=== PATIENT | male | born 1965 | race Caucasian/White ===

== ENCOUNTER → 2017-06-12 08:03 | Outpatient (CLI) | payer OTHER, SELFPAY ==
[2017-06-12 10:40] LABS: Hemoglobin A1c 10.6 % (4.2-6.3)
[2017-06-12 10:43] LABS: Microalbumin,Random Urine 37.6 mg/L (NO RANGE EST.); Microalbumin:Creatinine Ratio 91.7 mg/g CRE (<30 mg/g CRE)
[2017-06-12 11:06] LABS: ALB/GLOB Ratio 1.2 RATIO (0.9-2.4); AST(SGOT) 16 U/L (15-37); Alanine Aminotransfer ALT/SGPT 28 U/L (16-61); Albumin, Serum 3.9 g/dL (3.2-5.0); Alkaline Phosphatase 95 U/L (45-117); Anion Gap 8 (5-15); BUN 14 mg/dL (7-18); BUN/Creat Ratio 17.9 RATIO (10-20); Calcium,Total 8.7 mg/dL (8.5-10.1); Chloride 102 mmol/L (98-107); Cholesterol 174 mg/dL (200); Creatinine, Serum 0.78 mg/dL (0.70-1.30); EST Glomerular Filtration Rate 111 mL/min (>60); Est Glom Filt Rate - Afr Amer 135 mL/min (>60); Globulin 3.2 g/dL (2.2-4.2); Glucose 196 mg/dL (74-106); High Density Lipoprotein 35 mg/dL; Potassium 4.3 mmol/L (3.5-5.1); Protein, Total 7.1 g/dL (6.4-8.2); Sodium Level 133 mmol/L (136-145); Triglycerides 184 mg/dL; Very Low Density Lipoprotein 37 mg/dL (5-40)
== END ==
PROVIDERS: Family Provider Family Medicine; PCP Family Medicine; Visit Provider Family Medicine
DX: I10 Essential (primary) hypertension (principal); E11.9 Type 2 diabetes mellitus without complications; E03.9 Hypothyroidism, unspecified; E78.5 Hyperlipidemia, unspecified
CPT/HCPCS: 36415; 80053; 80061; 82043; 82570; 83036; 84443

== ENCOUNTER 2017-08-04 09:31 | Inpatient (IN) | payer OTHER, SELFPAY ==
[2017-08-04] VITALS (22 sets, daily range): BP systolic 106–164; BP diastolic 60–98; PULSE 53–93; RESP 10–21; TEMP 36.2–36.7; O2SAT 94–100; BMI 30.9; BMI 31.0
--- NOTE | 2017-08-04 09:50 | EKG12_ITS ---
Test Reason : CP Blood Pressure : / mmHG Vent. Rate : 077 BPM Atrial Rate : 077 BPM P-R Int : 180 ms QRS Dur : 114 ms QT Int : 384 ms P-R-T Axes : 024 022 -26 degrees QTc Int : 434 ms Normal sinus rhythm Nonspecific T wave abnormality Abnormal ECG Confirmed by ORLANDO QUACH, LILLIAM ([id number]), editor newspaper LUISA GABRIEL ([id number]) on 08/07/2017 8:41:32 AM Referred By: JAYSHREE Confirmed By:LILLIAM PERRY MD
--- NOTE | 2017-08-04 09:52 | ED.VISSUMM ---
- ER Visit Summary Date of Service: 08/04/17 Chief Complaint: Chest pain History of Present Illness: The patient is a 52 M presenting with chest pain. Patient states this has been intermittent for the last 2 weeks. He states it is starting to worsen over last 2 days. He has pain in the mid chest that radiates to the left shoulder. This is worsened with exertion. He states he goes on daily walks when he goes uphill he has been having increasing pain over the past 2 days. He has diaphoresis and shortness of breath associated with this. Currently he is pain-free. He has history of hypertension, diabetes, hypercholesterolemia, previous smoking. No PE/DVT risk factors. Physical Examination: Vitals are stable. Patient is afebrile. Alert no acute distress. HEENT exam is unremarkable. Neck is supple. Lungs are clear and equal bilaterally. Mild chest wall tenderness, no crepitus. Heart is regular rate and rhythm. Abdomen is soft nontender nondistended. Extremities are unremarkable. Skin is warm and dry. No focal neurologic deficit. Remainder of exam is unremarkable. Emergency Department Course and Treatment: Patient was given aspirin on arrival. EKG is sinus rate of 77 with lateral t wave flattening. Chest x-ray shows no acute process. CBC, chemistries unremarkable other than BUN 22, glucose 195. Troponin is negative. Patient declined pain medication due to remote history of addiction. He is resting comfortably on reevaluation. Discussed with the hospitalist for observation. Disposition: Observation Impression: Chest pain This note was generated with [employer] dictation software. It may contain incorrect words, spelling, and punctuation that were not noted in review of the chart prior to signing ED Disposition - Plan for ED Patient: Chief Complaint: Chest Pain Referrals: Mikey Rogers MD [Primary Care Provider] -
[2017-08-04 10:00] LABS: Absolute Lymphocyte Count 2.29 X10^3/ul (0.83-4.51); Absolute Neutrophil Count 7.1 X10^3/uL (2.0-7.7); Basophil# 0.02 X10^3/uL; Basophil% 0.2 % (0-1); Eosinophil# 0.05 X10^3/uL; Eosinophils% 0.5 % (0-5); Hemoglobin 14.4 g/dl (13.0-16.5); Lymphocyte # 2.29 X10^3/ul (4.0); Lymphocyte % 22.5 % (19-41); Mean Corp Hgb Conc 33.5 g/gl (32-36); Mean Corpuscular Hgb 28.6 pg (27.0-32.0); Mean Corpuscular Volume 85.5 fL (80-94); Monocyte% 6.9 % (0-10); Neutrophil # 7.05 X10^3/uL (2.7-7.7); Neutrophil % 69.3 % (47-70); Platelet Count 366 K/mm3 (150-450); RBC Distribution Width CV 13.9 % (11.6-14.6); RBC Distribution Width SD 43.4 fl (35.1-43.9); Red Blood Count 5.03 M/mm3 (4.6-6.2); White Blood Count 10.2 K/mm3 (4.4-11.0)
--- NOTE | 2017-08-04 10:00 | RAD_ITS ---
STUDY: X-RAY CHEST REASON FOR EXAM: Male, 52 years old. Chest pain. TECHNIQUE: Single AP portable view of the chest. COMPARISON: Comparison is made with prior study dated June 15, 2013. FINDINGS: EKG electrodes are seen. The lungs are clear and expanded. There is no demonstrated pleural abnormality. Normal size heart. Normal mediastinum and alberto. Normal visualized pulmonary arteries. Normal visualized aortic arch and descending thoracic aorta. There are diffuse degenerative changes of the visualized thoracic spine. Normal visualized ribs, clavicles, and shoulders. There is no demonstrated abnormality of the visualized soft tissue structures of the upper abdomen. RAD/Chest 1 View (Portable) IMPRESSION: No acute abnormality is present. Electronically Signed: Pola Funes MD at 10:30 EDT Tel [phone], Service support ,
[2017-08-04 10:02] LABS: POSITIVE COUNT NO; POSITIVE DIFFERENTIAL NO; POSITIVE MORPHOLOGY NO
[2017-08-04] MEDS: Aspirin 81 MG TAB.CHEW 324 MG PO (10:07)
[2017-08-04 10:16] LABS: Anion Gap 9 (5-15); BUN 22 mg/dL (7-18); BUN/Creat Ratio 23.4 RATIO (10-20); Calcium,Total 9.2 mg/dL (8.5-10.1); Chloride 101 mmol/L (98-107); Creatinine, Serum 0.94 mg/dL (0.70-1.30); EST Glomerular Filtration Rate 90 mL/min (>60); Est Glom Filt Rate - Afr Amer 109 mL/min (>60); Estimated Creatinine Clearance 84.84 ml/min; Glucose 195 mg/dL (74-106); Potassium 4.2 mmol/L (3.5-5.1); Sodium Level 139 mmol/L (136-145)
--- NOTE | 2017-08-04 11:28 | PCM.HP.STD ---
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 insulin use: without [place] use Diabetes mellitus complication status: with unspecified complications Qualified Code(s): E11.8 - Type 2 diabetes mellitus with unspecified complications (3) HTN (hypertension) Status: Chronic Qualifiers: Hypertension type: essential hypertension Qualified Code(s): I10 - Essential (primary) hypertension (4) Mixed hyperlipidemia Status: Chronic (5) Obesity (BMI 30-39.9) Status: Chronic Qualifiers: Obesity type: unspecified obesity type Obesity classification: adult class 1 (BMI 30 - 34.9) Body mass index: BMI 31.0-31.9 (6) Barretts esophagus Status: Chronic Qualifiers: Beaulieu's esophagus type: without dysplasia Qualified Code(s): K22.70 - Beaulieu's esophagus without dysplasia History of Present Illness Date of Admission: 08/04/17 Chief Complaint: Chest pain - 1 day The patient is a 52 year old M with PMHx of Type 2 DM, hypertension, Beaulieu's esophagus, no hx of cardiac disease, who has been having episodes of chest pain ongoing for days. He had called his primary care doctor and was told to switch his day omeprazole to evening. This seemed to have helped a little bit. He gets severe chest discomfort when he walks and it is relieved with rest. Pain starts in the epigastric region and radiates up his sternum, into his throat and then into his left shoulder and arm with associated numbness. It is not associated with nausea or vomiting or diaphoresis. It has been associated with episodes of syncope that lasts every few seconds. He has had more than 4 episodes of such. Some of these episodes have been followed by incontinence of stool but no consisting of formula for the month. His describes them as lasting for a few seconds with complete unresponsiveness. He had a primary care doctor appointment on but with the pain getting more frequent, he decided to come to the ED. EKG shows flattening of the T waves in inferior leads compaired to previous EKG. He had pain in the ED that did not go away with morphine he was given in the ED on the way to the floor. His admitting blood work showed unremarkable CBCD, BMP showed Bun 22, Cr 0.94, glucose 185, troponins was 0.015. On the floor, his pain was 10/10, got a dose of sublingual nitro that took away his pain for a while. HIs vitals were unremarkable. He was subsequently put on a nitropaste which helped the pain a lot. He denied nausea or vomiting. 20 minutes later, patient started to be diaphoretic and bradycardic. His telemetry showed ST segment elevation in leads II, II, AVF. A STEMI alert was called and patient given loading dose of Brilinta 180mg po x1, sent to blood bank laboratory professional. Past Medical History Past Medical History (Chronic Problems): Chronic Problems Barretts esophagus (Chronic) Obesity (BMI 30-39.9) (Chronic) Diabetes mellitus, type II (Chronic) Mixed hyperlipidemia (Chronic) HTN (hypertension) (Chronic) Allergies niacin Allergy (Verified 08/04/17 09:36) Shortness of breath Home Medications: Ambulatory Orders Medication Instructions Recorded Atorvastatin Calcium 40 mg PO QHS 08/04/17 Fenofibrate [Tricor] 145 mg PO DAILY 08/04/17 Glimepiride [Amaryl] 1 mg PO DAILY 08/04/17 Insulin Glargine,Hum.rec.anlog 10 unit SQ QHS 08/04/17 [Basaglar Kwikpen U-100] Lisinopril [Zestril] 20 mg PO DAILY 08/04/17 Metformin HCl [Glucophage] 1,000 mg PO BIDCM 08/04/17 Omeprazole 40 mg PO DAILY 08/04/17 Verapamil HCl [Verelan Pm] 200 mg PO DAILY 08/04/17 Surgical History: no surgical history Psychiatric History: No pertinent psych hx Lives: Spouse/ Significant Other Smoking Status: Former smoker Tobacco Use: Non-smoker Alcohol: None Drugs: None - *Family History Paternal History Items: Cancer - esophageal Maternal History Items: Heart Disease Review of Systems Constitutional: Denies: Anorexia, Chills, Fever, Night Sweats, Malaise, Weakness, Weight Change Eyes: Denies: Blurred vision, Cataracts, Conjunctivae Inflammation, Drainage HEENT: Denies: Difficulty Hearing, Difficulty Swallowing, Head Aches, Hearing Changes, Nasal bleeding, Nasal Congestion, Sinus Congestion, Sinus Drainage Cardiovascular: Reports: Chest Pain, Chest Pressure, Chest Tightness, Light Headedness, Syncope. Denies: Claudication, Orthopnea, Palpitations, Paroxysmal Noc. Dyspnea Respiratory: Reports: Shortness of Breath, Shortness of breath upon exertion. Denies: Cough, Hemoptysis, Pleuritic Pain, Shortness of breath at rest, Sputum production Gastrointestinal: Denies: Abdominal Pain, Constipation, Hematemesis, Nausea, Vomiting Genitourinary: Denies: Dysuria, Frequency, Incontinence Musculoskeletal: Denies: Joint Pain, Joint stiffness, Joint swelling, Joint Tenderness Skin: Denies: Rash, Wounds Neurological: Denies: Numbness, Tingling, Focal weakness Psychiatric: Denies: Anxiety, Depression, Homicidal Ideations, Suicidal Ideations Hematologic/ Lymphatic: Denies: Easy Bruising, Easy Bleeding VTE Information - Inpt Only VTE Present on Admission: No VTE Pharm Prophylaxis ordered?: Yes - Physical Exam General: Alert, Oriented x3, Cooperative HEENT: Atraumatic, PERRLA, EOMI, Normocephalic Neck: Supple, No JVD, Negative Carotid Bruits Lungs: Clear to auscultation, Normal air movement Cardiovascular: Regular rate, No murmurs Abdomen: Bowel Sounds Present, Soft, Non Tender Extremities: No edema, Capillary Refill Less than 3 Seconds Skin: No rashes, No breakdown Musculoskeletal: No Tenderness to Palpation of Joints or Extremities Neurological: Cranial nerves II-XII grossly intact Psych/Mental Status: Normal Affect, Appropriate Vital Signs Temp Pulse Resp BP Pulse Ox 97.8 F 75 16 135/91 H 96 08/04/17 09:32 08/04/17 11:05 08/04/17 11:05 08/04/17 11:05 08/04/17 11:05 Oxygen Delivery Method Room Air Weight: 87.09 kg Body Mass Index (BMI) 30.9 Finger Stick Blood Glucose 79 Laboratory Tests Past 24 Hrs 08/04/17 08/04/17 09:40 09:40 WBC 10.2 RBC 5.03 Hgb 14.4 Hct 43.0 MCV 85.5 MCH 28.6 MCHC 33.5 RDW 13.9 RDW Differential 43.4 Plt Count 366 MPV 9.0 Immature Gran % (Auto) 0.600 Neut % (Auto) 69.3 Lymph % (Auto) 22.5 Crook % (Auto) 6.9 Eos % (Auto) 0.5 Baso % (Auto) 0.2 Absolute Neuts (auto) 7.1 Absolute Lymphs (auto) 2.29 Total Counted Not Reportable Sodium 139 Potassium 4.2 Chloride 101 Carbon Dioxide 29.0 Anion Gap 9 BUN 22 H Creatinine 0.94 Estim Creat Clear Calc 84.84 Est GFR (MDRD) Af Amer 109 Est GFR (MDRD) Non-Af 90 BUN/Creatinine Ratio 23.4 H Glucose 195 H Calcium 9.2 Troponin I < 0.015 Assessment/Plan All Active Problems STEMI (ST elevation myocardial infarction) (Acute) Diabetes mellitus, new onset (Acute) Chest pain (Acute) Accelerated hypertension (Acute) 52 year old M with PMHx of Type 2 DM, hypertension, Beaulieu's esophagus, no hx of cardiac disease, who has been having episodes of chest pain ongoing for days. Chest pain starts in the epigastric region and radiates up his sternum, into his throat and then into his left shoulder and arm with associated numbness. It is not associated with nausea or vomiting or diaphoresis. It has been associated with episodes of syncope that lasts every few seconds. He has had more than 4 episodes of such. 1. Acute STEMI (ASAEL score 2), s/p cardiac cath, findings show 99% distal RCA stenosis, 80% prox/mid Left circumflex stenosis, 90% ostial marginal stenosis, s/p RCA stent, received Brilinta 180mg po x 1, will follow with aspirin, brilinta, statin, 2d-echo, on lipid profile in am, post cath protocol. 2. 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 2. Type 2 DM, HbA1c 10.9, on insulin, metformin and glimepiride, will hold metformin, continue with accucheks, and ISS 3. Hypertension, controlled on Lisinopril, will continue to monitor vitals. 4. Hyperlipidemia, on statin, fenofibrate 5. Beaulieu's esophagus, will put on PPI BID 6. DVT PPx - Lovenox SC Code Visit Inpatient E&M: 20954 Init Hosp L3
[2017-08-04] MEDS: Morphine 4 MG/ML Syringe IV (11:45)
[2017-08-04] MEDS: Ondansetron 4 MG/2 ML Vial IV (11:45)
--- NOTE | 2017-08-04 12:11 | ECHOD_ITS ---
Reason For Study: CHEST PAIN Procedure This was a 2D Doppler, Color Flow transthoracic echocardiogram. Exam performed portable in ICU/CCU. Left Ventricle Normal size and thickness. The estimated ejection fraction is 65 %. Normal diastology for age. No regional wall motion abnormalities noted. Right Ventricle Normal size and thickness. Normal systolic function. Atria Normal left atrium. Normal right atrium. Normal atrial septum. Mitral Valve The mitral valve is structurally normal. No prolapse or stenosis seen. No mitral valve insufficiency. Tricuspid Valve Normal tricuspid valve. Trivial tricuspid valve insufficiency. Right ventricular systolic pressure estimated to be 23 mmHg. Aortic Valve Trisinus/trileaflet aortic valve. Pulmonic Valve Normal pulmonic valve. Great Vessels Normal aortic root. Normal arch. Normal inferior vena cava. Inferior vena cava collapse with sniff. Pericardium/Pleural No pericardial effusion. MMode/2D Measurements & Calculations LVIDd: 4.2 cm IVSd: 0.93 cm Ao root diam: 3.1 cm LVIDs: 3.1 cm LVPWd: 1.1 cm LA dimension: 3.6 cm RVDd: 2.9 cm FS: 27.0 % LAV(MOD-bp): 45.7 ml LA A4 area: 18.0 cm2 RA A4 area: 11.5 cm2 LAV(MOD-bp) Indexed: 23.3 ml/m2 LAV(MOD-sp2): 40.7 ml LAV(MOD-sp4): 50.0 ml Doppler Measurements & Calculations MV E max arnaldo: 76.7 cm/sec Lat Peak E' Arnaldo: 9.4 cm/sec Med Peak E' Arnaldo: 8.1 cm/sec MV A max arnaldo: 67.6 cm/sec E/E' lat: 8.2 E/E' med: 9.4 MV E/A: 1.1 Ao V2 max: 125.3 cm/sec LV V1 max: 120.9 cm/sec PA V2 max: 93.2 cm/sec Ao max P.3 mmHg LV V1 max P.8 mmHg TR max arnaldo: 213.6 cm/sec TR max P.3 mmHg Interpretation Summary The estimated ejection fraction is 65 %. Normal diastology for age. Trivial tricuspid valve insufficiency. Right ventricular systolic pressure estimated to be 23 mmHg. Compared to echo report dated 05/25/2013, no appreciable changes noted. Ordering Physician: ANJALI ANTHONY Referring Physician: LORE JORDAN Performed By: Sandra Latham, BASHIR, RVT
[2017-08-04] MEDS: Nitroglycerin Oint 1 INCH PACKET TRANSDERM. (12:25)
--- NOTE | 2017-08-04 13:30 | CASEMGMT ---
According to [facility] website, the following are in-network tertiary facilities: [facility], [place], [facility], [place], [facility], [facility], [facility], [place], and . Luc CABRAL CM
--- NOTE | 2017-08-04 13:46 | CASEMGMT ---
Social Work SW responded to STEMI Alert. Pt sitting outside pt room while staff was with pt. Support provided to pt . Offered to call someone for pt and she declined as she wanted to make phone calls herself. Pt scheduled for colonoscopy at [facility] tomorrow and she is requesting SW cancel this appointment for her. Chaplain Wilkes approached pt and offered to accompany her to [facility] waiting area. Phone call placed to Cari in [facility] and informed pt Pearl will not be at colonoscopy tomorrow. EULALIA Aguilar
--- NOTE | 2017-08-04 14:14 | CHAPLAIN ---
Type of Pastoral Visit ___ Initial Visit ___ Follow-up Visit ___ On-call Visit ___ General Patient Visit ___ Spiritual Assessment ___ Family Conference ___ Bereavement ___ Rapid Response ___ Code Blue _x - STEMI to [facility] - Other (describe below) Pastoral Care Referral From ___ Patient _x__ Family ___ Nurse ___ Physician ___ Corrections Counselor ___ Brick Setter Operator _x__ Other (describe below) Sacrament/Intervention _x__ Active listening ___ Anointing ___ Yazidi ___ Bereavement ___ Communion _x__ Chloé exploration ___ _x__ Life review _x__ Prayer ___ Reconciliation ___ Sacrament of Sick _x__ Supportive presence ___ Wedding _x__ Other (describe below) Pastoral Comments met with spouse during STEMI and escorted her to [facility]; gave presence, made phone call to zoroastrianism of pt; met other family members as they arrived; explained timing of interventions; talked about patient and life; offered prayer; as clergy members of pt arrived gave space for them to agricultural engineering technicians to family; heard good report during procedure and assumed situation was well
--- NOTE | 2017-08-04 14:45 | EKG12_ITS ---
Test Reason : CP Blood Pressure : / mmHG Vent. Rate : 055 BPM Atrial Rate : 055 BPM P-R Int : 170 ms QRS Dur : 116 ms QT Int : 444 ms P-R-T Axes : 028 028 067 degrees QTc Int : 424 ms Sinus bradycardia Suspect inferior infarct acute Reconfirmed by ORLANDO QUACH, LILLIAM ([id number]), electronic news gathering editor ABDI BANUELOS ([id number]) on 08/17/2017 8:19:08 AM Referred By: Confirmed By:LILLIAM PERRY MD
--- NOTE | 2017-08-04 14:46 | EKG12_ITS ---
Test Reason : CP Blood Pressure : / mmHG Vent. Rate : 066 BPM Atrial Rate : 066 BPM P-R Int : 168 ms QRS Dur : 110 ms QT Int : 428 ms P-R-T Axes : 005 020 -04 degrees QTc Int : 448 ms Normal sinus rhythm Nonspecific T wave abnormality Abnormal ECG When compared with ECG of 04-AUG-2017 12:59, MANUAL COMPARISON REQUIRED, DATA IS UNCONFIRMED Confirmed by ORLANDO QUACH, LILLIAM ([id number]), visual effects editor LUISA GABRIEL ([id number]) on 08/07/2017 9:46:54 AM Referred By: Confirmed By:LILLIAM PERRY MD
--- NOTE | 2017-08-04 14:53 | PCM.CONS.C ---
Problem List (1) STEMI (ST elevation myocardial infarction) Status: Acute Reason for Consult Date of Consultation: 08/04/17 History of Present Illness: The patient is a 52 year old M with past medical history significant for diabetes mellitus, dyslipidemia, hypertension and Beaulieu's esophagus. For the past few days, he has been having anterior chest discomfort off and on. This is particularly precipitated with activity. Relieved with rest. He also had resting episodes last night. Per patient, he thought it was his Beaulieu's esophagus. However this morning, he finally decided to come to the emergency room. Initial EKG was unremarkable. The patient was admitted to the floor. On the floor, the patient had more symptoms. Another EKG was done. It showed acute ST elevations in the inferior leads consistent with acute inferior ST elevation myocardial infarction. Subsequently a STEMI alert was called. Patient denies any previous history of coronary artery disease. No previous history of angina pectoris. [] Past Medical History Allergies/Adverse Reactions: Allergies bee venom protein (honey bee) Allergy (Severe, Verified 08/04/17 12:41) Angioedema niacin Allergy (Verified 08/04/17 09:36) Shortness of breath Home Medications: Ambulatory Orders Medication Instructions Recorded Atorvastatin Calcium 40 mg PO QHS 08/04/17 Fenofibrate [Tricor] 145 mg PO DAILY 08/04/17 Glimepiride [Amaryl] 1 mg PO DAILY 08/04/17 Insulin Glargine,Hum.rec.anlog 10 unit SQ QHS 08/04/17 [Basaglar Kwikpen U-100] Lisinopril [Zestril] 20 mg PO DAILY 08/04/17 Metformin HCl [Glucophage] 1,000 mg PO BIDCM 08/04/17 Omeprazole 40 mg PO DAILY 08/04/17 Verapamil HCl [Verelan Pm] 200 mg PO DAILY 08/04/17 Past Medical History (Chronic Problems): Chronic Problems Barretts esophagus (Chronic) Obesity (BMI 30-39.9) (Chronic) Diabetes mellitus, type II (Chronic) Mixed hyperlipidemia (Chronic) HTN (hypertension) (Chronic) Surgical History: no surgical history Psychiatric History: No pertinent psych hx - *Family History Paternal History Items: Cancer - esophageal Maternal History Items: Heart Disease Lives: Spouse/ Significant Other Smoking Status: Former smoker Tobacco Use: Non-smoker Alcohol: None Drugs: None Review of Systems - Review of Systems General: Denies: Fever, Malaise, Chills, Anorexia, Weight Loss HEENT: Denies: Head Aches, Sore Throat Cardiovascular: Reports: Chest Discomfort at Rest, Chest Discomfort with Exertion Respiratory: Denies: Cough, Hemoptysis Gastrointestinal: Reports: - - History of Beaulieu's esophagus, diagnosed a few years ago.. Denies: Epigastric Discomfort, Hematemesis, Hematochezia, Melena Muscoloskeletal: Denies: Myalgias Skin: Denies: Jaundice Neurological: Denies: History of TIA, History of CVA Endocrine: Denies: Heat Intolerance, Cold Intolerance Hematologic/ Lymphatic: Denies: Easy Brusing, Easy Bleeding Subjectve: Appeared anxious. Objective: Vital Signs Temp Pulse Resp BP Pulse Ox 98.0 F 68 18 140/98 H 98 08/04/17 12:05 08/04/17 12:05 08/04/17 12:05 08/04/17 12:05 08/04/17 12:05 Oxygen Delivery Method Room Air Weight: 87.09 kg Body Mass Index (BMI) 30.9 General: Awake, Alert, Oriented x 3, - HEENT: Atraumatic, Normocephalic Oral: Moist Mucosa Neck: No JVD Lungs: Clear to auscultation Cardiovascular: Regular Rhythm, Normal S1, Normal S2 Vascular: No Carotid Bruits Abdomen: Bowel Sounds Present, Soft Extremities: No edema Neurological: No Focal Motor or Sensory Deficit Psych/Mental Status: Appropriate Rhythm: Normal sinus rhythm EKG: First EKG showed normal sinus rhythm with no acute ST T-wave changes. Subsequent EKG on the floor showed acute ST elevation in the inferior leads consistent with acute myocardial infarction Assessment/Plan 1. Acute inferior myocardial infarction. Patient was recommended emergent coronary angiography and possible revascularization. After obtaining informed consent, the patient was brought to the cardiac catheterization lab. Coronary angiography revealed about 99% occlusion in the mid right coronary artery. There is also noted to be a calcified 80% lesion in the distal RCA. Successful percutaneous revascularization was performed with balloon angioplasty and a 3.0 x 38 mm Synergy and a 3.0 x 16 mm Synergy stent was successfully deployed. Postdilatation was performed using a 3.25 mm balloon at high pressures. Excellent results were noted next 2. Continue aspirin lifelong. Brilinta treatment for at least one year 3. Patient has residual lesion in the proximal left circumflex coronary artery as well as the ostial first obtuse marginal branch. Possible staged intervention to the proximal left circumflex as outpatient 4. Start on beta blockers. Discontinue verapamil. Start on amlodipine 5. Lipid management as per primary care physician. Recommend target LDL cholesterol less than 100 mg/dL 6. Hypertension. Continue ANISHA inhibition. Start on beta blockers. Discontinue verapamil. Start on amlodipine 7. Normal LV systolic function graft 8. History of Beaulieu's esophagus. Continue patient's proton pump inhibitor
[2017-08-04 15:01] LABS: ACT Activated Clotting Time 324 sec (74-137)
--- NOTE | 2017-08-04 15:23 | CL.I_ITS ---
Patient Name: ASIF CASE Study Date: 08/04/2017 Performing: Leoncio Mills MD Ht: 66 inches 168 cm : 1965 Wt: 192.1 lbs 87 kg Age: 52 Gender: male BSA: 1.97 PROCEDURE(S) PERFORMED [id number], JOSEPH AND/OR PTCA, ARTERY OR GRAFT, SINGLE VESSEL [id number] CLINICAL PROFILE AND CO-MORBIDITIES Heart Failure: None Angina Classification Anginal Classification w/in 2 Weeks: CCS IV CAD Presentations: STEMI. Symptom onset Date/Time: 08/04/2017 14:20:00 Time Estimated CONCLUSIONS 99% distal RCA 80% Prox/Mid LCX, 90% ostial OM2 LVEF 60% RECOMMENDATIONS ASA Indefinitley Brilinta for at least 12 months Staged PCI LCX as OP DESCRIPTION OF PROCEDURE The patient arrived to the procedure lab. The risks and benefits of the procedure as well as a full d escription of our services here and lack of surgical backup were fully explained to the patient and/o r their significant other prior to the catheterization. The Timeout was completed, verifying the rosalind ect patient and procedure. The patient's procedural site was prepped and draped in the usual fashion. Local anesthetic was given subcutaneously to right radial region with Lidocaine 2%. Using a modified Seldinger technique, arterial access was obtained via the right radial artery, a 6Fr sheath was inse rted.. Right Coronary Artery selective angiography was then performed in multiple views using a 5 Fr . 4.0 [place] catheter. Left Coronary Artery selective angiography was performed in multiple views usin g a 5 Fr. JL3.5 catheter. Left Ventriculography was performed in WELCH projection using a 5 Fr. Pigtail catheter. LV to AO pullback pressures were then recorded JR 4.0 guide Guide catheter was inserted and engaged into the RCA. runthrough wire Guide wire was adv anced to the RCA. Angiogram performed pre balloon dilatation. 3.0 x 20 nc emerge Balloon catheter wa s inserted. Balloon catheter was advanced across lesion in the right coronary, distal. PTCA balloon i nflated at 6 atms for 11 secs. PTCA balloon inflated at 6 atms for 10 secs. 3.0 x 38 resolute Drug El uting stent was inserted. Balloon catheter was reinserted. Balloon catheter was advanced across lesio n in the right coronary, distal. PTCA balloon inflated at 12 atms for 10 secs. PTCA balloon inflated at 12 atms for 12 secs. PTCA balloon inflated at 12 atms for 15 secs. PTCA balloon inflated at 12 richard s for 15 secs. 3.0 x 38 synergy Drug Eluting stent was inserted. Drug Eluting stent was advanced acro ss the lesion in the right coronary, distal. Angiogram performed pre stent deployment. Angiogram perf ormed post stent deployment. 3.0 x 16 synergy Drug Eluting stent was inserted. Angiogram performed pr e stent deployment. Drug Eluting stent was advanced across the lesion in the RCA. 3.0 x20 NC emerge B alloon catheter was inserted. Balloon catheter was advanced across lesion in the right coronary, dist al. Angiogram performed pre balloon dilatation. Angiogram performed post balloon dilatation. 3.25 x 2 0 nc emerge Balloon catheter was inserted and advance to distal rca. Angiogram performed post balloon dilatation. The arterial sheath was pulled and a TR Band was applied for hemostasis CORONARY ANGIOGRAPHY DOMINANCE: Right Dominant LEFT HEART ASSESSMENT Left Ventricular Ejection Fraction: by LV Gram 60 % LEFT MAIN: 20% Mid LEFT ANTERIOR DECENDING ARTERY: 30% proximal CIRCUMFLEX ARTERY: 80% Prox/Mid. 90% ostial OM2 RIGHT CORONARY ARTERY: 50% Prox, 60% Mid Prox. 99% distal INTERVENTION INFORMATION LESION SITE: RCA (Distal) Lesion Complexity: High/C Pre Stenosis: 99 % Pre intervention ASAEL flow: 3 PROCEDURE: Drug Eluting Stent with pre and post dilatation Post Stenosis: 0 % Post intervention ASAEL flow: 3 Lesion Devices: Terumo .014 Runthrough Extra Floppy 180cm straight Medtronic 6 Fr JR4.0 100cm Guide Catheter Medtronic Resolute RX JOSEPH 3.0x38 Marky Sci NC EMERGE MR 3.00x20 BALLOON Marky Sci Synergy MR JOSEPH 3.00x38 Marky Sci Synergy MR JOSEPH 3.00x16 Marky Sci NC EMERGE MR 3.25x20 BALLOON COMPLICATIONS No Complications PROCEDURE MEDICATIONS Fentanyl 25 mcg IV Versed 1 mg IV Fentanyl 25 mcg IV Oxygen: 2 L/min via nasal cannula Angiomax Bolus 13.5 ml's 08/04/2017 13:41:24 Angiomax 31.5 ml/hr @ 08/04/2017 13:42:00 Nitro Patch Left anterior chest on arrival 08/04/2017 13:16:24 Nitro 200 mcg IC 08/04/2017 14:00:45 Nitro Patch removed from left anterior chest 08/04/2017 14:02:00 Nitro 200 mcg IC 08/04/2017 14:19:18 Verapamil 2.5mg, Ntg 100mcgs, given IA 08/04/2017 13:28:21 IV Bolus: .9 NaCl 500 ml total 08/04/2017 13:48:37 IV Fluids: .9 NaCl decreased to 100 ml/hr 08/04/2017 13:48:51 SUMMARY OF HEMODYNAMIC DATA Time AIR REST ECG 13:18:20 AO 133/83 (108) SA 13:29:48 LV 138/2, 16 13:30:02 LV 135/2, 17 13:30:08 LV 117/5, 18 14:30:21 LV 116/5, 20 14:30:29 LVp 109/12, 25 14:31:32 AOp 0/0 (57) 14:31:37 Signed By Leoncio Mills MD On 08/05/2017 08:10:06 Signed By Leoncio Mills MD On 08/04/2017 15:23:03 Leoncio Mills MD
--- NOTE | 2017-08-04 16:55 | PCM.CONS.GEN ---
Reason for Consult Date of Consultation: 08/04/17 Reason for Consultation: seizure disorder History of Present Illness: The patient is a 52 year old male who is now s/p stemi, reports long history of spells since childhood described as blackout spells. at some point many years ago , rn noted spell associated with nausea, stiffness, and diaphoresis and occasional urinary incontinence, never any tongue biting. which was suspicious for sz, subsequently saw dr connor who diagnosed with seizure disorder and was treated with tegretol for 3 yrs then stopped. still has spells associate with pain. doesnt remember what tests were performed by dr connor. discussed with by phone who describes never any tongue biting or nocturnal spells. reports spells triggered by severe pain associated with stiffening, no shaking. The patient is a 52 year old M with PMHx of Type 2 DM, hypertension, Beaulieu's esophagus, no hx of cardiac disease, who has been having episodes of chest pain ongoing for days. He had called his primary care doctor and was told to switch his day omeprazole to evening. This seemed to have helped a little bit. He gets severe chest discomfort when he walks and it is relieved with rest. Pain starts in the epigastric region and radiates up his sternum, into his throat and then into his left shoulder and arm with associated numbness. It is not associated with nausea or vomiting or diaphoresis. It has been associated with episodes of syncope that lasts every few seconds. He has had more than 4 episodes of such. Some of these episodes have been followed by incontinence of stool but no consisting of formula for the month. His describes them as lasting for a few seconds with complete unresponsiveness. He had a primary care doctor appointment on but with the pain getting more frequent, he decided to come to the ED. EKG shows flattening of the T waves in inferior leads compaired to previous EKG. He had pain in the ED that did not go away with morphine he was given in the ED on the way to the floor. His admitting blood work showed unremarkable CBCD, BMP showed Bun 22, Cr 0.94, glucose 185, troponins was 0.015. On the floor, his pain was 10/10, got a dose of sublingual nitro that took away his pain for a while. HIs vitals were unremarkable. He was subsequently put on a nitropaste which helped the pain a lot. He denied nausea or vomiting. 20 minutes later, patient started to be diaphoretic and bradycardic. His telemetry showed ST segment elevation in leads II, II, AVF. A STEMI alert was called and patient given loading dose of Brilinta 180mg po x1, sent to laboratory aide. Past Medical History Past Medical History (Chronic Problems): Chronic Problems Barretts esophagus (Chronic) Obesity (BMI 30-39.9) (Chronic) Diabetes mellitus, type II (Chronic) Mixed hyperlipidemia (Chronic) HTN (hypertension) (Chronic) Allergies bee venom protein (honey bee) Allergy (Severe, Verified 08/04/17 12:41) Angioedema niacin Allergy (Verified 08/04/17 09:36) Shortness of breath Home Medications: Ambulatory Orders Medication Instructions Recorded Atorvastatin Calcium 40 mg PO QHS 08/04/17 Fenofibrate [Tricor] 145 mg PO DAILY 08/04/17 Glimepiride [Amaryl] 1 mg PO DAILY 08/04/17 Insulin Glargine,Hum.rec.anlog 10 unit SQ QHS 08/04/17 [Basaglar Kwikpen U-100] Lisinopril [Zestril] 20 mg PO DAILY 08/04/17 Metformin HCl [Glucophage] 1,000 mg PO BIDCM 08/04/17 Omeprazole 40 mg PO DAILY 08/04/17 Verapamil HCl [Verelan Pm] 200 mg PO DAILY 08/04/17 Surgical History: no surgical history Psychiatric History: No pertinent psych hx Lives: Spouse/ Significant Other Smoking Status: Former smoker Tobacco Use: Non-smoker Alcohol: None Drugs: None - *Family History Paternal History Items: Cancer - esophageal Maternal History Items: Heart Disease Review of Systems Constitutional: Denies: Chills, Fever, Weight Change HEENT: Denies: Head Aches, Sinus Congestion, Sinus Drainage Cardiovascular: Denies: Chest Pain, Palpitations Respiratory: Denies: Cough, Shortness of breath at rest, Sputum production Gastrointestinal: Denies: Abdominal Pain, Nausea, Vomiting Genitourinary: Denies: Dysuria Musculoskeletal: Denies: Joint Pain, Joint Tenderness Skin: Denies: Rash, Wounds Neurological: Denies: Numbness, Tingling, Focal weakness Psychiatric: Denies: Anxiety, Depression, Homicidal Ideations, Suicidal Ideations Hematologic/ Lymphatic: Denies: Easy Bruising, Easy Bleeding - Physical Exam General: Alert, Oriented x3, Cooperative HEENT: Atraumatic, PERRLA, EOMI, Normocephalic Neurological: Cranial nerves II-XII grossly intact, Deep Tendon Reflexes 2+/4 and Symmetrical, Neuro grossly intact, Motor Exam 5/5 strength throughout Psych/Mental Status: Normal Affect, Appropriate Vital Signs Temp Pulse Resp BP Pulse Ox 36.2 C L 83 10 L 164/97 H 99 08/04/17 15:16 08/04/17 16:30 08/04/17 16:30 08/04/17 16:30 08/04/17 16:30 Oxygen Flow Rate (L/min) 2 Oxygen Delivery Method Room Air Laboratory Tests Past 24 Hrs 08/04/17 14:31 Activated Clotting Time 324 H Laboratory Results - last 24 hr 08/04/17 08/04/17 08/04/17 09:40 09:40 14:31 WBC 10.2 RBC 5.03 Hgb 14.4 Hct 43.0 MCV 85.5 MCH 28.6 MCHC 33.5 RDW 13.9 RDW Differential 43.4 Plt Count 366 MPV 9.0 Immature Gran % (Auto) 0.600 Neut % (Auto) 69.3 Lymph % (Auto) 22.5 [place] % (Auto) 6.9 Eos % (Auto) 0.5 Baso % (Auto) 0.2 Absolute Neuts (auto) 7.1 Absolute Lymphs (auto) 2.29 Total Counted Not Reportable Activated Clotting Time 324 H Sodium 139 Potassium 4.2 Chloride 101 Carbon Dioxide 29.0 Anion Gap 9 BUN 22 H Creatinine 0.94 Estim Creat Clear Calc 84.84 Est GFR (MDRD) Af Amer 109 Est GFR (MDRD) Non-Af 90 BUN/Creatinine Ratio 23.4 H Glucose 195 H Calcium 9.2 Troponin I < 0.015 Current Home Med List Medication Instructions Recorded Confirmed Type Atorvastatin Calcium 40 mg PO QHS 08/04/17 08/04/17 History Fenofibrate [Tricor] 145 mg PO DAILY 08/04/17 08/04/17 History Glimepiride [Amaryl] 1 mg PO DAILY 08/04/17 08/04/17 History Insulin Glargine,Hum.rec.anlog 10 unit SQ QHS 08/04/17 08/04/17 History [Sophieagldayami Marvinpen U-100] Lisinopril [Zestril] 20 mg PO DAILY 08/04/17 08/04/17 History Metformin HCl [Glucophage] 1,000 mg PO BIDCM 08/04/17 08/04/17 History Omeprazole 40 mg PO DAILY 08/04/17 08/04/17 History Verapamil HCl [Verelan Pm] 200 mg PO DAILY 08/04/17 08/04/17 History Current Medications Generic Name Dose Route Start Last Admin Trade Name Freq PRN Reason Stop Dose Admin Acetaminophen 650 mg 08/04/17 12:11 Tylenol PO Q6H PRN PRN Mild Pain (1-3)/Temp > 100.7 F Amlodipine Besylate 5 mg 08/05/17 10:00 Norvasc PO DAILY [facility] Aspirin 81 mg 08/05/17 08:00 Aspirin, Baby PO DAILY@0800 [facility] Atorvastatin Calcium 80 mg 08/04/17 22:00 Lipitor PO QHS [facility] Atropine Sulfate 0.5 mg 08/04/17 14:44 IV UD PRN HR <50 bpm Bisacodyl 5 mg 08/04/17 12:11 Dulcolax PO DAILY PRN PRN Constipation Enoxaparin Sodium 40 mg 08/05/17 06:00 Lovenox SC DAILY@0600 [facility] Fenofibrate 145 mg 08/05/17 08:00 Tricor PO DAILY@0800 [facility] Glimepiride 1 mg 08/05/17 08:00 Amaryl PO DAILY@0800 [facility] Pantoprazole Sodium 40 mg/ 110 mls @ 330 mls/hr 08/04/17 13:00 Sodium Chloride IV Q12 [facility] Sodium Chloride 1,000 mls @ 150 mls/hr 08/04/17 14:45 IV 08/04/17 21:24 .Q6H40M [facility] Insulin Glargine 10 units 08/05/17 22:00 Lantus (Bkc) SC DAILY@2200 [facility] Lisinopril 20 mg 08/05/17 10:00 Zestril PO DAILY [facility] Magnesium Hydroxide 30 ml 08/04/17 12:11 Milk Of Magnesia PO DAILY PRN Constipation Metformin HCl 1,000 mg 08/04/17 17:00 08/04/17 15:37 Glucophage PO Not Given [facility] Metoprolol Tartrate 25 mg 08/04/17 22:00 Lopressor (Beta Courtney) PO BID [facility] Morphine Sulfate 1 mg 08/04/17 12:11 IV Q4H PRN PRN SEVERE PAIN (6-1010) Psyllium Hydrophilic Mucilloid 1 packet 08/04/17 12:11 Metamucil PO DAILY PRN PRN CONSTIPATION Sodium Chloride 500 ml 08/04/17 14:44 IV BOLUS PRN VASO-VAGAL PROTOCOL Sodium Chloride 5 - 30 ml 08/04/17 15:36 IV UD PRN SALINE FLUSH Ticagrelor 90 mg 08/04/17 22:00 Brilinta PO BID [facility] Assessment/Plan All Active Problems STEMI (ST elevation myocardial infarction) (Acute) Diabetes mellitus, new onset (Acute) Chest pain (Acute) Accelerated hypertension (Acute) seizures, previously diagnosed as reflex seizures due to pain suspect syncopal seizure no rx unless sz without painful stimulus
--- NOTE | 2017-08-04 17:01 | PCM.CON.CC ---
Reason for Consult Date of Consultation: 08/04/17 Reason for Consultation: ST elevation CT/bradycardia History of Present Illness: The patient is a 52 year old M, with a past medical history significant for type 2 diabetes mellitus, hypertension, Beaulieu's esophagus and questionable seizures who presented to [facility] on 626 secondary to 1 day history of chest pain. Patient reports on the night prior to presentation he developed significant chest pain in the center of his chest that radiated to his left shoulder and down the arm. Patient had attempted to take some omeprazole to see if this would help. Patient thought this was epigastric in nature and was associated with episodes of syncope and nausea. In the emergency room patient was triaged for chest pain and then admitted to the PCU for further monitoring. I was called emergently to the patient's room at approximately 1 PM secondary to acute onset of crushing chest pain, diaphoresis and appearing pale. Patient reportedly developed bradycardia just before the symptoms with a heart rate of approximately 32. Telemetry showed elevated ST elevations in the inferior leads. On my entering the room, Dr. Jacobs was at the base of the bed. Patient was noted to be diaphoretic and pale. No emesis was noted. EKG was just being completed showing an inferior ST elevation CT. This rapidly recovered over the course of 60 seconds and a repeat EKG was obtained showing normalization of inferior leads. Given patient's symptomatic nature, a ST elevation CT team was activated. Patient was personally escorted to the Process Control Specialist. Interventionalist was notified. Patient was given a loading dose of Brilinta and left to the care of the Process Control Specialist. Please see Process Control Specialist documentation for events in the Process Control Specialist. Following access, patient was found to have a significant stenosis of the right coronary artery. Patient did receive 2 drug-eluting stents in this area and then was transferred back to the intensive care unit. On repeat evaluation in the intensive care unit, patient was noted to be pain-free and denied any abdominal symptoms. Patient states his breathing was back to his baseline. No significant arrhythmias have been noted. Past Medical History Past Medical History (Chronic Problems): Chronic Problems Barretts esophagus (Chronic) Obesity (BMI 30-39.9) (Chronic) Diabetes mellitus, type II (Chronic) Mixed hyperlipidemia (Chronic) HTN (hypertension) (Chronic) Allergies bee venom protein (honey bee) Allergy (Severe, Verified 08/04/17 12:41) Angioedema niacin Allergy (Verified 08/04/17 09:36) Shortness of breath Home Medications: Ambulatory Orders Medication Instructions Recorded Atorvastatin Calcium 40 mg PO QHS 08/04/17 Fenofibrate [Tricor] 145 mg PO DAILY 08/04/17 Glimepiride [Amaryl] 1 mg PO DAILY 08/04/17 Insulin Glargine,Hum.rec.anlog 10 unit SQ QHS 08/04/17 [Basaglar Kwikpen U-100] Lisinopril [Zestril] 20 mg PO DAILY 08/04/17 Metformin HCl [Glucophage] 1,000 mg PO BIDCM 08/04/17 Omeprazole 40 mg PO DAILY 08/04/17 Verapamil HCl [Verelan Pm] 200 mg PO DAILY 08/04/17 Surgical History: no surgical history Psychiatric History: No pertinent psych hx Lives: Spouse/ Significant Other Smoking Status: Former smoker Tobacco Use: Non-smoker Alcohol: None Drugs: None - *Family History Paternal History Items: Cancer - esophageal Maternal History Items: Heart Disease Review of Systems Comment: See HPI, otherwise negative ?10 systems. Objective: Multiple EKGs were personally reviewed. Cardiac cath did show other potential lesions of the circumflex artery and ostial OM 2 in addition to the interventions were required of the right coronary artery. - Physical Exam General: Alert, Oriented x3, Cooperative, No apparent distress, Well developed, Well nourished, - - Speaking in full sentences. HEENT: Atraumatic, PERRLA, EOMI, Normocephalic, - - No scleral icterus or injection noted. Oral: Moist Mucosa, No Gingival or Mucosal Lesions/ Ulcerations, - - Good dentition Neck: Supple, No JVD, No Nodes, Trachea Midline Lungs: Clear to auscultation, Normal air movement, No rhonchi, No wheeze, No rales, - - Symmetric expansion. No dullness to percussion. Cardiovascular: Regular rate, Regular Rhythm, Normal S1, Normal S2, No murmurs, No rub noted, No Gallop Abdomen: Bowel Sounds Present, Soft, Non Tender, Non-Distended, Obese Extremities: No clubbing, No cyanosis, No edema, - - Right wrist with occlusion device is clean, dry and intact. Skin: No rashes, No breakdown Musculoskeletal: No Tenderness to Palpation of Joints or Extremities, No Muscle Wasting Lymphatic: No Cervical, Supraclavicular, or Inguinal Adenopathy Neurological: Cranial nerves II-XII grossly intact, Neuro grossly intact, Motor Exam 5/5 strength throughout Psych/Mental Status: Alert and oriented to time, place, person, mood and affect Vital Signs Temp Pulse Resp BP Pulse Ox 36.2 C L 83 10 L 164/97 H 99 08/04/17 15:16 08/04/17 16:30 08/04/17 16:30 08/04/17 16:30 08/04/17 16:30 Oxygen Flow Rate (L/min) 2 Oxygen Delivery Method Room Air Laboratory Tests 08/04/17 08/04/17 08/04/17 09:40 09:40 14:31 WBC 10.2 RBC 5.03 Hgb 14.4 Hct 43.0 MCV 85.5 MCH 28.6 MCHC 33.5 RDW 13.9 RDW Differential 43.4 Plt Count 366 MPV 9.0 Immature Gran % (Auto) 0.600 Neut % (Auto) 69.3 Lymph % (Auto) 22.5 [place] % (Auto) 6.9 Eos % (Auto) 0.5 Baso % (Auto) 0.2 Absolute Neuts (auto) 7.1 Absolute Lymphs (auto) 2.29 Total Counted Not Reportable Activated Clotting Time 324 H Sodium 139 Potassium 4.2 Chloride 101 Carbon Dioxide 29.0 Anion Gap 9 BUN 22 H Creatinine 0.94 Estim Creat Clear Calc 84.84 Est GFR (MDRD) Af Amer 109 Est GFR (MDRD) Non-Af 90 BUN/Creatinine Ratio 23.4 H Glucose 195 H Calcium 9.2 Troponin I < 0.015 Clinical Impression(s) from Imaging Studies Chest X-Ray 08/04/17 10:00 IMPRESSION: No acute abnormality is present. Electronically Signed: Pola Funes MD at 10:30 EDT Tel [phone], Service support , Assessment/Plan RECOMMENDATIONS: 1. Continue telemetry monitoring 2. Await echocardiogram, lipid profile in a.m. 3. Cardiac medications per cardiology 4. Await neurology evaluation 5. Continue PPI twice daily IMPRESSIONS: 1. Acute ST elevation CT status post emergent cardiac catheterization with drug-eluting stent to RCA Patient appears to be responding well to therapy. Patient reports complete resolution of abdominal symptoms. Patient does have significant other blockages in the left circumflex and OM 2. Patient is on appropriate antiplatelet therapy. Patient has been started on a statin and is being monitored in the intensive care unit with a post catheterization protocol. Continue with telemetry to monitor for any ectopy. Aggressive repletion of electrolytes are indicated. 2. Recurrent syncope Unclear if this is secondary to bradycardia from high stenosis of the RCA. Patient is being evaluated by neurology. Will await their plan moving forward. Ativan can be used if necessary for seizure activity. 3. Reported Beaulieu's esophagus Patient receiving significant anticoagulation secondary to acute ST elevation CT. Would recommend continuing PPI indefinitely while on aggressive antiplatelet medications. 4. Hyperlipidemia/hypertension/uncontrolled diabetes mellitus type 2 Complicates care, management, recovery and prognosis. Patient's metformin has been held secondary to contrast load. Patient should continue with Accu-Cheks and sliding scale insulin. Code Visit Inpatient E&M: 41548 Init Hosp L3
--- NOTE | 2017-08-04 17:06 | CON.PCM_ITS ---
Reason for Consult Date of Consultation: 08/04/17 Reason for Consultation: seizure disorder History of Present Illness: The patient is a 52 year old male who is now s/p stemi, reports long history of spells since childhood described as blackout spells. at some point many years ago , rn noted spell associated with nausea, stiffness, and diaphoresis and occasional urinary incontinence, never any tongue biting. which was suspicious for sz, subsequently saw dr connor who diagnosed with seizure disorder and was treated with tegretol for 3 yrs then stopped. still has spells associate with pain. doesnt remember what tests were performed by dr connor. discussed with by phone who describes never any tongue biting or nocturnal spells. reports spells triggered by severe pain associated with stiffening, no shaking. The patient is a 52 year old M with PMHx of Type 2 DM, hypertension, Beaulieu's esophagus, no hx of cardiac disease, who has been having episodes of chest pain ongoing for days. He had called his primary care doctor and was told to switch his day omeprazole to evening. This seemed to have helped a little bit. He gets severe chest discomfort when he walks and it is relieved with rest. Pain starts in the epigastric region and radiates up his sternum, into his throat and then into his left shoulder and arm with associated numbness. It is not associated with nausea or vomiting or diaphoresis. It has been associated with episodes of syncope that lasts every few seconds. He has had more than 4 episodes of such. Some of these episodes have been followed by incontinence of stool but no consisting of formula for the month. His describes them as lasting for a few seconds with complete unresponsiveness. He had a primary care doctor appointment on but with the pain getting more frequent, he decided to come to the ED. EKG shows flattening of the T waves in inferior leads compaired to previous EKG. He had pain in the ED that did not go away with morphine he was given in the ED on the way to the floor. His admitting blood work showed unremarkable CBCD, BMP showed Bun 22, Cr 0.94, glucose 185, troponins was 0.015. On the floor, his pain was 10/10, got a dose of sublingual nitro that took away his pain for a while. HIs vitals were unremarkable. He was subsequently put on a nitropaste which helped the pain a lot. He denied nausea or vomiting. 20 minutes later, patient started to be diaphoretic and bradycardic. His telemetry showed ST segment elevation in leads II, II, AVF. A STEMI alert was called and patient given loading dose of Brilinta 180mg po x1, [facility]. Past Medical History Past Medical History (Chronic Problems): Chronic Problems Barretts esophagus (Chronic) Obesity (BMI 30-39.9) (Chronic) Diabetes mellitus, type II (Chronic) Mixed hyperlipidemia (Chronic) HTN (hypertension) (Chronic) Allergies bee venom protein (honey bee) Allergy (Severe, Verified 08/04/17 12:41) Angioedema niacin Allergy (Verified 08/04/17 09:36) Shortness of breath Home Medications: Ambulatory Orders Medication Instructions Recorded Atorvastatin Calcium 40 mg PO QHS 08/04/17 Fenofibrate [Tricor] 145 mg PO DAILY 08/04/17 Glimepiride [Amaryl] 1 mg PO DAILY 08/04/17 Insulin Glargine,Hum.rec.anlog 10 unit SQ QHS 08/04/17 [Basaglar Kwikpen U-100] Lisinopril [Zestril] 20 mg PO DAILY 08/04/17 Metformin HCl [Glucophage] 1,000 mg PO BIDCM 08/04/17 Omeprazole 40 mg PO DAILY 08/04/17 Verapamil HCl [Verelan Pm] 200 mg PO DAILY 08/04/17 Surgical History: no surgical history Psychiatric History: No pertinent psych hx Lives: Spouse/ Significant Other Smoking Status: Former smoker Tobacco Use: Non-smoker Alcohol: None Drugs: None - *Family History Paternal History Items: Cancer - esophageal Maternal History Items: Heart Disease Review of Systems Constitutional: Denies: Chills, Fever, Weight Change HEENT: Denies: Head Aches, Sinus Congestion, Sinus Drainage Cardiovascular: Denies: Chest Pain, Palpitations Respiratory: Denies: Cough, Shortness of breath at rest, Sputum production Gastrointestinal: Denies: Abdominal Pain, Nausea, Vomiting Genitourinary: Denies: Dysuria Musculoskeletal: Denies: Joint Pain, Joint Tenderness Skin: Denies: Rash, Wounds Neurological: Denies: Numbness, Tingling, Focal weakness Psychiatric: Denies: Anxiety, Depression, Homicidal Ideations, Suicidal Ideations Hematologic/ Lymphatic: Denies: Easy Bruising, Easy Bleeding - Physical Exam General: Alert, Oriented x3, Cooperative HEENT: Atraumatic, PERRLA, EOMI, Normocephalic Neurological: Cranial nerves II-XII grossly intact, Deep Tendon Reflexes 2+/4 and Symmetrical, Neuro grossly intact, Motor Exam 5/5 strength throughout Psych/Mental Status: Normal Affect, Appropriate Vital Signs Temp Pulse Resp BP Pulse Ox 36.2 C L 83 10 L 164/97 H 99 08/04/17 15:16 08/04/17 16:30 08/04/17 16:30 08/04/17 16:30 08/04/17 16:30 Oxygen Flow Rate (L/min) 2 Oxygen Delivery Method Room Air Laboratory Tests Past 24 Hrs 08/04/17 14:31 Activated Clotting Time 324 H Laboratory Results - last 24 hr 08/04/17 08/04/17 08/04/17 09:40 09:40 14:31 WBC 10.2 RBC 5.03 Hgb 14.4 Hct 43.0 MCV 85.5 MCH 28.6 MCHC 33.5 RDW 13.9 RDW Differential 43.4 Plt Count 366 MPV 9.0 Immature Gran % (Auto) 0.600 Neut % (Auto) 69.3 Lymph % (Auto) 22.5 [place] % (Auto) 6.9 Eos % (Auto) 0.5 Baso % (Auto) 0.2 Absolute Neuts (auto) 7.1 Absolute Lymphs (auto) 2.29 Total Counted Not Reportable Activated Clotting Time 324 H Sodium 139 Potassium 4.2 Chloride 101 Carbon Dioxide 29.0 Anion Gap 9 BUN 22 H Creatinine 0.94 Estim Creat Clear Calc 84.84 Est GFR (MDRD) Af Amer 109 Est GFR (MDRD) Non-Af 90 BUN/Creatinine Ratio 23.4 H Glucose 195 H Calcium 9.2 Troponin I < 0.015 Current Home Med List Medication Instructions Recorded Confirmed Type Atorvastatin Calcium 40 mg PO QHS 08/04/17 08/04/17 History Fenofibrate [Tricor] 145 mg PO DAILY 08/04/17 08/04/17 History Glimepiride [Amaryl] 1 mg PO DAILY 08/04/17 08/04/17 History Insulin Glargine,Hum.rec.anlog 10 unit SQ QHS 08/04/17 08/04/17 History [Sophieagldayami Marvinpen U-100] Lisinopril [Zestril] 20 mg PO DAILY 08/04/17 08/04/17 History Metformin HCl [Glucophage] 1,000 mg PO BIDCM 08/04/17 08/04/17 History Omeprazole 40 mg PO DAILY 08/04/17 08/04/17 History Verapamil HCl [Verelan Pm] 200 mg PO DAILY 08/04/17 08/04/17 History Current Medications Generic Name Dose Route Start Last Admin Trade Name Freq PRN Reason Stop Dose Admin Acetaminophen 650 mg 08/04/17 12:11 Tylenol PO Q6H PRN PRN Mild Pain (1-3)/Temp > 100.7 F Amlodipine Besylate 5 mg 08/05/17 10:00 Norvasc PO DAILY [facility] Aspirin 81 mg 08/05/17 08:00 Aspirin, Baby PO DAILY@0800 [facility] Atorvastatin Calcium 80 mg 08/04/17 22:00 Lipitor PO QHS [facility] Atropine Sulfate 0.5 mg 08/04/17 14:44 IV UD PRN HR <50 bpm Bisacodyl 5 mg 08/04/17 12:11 Dulcolax PO DAILY PRN PRN Constipation Enoxaparin Sodium 40 mg 08/05/17 06:00 Lovenox SC DAILY@0600 [facility] Fenofibrate 145 mg 08/05/17 08:00 Tricor PO DAILY@0800 [facility] Glimepiride 1 mg 08/05/17 08:00 Amaryl PO DAILY@0800 [facility] Pantoprazole Sodium 40 mg/ 110 mls @ 330 mls/hr 08/04/17 13:00 Sodium Chloride IV Q12 [facility] Sodium Chloride 1,000 mls @ 150 mls/hr 08/04/17 14:45 IV 08/04/17 21:24 .Q6H40M [facility] Insulin Glargine 10 units 08/05/17 22:00 Lantus (Bkc) SC DAILY@2200 [facility] Lisinopril 20 mg 08/05/17 10:00 Zestril PO DAILY [facility] Magnesium Hydroxide 30 ml 08/04/17 12:11 Milk Of Magnesia PO DAILY PRN Constipation Metformin HCl 1,000 mg 08/04/17 17:00 08/04/17 15:37 [facility] Metoprolol Tartrate 25 mg 08/04/17 22:00 Lopressor (Beta Courtney) PO BID [facility] Morphine Sulfate 1 mg 08/04/17 12:11 IV Q4H PRN PRN SEVERE PAIN (6-1010) Psyllium Hydrophilic Mucilloid 1 packet 08/04/17 12:11 Metamucil PO DAILY PRN PRN CONSTIPATION Sodium Chloride 500 ml 08/04/17 14:44 IV BOLUS PRN VASO-VAGAL PROTOCOL Sodium Chloride 5 - 30 ml 08/04/17 15:36 IV UD PRN SALINE FLUSH Ticagrelor 90 mg 08/04/17 22:00 Brilinta PO BID [facility] Assessment/Plan All Active Problems STEMI (ST elevation myocardial infarction) (Acute) Diabetes mellitus, new onset (Acute) Chest pain (Acute) Accelerated hypertension (Acute) seizures, previously diagnosed as reflex seizures due to pain suspect syncopal seizure no rx unless sz without painful stimulus
--- NOTE | 2017-08-04 17:13 | CON.PCM_ITS ---
Reason for Consult Date of Consultation: 08/04/17 Reason for Consultation: ST elevation [place]/bradycardia History of Present Illness: The patient is a 52 year old M, with a past medical history significant for type 2 diabetes mellitus, hypertension, Beaulieu's esophagus and questionable seizures who presented to [facility] on 626 secondary to 1 day history of chest pain. Patient reports on the night prior to presentation he developed significant chest pain in the center of his chest that radiated to his left shoulder and down the arm. Patient had attempted to take some omeprazole to see if this would help. Patient thought this was epigastric in nature and was associated with episodes of syncope and nausea. In the emergency room patient was triaged for chest pain and then admitted to the PCU for further monitoring. I was called emergently to the patient's room at approximately 1 PM secondary to acute onset of crushing chest pain, diaphoresis and appearing pale. Patient reportedly developed bradycardia just before the symptoms with a heart rate of approximately 32. Telemetry showed elevated ST elevations in the inferior leads. On my entering the room, Dr. Jacobs was at the base of the bed. Patient was noted to be diaphoretic and pale. No emesis was noted. EKG was just being completed showing an inferior ST elevation TN. This rapidly recovered over the course of 60 seconds and a repeat EKG was obtained showing normalization of inferior leads. Given patient's symptomatic nature, a ST elevation [place] team was activated. Patient was personally escorted to the [facility]. Interventionalist was notified. Patient was given a loading dose of Brilinta and left to the care of the [facility]. Please see [employer] [facility] [facility] documentation for events in the [employer] [facility]. Following access , patient was found to have a significant stenosis of the right coronary artery. Patient did receive 2 drug-eluting stents in this area and then was transferred back to the intensive care unit. On repeat evaluation in the intensive care unit, patient was noted to be pain-free and denied any abdominal symptoms. Patient states his breathing was back to his baseline. No significant arrhythmias have been noted. Past Medical History Past Medical History (Chronic Problems): Chronic Problems Barretts esophagus (Chronic) Obesity (BMI 30-39.9) (Chronic) Diabetes mellitus, type II (Chronic) Mixed hyperlipidemia (Chronic) HTN (hypertension) (Chronic) Allergies bee venom protein (honey bee) Allergy (Severe, Verified 08/04/17 12:41) Angioedema niacin Allergy (Verified 08/04/17 09:36) Shortness of breath Home Medications: Ambulatory Orders Medication Instructions Recorded Atorvastatin Calcium 40 mg PO QHS 08/04/17 Fenofibrate [Tricor] 145 mg PO DAILY 08/04/17 Glimepiride [Amaryl] 1 mg PO DAILY 08/04/17 Insulin Glargine,Hum.rec.anlog 10 unit SQ QHS 08/04/17 [Basaglar Kwikpen U-100] Lisinopril [Zestril] 20 mg PO DAILY 08/04/17 Metformin HCl [Glucophage] 1,000 mg PO BIDCM 08/04/17 Omeprazole 40 mg PO DAILY 08/04/17 Verapamil HCl [Verelan Pm] 200 mg PO DAILY 08/04/17 Surgical History: no surgical history Psychiatric History: No pertinent psych hx Lives: Spouse/ Significant Other Smoking Status: Former smoker Tobacco Use: Non-smoker Alcohol: None Drugs: None - *Family History Paternal History Items: Cancer - esophageal Maternal History Items: Heart Disease Review of Systems Comment: See HPI, otherwise negative ?10 systems. Objective: Multiple EKGs were personally reviewed. Cardiac cath did show other potential lesions of the circumflex artery and ostial OM 2 in addition to the interventions were required of the right coronary artery. - Physical Exam General: Alert, Oriented x3, Cooperative, No apparent distress, Well developed, Well nourished, - - Speaking in full sentences. HEENT: Atraumatic, PERRLA, EOMI, Normocephalic, - - No scleral icterus or injection noted. Oral: Moist Mucosa, No Gingival or Mucosal Lesions/ Ulcerations, - - Good dentition Neck: Supple, No JVD, No Nodes, Trachea Midline Lungs: Clear to auscultation, Normal air movement, No rhonchi, No wheeze, No rales, - - Symmetric expansion. No dullness to percussion. Cardiovascular: Regular rate, Regular Rhythm, Normal S1, Normal S2, No murmurs, No rub noted, No Gallop Abdomen: Bowel Sounds Present, Soft, Non Tender, Non-Distended, Obese Extremities: No clubbing, No cyanosis, No edema, - - Right wrist with occlusion device is clean, dry and intact. Skin: No rashes, No breakdown Musculoskeletal: No Tenderness to Palpation of Joints or Extremities, No Muscle Wasting Lymphatic: No Cervical, Supraclavicular, or Inguinal Adenopathy Neurological: Cranial nerves II-XII grossly intact, Neuro grossly intact, Motor Exam 5/5 strength throughout Psych/Mental Status: Alert and oriented to time, place, person, mood and affect Vital Signs Temp Pulse Resp BP Pulse Ox 36.2 C L 83 10 L 164/97 H 99 08/04/17 15:16 08/04/17 16:30 08/04/17 16:30 08/04/17 16:30 08/04/17 16:30 Oxygen Flow Rate (L/min) 2 Oxygen Delivery Method Room Air Laboratory Tests 08/04/17 08/04/17 08/04/17 09:40 09:40 14:31 WBC 10.2 RBC 5.03 Hgb 14.4 Hct 43.0 MCV 85.5 MCH 28.6 MCHC 33.5 RDW 13.9 RDW Differential 43.4 Plt Count 366 MPV 9.0 Immature Gran % (Auto) 0.600 Neut % (Auto) 69.3 Lymph % (Auto) 22.5 [place] % (Auto) 6.9 Eos % (Auto) 0.5 Baso % (Auto) 0.2 Absolute Neuts (auto) 7.1 Absolute Lymphs (auto) 2.29 Total Counted Not Reportable Activated Clotting Time 324 H Sodium 139 Potassium 4.2 Chloride 101 Carbon Dioxide 29.0 Anion Gap 9 BUN 22 H Creatinine 0.94 Estim Creat Clear Calc 84.84 Est GFR (MDRD) Af Amer 109 Est GFR (MDRD) Non-Af 90 BUN/Creatinine Ratio 23.4 H Glucose 195 H Calcium 9.2 Troponin I < 0.015 Clinical Impression(s) from Imaging Studies Chest X-Ray 08/04/17 10:00 IMPRESSION: No acute abnormality is present. Electronically Signed: Pola Funes MD at 10:30 EDT Tel [phone], Service support , Assessment/Plan RECOMMENDATIONS: 1. Continue telemetry monitoring 2. Await echocardiogram, lipid profile in a.m. 3. Cardiac medications per cardiology 4. Await neurology evaluation 5. Continue PPI twice daily IMPRESSIONS: 1. Acute ST elevation [place] status post emergent cardiac catheterization with drug-eluting stent to RCA Patient appears to be responding well to therapy. Patient reports complete resolution of abdominal symptoms. Patient does have significant other blockages in the left circumflex and OM 2. Patient is on appropriate antiplatelet therapy. Patient has been started on a statin and is being monitored in the intensive care unit with a post catheterization protocol. Continue with telemetry to monitor for any ectopy. Aggressive repletion of electrolytes are indicated. 2. Recurrent syncope Unclear if this is secondary to bradycardia from high stenosis of the RCA. Patient is being evaluated by neurology. Will await their plan moving forward. Ativan can be used if necessary for seizure activity. 3. Reported Beaulieu's esophagus Patient receiving significant anticoagulation secondary to acute ST elevation TN. Would recommend continuing PPI indefinitely while on aggressive antiplatelet medications. 4. Hyperlipidemia/hypertension/uncontrolled diabetes mellitus type 2 Complicates care, management, recovery and prognosis. Patient's metformin has been held secondary to contrast load. Patient should continue with Accu-Cheks and sliding scale insulin. Code Visit Inpatient E&M: 56370 Init Hosp L3
[2017-08-04] MEDS: 0.9% Normal Saline 1,000 ML 150 ML IV (18:07)
[2017-08-04] MEDS: Atorvastatin Calcium 80 MG Tablet PO (21:51)
[2017-08-04] MEDS: TICAGRELOR 90 MG TABLET PO (21:51)
[2017-08-04] MEDS: Metoprolol Tartrate 25 MG Tablet PO (21:51)
[2017-08-04 22:25] LABS: Bedside Glucose 161 mg/dL (70-110)
[2017-08-05] VITALS (21 sets, daily range): BP systolic 99–142; BP diastolic 62–98; PULSE 63–79; RESP 11–19; TEMP 36.2–37.1; O2SAT 96–99
[2017-08-05] MEDS: Enoxaparin 40 MG/0.4 ML Syringe SC (05:22)
[2017-08-05 05:45] LABS: Hematocrit 39.3 % (40-54); Hemoglobin 13.5 g/dl (13.0-16.5); Mean Corp Hgb Conc 34.4 g/gl (32-36); Mean Corpuscular Hgb 29.3 pg (27.0-32.0); Mean Corpuscular Volume 85.4 fL (80-94); Mean Platelet Vol. 8.8 fl (6.2-12.0); Platelet Count 351 K/mm3 (150-450); RBC Distribution Width SD 43.1 fl (35.1-43.9); White Blood Count 10.4 K/mm3 (4.4-11.0)
[2017-08-05 05:50] LABS: Scan Indicated on CBC? Y/N NO
[2017-08-05 06:34] LABS: Anion Gap 9 (5-15); BUN 16 mg/dL (7-18); BUN/Creat Ratio 19.1 RATIO (10-20); Calcium,Total 8.7 mg/dL (8.5-10.1); Chloride 106 mmol/L (98-107); Creatinine, Serum 0.84 mg/dL (0.70-1.30); EST Glomerular Filtration Rate 103 mL/min (>60); Est Glom Filt Rate - Afr Amer 125 mL/min (>60); Estimated Creatinine Clearance 94.94 ml/min; Glucose 155 mg/dL (74-106); Potassium 4.4 mmol/L (3.5-5.1); Sodium Level 140 mmol/L (136-145)
--- NOTE | 2017-08-05 06:50 | PCM.PN.INT ---
Subjective: Patient did well overnight. No acute issues were reported. Patient reports complete resolution of abdominal symptoms. No nausea or vomiting has been reported. Patient denies any chest pain or diaphoresis at this time. 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 General: Alert, Oriented x3, Cooperative, No apparent distress, Well developed, Well nourished, - - Speaking in full sentences. HEENT: Atraumatic, PERRLA, EOMI, Normocephalic, - - No scleral icterus or injection noted. Oral: Moist Mucosa, No Gingival or Mucosal Lesions/ Ulcerations Neck: Supple, No JVD, No Nodes, Trachea Midline Lungs: Clear to auscultation, Normal air movement, No rhonchi, No wheeze, No rales, - - Symmetric expansion. No dullness to percussion. Cardiovascular: Regular rate, Regular Rhythm, Normal S1, Normal S2, No murmurs, No rub noted, No Gallop Abdomen: Bowel Sounds Present, Soft, Non Tender, Non-Distended Extremities: No clubbing, No cyanosis, No edema Skin: No rashes, No breakdown Musculoskeletal: No Tenderness to Palpation of Joints or Extremities, No Muscle Wasting Lymphatic: No Cervical, Supraclavicular, or Inguinal Adenopathy Neurological: Cranial nerves II-XII grossly intact, Neuro grossly intact, Motor Exam 5/5 strength throughout Psych/Mental Status: Alert and oriented to time, place, person, mood and affect Vital Signs Temp Pulse Resp BP Pulse Ox 36.2 C L 68 16 112/91 H 97 08/05/17 05:00 08/05/17 06:00 08/05/17 06:00 08/05/17 05:00 08/05/17 06:00 Oxygen Flow Rate (L/min) 2 Oxygen Delivery Method Room Air Weight: 88.5 kg Intake and Output for Last 24 Hours 08/03/17 08/04/17 08/05/17 23:59 23:59 23:59 Intake Total 480 / 480 980 / 980 Output Total 1200 / 1200 Balance -720 / -720 980 / 980 Labs (Last 48 Hours) 08/04/17 08/04/17 08/05/17 14:31 21:14 05:35 WBC RBC Hgb Hct MCV MCH MCHC RDW RDW Differential Plt Count MPV Activated Clotting Time 324 H Sodium 140 Potassium 4.4 Chloride 106 Carbon Dioxide 25.0 Anion Gap 9 BUN 16 Creatinine 0.84 Estim Creat Clear Calc 94.94 Est GFR (MDRD) Af Amer 125 Est GFR (MDRD) Non-Af 103 BUN/Creatinine Ratio 19.1 Glucose 155 H Calcium 8.7 Troponin I 0.203 H POC Glucose 161 H 08/05/17 05:35 WBC 10.4 RBC 4.60 Hgb 13.5 Hct 39.3 L MCV 85.4 MCH 29.3 MCHC 34.4 RDW 14.0 RDW Differential 43.1 Plt Count 351 MPV 8.8 Activated Clotting Time Sodium Potassium Chloride Carbon Dioxide Anion Gap BUN Creatinine Estim Creat Clear Calc Est GFR (MDRD) Af Amer Est GFR (MDRD) Non-Af BUN/Creatinine Ratio Glucose Calcium Troponin I POC Glucose Clinical Impression(s) from Imaging Studies Chest X-Ray 08/04/17 10:00 IMPRESSION: No acute abnormality is present. Electronically Signed: Pola Funes MD at 10:30 EDT Tel [phone], Service support , Medical Necessity - Tobacco Use Smoking Status: Former smoker Tobacco Use: Non-smoker Assessment/Plan All Active Problems STEMI (ST elevation myocardial infarction) (Acute) Diabetes mellitus, new onset (Acute) Chest pain (Acute) Accelerated hypertension (Acute) RECOMMENDATIONS: 1. Continue telemetry monitoring 2. Await echocardiogram, lipid profile in a.m. 3. Cardiac medications per cardiology 4. Await neurology evaluation 5. Continue PPI twice daily 6. Hemodynamically stable on room air. Will sign off from a critical care perspective IMPRESSIONS: 1. Acute ST elevation [place] status post emergent cardiac catheterization with drug-eluting stent to RCA Patient appears to be responding well to therapy. Patient reports complete resolution of abdominal symptoms. Patient does have significant other blockages in the left circumflex and OM 2. Patient is on appropriate antiplatelet therapy. Patient currently asymptomatic on room air. Will sign off from a critical care perspective. Peak troponin of 0.2 indicates a relatively small insult. Continue with telemetry to monitor for any ectopy. 2. Recurrent syncope Unclear if this is secondary to bradycardia from high stenosis of the RCA. Patient is being evaluated by neurology. Will await their plan moving forward. Ativan can be used if necessary for seizure activity. 3. Reported Beaulieu's esophagus Patient receiving significant anticoagulation secondary to acute ST elevation [place]. Would recommend continuing PPI indefinitely while on aggressive antiplatelet medications. 4. Hyperlipidemia/hypertension/uncontrolled diabetes mellitus type 2 Complicates care, management, recovery and prognosis. Patient's metformin has been held secondary to contrast load. Patient should continue with Accu-Cheks and sliding scale insulin. Code Visit Inpatient E&M: 80328 Subs Hosp L2
--- NOTE | 2017-08-05 06:53 | PN_ITS ---
Subjective: Patient did well overnight. No acute issues were reported. Patient reports complete resolution of abdominal symptoms. No nausea or vomiting has been reported. Patient denies any chest pain or diaphoresis at this time. 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 General: Alert, Oriented x3, Cooperative, No apparent distress, Well developed, Well nourished, - - Speaking in full sentences. HEENT: Atraumatic, PERRLA, EOMI, Normocephalic, - - No scleral icterus or injection noted. Oral: Moist Mucosa, No Gingival or Mucosal Lesions/ Ulcerations Neck: Supple, No JVD, No Nodes, Trachea Midline Lungs: Clear to auscultation, Normal air movement, No rhonchi, No wheeze, No rales, - - Symmetric expansion. No dullness to percussion. Cardiovascular: Regular rate, Regular Rhythm, Normal S1, Normal S2, No murmurs, No rub noted, No Gallop Abdomen: Bowel Sounds Present, Soft, Non Tender, Non-Distended Extremities: No clubbing, No cyanosis, No edema Skin: No rashes, No breakdown Musculoskeletal: No Tenderness to Palpation of Joints or Extremities, No Muscle Wasting Lymphatic: No Cervical, Supraclavicular, or Inguinal Adenopathy Neurological: Cranial nerves II-XII grossly intact, Neuro grossly intact, Motor Exam 5/5 strength throughout Psych/Mental Status: Alert and oriented to time, place, person, mood and affect Vital Signs Temp Pulse Resp BP Pulse Ox 36.2 C L 68 16 112/91 H 97 08/05/17 05:00 08/05/17 06:00 08/05/17 06:00 08/05/17 05:00 08/05/17 06:00 Oxygen Flow Rate (L/min) 2 Oxygen Delivery Method Room Air Weight: 88.5 kg Intake and Output for Last 24 Hours 08/03/17 08/04/17 08/05/17 23:59 23:59 23:59 Intake Total 480 / 480 980 / 980 Output Total 1200 / 1200 Balance -720 / -720 980 / 980 Labs (Last 48 Hours) 08/04/17 08/04/17 08/05/17 14:31 21:14 05:35 WBC RBC Hgb Hct MCV MCH MCHC RDW RDW Differential Plt Count MPV Activated Clotting Time 324 H Sodium 140 Potassium 4.4 Chloride 106 Carbon Dioxide 25.0 Anion Gap 9 BUN 16 Creatinine 0.84 Estim Creat Clear Calc 94.94 Est GFR (MDRD) Af Amer 125 Est GFR (MDRD) Non-Af 103 BUN/Creatinine Ratio 19.1 Glucose 155 H Calcium 8.7 Troponin I 0.203 H POC Glucose 161 H 08/05/17 05:35 WBC 10.4 RBC 4.60 Hgb 13.5 Hct 39.3 L MCV 85.4 MCH 29.3 MCHC 34.4 RDW 14.0 RDW Differential 43.1 Plt Count 351 MPV 8.8 Activated Clotting Time Sodium Potassium Chloride Carbon Dioxide Anion Gap BUN Creatinine Estim Creat Clear Calc Est GFR (MDRD) Af Amer Est GFR (MDRD) Non-Af BUN/Creatinine Ratio Glucose Calcium Troponin I POC Glucose Clinical Impression(s) from Imaging Studies Chest X-Ray 08/04/17 10:00 IMPRESSION: No acute abnormality is present. Electronically Signed: Pola Funes MD at 10:30 EDT Tel [phone], Service support , Medical Necessity - Tobacco Use Smoking Status: Former smoker Tobacco Use: Non-smoker Assessment/Plan All Active Problems STEMI (ST elevation myocardial infarction) (Acute) Diabetes mellitus, new onset (Acute) Chest pain (Acute) Accelerated hypertension (Acute) RECOMMENDATIONS: 1. Continue telemetry monitoring 2. Await echocardiogram, lipid profile in a.m. 3. Cardiac medications per cardiology 4. Await neurology evaluation 5. Continue PPI twice daily 6. Hemodynamically stable on room air. Will sign off from a critical care perspective IMPRESSIONS: 1. Acute ST elevation NC status post emergent cardiac catheterization with drug-eluting stent to RCA Patient appears to be responding well to therapy. Patient reports complete resolution of abdominal symptoms. Patient does have significant other blockages in the left circumflex and OM 2. Patient is on appropriate antiplatelet therapy. Patient currently asymptomatic on room air. Will sign off from a critical care perspective. Peak troponin of 0.2 indicates a relatively small insult. Continue with telemetry to monitor for any ectopy. 2. Recurrent syncope Unclear if this is secondary to bradycardia from high stenosis of the RCA. Patient is being evaluated by neurology. Will await their plan moving forward. Ativan can be used if necessary for seizure activity. 3. 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 Would recommend continuing PPI indefinitely while on aggressive antiplatelet medications. 4. Hyperlipidemia/hypertension/uncontrolled diabetes mellitus type 2 Complicates care, management, recovery and prognosis. Patient's metformin has been held secondary to contrast load. Patient should continue with Accu-Cheks and sliding scale insulin. Code Visit Inpatient E&M: 35196 Subs Hosp L2
--- NOTE | 2017-08-05 07:47 | NURSING ---
EEG in progress
--- NOTE | 2017-08-05 08:15 | NURSING ---
echo in progress
--- NOTE | 2017-08-05 08:36 | PCM.PN.HOSP ---
Subjective: Patient was seen and examined. No acute events in ICU. No events on telemetry. He complains of periodically feeling to taking deep breath. Chest discomfort is all gone. Denies any dizziness or palpitation. Had an EEG done this morning Vitals/I&O's: Vital Signs Temp Pulse Resp BP Pulse Ox 97.1 F L 71 16 128/94 H 98 08/05/17 05:00 08/05/17 07:00 08/05/17 07:00 08/05/17 07:00 08/05/17 07:00 Oxygen Flow Rate (L/min) 2 Oxygen Delivery Method Room Air Weight: 88.5 kg Intake and Output for Last 24 Hours 08/03/17 08/04/17 08/05/17 23:59 23:59 23:59 Intake Total 480 / 480 980 / 980 Output Total 1200 / 1200 Balance -720 / -720 980 / 980 General: Alert, Oriented x3, Cooperative, No apparent distress HEENT: Atraumatic, PERRLA, EOMI, Normocephalic Oral: Moist Mucosa Neck: Supple Lungs: Clear to auscultation, Normal air movement Cardiovascular: Regular rate, Regular Rhythm, Normal S1, Normal S2, No murmurs Abdomen: Bowel Sounds Present, Soft, Non Tender, Non-Distended, No Hepato-splenomegaly Extremities: No edema Skin: No rashes, No breakdown Musculoskeletal: No Tenderness to Palpation of Joints or Extremities Lymphatic: No Cervical, Supraclavicular, or Inguinal Adenopathy Neurological: Cranial nerves II-XII grossly intact, Neuro grossly intact Psych/Mental Status: Normal Affect, Appropriate Laboratory Results 08/04/17 14:31: Activated Clotting Time 324 H 08/04/17 21:14: POC Glucose 161 H 08/05/17 05:35: Sodium 140, Potassium 4.4, Chloride 106, Carbon Dioxide 25.0, Anion Gap 9, BUN 16, Creatinine 0.84, Estim Creat Clear Calc 94.94, Est GFR (MDRD) Af Amer 125, Est GFR (MDRD) Non-Af 103, BUN/Creatinine Ratio 19.1, Glucose 155 H, Calcium 8.7, Troponin I 0.203 H 08/05/17 05:35: WBC 10.4, RBC 4.60, Hgb 13.5, Hct 39.3 L, MCV 85.4, MCH 29.3, MCHC 34.4, RDW 14.0, RDW Differential 43.1, Plt Count 351, MPV 8.8 Current Medications Acetaminophen (Tylenol) 650 mg PO Q6H PRN PRN PRN Reason: Mild Pain (1-3)/Temp > 100.7 F Amlodipine Besylate (Norvasc) 5 mg PO DAILY [facility] Aspirin (Aspirin, Baby) 81 mg PO DAILY@0800 [facility] Atorvastatin Calcium (Lipitor) 80 mg PO QHS [facility] Last Admin: 08/04/17 21:51 Dose: 80 mg Atropine Sulfate () 0.5 mg IV UD PRN PRN Reason: HR <50 bpm Bisacodyl (Dulcolax) 5 mg PO DAILY PRN PRN PRN Reason: Constipation Enoxaparin Sodium (Lovenox) 40 mg SC DAILY@0600 [facility] Last Admin: 08/05/17 05:22 Dose: 40 mg Fenofibrate (Tricor) 145 mg PO DAILY@0800 [facility] Glimepiride (Amaryl) 1 mg PO DAILY@0800 [facility] Pantoprazole Sodium 40 mg/ (Sodium Chloride) 110 mls @ 330 mls/hr IV Q12 [facility] Last Admin: 08/04/17 21:52 Dose: 330 mls/hr Insulin Glargine (Lantus (Bkc)) 10 units SC DAILY@2200 [facility] Lisinopril (Zestril) 20 mg PO DAILY [facility] Magnesium Hydroxide (Milk Of Magnesia) 30 ml PO DAILY PRN PRN Reason: Constipation Metoprolol Tartrate (Lopressor (Beta Courtney)) 25 mg PO BID [facility] Last Admin: 08/04/17 21:51 Dose: 25 mg Morphine Sulfate () 1 mg IV Q4H PRN PRN PRN Reason: SEVERE PAIN (6-10/10) Psyllium Hydrophilic Mucilloid (Metamucil) 1 packet PO DAILY PRN PRN PRN Reason: CONSTIPATION Sodium Chloride () 500 ml IV BOLUS PRN PRN Reason: VASO-VAGAL PROTOCOL Sodium Chloride () 5 - 30 ml IV UD PRN PRN Reason: SALINE FLUSH Ticagrelor (Brilinta) 90 mg PO BID [facility] Last Admin: 08/04/17 21:51 Dose: 90 mg Medical Necessity - Tobacco Use Smoking Status: Former smoker Tobacco Use: Non-smoker Assessment/Plan All Active Problems STEMI (ST elevation myocardial infarction) (Acute) Diabetes mellitus, new onset (Acute) Chest pain (Acute) Accelerated hypertension (Acute) 52 year old M with PMHx of Type 2 DM, Hypertension, Beaulieu's esophagus, no hx of cardiac disease, history of reflex seizures admitted with episodes of chest pain ongoing for ongoing for weeks but worse in the last few days. This was associated with recurrent syncopal episodes sometimes associated with incontinence of stool and urine. 1. Acute STEMI (ASAEL score 2), s/p cardiac cath, findings show 99% distal RCA stenosis, 80% prox/mid Left circumflex stenosis, 90% ostial marginal stenosis, s/p 2 RCA stents, on aspirin, Brilinta, statin, metoprolol, lisinopril, follow up on 2d-echo, lipid profile. 2. Recurrent syncopal, likely vasovagal related to pain vs syncopal seizures, hx of reflex seizures, was on meds for a short while and taking off, status post EGD this morning, neurology following, will follow up on recommendation. 3. Type 2 DM, HbA1c 10.6, on Lantus insulin 10 units SC, glimepiride, metformin on hold, will continue with accucheks, and ISS. Strict blood sugar control emphasized with patient to control his risk factors. 4. Hypertension, controlled on Lisinopril, started on amlodipine, home verapamil on hold. 5. Hyperlipidemia, on statin, fenofibrate 6. Beaulieu's esophagus, on PPI BID 7. GI prophylaxis - on PPI 8. DVT PPx - Lovenox SC 9. Disposition: Transfer out of ICU to PCU if ok with cardiology. Anticipate discharge in 24-48 hours. Code Visit Inpatient E&M: 12316 Subs Hosp L3
--- NOTE | 2017-08-05 08:47 | PN_ITS ---
Subjective: Patient was seen and examined. No acute events in ICU. No events on telemetry. He complains of periodically feeling to taking deep breath. Chest discomfort is all gone. Denies any dizziness or palpitation. Had an EEG done this morning Vitals/I&O's: Vital Signs Temp Pulse Resp BP Pulse Ox 97.1 F L 71 16 128/94 H 98 08/05/17 05:00 08/05/17 07:00 08/05/17 07:00 08/05/17 07:00 08/05/17 07:00 Oxygen Flow Rate (L/min) 2 Oxygen Delivery Method Room Air Weight: 88.5 kg Intake and Output for Last 24 Hours 08/03/17 08/04/17 08/05/17 23:59 23:59 23:59 Intake Total 480 / 480 980 / 980 Output Total 1200 / 1200 Balance -720 / -720 980 / 980 General: Alert, Oriented x3, Cooperative, No apparent distress HEENT: Atraumatic, PERRLA, EOMI, Normocephalic Oral: Moist Mucosa Neck: Supple Lungs: Clear to auscultation, Normal air movement Cardiovascular: Regular rate, Regular Rhythm, Normal S1, Normal S2, No murmurs Abdomen: Bowel Sounds Present, Soft, Non Tender, Non-Distended, No Hepato- splenomegaly Extremities: No edema Skin: No rashes, No breakdown Musculoskeletal: No Tenderness to Palpation of Joints or Extremities Lymphatic: No Cervical, Supraclavicular, or Inguinal Adenopathy Neurological: Cranial nerves II-XII grossly intact, Neuro grossly intact Psych/Mental Status: Normal Affect, Appropriate Laboratory Results 08/04/17 14:31: Activated Clotting Time 324 H 08/04/17 21:14: POC Glucose 161 H 08/05/17 05:35: Sodium 140, Potassium 4.4, Chloride 106, Carbon Dioxide 25.0, Anion Gap 9, BUN 16, Creatinine 0.84, Estim Creat Clear Calc 94.94, Est GFR ( MDRD) Af Amer 125, Est GFR (MDRD) Non-Af 103, BUN/Creatinine Ratio 19.1, Glucose 155 H, Calcium 8.7, Troponin I 0.203 H 08/05/17 05:35: WBC 10.4, RBC 4.60, Hgb 13.5, Hct 39.3 L, MCV 85.4, MCH 29.3, MCHC 34.4, RDW 14.0, RDW Differential 43.1, Plt Count 351, MPV 8.8 Current Medications Acetaminophen (Tylenol) 650 mg PO Q6H PRN PRN PRN Reason: Mild Pain (1-3)/Temp > 100.7 F Amlodipine Besylate (Norvasc) 5 mg PO DAILY [facility] Aspirin (Aspirin, Baby) 81 mg PO DAILY@0800 [facility] Atorvastatin Calcium (Lipitor) 80 mg PO QHS [facility] Last Admin: 08/04/17 21:51 Dose: 80 mg Atropine Sulfate () 0.5 mg IV UD PRN PRN Reason: HR <50 bpm Bisacodyl (Dulcolax) 5 mg PO DAILY PRN PRN PRN Reason: Constipation Enoxaparin Sodium (Lovenox) 40 mg SC DAILY@0600 [facility] Last Admin: 08/05/17 05:22 Dose: 40 mg Fenofibrate (Tricor) 145 mg PO DAILY@0800 [facility] Glimepiride (Amaryl) 1 mg PO DAILY@0800 [facility] Pantoprazole Sodium 40 mg/ (Sodium Chloride) 110 mls @ 330 mls/hr IV Q12 [facility] Last Admin: 08/04/17 21:52 Dose: 330 mls/hr Insulin Glargine (Lantus (Bkc)) 10 units SC DAILY@2200 [facility] Lisinopril (Zestril) 20 mg PO DAILY [facility] Magnesium Hydroxide (Milk Of Magnesia) 30 ml PO DAILY PRN PRN Reason: Constipation Metoprolol Tartrate (Lopressor (Beta Courtney)) 25 mg PO BID [facility] Last Admin: 08/04/17 21:51 Dose: 25 mg Morphine Sulfate () 1 mg IV Q4H PRN PRN PRN Reason: SEVERE PAIN (6-10/10) Psyllium Hydrophilic Mucilloid (Metamucil) 1 packet PO DAILY PRN PRN PRN Reason: CONSTIPATION Sodium Chloride () 500 ml IV BOLUS PRN PRN Reason: VASO-VAGAL PROTOCOL Sodium Chloride () 5 - 30 ml IV UD PRN PRN Reason: SALINE FLUSH Ticagrelor (Brilinta) 90 mg PO BID [facility] Last Admin: 08/04/17 21:51 Dose: 90 mg Medical Necessity - Tobacco Use Smoking Status: Former smoker Tobacco Use: Non-smoker Assessment/Plan All Active Problems STEMI (ST elevation myocardial infarction) (Acute) Diabetes mellitus, new onset (Acute) Chest pain (Acute) Accelerated hypertension (Acute) 52 year old M with PMHx of Type 2 DM, Hypertension, Beaulieu's esophagus, no hx of cardiac disease, history of reflex seizures admitted with episodes of chest pain ongoing for ongoing for weeks but worse in the last few days. This was associated with recurrent syncopal episodes sometimes associated with incontinence of stool and urine. 1. Acute STEMI (ASAEL score 2), s/p cardiac cath, findings show 99% distal RCA stenosis, 80% prox/mid Left circumflex stenosis, 90% ostial marginal stenosis, s /p 2 RCA stents, on aspirin, Brilinta, statin, metoprolol, lisinopril, follow up on 2d-echo, lipid profile. 2. Recurrent syncopal, likely vasovagal related to pain vs syncopal seizures, hx of reflex seizures, was on meds for a short while and taking off, status post EGD this morning, neurology following, will follow up on recommendation. 3. Type 2 DM, HbA1c 10.6, on Lantus insulin 10 units SC, glimepiride, metformin on hold, will continue with accucheks, and ISS. Strict blood sugar control emphasized with patient to control his risk factors. 4. Hypertension, controlled on Lisinopril, started on amlodipine, home verapamil on hold. 5. Hyperlipidemia, on statin, fenofibrate 6. Beaulieu's esophagus, on PPI BID 7. GI prophylaxis - on PPI 8. DVT PPx - Lovenox SC 9. Disposition: Transfer out of ICU to PCU if ok with cardiology. Anticipate discharge in 24-48 hours. Code Visit Inpatient E&M: 94892 Subs Hosp L3
[2017-08-05] MEDS: Glimepiride 1 MG Tablet PO (09:05)
[2017-08-05] MEDS: Aspirin 81 MG TAB.CHEW PO (09:07)
[2017-08-05] MEDS: Fenofibrate 145 MG Tablet PO (09:07)
[2017-08-05] MEDS: TICAGRELOR 90 MG TABLET PO ×2 (09:08→21:52)
[2017-08-05 09:09] LABS: Cholesterol 180 mg/dL (200); High Density Lipoprotein 33 mg/dL; Triglycerides 271 mg/dL; Very Low Density Lipoprotein 54 mg/dL (5-40)
[2017-08-05] MEDS: Metoprolol Tartrate 25 MG Tablet PO (09:09)
[2017-08-05] MEDS: Lisinopril 20 MG Tablet PO (09:11)
--- NOTE | 2017-08-05 10:40 | CRPHASE1 ---
Patient Data/Charges Phase II Referral:: [facility] Start Phase II:: FOLLOWING OFFICE VISIT WITH ACCOUNTS RECEIVABLE ACCOUNTANT Risk Factors/Lifestyle Smoking Status: Former smoker Hx Hypertension: Yes Hx Diabetes Mellitus Type 1: Yes Hx Metabolic Disorders: Yes Hx Dyslipidemia: Yes Hx Obesity: Yes Height: 5 ft 6 in - BMI 31.5 Stress: Home/Family Substance Abuse: No Risk Factor for Sedentary Lifestyle: Moderate Risk Past Cardiac Illness: Other - BATTETTS ESOPHAGUS Laboratory Values: Cardiac Rehab Phase I Labs Triglycerides 271 mg/dL (-199) H 08/05/17 05:35 Cholesterol 180 mg/dL (200) 08/05/17 05:35 LDL Cholesterol 93 mg/dL (0-130) 08/05/17 05:35 HDL Cholesterol 33 mg/dL (40-) L 08/05/17 05:35 Phase I Education Given On:: [place], Nutrition, Antiplatelet medication, Diabetes - Type II Issues Affecting Care:: None Knowledge of Condition:: Yes Learning Preferences: Verbal, Written - AT BEDSIDE Hospital Course Presenting Symptoms:: STEMI Pain Description: Burning Medical/Surgical History IN:: Yes - STEMI Angina:: Yes - FOR PAST FEW WEEKS CAD:: No COPD:: No Diabetes Type II:: Yes Hypertension:: Yes Dyslipidemia:: Yes GERD:: Yes - BARRETTS ESOPHAGUS Discharge/Home/Social Eval Discharge Disposition: Home Marital Status:
--- NOTE | 2017-08-05 10:44 | CRPHASE1_ITS ---
Patient Data/Charges Phase II Referral:: [facility] Start Phase II:: FOLLOWING OFFICE VISIT WITH RESERVATIONS MANAGER Risk Factors/Lifestyle Smoking Status: Former smoker Hx Hypertension: Yes Hx Diabetes Mellitus Type 1: Yes Hx Metabolic Disorders: Yes Hx Dyslipidemia: Yes Hx Obesity: Yes Height: 5 ft 6 in - BMI 31.5 Stress: Home/Family Substance Abuse: No Risk Factor for Sedentary Lifestyle: Moderate Risk Past Cardiac Illness: Other - BATTETTS ESOPHAGUS Laboratory Values: Cardiac Rehab Phase I Labs Triglycerides 271 mg/dL (-199) H 08/05/17 05:35 Cholesterol 180 mg/dL (200) 08/05/17 05:35 LDL Cholesterol 93 mg/dL (0-130) 08/05/17 05:35 HDL Cholesterol 33 mg/dL (40-) L 08/05/17 05:35 Phase I Education Given On:: [place], Nutrition, Antiplatelet medication, Diabetes - Type II Issues Affecting Care:: None Knowledge of Condition:: Yes Learning Preferences: Verbal, Written - AT BEDSIDE Hospital Course Presenting Symptoms:: STEMI Pain Description: Burning Medical/Surgical History SC:: Yes - STEMI Angina:: Yes - FOR PAST FEW WEEKS CAD:: No COPD:: No Diabetes Type II:: Yes Hypertension:: Yes Dyslipidemia:: Yes GERD:: Yes - BARRETTS ESOPHAGUS Discharge/Home/Social Eval Discharge Disposition: Home Marital Status:
--- NOTE | 2017-08-05 10:44 | CRPH1.INSTRU ---
General Education CAD and cardiac anatomy and function:: Patient communicates acknowledgment - AT BEDSIDE, Family communicates acknowledgment Explanation of diagnoses and procedures:: Patient communicates acknowledgment, Family communicates acknowledgment Sign/Symptoms of [place]:: Patient communicates acknowledgment, Family communicates acknowledgment Antiplatelet therapy: Patient communicates acknowledgment, Family communicates acknowledgment Proper use of NTG-SL: Patient communicates acknowledgment, Family communicates acknowledgment Emergency procedures and activation of EMS: Patient communicates acknowledgment, Family communicates acknowledgment Compliance of all prescribed medications: Patient communicates acknowledgment, Family communicates acknowledgment Smoking Recommendations Include:: Previous smoker; encourage continued cessation Nicotine/Smoking Response Code:: Patient communicates acknowledgment Dyslipidemia Patient Dyslipidemia Risk Factors Are:: Total Cholesterol, Triglycerides, HDL, LDL Recommendations Include:: Lipid profile provided, Reviewed NCEP/ATP guidelines, Therapeutic Lifestyle Change dietary guidelines Dyslipidemia Response Code:: Patient communicates acknowledgment, Family communicates acknowledgment Overweight/Obesity Patient Overweight/Obesity Risk Factors Are:: Obesity - > or = 30 Recommendations Include:: Weight loss of 5-10%, Reduced calorie diet, Exercise 5-7 times/week Overweight/Obesity:: Patient communicates acknowledgment, Family communicates acknowledgment Hypertension Recommendations Include:: BP <130/80 if diabetic, DASH dietary guidelines, Decrease/maintain normal body weight, Moderation of ETOH Hypertension:: Patient communicates acknowledgment, Family communicates acknowledgment Heart Disease Recommendations Include:: Educated family members of their risk, Educated family members of importance of prevention of heart disease Heart Disease Response Code:: Patient communicates acknowledgment, Family communicates acknowledgment Diabetes Patient Diabetes Risk Factors Are:: Elevated blood sugars Recommendations Include:: Maintain fasting blood sugars 70-110 md/dL, Maintain HgbA1c of 6% or less, Monitor blood sugar as prescribed, Diabetic dietary guidelines, Decrease/maintain body weight Diabetes:: Patient communicates acknowledgment, Family communicates acknowledgment Metabolic Syndrome Patient Metabolic Syndrome Risk Factors Are [3 of 5]:: Fasting blood sugar > 100 mg/dL, Waist circumference > 35 [female] or 40 [male], High triglyceride >150, Hypertension, Low HDL <40 [male] or < 50 [female] Recommendations Include:: Reinforce compliance to risk factor modifications, Patient is diabetic, Encouraged follow-up with Primary Care Physician Metabolic Syndrome Response Code:: Patient communicates acknowledgment, Family communicates acknowledgment Sedentary Patient Sedentary Risk Factors Are:: Lack of regular exercise Recommendations Include:: Aerobic exercise 5-7 times/week for 20-30 minutes continuously, Benefits of regular exercise, Discussed home walking program, Monitored Outpatient Cardiac Rehab Sedentary Response Code:: Patient communicates acknowledgment, Family communicates acknowledgment Stress Recommendations Include:: Identification of stressors, and assessment of coping skills, Stress management techniques Stress Response Code:: Patient communicates acknowledgment, Family communicates acknowledgment
[2017-08-05 10:46] LABS: Bedside Glucose 242 mg/dL (70-110)
--- NOTE | 2017-08-05 10:47 | CRPH1.INST_ITS ---
General Education CAD and cardiac anatomy and function:: Patient communicates acknowledgment - AT BEDSIDE, Family communicates acknowledgment Explanation of diagnoses and procedures:: Patient communicates acknowledgment, Family communicates acknowledgment Sign/Symptoms of SC:: Patient communicates acknowledgment, Family communicates acknowledgment Antiplatelet therapy: Patient communicates acknowledgment, Family communicates acknowledgment Proper use of NTG-SL: Patient communicates acknowledgment, Family communicates acknowledgment Emergency procedures and activation of EMS: Patient communicates acknowledgment , Family communicates acknowledgment Compliance of all prescribed medications: Patient communicates acknowledgment, Family communicates acknowledgment Smoking Recommendations Include:: Previous smoker; encourage continued cessation Nicotine/Smoking Response Code:: Patient communicates acknowledgment Dyslipidemia Patient Dyslipidemia Risk Factors Are:: Total Cholesterol, Triglycerides, HDL, LDL Recommendations Include:: Lipid profile provided, Reviewed NCEP/ATP guidelines, Therapeutic Lifestyle Change dietary guidelines Dyslipidemia Response Code:: Patient communicates acknowledgment, Family communicates acknowledgment Overweight/Obesity Patient Overweight/Obesity Risk Factors Are:: Obesity - > or = 30 Recommendations Include:: Weight loss of 5-10%, Reduced calorie diet, Exercise 5 -7 times/week Overweight/Obesity:: Patient communicates acknowledgment, Family communicates acknowledgment Hypertension Recommendations Include:: BP <130/80 if diabetic, DASH dietary guidelines, Decrease/maintain normal body weight, Moderation of ETOH Hypertension:: Patient communicates acknowledgment, Family communicates acknowledgment Heart Disease Recommendations Include:: Educated family members of their risk, Educated family members of importance of prevention of heart disease Heart Disease Response Code:: Patient communicates acknowledgment, Family communicates acknowledgment Diabetes Patient Diabetes Risk Factors Are:: Elevated blood sugars Recommendations Include:: Maintain fasting blood sugars 70-110 md/dL, Maintain HgbA1c of 6% or less, Monitor blood sugar as prescribed, Diabetic dietary guidelines, Decrease/maintain body weight Diabetes:: Patient communicates acknowledgment, Family communicates acknowledgment Metabolic Syndrome Patient Metabolic Syndrome Risk Factors Are [3 of 5]:: Fasting blood sugar > 100 mg/dL, Waist circumference > 35 [female] or 40 [male], High triglyceride > 150, Hypertension, Low HDL <40 [male] or < 50 [female] Recommendations Include:: Reinforce compliance to risk factor modifications, Patient is diabetic, Encouraged follow-up with Primary Care Physician Metabolic Syndrome Response Code:: Patient communicates acknowledgment, Family communicates acknowledgment Sedentary Patient Sedentary Risk Factors Are:: Lack of regular exercise Recommendations Include:: Aerobic exercise 5-7 times/week for 20-30 minutes continuously, Benefits of regular exercise, Discussed home walking program, Monitored Outpatient Cardiac Rehab Sedentary Response Code:: Patient communicates acknowledgment, Family communicates acknowledgment Stress Recommendations Include:: Identification of stressors, and assessment of coping skills, Stress management techniques Stress Response Code:: Patient communicates acknowledgment, Family communicates acknowledgment
--- NOTE | 2017-08-05 11:48 | PN.CARD_ITS ---
Subjectve: No complaints. No chest pain. Occasionally feels as if unable to catch a deep breath. No orthopnea. No PND. Objective: Vital Signs Temp Pulse Resp BP Pulse Ox 98.8 F 77 18 136/88 H 97 08/05/17 10:00 08/05/17 10:00 08/05/17 10:00 08/05/17 10:00 08/05/17 10:00 Oxygen Flow Rate (L/min) 2 Oxygen Delivery Method Room Air Weight: 88.5 kg Intake and Output for Last 24 Hours 08/03/17 08/04/17 08/05/17 23:59 23:59 23:59 Intake Total 480 / 480 980 / 980 Output Total 1200 / 1200 Balance -720 / -720 980 / 980 General: Healthy Appearing, Awake, Alert, Oriented x 3, No Acute Distress HEENT: Atraumatic, Normocephalic Oral: Moist Mucosa Neck: No JVD Lungs: Clear to auscultation Cardiovascular: Regular Rhythm, Normal S1, Normal S2, No Murmurs, No Rubs Abdomen: Bowel Sounds Present, Soft Neurological: No Focal Motor or Sensory Deficit Psych/Mental Status: Appropriate 08/05/17 05:35: Sodium 140, Potassium 4.4, Chloride 106, Carbon Dioxide 25.0, Anion Gap 9, BUN 16, Creatinine 0.84, Est GFR (MDRD) Af Amer 125, Est GFR (MDRD ) Non-Af 103, BUN/Creatinine Ratio 19.1, Glucose 155 H, Calcium 8.7, Troponin I 0.203 H 08/05/17 05:35: WBC 10.4, RBC 4.60, Hgb 13.5, Hct 39.3 L, MCV 85.4, MCH 29.3, MCHC 34.4, RDW 14.0, RDW Differential 43.1, Plt Count 351, MPV 8.8 08/05/17 05:35: Triglycerides 271 H, Cholesterol 180, LDL Cholesterol 93, VLDL Cholesterol 54 H, HDL Cholesterol 33 L Rhythm: Normal sinus rhythm. EKG: Normal sinus rhythm. ECHO: Pending Medical Necessity - Tobacco Use Smoking Status: Former smoker Tobacco Use: Non-smoker Assessment/Plan 1. Acute inferior myocardial infarction. Status post percutaneous revascularization with drug-eluting stent placement to the distal right coronary artery. Stable. Asymptomatic 2. Continue aspirin lifelong. Brilinta treatment for at least one year. Occasional feeling of being unable to catch a deep breath could be because of Brilinta. Discussed with patient. Advised that with continuing the Brilinta, this feeling may disappear. However if it persists, he is to contact us and then we will change him to another antiplatelet medication. Understands and agrees 3. Patient has residual lesion in the proximal left circumflex coronary artery as well as the ostial first obtuse marginal branch. Possible staged intervention to the proximal left circumflex as outpatient 4. Start on beta blockers. Change to carvedilol. Verapamil discontinued. Started on amlodipine 5. Lipid management as per primary care physician. Recommend target LDL cholesterol less than 100 mg/dL 6. Hypertension. Continue ANISHA inhibition. Started on beta blockers. Discontinue verapamil. Start on amlodipine 7. Normal LV systolic function 8. History of Beaulieu's esophagus. Continue patient's proton pump inhibitor May discharge home tomorrow morning if continues to be stable.
[2017-08-05] MEDS: Pantoprazole Sodium 40 MG Tablet PO ×2 (12:04→21:50)
[2017-08-05] MEDS: Insulin Lispro 100 UNIT/ML INSULN.PEN SQ ×2 (12:04→21:59)
--- NOTE | 2017-08-05 12:33 | CASEMGMT ---
SEE [facility] LINK. D/C PLAN: HOME Octavio PEREZ RN CM
[2017-08-05] MEDS: amLODIPine 5 MG Tablet PO (14:08)
--- NOTE | 2017-08-05 14:45 | EKG12_ITS ---
Test Reason : CP Blood Pressure : / mmHG Vent. Rate : 070 BPM Atrial Rate : 070 BPM P-R Int : 170 ms QRS Dur : 100 ms QT Int : 364 ms P-R-T Axes : 014 016 -15 degrees QTc Int : 393 ms Normal sinus rhythm Normal ECG When compared with ECG of 06-AUG-2017 06:02, MANUAL COMPARISON REQUIRED, DATA IS UNCONFIRMED Confirmed by [place] QUACH, LILLIAM ([id number]), proposal editor ABDI BANUELOS ([id number] on 08/10/2017 3:19:35 PM Referred By: RAJ Confirmed By:LILLIAM PERRY MD
[2017-08-05 16:26] LABS: Bedside Glucose 138 mg/dL (70-110)
--- NOTE | 2017-08-05 16:36 | NURSING ---
report called to PCU, Navjot CABRAL. to PCU 125, amb on monitor
--- NOTE | 2017-08-05 17:46 | CHAPLAIN ---
Type of Pastoral Visit ___ Initial Visit _x__ Follow-up Visit ___ On-call Visit ___ General Patient Visit ___ Spiritual Assessment ___ Family Conference ___ Bereavement ___ Rapid Response ___ Code Blue ___ Other (describe below) Pastoral Care Referral From _x__ Patient ___ Family ___ Nurse ___ Physician ___ Mold Sheet Cleaner ___ Investigative Assistant ___ Other (describe below) Sacrament/Intervention _x__ Active listening ___ Anointing ___ Caodaism ___ Bereavement ___ Communion _x__ Chloé exploration ___ _x__ Life review _x__ Prayer ___ Reconciliation ___ Sacrament of Sick _x__ Supportive presence ___ Wedding ___ Other (describe below) Pastoral Comments
[2017-08-05] MEDS: Carvedilol 6.25 MG Tablet PO (21:52)
[2017-08-05] MEDS: Atorvastatin Calcium 80 MG Tablet PO (21:53)
[2017-08-05 23:36] LABS: Bedside Glucose 219 mg/dL (70-110)
[2017-08-06] VITALS (13 sets, daily range): BP systolic 104–121; BP diastolic 58–82; PULSE 53–82; RESP 16–18; TEMP 36.6–36.8; O2SAT 95–98
[2017-08-06] MEDS: Enoxaparin 40 MG/0.4 ML Syringe SC (06:57)
[2017-08-06 06:58] LABS: Anion Gap 9 (5-15); BUN 20 mg/dL (7-18); BUN/Creat Ratio 21.2 RATIO (10-20); Chloride 103 mmol/L (98-107); Creatinine, Serum 0.94 mg/dL (0.70-1.30); EST Glomerular Filtration Rate 90 mL/min (>60); Est Glom Filt Rate - Afr Amer 109 mL/min (>60); Estimated Creatinine Clearance 84.84 ml/min; Glucose 175 mg/dL (74-106); Potassium 4.1 mmol/L (3.5-5.1); Sodium Level 141 mmol/L (136-145)
[2017-08-06 07:11] LABS: Bedside Glucose 192 mg/dL (70-110)
[2017-08-06 07:19] LABS: Absolute Lymphocyte Count 1.98 X10^3/ul (0.83-4.51); Absolute Neutrophil Count 7.4 X10^3/uL (2.0-7.7); Basophil# 0.01 X10^3/uL; Basophil% 0.1 % (0-1); Eosinophil# 0.14 X10^3/uL; Eosinophils% 1.4 % (0-5); Hemoglobin 14.2 g/dl (13.0-16.5); Lymphocyte # 1.98 X10^3/ul (4.0); Lymphocyte % 19.3 % (19-41); Mean Corpuscular Hgb 28.4 pg (27.0-32.0); Mean Platelet Vol. 8.8 fl (6.2-12.0); Monocyte% 6.8 % (0-10); Neutrophil # 7.35 X10^3/uL (2.7-7.7); Neutrophil % 71.8 % (47-70); Platelet Count 351 K/mm3 (150-450); RBC Distribution Width SD 43.7 fl (35.1-43.9); White Blood Count 10.2 K/mm3 (4.4-11.0)
[2017-08-06 07:20] LABS: POSITIVE COUNT NO; POSITIVE DIFFERENTIAL NO; POSITIVE MORPHOLOGY NO
[2017-08-06] MEDS: Fenofibrate 145 MG Tablet PO (08:47)
[2017-08-06] MEDS: Aspirin 81 MG TAB.CHEW PO (08:47)
[2017-08-06] MEDS: Glimepiride 1 MG Tablet PO (08:47)
[2017-08-06] MEDS: Carvedilol 6.25 MG Tablet PO ×2 (08:47→21:26)
[2017-08-06] MEDS: TICAGRELOR 90 MG TABLET PO (08:47)
[2017-08-06] MEDS: Pantoprazole Sodium 40 MG Tablet PO ×2 (08:48→21:26)
[2017-08-06] MEDS: Lisinopril 20 MG Tablet PO (08:48)
[2017-08-06] MEDS: amLODIPine 5 MG Tablet PO (08:48)
--- NOTE | 2017-08-06 10:00 | EKG12_ITS ---
Test Reason : AM EKG Blood Pressure : / mmHG Vent. Rate : 076 BPM Atrial Rate : 076 BPM P-R Int : 162 ms QRS Dur : 096 ms QT Int : 366 ms P-R-T Axes : 020 016 -11 degrees QTc Int : 411 ms Normal sinus rhythm Normal ECG When compared with ECG of 05-AUG-2017 05:39, MANUAL COMPARISON REQUIRED, DATA IS UNCONFIRMED Confirmed by [place]O QUACH, LILLIAM ([id number]), material expeditor LUISA GABRIEL ([id number] on 08/07/2017 10:05:42 AM Referred By: RAJ Confirmed By:LILLIAM PERRY MD
--- NOTE | 2017-08-06 11:00 | EKG12_ITS ---
Test Reason : MORNING EKG Blood Pressure : / mmHG Vent. Rate : 070 BPM Atrial Rate : 070 BPM P-R Int : 186 ms QRS Dur : 098 ms QT Int : 378 ms P-R-T Axes : 026 021 014 degrees QTc Int : 408 ms Normal sinus rhythm Normal ECG When compared with ECG of 04-AUG-2017 13:00, MANUAL COMPARISON REQUIRED, DATA IS UNCONFIRMED Confirmed by [place]O QUACH, LILLIAM ([id number]), features editor LUISA GABRIEL ([id number]) on 08/07/2017 9:41:11 AM Referred By: BIANCA Confirmed By:LILLIAM PERRY MD
--- NOTE | 2017-08-06 11:25 | NURSING ---
Dr. Mills at bedside. Feels intermittent chest pain is most likely not heart related but still wants pt NPO after midnight because if pain continues he will possibly catheterize him in AM. also changed brilinta to plavix
[2017-08-06] MEDS: Insulin Lispro 100 UNIT/ML INSULN.PEN SQ ×5 (11:30→21:29)
--- NOTE | 2017-08-06 11:39 | PN.CARD_ITS ---
Subjectve: Patient ambulated this morning. According to him, he had some vague left-sided chest discomfort. Lasted about 10-15 seconds only. Couple of these episodes. He has also been complaining of occasionally feeling to catch a deep breath. No orthopnea. No PND. Objective: Vital Signs Temp Pulse Resp BP Pulse Ox 98.3 F 70 16 107/69 97 08/06/17 10:00 08/06/17 11:20 08/06/17 10:00 08/06/17 11:20 08/06/17 10:00 Oxygen Flow Rate (L/min) 2 Oxygen Delivery Method Room Air Weight: 88.4 kg Body Mass Index (BMI) 30.9 Intake and Output for Last 24 Hours 08/04/17 08/05/17 08/06/17 23:59 23:59 23:59 Intake Total 480 / 480 2450 / 2450 120 / 120 Output Total 1200 / 1200 700 / 700 Balance -720 / -720 1750 / 1750 120 / 120 General: - - Appears mildly anxious. HEENT: Atraumatic, Normocephalic Oral: Moist Mucosa Neck: No JVD Lungs: Clear to auscultation Cardiovascular: Regular Rhythm, Normal S1, Normal S2, No Murmurs, No Rubs Abdomen: Bowel Sounds Present, Soft Neurological: No Focal Motor or Sensory Deficit Psych/Mental Status: - - Mildly anxious 08/06/17 06:20: WBC 10.2, RBC 5.00, Hgb 14.2, Hct 43.0, MCV 86.0, MCH 28.4, MCHC 33.0, RDW 14.0, RDW Differential 43.7, Plt Count 351, MPV 8.8, Immature Gran % (Auto) 0.600, Neut % (Auto) 71.8 H, Lymph % (Auto) 19.3, [place] % (Auto) 6.8, Eos % (Auto) 1.4, Baso % (Auto) 0.1, Absolute Neuts (auto) 7.4, Total Counted Not Reportable 08/06/17 06:20: Sodium 141, Potassium 4.1, Chloride 103, Carbon Dioxide 29.0, Anion Gap 9, BUN 20 H, Creatinine 0.94, Est GFR (MDRD) Af Amer 109, Est GFR ( MDRD) Non-Af 90, BUN/Creatinine Ratio 21.2 H, Glucose 175 H, Calcium 9.0 Rhythm: Normal sinus rhythm EKG: Normal sinus rhythm. No ischemic changes ECHO: Normal LV systolic function Medical Necessity - Tobacco Use Smoking Status: Former smoker Tobacco Use: Non-smoker Assessment/Plan 1. Acute inferior myocardial infarction. Status post percutaneous revascularization with drug-eluting stent placement to the distal right coronary artery. Stable. Patient complaining of vague chest discomfort with exertion. Lasting 10-15 seconds only. Doubt this is from his residual lesion in the left circumflex coronary artery. Patient appears mildly anxious. Per his , he has issues with anxiety. Reassured. 2. Continue aspirin lifelong. He has been having some vague dyspnea. May be because of Brilinta. Stop Brilinta. Load with Plavix and start on regular dose. 3. Patient has residual lesion in the proximal left circumflex coronary artery as well as the ostial first obtuse marginal branch. Possible staged intervention to the proximal left circumflex as outpatient. See #1 above. If continues to be symptomatic with exertion despite stopping Brilinta, then will consider PCI to left circumflex during this admission 4. Started on beta blockers 5. Lipid management as per primary care physician. Recommend target LDL cholesterol less than 100 mg/dL 6. Hypertension. Continue ANISHA inhibition. Started on beta blockers. Discontinue verapamil. Started on amlodipine 7. Normal LV systolic function 8. History of Beaulieu's esophagus. Continue patient's proton pump inhibitor 9. Diabetes mellitus 10. Possible anxiety. Consider trial of low-dose anxiolytic
[2017-08-06 11:41] LABS: Bedside Glucose 199 mg/dL (70-110)
--- NOTE | 2017-08-06 13:04 | PCM.PN.BLA ---
Progress Note Patient is scheduled for a post hospital follow-up with Dr. Mendoza on August 20 at 11:30 AM. He will follow-up with Dr. Mendoza business law instructor.
[2017-08-06] MEDS: Clopidogrel Bisulfate 300 MG Tablet PO (14:08)
[2017-08-06 16:45] LABS: Bedside Glucose 168 mg/dL (70-110)
--- NOTE | 2017-08-06 19:33 | PCM.PN.HOSP ---
Subjective: Patient was seen and examined. Complains of intermittent chest pain that is worse with exertion and associated with shortness of breath the last for about 10-15 secs. Chest pain feels like what he had before. No acute events on telemetry Objective: General: Alert, Oriented x3, Cooperative, No apparent distress HEENT: Atraumatic, PERRLA, EOMI, Normocephalic Oral: Moist Mucosa Neck: Supple Lungs: Clear to auscultation, Normal air movement Cardiovascular: Regular rate, Regular Rhythm, Normal S1, Normal S2, No murmurs Abdomen: Bowel Sounds Present, Soft, Non Tender, Non-Distended, No Hepato-splenomegaly Extremities: No edema Skin: No rashes, No breakdown Musculoskeletal: No Tenderness to Palpation of Joints or Extremities Lymphatic: No Cervical, Supraclavicular, or Inguinal Adenopathy Neurological: Cranial nerves II-XII grossly intact, Neuro grossly intact Psych/Mental Status: Normal Affect, Appropriate Vitals/I&O's: Vital Signs Temp Pulse Resp BP Pulse Ox 97.8 F 53 L 18 121/82 H 98 08/06/17 16:00 08/06/17 16:00 08/06/17 16:00 08/06/17 16:00 08/06/17 16:00 Oxygen Flow Rate (L/min) 2 Oxygen Delivery Method Room Air Weight: 88.4 kg Body Mass Index (BMI) 30.9 Intake and Output for Last 24 Hours 08/04/17 08/05/17 08/06/17 23:59 23:59 23:59 Intake Total 480 / 480 2450 / 2450 720 / 720 Output Total 1200 / 1200 700 / 700 400 / 400 Balance -720 / -720 1750 / 1750 320 / 320 Laboratory Results 08/05/17 21:48: POC Glucose 219 H 08/06/17 06:20: WBC 10.2, RBC 5.00, Hgb 14.2, Hct 43.0, MCV 86.0, MCH 28.4, MCHC 33.0, RDW 14.0, RDW Differential 43.7, Plt Count 351, MPV 8.8, Immature Gran % (Auto) 0.600, Neut % (Auto) 71.8 H, Lymph % (Auto) 19.3, [place] % (Auto) 6.8, Eos % (Auto) 1.4, Baso % (Auto) 0.1, Absolute Neuts (auto) 7.4, Absolute Lymphs (auto) 1.98, Total Counted Not Reportable 08/06/17 06:20: Sodium 141, Potassium 4.1, Chloride 103, Carbon Dioxide 29.0, Anion Gap 9, BUN 20 H, Creatinine 0.94, Estim Creat Clear Calc 84.84, Est GFR (MDRD) Af Amer 109, Est GFR (MDRD) Non-Af 90, BUN/Creatinine Ratio 21.2 H, Glucose 175 H, Calcium 9.0 08/06/17 07:01: POC Glucose 192 H 08/06/17 11:22: Troponin I 0.041 08/06/17 11:29: POC Glucose 199 H 08/06/17 16:31: POC Glucose 168 H Current Medications Acetaminophen (Tylenol) 650 mg PO Q6H PRN PRN PRN Reason: Mild Pain (1-3)/Temp > 100.7 F Amlodipine Besylate (Norvasc) 5 mg PO DAILY [facility] Last Admin: 08/06/17 08:48 Dose: 5 mg Aspirin (Aspirin, Baby) 81 mg PO DAILY@0800 [facility] Last Admin: 08/06/17 08:47 Dose: 81 mg Atorvastatin Calcium (Lipitor) 80 mg PO QHS [facility] Last Admin: 08/05/17 21:53 Dose: 80 mg Atropine Sulfate () 0.5 mg IV UD PRN PRN Reason: HR <50 bpm Bisacodyl (Dulcolax) 5 mg PO DAILY PRN PRN PRN Reason: Constipation Carvedilol (Coreg) 6.25 mg PO BID [facility] Last Admin: 08/06/17 08:47 Dose: 6.25 mg Clopidogrel Bisulfate (Plavix) 75 mg PO DAILY [facility] Dextrose (D50w Syringe) 0 gm IV X1 PRN; Protocol PRN Reason: Hypoglycemia Enoxaparin Sodium (Lovenox) 40 mg SC DAILY@0600 [facility] Last Admin: 08/06/17 06:57 Dose: 40 mg Fenofibrate (Tricor) 145 mg PO DAILY@0800 [facility] Last Admin: 08/06/17 08:47 Dose: 145 mg Glimepiride (Amaryl) 1 mg PO DAILY@0800 [facility] Last Admin: 08/06/17 08:47 Dose: 1 mg Glucagon () 1 mg IM .X1 PRN PRN Reason: Hypoglycemia Insulin Glargine (Lantus (Bkc)) 14 units SC QHS [facility] Insulin Human Lispro (Humalog Kwikpen (Bkc)) 0 unit SQ ACHS TRAE PRN Reason: Protocol Last Admin: 08/06/17 16:34 Dose: 1 units Insulin Human Lispro (Humalog Kwikpen (Bkc)) 2 unit SQ BREAKFAST [facility] Insulin Human Lispro (Humalog Kwikpen (Bkc)) 2 unit SQ DINNER [facility] Last Admin: 08/06/17 16:34 Dose: 2 u Insulin Human Lispro (Humalog Kwikpen (Bkc)) 2 unit SQ LUNCH [facility] Last Admin: 08/06/17 11:31 Dose: 2 u Lisinopril (Zestril) 20 mg PO DAILY [facility] Last Admin: 08/06/17 08:48 Dose: 20 mg Lorazepam (Ativan) 0.5 mg PO Q12H PRN PRN PRN Reason: ANXIETY Magnesium Hydroxide (Milk Of Magnesia) 30 ml PO DAILY PRN PRN Reason: Constipation Morphine Sulfate () 1 mg IV Q4H PRN PRN PRN Reason: SEVERE PAIN (6-10/10) Nitroglycerin (Nitrostat) 0.4 mg SUBLINGUAL Q5M PRN PRN Reason: CARDIAC/CHEST PAIN Last Admin: 08/06/17 11:20 Dose: 0.4 mg Pantoprazole Sodium (Protonix) 40 mg PO BID [facility] Last Admin: 08/06/17 08:48 Dose: 40 mg Psyllium Hydrophilic Mucilloid (Metamucil) 1 packet PO DAILY PRN PRN PRN Reason: CONSTIPATION Sodium Chloride () 500 ml IV BOLUS PRN PRN Reason: VASO-VAGAL PROTOCOL Sodium Chloride () 5 - 30 ml IV UD PRN PRN Reason: SALINE FLUSH Medical Necessity - Tobacco Use Smoking Status: Former smoker Tobacco Use: Non-smoker Assessment/Plan All Active Problems STEMI (ST elevation myocardial infarction) (Acute) Diabetes mellitus, new onset (Acute) Chest pain (Acute) Accelerated hypertension (Acute) 52 year old M with PMHx of Type 2 DM, Hypertension, Beaulieu's esophagus, no hx of cardiac disease, history of reflex seizures admitted with episodes of chest pain ongoing for ongoing for weeks but worse in the last few days. This was associated with recurrent syncopal episodes sometimes associated with incontinence of stool and urine. 1. Acute STEMI (ASAEL score 2), s/p cardiac cath, findings show 99% distal RCA stenosis, 80% prox/mid Left circumflex stenosis, 90% ostial marginal stenosis, s/p 2 RCA stents, on aspirin, Brilinta, statin, metoprolol, lisinopril, 2D echo is normal, lipid profile is slightly abnormal. Having intermittent chest pain, EKG is negative, troponin is improved from previous, changes made to medications by cardiology, patient on Plavix, or Brilinta, will continue to monitor 2. Recurrent syncopal, likely vasovagal related to pain vs syncopal seizures, hx of reflex seizures, was on meds for a short while and taking off, status post EGD this morning, neurology following, will follow up on recommendation. 3. Type 2 DM, HbA1c 10.6, on Lantus insulin 10 units SC, glimepiride, metformin on hold, sugars are uncontrolled, will make changes to Lantus and add pre-meal insulin. 4. Hypertension, controlled on Lisinopril, started on amlodipine 5. Hyperlipidemia, on statin, fenofibrate 6. Beaulieu's esophagus, on PPI BID 7. GI prophylaxis - on PPI 8. DVT PPx - Lovenox SC 9. Disposition: We will discharge home in 24-48 hours Code Visit Inpatient E&M: 93417 Subs Hosp L3
--- NOTE | 2017-08-06 19:36 | PN_ITS ---
Subjective: Patient was seen and examined. Complains of intermittent chest pain that is worse with exertion and associated with shortness of breath the last for about 10-15 secs. Chest pain feels like what he had before. No acute events on telemetry Objective: General: Alert, Oriented x3, Cooperative, No apparent distress HEENT: Atraumatic, PERRLA, EOMI, Normocephalic Oral: Moist Mucosa Neck: Supple Lungs: Clear to auscultation, Normal air movement Cardiovascular: Regular rate, Regular Rhythm, Normal S1, Normal S2, No murmurs Abdomen: Bowel Sounds Present, Soft, Non Tender, Non-Distended, No Hepato- splenomegaly Extremities: No edema Skin: No rashes, No breakdown Musculoskeletal: No Tenderness to Palpation of Joints or Extremities Lymphatic: No Cervical, Supraclavicular, or Inguinal Adenopathy Neurological: Cranial nerves II-XII grossly intact, Neuro grossly intact Psych/Mental Status: Normal Affect, Appropriate Vitals/I&O's: Vital Signs Temp Pulse Resp BP Pulse Ox 97.8 F 53 L 18 121/82 H 98 08/06/17 16:00 08/06/17 16:00 08/06/17 16:00 08/06/17 16:00 08/06/17 16:00 Oxygen Flow Rate (L/min) 2 Oxygen Delivery Method Room Air Weight: 88.4 kg Body Mass Index (BMI) 30.9 Intake and Output for Last 24 Hours 08/04/17 08/05/17 08/06/17 23:59 23:59 23:59 Intake Total 480 / 480 2450 / 2450 720 / 720 Output Total 1200 / 1200 700 / 700 400 / 400 Balance -720 / -720 1750 / 1750 320 / 320 Laboratory Results 08/05/17 21:48: POC Glucose 219 H 08/06/17 06:20: WBC 10.2, RBC 5.00, Hgb 14.2, Hct 43.0, MCV 86.0, MCH 28.4, MCHC 33.0, RDW 14.0, RDW Differential 43.7, Plt Count 351, MPV 8.8, Immature Gran % (Auto) 0.600, Neut % (Auto) 71.8 H, Lymph % (Auto) 19.3, [place] % (Auto) 6.8, Eos % (Auto) 1.4, Baso % (Auto) 0.1, Absolute Neuts (auto) 7.4, Absolute Lymphs (auto) 1.98, Total Counted Not Reportable 08/06/17 06:20: Sodium 141, Potassium 4.1, Chloride 103, Carbon Dioxide 29.0, Anion Gap 9, BUN 20 H, Creatinine 0.94, Estim Creat Clear Calc 84.84, Est GFR ( MDRD) Af Amer 109, Est GFR (MDRD) Non-Af 90, BUN/Creatinine Ratio 21.2 H, Glucose 175 H, Calcium 9.0 08/06/17 07:01: POC Glucose 192 H 08/06/17 11:22: Troponin I 0.041 08/06/17 11:29: POC Glucose 199 H 08/06/17 16:31: POC Glucose 168 H Current Medications Acetaminophen (Tylenol) 650 mg PO Q6H PRN PRN PRN Reason: Mild Pain (1-3)/Temp > 100.7 F Amlodipine Besylate (Norvasc) 5 mg PO DAILY [facility] Last Admin: 08/06/17 08:48 Dose: 5 mg Aspirin (Aspirin, Baby) 81 mg PO DAILY@0800 [facility] Last Admin: 08/06/17 08:47 Dose: 81 mg Atorvastatin Calcium (Lipitor) 80 mg PO QHS [facility] Last Admin: 08/05/17 21:53 Dose: 80 mg Atropine Sulfate () 0.5 mg IV UD PRN PRN Reason: HR <50 bpm Bisacodyl (Dulcolax) 5 mg PO DAILY PRN PRN PRN Reason: Constipation Carvedilol (Coreg) 6.25 mg PO BID [facility] Last Admin: 08/06/17 08:47 Dose: 6.25 mg Clopidogrel Bisulfate (Plavix) 75 mg PO DAILY [facility] Dextrose (D50w Syringe) 0 gm IV X1 PRN; Protocol PRN Reason: Hypoglycemia Enoxaparin Sodium (Lovenox) 40 mg SC DAILY@0600 [facility] Last Admin: 08/06/17 06:57 Dose: 40 mg Fenofibrate (Tricor) 145 mg PO DAILY@0800 [facility] Last Admin: 08/06/17 08:47 Dose: 145 mg Glimepiride (Amaryl) 1 mg PO DAILY@0800 [facility] Last Admin: 08/06/17 08:47 Dose: 1 mg Glucagon () 1 mg IM .X1 PRN PRN Reason: Hypoglycemia Insulin Glargine (Lantus (Bkc)) 14 units SC QHS [facility] Insulin Human Lispro (Humalog Kwikpen (Bkc)) 0 unit SQ ACHS [facility] PRN Reason: Protocol Last Admin: 08/06/17 16:34 Dose: 1 units Insulin Human Lispro (Humalog Kwikpen (Bkc)) 2 unit SQ BREAKFAST [facility] Insulin Human Lispro (Humalog Kwikpen (Bkc)) 2 unit SQ DINNER [facility] Last Admin: 08/06/17 16:34 Dose: 2 u Insulin Human Lispro (Humalog Kwikpen (Bkc)) 2 unit SQ LUNCH [facility] Last Admin: 08/06/17 11:31 Dose: 2 u Lisinopril (Zestril) 20 mg PO DAILY [facility] Last Admin: 08/06/17 08:48 Dose: 20 mg Lorazepam (Ativan) 0.5 mg PO Q12H PRN PRN PRN Reason: ANXIETY Magnesium Hydroxide (Milk Of Magnesia) 30 ml PO DAILY PRN PRN Reason: Constipation Morphine Sulfate () 1 mg IV Q4H PRN PRN PRN Reason: SEVERE PAIN (6-10/10) Nitroglycerin (Nitrostat) 0.4 mg SUBLINGUAL Q5M PRN PRN Reason: CARDIAC/CHEST PAIN Last Admin: 08/06/17 11:20 Dose: 0.4 mg Pantoprazole Sodium (Protonix) 40 mg PO BID [facility] Last Admin: 08/06/17 08:48 Dose: 40 mg Psyllium Hydrophilic Mucilloid (Metamucil) 1 packet PO DAILY PRN PRN PRN Reason: CONSTIPATION Sodium Chloride () 500 ml IV BOLUS PRN PRN Reason: VASO-VAGAL PROTOCOL Sodium Chloride () 5 - 30 ml IV UD PRN PRN Reason: SALINE FLUSH Medical Necessity - Tobacco Use Smoking Status: Former smoker Tobacco Use: Non-smoker Assessment/Plan All Active Problems STEMI (ST elevation myocardial infarction) (Acute) Diabetes mellitus, new onset (Acute) Chest pain (Acute) Accelerated hypertension (Acute) 52 year old M with PMHx of Type 2 DM, Hypertension, Beaulieu's esophagus, no hx of cardiac disease, history of reflex seizures admitted with episodes of chest pain ongoing for ongoing for weeks but worse in the last few days. This was associated with recurrent syncopal episodes sometimes associated with incontinence of stool and urine. 1. Acute STEMI (ASAEL score 2), s/p cardiac cath, findings show 99% distal RCA stenosis, 80% prox/mid Left circumflex stenosis, 90% ostial marginal stenosis, s /p 2 RCA stents, on aspirin, Brilinta, statin, metoprolol, lisinopril, 2D echo is normal, lipid profile is slightly abnormal. Having intermittent chest pain, EKG is negative, troponin is improved from previous, changes made to medications by cardiology, patient on Plavix, or Brilinta, will continue to monitor 2. Recurrent syncopal, likely vasovagal related to pain vs syncopal seizures, hx of reflex seizures, was on meds for a short while and taking off, status post EGD this morning, neurology following, will follow up on recommendation. 3. Type 2 DM, HbA1c 10.6, on Lantus insulin 10 units SC, glimepiride, metformin on hold, sugars are uncontrolled, will make changes to Lantus and add pre-meal insulin. 4. Hypertension, controlled on Lisinopril, started on amlodipine 5. Hyperlipidemia, on statin, fenofibrate 6. Beaulieu's esophagus, on PPI BID 7. GI prophylaxis - on PPI 8. DVT PPx - Lovenox SC 9. Disposition: We will discharge home in 24-48 hours Code Visit Inpatient E&M: 58582 Subs Hosp L3
[2017-08-06 20:51] LABS: Bedside Glucose 229 mg/dL (70-110)
[2017-08-06] MEDS: Atorvastatin Calcium 80 MG Tablet PO (21:26)
[2017-08-07 03:43] VITALS: PULSE 62
[2017-08-07 04:32] VITALS: BP 93/50; PULSE 59; RESP 17; TEMP 36.8; O2SAT 96
[2017-08-07 06:17] LABS: Absolute Lymphocyte Count 1.89 X10^3/ul (0.83-4.51); Basophil# 0.02 X10^3/uL; Basophil% 0.2 % (0-1); Eosinophil# 0.15 X10^3/uL; Eosinophils% 1.7 % (0-5); Hematocrit 41.7 % (40-54); Hemoglobin 13.9 g/dl (13.0-16.5); Lymphocyte # 1.89 X10^3/ul (4.0); Lymphocyte % 21.4 % (19-41); Mean Corp Hgb Conc 33.3 g/gl (32-36); Mean Corpuscular Hgb 28.2 pg (27.0-32.0); Mean Corpuscular Volume 84.6 fL (80-94); Mean Platelet Vol. 8.9 fl (6.2-12.0); Monocyte# 0.71 X10^3/uL; Neutrophil # 6.03 X10^3/uL (2.7-7.7); Neutrophil % 68.2 % (47-70); Platelet Count 334 K/mm3 (150-450); RBC Distribution Width CV 13.9 % (11.6-14.6); RBC Distribution Width SD 43.1 fl (35.1-43.9); Red Blood Count 4.93 M/mm3 (4.6-6.2); White Blood Count 8.8 K/mm3 (4.4-11.0)
[2017-08-07 06:18] LABS: POSITIVE COUNT NO; POSITIVE DIFFERENTIAL NO; POSITIVE MORPHOLOGY NO
[2017-08-07 06:21] LABS: Prothrombin Time (Protime)PT. 12.9 SECONDS (11.7-14.9)
[2017-08-07 06:22] LABS: Partial Thromboplast Time 25.8 Seconds (24.1-36.2)
[2017-08-07 06:34] LABS: Anion Gap 9 (5-15); BUN 21 mg/dL (7-18); Chloride 105 mmol/L (98-107); Creatinine, Serum 0.87 mg/dL (0.70-1.30); EST Glomerular Filtration Rate 98 mL/min (>60); Est Glom Filt Rate - Afr Amer 119 mL/min (>60); Estimated Creatinine Clearance 91.67 ml/min; Glucose 182 mg/dL (74-106); Potassium 4.4 mmol/L (3.5-5.1); Sodium Level 139 mmol/L (136-145)
[2017-08-07 06:50] LABS: Bedside Glucose 190 mg/dL (70-110)
[2017-08-07 07:14] VITALS: PULSE 65
[2017-08-07 09:04] VITALS: O2SAT 95
[2017-08-07 09:41] VITALS: BP 114/76; PULSE 71; RESP 16; TEMP 36.6; O2SAT 100
--- NOTE | 2017-08-07 10:00 | EKG12_ITS ---
Test Reason : AM EKG Blood Pressure : / mmHG Vent. Rate : 072 BPM Atrial Rate : 072 BPM P-R Int : 170 ms QRS Dur : 094 ms QT Int : 374 ms P-R-T Axes : 032 032 -10 degrees QTc Int : 409 ms Normal sinus rhythm Normal ECG When compared with ECG of 06-AUG-2017 11:11, MANUAL COMPARISON REQUIRED, DATA IS UNCONFIRMED Confirmed by ORLANDO QUACH, LILLIAM ([id number]), editor index ABDI BANUELOS ([id number]) on 08/10/2017 3:16:15 PM Referred By: RAJ Confirmed By:LILLIAM PERRY MD
[2017-08-07] MEDS: amLODIPine 5 MG Tablet PO (10:06)
[2017-08-07] MEDS: Aspirin 81 MG TAB.CHEW PO (10:06)
[2017-08-07] MEDS: Glimepiride 1 MG Tablet PO (10:06)
[2017-08-07] MEDS: Carvedilol 6.25 MG Tablet PO (10:06)
[2017-08-07] MEDS: Lisinopril 20 MG Tablet PO (10:06)
[2017-08-07] MEDS: Clopidogrel Bisulfate 75 MG Tablet PO (10:06)
[2017-08-07] MEDS: Fenofibrate 145 MG Tablet PO (10:06)
[2017-08-07] MEDS: Pantoprazole Sodium 40 MG Tablet PO (10:06)
[2017-08-07] MEDS: Insulin Lispro 100 UNIT/ML INSULN.PEN SQ (10:07)
--- NOTE | 2017-08-07 10:12 | PCM.PN.HOSP ---
Subjective: Seen and examined. Has some mild chest pain that feels like his dysphagia pain. Does not radiate to the neck or arm. Does not feel like what he had prior. He has been walking around but no much. He denies dizziness and palpitations no orthopnea or PND Objective: Physical exam: General: Alert, Oriented x3, Cooperative, No apparent distress HEENT: Atraumatic, PERRLA, EOMI, Normocephalic Oral: Moist Mucosa Neck: Supple Lungs: Clear to auscultation, Normal air movement Cardiovascular: Regular rate, Regular Rhythm, Normal S1, Normal S2, No murmurs Abdomen: Bowel Sounds Present, Soft, Non Tender, Non-Distended, No Hepato-splenomegaly Extremities: No edema Skin: No rashes, No breakdown Musculoskeletal: No Tenderness to Palpation of Joints or Extremities Lymphatic: No Cervical, Supraclavicular, or Inguinal Adenopathy Neurological: Cranial nerves II-XII grossly intact, Neuro grossly intact Psych/Mental Status: Normal Affect, Appropriate Vitals/I&O's: Vital Signs Temp Pulse Resp BP Pulse Ox 97.8 F 71 16 114/76 100 08/07/17 09:41 08/07/17 09:41 08/07/17 09:41 08/07/17 09:41 08/07/17 09:41 Oxygen Flow Rate (L/min) 2 Oxygen Delivery Method Room Air Weight: 87.3 kg Body Mass Index (BMI) 30.9 Intake and Output for Last 24 Hours 08/05/17 08/06/17 08/07/17 23:59 23:59 23:59 Intake Total 2450 / 2450 1060 / 1060 0 / 0 Output Total 700 / 700 400 / 400 Balance 1750 / 1750 660 / 660 0 / 0 Laboratory Results 08/06/17 11:22: Troponin I 0.041 08/06/17 11:29: POC Glucose 199 H 08/06/17 16:31: POC Glucose 168 H 08/06/17 20:43: POC Glucose 229 H 08/07/17 05:40: WBC 8.8, RBC 4.93, Hgb 13.9, Hct 41.7, MCV 84.6, MCH 28.2, MCHC 33.3, RDW 13.9, RDW Differential 43.1, Plt Count 334, MPV 8.9, Immature Gran % (Auto) 0.500, Neut % (Auto) 68.2, Lymph % (Auto) 21.4, [place] % (Auto) 8.0, Eos % (Auto) 1.7, Baso % (Auto) 0.2, Absolute Neuts (auto) 6.0, Absolute Lymphs (auto) 1.89, Total Counted Not Reportable 08/07/17 05:40: PT 12.9, INR 1.0, APTT 25.8 08/07/17 05:40: Sodium 139, Potassium 4.4, Chloride 105, Carbon Dioxide 25.0, Anion Gap 9, BUN 21 H, Creatinine 0.87, Estim Creat Clear Calc 91.67, Est GFR (MDRD) Af Amer 119, Est GFR (MDRD) Non-Af 98, BUN/Creatinine Ratio 24.0 H, Glucose 182 H, Calcium 9.0 08/07/17 06:41: POC Glucose 190 H Current Medications Acetaminophen (Tylenol) 650 mg PO Q6H PRN PRN PRN Reason: Mild Pain (1-3)/Temp > 100.7 F Al Hydroxide/Mg Hydroxide (Mylanta Ii) 15 ml PO Q4H PRN PRN PRN Reason: INDIGESTION Amlodipine Besylate (Norvasc) 5 mg PO DAILY [facility] Last Admin: 08/07/17 10:06 Dose: 5 mg Aspirin (Aspirin, Baby) 81 mg PO DAILY@0800 [facility] Last Admin: 08/07/17 10:06 Dose: 81 mg Atorvastatin Calcium (Lipitor) 80 mg PO QHS [facility] Last Admin: 08/06/17 21:26 Dose: 80 mg Atropine Sulfate () 0.5 mg IV UD PRN PRN Reason: HR <50 bpm Bisacodyl (Dulcolax) 5 mg PO DAILY PRN PRN PRN Reason: Constipation Carvedilol (Coreg) 6.25 mg PO BID [facility] Last Admin: 08/07/17 10:06 Dose: 6.25 mg Clopidogrel Bisulfate (Plavix) 75 mg PO DAILY [facility] Last Admin: 08/07/17 10:06 Dose: 75 mg Dextrose (D50w Syringe) 0 gm IV X1 PRN; Protocol PRN Reason: Hypoglycemia Enoxaparin Sodium (Lovenox) 40 mg SC DAILY@0600 [facility] Last Admin: 08/07/17 10:07 Dose: Not Given Fenofibrate (Tricor) 145 mg PO DAILY@0800 [facility] Last Admin: 08/07/17 10:06 Dose: 145 mg Glimepiride (Amaryl) 1 mg PO DAILY@0800 [facility] Last Admin: 08/07/17 10:06 Dose: 1 mg Glucagon () 1 mg IM .X1 PRN PRN Reason: Hypoglycemia Insulin Glargine (Lantus (Bkc)) 14 units SC QHS [facility] Last Admin: 08/06/17 21:28 Dose: 14 u Insulin Human Lispro (Humalog Kwikpen (Bkc)) 0 unit SQ ACHS [facility] PRN Reason: Protocol Last Admin: 08/07/17 09:56 Dose: Not Given Insulin Human Lispro (Humalog Kwikpen (Bkc)) 2 unit SQ BREAKFAST [facility] Last Admin: 08/07/17 10:07 Dose: 2 units Insulin Human Lispro (Humalog Kwikpen (Bkc)) 2 unit SQ DINNER [facility] Last Admin: 08/06/17 16:34 Dose: 2 u Insulin Human Lispro (Humalog Kwikpen (Bkc)) 2 unit SQ LUNCH [facility] Last Admin: 08/06/17 11:31 Dose: 2 u Lisinopril (Zestril) 20 mg PO DAILY [facility] Last Admin: 08/07/17 10:06 Dose: 20 mg Lorazepam (Ativan) 0.5 mg PO Q12H PRN PRN PRN Reason: ANXIETY Magnesium Hydroxide (Milk Of Magnesia) 30 ml PO DAILY PRN PRN Reason: Constipation Morphine Sulfate () 1 mg IV Q4H PRN PRN PRN Reason: SEVERE PAIN (6-10/10) Nitroglycerin (Nitrostat) 0.4 mg SUBLINGUAL Q5M PRN PRN Reason: CARDIAC/CHEST PAIN Last Admin: 08/06/17 11:20 Dose: 0.4 mg Pantoprazole Sodium (Protonix) 40 mg PO BID [facility] Last Admin: 08/07/17 10:06 Dose: 40 mg Psyllium Hydrophilic Mucilloid (Metamucil) 1 packet PO DAILY PRN PRN PRN Reason: CONSTIPATION Sodium Chloride () 500 ml IV BOLUS PRN PRN Reason: VASO-VAGAL PROTOCOL Sodium Chloride () 5 - 30 ml IV UD PRN PRN Reason: SALINE FLUSH Medical Necessity - Tobacco Use Smoking Status: Former smoker Tobacco Use: Non-smoker Assessment/Plan All Active Problems STEMI (ST elevation myocardial infarction) (Acute) Diabetes mellitus, new onset (Acute) Chest pain (Acute) Accelerated hypertension (Acute) 52 year old M with PMHx of Type 2 DM, Hypertension, Beaulieu's esophagus, no hx of cardiac disease, history of reflex seizures admitted with episodes of chest pain ongoing for ongoing for weeks but worse in the last few days. This was associated with recurrent syncopal episodes sometimes associated with incontinence of stool and urine. 1. Acute STEMI (ASAEL score 2), s/p cardiac cath, findings show 99% distal RCA stenosis, 80% prox/mid Left circumflex stenosis, 90% ostial marginal stenosis, s/p 2 RCA stents, on aspirin, Brilinta, statin, metoprolol, lisinopril, 2D echo is normal, lipid profile is slightly abnormal. Having intermittent chest pain, EKG is negative, troponin is improved from previous, changes made to medications by cardiology, patient on Plavix, or Brilinta, will continue to monitor. This is likely related to esophageal pain. 2. Recurrent syncopal, likely vasovagal related to pain vs syncopal seizures, hx of reflex seizures, was on meds for a short while and taking off, status post EGD this morning, no treatment pe neurology. 3. Type 2 DM, HbA1c 10.6, on Lantus insulin 10 units SC, glimepiride, metformin on hold, sugars are uncontrolled, will DC metformin, resume metformin a little later, increase Amaryl to 2 mg daily, continue with insulin 14 units subcu 4. Hypertension, controlled on Lisinopril, started on amlodipine 5. Hyperlipidemia, on statin, fenofibrate 6. Beaulieu's esophagus, on PPI BID 7. GI prophylaxis - on PPI 8. DVT PPx - Lovenox SC 9. Disposition: Possible discharge today Code Visit Inpatient E&M: 18143 Subs Hosp L2
--- NOTE | 2017-08-07 10:19 | PN_ITS ---
Subjective: Seen and examined. Has some mild chest pain that feels like his dysphagia pain. Does not radiate to the neck or arm. Does not feel like what he had prior. He has been walking around but no much. He denies dizziness and palpitations no orthopnea or PND Objective: Physical exam: General: Alert, Oriented x3, Cooperative, No apparent distress HEENT: Atraumatic, PERRLA, EOMI, Normocephalic Oral: Moist Mucosa Neck: Supple Lungs: Clear to auscultation, Normal air movement Cardiovascular: Regular rate, Regular Rhythm, Normal S1, Normal S2, No murmurs Abdomen: Bowel Sounds Present, Soft, Non Tender, Non-Distended, No Hepato- splenomegaly Extremities: No edema Skin: No rashes, No breakdown Musculoskeletal: No Tenderness to Palpation of Joints or Extremities Lymphatic: No Cervical, Supraclavicular, or Inguinal Adenopathy Neurological: Cranial nerves II-XII grossly intact, Neuro grossly intact Psych/Mental Status: Normal Affect, Appropriate Vitals/I&O's: Vital Signs Temp Pulse Resp BP Pulse Ox 97.8 F 71 16 114/76 100 08/07/17 09:41 08/07/17 09:41 08/07/17 09:41 08/07/17 09:41 08/07/17 09:41 Oxygen Flow Rate (L/min) 2 Oxygen Delivery Method Room Air Weight: 87.3 kg Body Mass Index (BMI) 30.9 Intake and Output for Last 24 Hours 08/05/17 08/06/17 08/07/17 23:59 23:59 23:59 Intake Total 2450 / 2450 1060 / 1060 0 / 0 Output Total 700 / 700 400 / 400 Balance 1750 / 1750 660 / 660 0 / 0 Laboratory Results 08/06/17 11:22: Troponin I 0.041 08/06/17 11:29: POC Glucose 199 H 08/06/17 16:31: POC Glucose 168 H 08/06/17 20:43: POC Glucose 229 H 08/07/17 05:40: WBC 8.8, RBC 4.93, Hgb 13.9, Hct 41.7, MCV 84.6, MCH 28.2, MCHC 33.3, RDW 13.9, RDW Differential 43.1, Plt Count 334, MPV 8.9, Immature Gran % ( Auto) 0.500, Neut % (Auto) 68.2, Lymph % (Auto) 21.4, [place] % (Auto) 8.0, Eos % ( Auto) 1.7, Baso % (Auto) 0.2, Absolute Neuts (auto) 6.0, Absolute Lymphs (auto) 1.89, Total Counted Not Reportable 08/07/17 05:40: PT 12.9, INR 1.0, APTT 25.8 08/07/17 05:40: Sodium 139, Potassium 4.4, Chloride 105, Carbon Dioxide 25.0, Anion Gap 9, BUN 21 H, Creatinine 0.87, Estim Creat Clear Calc 91.67, Est GFR ( MDRD) Af Amer 119, Est GFR (MDRD) Non-Af 98, BUN/Creatinine Ratio 24.0 H, Glucose 182 H, Calcium 9.0 08/07/17 06:41: POC Glucose 190 H Current Medications Acetaminophen (Tylenol) 650 mg PO Q6H PRN PRN PRN Reason: Mild Pain (1-3)/Temp > 100.7 F Al Hydroxide/Mg Hydroxide (Mylanta Ii) 15 ml PO Q4H PRN PRN PRN Reason: INDIGESTION Amlodipine Besylate (Norvasc) 5 mg PO DAILY [facility] Last Admin: 08/07/17 10:06 Dose: 5 mg Aspirin (Aspirin, Baby) 81 mg PO DAILY@0800 [facility] Last Admin: 08/07/17 10:06 Dose: 81 mg Atorvastatin Calcium (Lipitor) 80 mg PO QHS [facility] Last Admin: 08/06/17 21:26 Dose: 80 mg Atropine Sulfate () 0.5 mg IV UD PRN PRN Reason: HR <50 bpm Bisacodyl (Dulcolax) 5 mg PO DAILY PRN PRN PRN Reason: Constipation Carvedilol (Coreg) 6.25 mg PO BID [facility] Last Admin: 08/07/17 10:06 Dose: 6.25 mg Clopidogrel Bisulfate (Plavix) 75 mg PO DAILY [facility] Last Admin: 08/07/17 10:06 Dose: 75 mg Dextrose (D50w Syringe) 0 gm IV X1 PRN; Protocol PRN Reason: Hypoglycemia Enoxaparin Sodium (Lovenox) 40 mg SC DAILY@0600 [facility] Last Admin: 08/07/17 10:07 Dose: Not Given Fenofibrate (Tricor) 145 mg PO DAILY@0800 [facility] Last Admin: 08/07/17 10:06 Dose: 145 mg Glimepiride (Amaryl) 1 mg PO DAILY@0800 [facility] Last Admin: 08/07/17 10:06 Dose: 1 mg Glucagon () 1 mg IM .X1 PRN PRN Reason: Hypoglycemia Insulin Glargine (Lantus (Bkc)) 14 units SC QHS [facility] Last Admin: 08/06/17 21:28 Dose: 14 u Insulin Human Lispro (Humalog Kwikpen (Bkc)) 0 unit SQ ACHS [facility] PRN Reason: Protocol Last Admin: 08/07/17 09:56 Dose: Not Given Insulin Human Lispro (Humalog Kwikpen (Bkc)) 2 unit SQ BREAKFAST [facility] Last Admin: 08/07/17 10:07 Dose: 2 units Insulin Human Lispro (Humalog Kwikpen (Bkc)) 2 unit SQ DINNER [facility] Last Admin: 08/06/17 16:34 Dose: 2 u Insulin Human Lispro (Humalog Kwikpen (Bkc)) 2 unit SQ LUNCH [facility] Last Admin: 08/06/17 11:31 Dose: 2 u Lisinopril (Zestril) 20 mg PO DAILY [facility] Last Admin: 08/07/17 10:06 Dose: 20 mg Lorazepam (Ativan) 0.5 mg PO Q12H PRN PRN PRN Reason: ANXIETY Magnesium Hydroxide (Milk Of Magnesia) 30 ml PO DAILY PRN PRN Reason: Constipation Morphine Sulfate () 1 mg IV Q4H PRN PRN PRN Reason: SEVERE PAIN (6-10/10) Nitroglycerin (Nitrostat) 0.4 mg SUBLINGUAL Q5M PRN PRN Reason: CARDIAC/CHEST PAIN Last Admin: 08/06/17 11:20 Dose: 0.4 mg Pantoprazole Sodium (Protonix) 40 mg PO BID [facility] Last Admin: 08/07/17 10:06 Dose: 40 mg Psyllium Hydrophilic Mucilloid (Metamucil) 1 packet PO DAILY PRN PRN PRN Reason: CONSTIPATION Sodium Chloride () 500 ml IV BOLUS PRN PRN Reason: VASO-VAGAL PROTOCOL Sodium Chloride () 5 - 30 ml IV UD PRN PRN Reason: SALINE FLUSH Medical Necessity - Tobacco Use Smoking Status: Former smoker Tobacco Use: Non-smoker Assessment/Plan All Active Problems STEMI (ST elevation myocardial infarction) (Acute) Diabetes mellitus, new onset (Acute) Chest pain (Acute) Accelerated hypertension (Acute) 52 year old M with PMHx of Type 2 DM, Hypertension, Beaulieu's esophagus, no hx of cardiac disease, history of reflex seizures admitted with episodes of chest pain ongoing for ongoing for weeks but worse in the last few days. This was associated with recurrent syncopal episodes sometimes associated with incontinence of stool and urine. 1. Acute STEMI (ASAEL score 2), s/p cardiac cath, findings show 99% distal RCA stenosis, 80% prox/mid Left circumflex stenosis, 90% ostial marginal stenosis, s /p 2 RCA stents, on aspirin, Brilinta, statin, metoprolol, lisinopril, 2D echo is normal, lipid profile is slightly abnormal. Having intermittent chest pain, EKG is negative, troponin is improved from previous, changes made to medications by cardiology, patient on Plavix, or Brilinta, will continue to monitor. This is likely related to esophageal pain. 2. Recurrent syncopal, likely vasovagal related to pain vs syncopal seizures, hx of reflex seizures, was on meds for a short while and taking off, status post EGD this morning, no treatment pe neurology. 3. Type 2 DM, HbA1c 10.6, on Lantus insulin 10 units SC, glimepiride, metformin on hold, sugars are uncontrolled, will DC metformin, resume metformin a little later, increase Amaryl to 2 mg daily, continue with insulin 14 units subcu 4. Hypertension, controlled on Lisinopril, started on amlodipine 5. Hyperlipidemia, on statin, fenofibrate 6. Beaulieu's esophagus, on PPI BID 7. GI prophylaxis - on PPI 8. DVT PPx - Lovenox SC 9. Disposition: Possible discharge today Code Visit Inpatient E&M: 36979 Subs Hosp L2
--- NOTE | 2017-08-07 10:39 | PCM.DC ---
- Discharge Diagnoses Reason(s) for Visit for Discharge Instructions: Chest pain You will use the following diet at home:: Calorie/Carbohydrate Controlled (specify 1200, 1400, etc), Cardiac Your food should be the consistency of: Regular Your liquids should be the consistency of: Regular/Thin Discharge Activity: Return to Normal Activity Additional Instructions: Please take note of all your medications. You should follow-up on the post heart stents recommendations. Take all your medications as prescribed. Follow a heart healthy diet. Continue with cardiac rehab. Follow-up with Dr. Mendoza as scheduled. Your primary doctor may resume metformin a little later. Keep a log of your blood sugars and show it to your primary care doctor or corn cutter operator. Allergies/Adverse Reactions: Allergies bee venom protein (honey bee) Allergy (Severe, Verified 08/04/17 12:41) Angioedema niacin Allergy (Verified 08/04/17 09:36) Shortness of breath Medications to take at Discharge Atorvastatin Calcium 40 mg PO QHS 08/04/17 Fenofibrate [Tricor] 145 mg PO DAILY 08/04/17 Lisinopril [Zestril] 20 mg PO DAILY 08/04/17 Amlodipine [Norvasc] 2.5 mg PO DAILY #30 tab 08/07/17 Aspirin 81 mg PO DAILY #30 tab.chew 08/07/17 Carvedilol 6.25 mg PO BID #60 tab 08/07/17 Glimepiride [Amaryl] 2 mg PO DAILY #30 tab 08/07/17 Insulin Glargine,Hum.rec.anlog [Basaglar Kwikpen U-100] 14 unit SQ QHS #0 08/07/17 Mag Hydrox/Al Hydrox/Simeth [Mylanta II] 15 ml PO Q4H PRN PRN #1 bottle 08/07/17 Nitroglycerin [Nitrostat] 0.4 mg SUBLINGUAL Q5M PRN #10 tab 08/07/17 Omeprazole 40 mg PO BID #0 08/07/17 The following prescriptions were given: Mag Hydrox/Al Hydrox/Simeth [Mylanta II] 15 ml PO Q4H PRN PRN #1 bottle PRN Reason: Indigestion Amlodipine [Norvasc] 2.5 mg PO DAILY #30 tab Aspirin 81 mg PO DAILY #30 tab.chew Glimepiride [Amaryl] 2 mg PO DAILY #30 tab Nitroglycerin [Nitrostat] 0.4 mg SUBLINGUAL Q5M PRN #10 tab PRN Reason: Cardiac/Chest Pain Carvedilol 6.25 mg PO BID #60 tab Primary Care Physician: Mikey Rogers MD [Primary Care Provider] - Please follow up with your Primary Care Physician in: within 2 weeks Please Follow Up With: Mikey Mendoza MD When: as scheduled on 08/20/17 Please Follow Up With: Cornelia Martinez TRACK HELPER-C When: within 2 weeks with a log of your blood sugar Proposed Discharge Date: 08/07/17
--- NOTE | 2017-08-07 10:46 | DCINST_ITS ---
- Discharge Diagnoses Reason(s) for Visit for Discharge Instructions: Chest pain You will use the following diet at home:: Calorie/Carbohydrate Controlled ( specify 1200, 1400, etc), Cardiac Your food should be the consistency of: Regular Your liquids should be the consistency of: Regular/Thin Discharge Activity: Return to Normal Activity Additional Instructions: Please take note of all your medications. You should follow-up on the post heart stents recommendations. Take all your medications as prescribed. Follow a heart healthy diet. Continue with cardiac rehab. Follow-up with Dr. Mendoza as scheduled. Your primary doctor may resume metformin a little later. Keep a log of your blood sugars and show it to your primary care doctor or audit clerks supervisor. Allergies/Adverse Reactions: Allergies bee venom protein (honey bee) Allergy (Severe, Verified 08/04/17 12:41) Angioedema niacin Allergy (Verified 08/04/17 09:36) Shortness of breath Medications to take at Discharge Atorvastatin Calcium 40 mg PO QHS 08/04/17 Fenofibrate [Tricor] 145 mg PO DAILY 08/04/17 Lisinopril [Zestril] 20 mg PO DAILY 08/04/17 Amlodipine [Norvasc] 2.5 mg PO DAILY #30 tab 08/07/17 Aspirin 81 mg PO DAILY #30 tab.chew 08/07/17 Carvedilol 6.25 mg PO BID #60 tab 08/07/17 Glimepiride [Amaryl] 2 mg PO DAILY #30 tab 08/07/17 Insulin Glargine,Hum.rec.anlog [Basaglar Kwikpen U-100] 14 unit SQ QHS #0 Mag Hydrox/Al Hydrox/Simeth [Mylanta II] 15 ml PO Q4H PRN PRN #1 bottle Nitroglycerin [Nitrostat] 0.4 mg SUBLINGUAL Q5M PRN #10 tab 08/07/17 Omeprazole 40 mg PO BID #0 08/07/17 The following prescriptions were given: Mag Hydrox/Al Hydrox/Simeth [Mylanta II] 15 ml PO Q4H PRN PRN #1 bottle PRN Reason: Indigestion Amlodipine [Norvasc] 2.5 mg PO DAILY #30 tab Aspirin 81 mg PO DAILY #30 tab.chew Glimepiride [Amaryl] 2 mg PO DAILY #30 tab Nitroglycerin [Nitrostat] 0.4 mg SUBLINGUAL Q5M PRN #10 tab PRN Reason: Cardiac/Chest Pain Carvedilol 6.25 mg PO BID #60 tab Primary Care Physician: Mikey Rogers MD [Primary Care Provider] - Please follow up with your Primary Care Physician in: within 2 weeks Please Follow Up With: Mikey Mendoza MD When: as scheduled on 08/20/17 Please Follow Up With: Cornelia Martinez MANAGER [employer]-C When: within 2 weeks with a log of your blood sugar Proposed Discharge Date: 08/07/17
--- NOTE | 2017-08-07 10:46 | PCM.DC.SUM ---
Discharge Date and Diagnosis Date of Admission: 08/04/17 Date of Discharge: 08/07/17 - Primary Discharge Diagnosis Acute STEMI Uncontrolled hypertension Uncontrolled type 2 diabetes - Secondary Discharge Diagnosis Chronic Problems Atherosclerotic heart disease of [place] coronary artery without angina pectoris (Chronic) S/P coronary artery stent placement (Chronic) Barretts esophagus (Chronic) Obesity (BMI 30-39.9) (Chronic) Diabetes mellitus, type II (Chronic) Mixed hyperlipidemia (Chronic) HTN (hypertension) (Chronic) Hospital Course and Treatment Imaging Results: Clinical Impression(s) from Imaging Studies Chest X-Ray 08/04/17 10:00 IMPRESSION: No acute abnormality is present. Electronically Signed: Pola Funes MD at 10:30 EDT Tel [phone], Service support , Cardiology Critical care Procedures: 2-D Echocardiogram, Cardiac catheterization Summary of Care Provided: 52 year old M with PMHx of Type 2 DM, Hypertension, Beaulieu's esophagus, no hx of cardiac disease, history of reflex seizures admitted with episodes of chest pain ongoing for weeks but worse in the last few days prior to admission. This was associated with recurrent syncopal episodes sometimes associated with incontinence of stool and urine. 1. Acute STEMI (ASAEL score 2), s/p cardiac cath, findings show 99% distal RCA stenosis, 80% prox/mid Left circumflex stenosis, 90% ostial marginal stenosis, s/p 2 RCA stents, on aspirin, Brilinta, statin, metoprolol, lisinopril, 2D echo is normal, lipid profile is slightly abnormal. Patient did well in the immediate post cath. Was managed in ICU, improved with no complaints, transferred to the PCU. He started having intermittent chest pain, repeat EKG is negative, repeat troponin was improved from previous, cardiology switch patient from Brilinta to Plavix. Pain was felt to be due to esophageal pain. Will be followed up with cardiology in the outpatient and also with cardiac rehab. 2. Recurrent syncopal, likely vasovagal related to pain vs syncopal seizures, hx of reflex seizures, was on meds for a short while and taking off, status post EEG no treatment per neurology. 3. Type 2 DM, HbA1c 10.6, on Lantus insulin glimepiride, metformin on hold, sugars are uncontrolled, will DC metformin, resume metformin a little later in the outpatient, Amaryl increased to 2 mg daily, changes made to his home going insulin. 4. Hypertension, controlled on Lisinopril, started on amlodipine 5. Hyperlipidemia, on statin, fenofibrate 6. Beaulieu's esophagus, on PPI BID Discharge Diet: Low fat/ Low Cholesterol, 1800 Calorie Control Diet, 2000 mg Sodium Diet, Carb Control Diet Discharge Activity: Return to Normal Activity Home Medications: Medications to take at Discharge Atorvastatin Calcium 40 mg PO QHS 08/04/17 Fenofibrate [Tricor] 145 mg PO DAILY 08/04/17 Amlodipine [Norvasc] 2.5 mg PO DAILY #30 tab 08/07/17 Aspirin 81 mg PO DAILY #30 tab.chew 08/07/17 Carvedilol 6.25 mg PO BID #60 tab 08/07/17 Clopidogrel Bisulfate [Plavix] 75 mg PO DAILY #30 tab 08/07/17 Glimepiride [Amaryl] 2 mg PO DAILY #30 tab 08/07/17 Insulin Glargine,Hum.rec.anlog [Basaglar Kwikpen U-100] 14 unit SQ QHS #0 08/07/17 Lisinopril [Zestril] 10 mg PO DAILY #30 tab 08/07/17 Mag Hydrox/Al Hydrox/Simeth [Mylanta II] 15 ml PO Q4H PRN PRN #1 bottle 08/07/17 Nitroglycerin [Nitrostat] 0.4 mg SUBLINGUAL Q5M PRN #10 tab 08/07/17 Omeprazole 40 mg PO BID #0 08/07/17 Following Prescrptions Were Given to Patient: Mag Hydrox/Al Hydrox/Simeth [Mylanta II] 15 ml PO Q4H PRN PRN #1 bottle PRN Reason: Indigestion Amlodipine [Norvasc] 2.5 mg PO DAILY #30 tab Aspirin 81 mg PO DAILY #30 tab.chew Clopidogrel Bisulfate [Plavix] 75 mg PO DAILY #30 tab Glimepiride [Amaryl] 2 mg PO DAILY #30 tab Lisinopril [Zestril] 10 mg PO DAILY #30 tab Nitroglycerin [Nitrostat] 0.4 mg SUBLINGUAL Q5M PRN #10 tab PRN Reason: Cardiac/Chest Pain Carvedilol 6.25 mg PO BID #60 tab Primary Care Physician: Mikey Rogers MD [Primary Care Provider] - Please follow up with your Primary Care Physician in: within 2 weeks Please Follow Up With: Mikey Mendoza MD When: as scheduled on 08/20/17 Please Follow Up With: Cornelia Martinez NP-C When: within 2 weeks with a log of your blood sugar Disposition: Home Minutes spent on discharge:: 55 Patient Condition:: Stable Medical Necessity - Tobacco Use Smoking Status: Former smoker Tobacco Use: Non-smoker Meaningful Use Info Meaningful Use Diagnoses (Choose all that apply): AMI - AMI Aspirin given w/in 24hrs of arrival?: Yes ASA at discharge?: Yes Statins at discharge?: Yes Ifeanyi/ARB at discharge?: Yes Beta Courtney at discharge?: Yes Done w/ Acute VA measure.: Yes
--- NOTE | 2017-08-07 11:24 | PCM.PN.CARD ---
Subjectve: No complaints. Ambulating this morning. Denies any chest pains. No shortness of breath. We stopped his Brilinta yesterday and since then, he has not had his feeling of failure to catch a deep breath. Objective: Vital Signs Temp Pulse Resp BP Pulse Ox 97.8 F 71 16 114/76 100 08/07/17 09:41 08/07/17 09:41 08/07/17 09:41 08/07/17 09:41 08/07/17 09:41 Oxygen Flow Rate (L/min) 2 Oxygen Delivery Method Room Air Weight: 87.3 kg Body Mass Index (BMI) 30.9 Intake and Output for Last 24 Hours 08/05/17 08/06/17 08/07/17 23:59 23:59 23:59 Intake Total 2450 / 2450 1060 / 1060 0 / 0 Output Total 700 / 700 400 / 400 Balance 1750 / 1750 660 / 660 0 / 0 General: Awake, Alert, Oriented x 3 HEENT: Atraumatic Oral: Moist Mucosa Neck: No JVD Lungs: Clear to auscultation Cardiovascular: Regular Rhythm, Normal S1, Normal S2 Vascular: No Carotid Bruits Abdomen: Soft, Non Tender Extremities: No edema Neurological: No Focal Motor or Sensory Deficit Psych/Mental Status: Appropriate 08/06/17 11:22: Troponin I 0.041 08/07/17 05:40: WBC 8.8, RBC 4.93, Hgb 13.9, Hct 41.7, MCV 84.6, MCH 28.2, MCHC 33.3, RDW 13.9, RDW Differential 43.1, Plt Count 334, MPV 8.9, Immature Gran % (Auto) 0.500, Neut % (Auto) 68.2, Lymph % (Auto) 21.4, [place] % (Auto) 8.0, Eos % (Auto) 1.7, Baso % (Auto) 0.2, Absolute Neuts (auto) 6.0, Total Counted Not Reportable 08/07/17 05:40: PT 12.9, INR 1.0, APTT 25.8 08/07/17 05:40: Sodium 139, Potassium 4.4, Chloride 105, Carbon Dioxide 25.0, Anion Gap 9, BUN 21 H, Creatinine 0.87, Est GFR (MDRD) Af Amer 119, Est GFR (MDRD) Non-Af 98, BUN/Creatinine Ratio 24.0 H, Glucose 182 H, Calcium 9.0 Rhythm: Normal sinus rhythm Medical Necessity - Tobacco Use Smoking Status: Former smoker Tobacco Use: Non-smoker Assessment/Plan 1. Acute inferior myocardial infarction. Status post percutaneous revascularization with drug-eluting stent placement to the distal right coronary artery. Stable. No further chest pain. No shortness of breath. Residual lesion in the left circumflex. For further evaluation and management strategy as outpatient 2. Continue aspirin lifelong. Continue Plavix for at least one year 3. Patient has residual lesion in the proximal left circumflex coronary artery as well as the ostial first obtuse marginal branch. Asymptomatic. See #1 above 4. Started on beta blockers 5. Lipid management as per primary care physician. Recommend target LDL cholesterol less than 100 mg/dL 6. Hypertension. Continue ANISHA inhibition. Started on beta blockers. Blood pressure borderline low. Asymptomatic. Decrease amlodipine to 2.5 mg once daily. Decrease lisinopril to 10 mg once daily. 7. Normal LV systolic function 8. History of Beaulieu's esophagus. Continue patient's proton pump inhibitor 9. Diabetes mellitus Agree with discharge home today
--- NOTE | 2017-08-07 11:27 | PN.CARD_ITS ---
Subjectve: No complaints. Ambulating this morning. Denies any chest pains. No shortness of breath. We stopped his Brilinta yesterday and since then, he has not had his feeling of failure to catch a deep breath. Objective: Vital Signs Temp Pulse Resp BP Pulse Ox 97.8 F 71 16 114/76 100 08/07/17 09:41 08/07/17 09:41 08/07/17 09:41 08/07/17 09:41 08/07/17 09:41 Oxygen Flow Rate (L/min) 2 Oxygen Delivery Method Room Air Weight: 87.3 kg Body Mass Index (BMI) 30.9 Intake and Output for Last 24 Hours 08/05/17 08/06/17 08/07/17 23:59 23:59 23:59 Intake Total 2450 / 2450 1060 / 1060 0 / 0 Output Total 700 / 700 400 / 400 Balance 1750 / 1750 660 / 660 0 / 0 General: Awake, Alert, Oriented x 3 HEENT: Atraumatic Oral: Moist Mucosa Neck: No JVD Lungs: Clear to auscultation Cardiovascular: Regular Rhythm, Normal S1, Normal S2 Vascular: No Carotid Bruits Abdomen: Soft, Non Tender Extremities: No edema Neurological: No Focal Motor or Sensory Deficit Psych/Mental Status: Appropriate 08/06/17 11:22: Troponin I 0.041 08/07/17 05:40: WBC 8.8, RBC 4.93, Hgb 13.9, Hct 41.7, MCV 84.6, MCH 28.2, MCHC 33.3, RDW 13.9, RDW Differential 43.1, Plt Count 334, MPV 8.9, Immature Gran % ( Auto) 0.500, Neut % (Auto) 68.2, Lymph % (Auto) 21.4, [place] % (Auto) 8.0, Eos % ( Auto) 1.7, Baso % (Auto) 0.2, Absolute Neuts (auto) 6.0, Total Counted Not Reportable 08/07/17 05:40: PT 12.9, INR 1.0, APTT 25.8 08/07/17 05:40: Sodium 139, Potassium 4.4, Chloride 105, Carbon Dioxide 25.0, Anion Gap 9, BUN 21 H, Creatinine 0.87, Est GFR (MDRD) Af Amer 119, Est GFR ( MDRD) Non-Af 98, BUN/Creatinine Ratio 24.0 H, Glucose 182 H, Calcium 9.0 Rhythm: Normal sinus rhythm Medical Necessity - Tobacco Use Smoking Status: Former smoker Tobacco Use: Non-smoker Assessment/Plan 1. Acute inferior myocardial infarction. Status post percutaneous revascularization with drug-eluting stent placement to the distal right coronary artery. Stable. No further chest pain. No shortness of breath. Residual lesion in the left circumflex. For further evaluation and management strategy as outpatient 2. Continue aspirin lifelong. Continue Plavix for at least one year 3. Patient has residual lesion in the proximal left circumflex coronary artery as well as the ostial first obtuse marginal branch. Asymptomatic. See #1 above 4. Started on beta blockers 5. Lipid management as per primary care physician. Recommend target LDL cholesterol less than 100 mg/dL 6. Hypertension. Continue ANISHA inhibition. Started on beta blockers. Blood pressure borderline low. Asymptomatic. Decrease amlodipine to 2.5 mg once daily. Decrease lisinopril to 10 mg once daily. 7. Normal LV systolic function 8. History of Beaulieu's esophagus. Continue patient's proton pump inhibitor 9. Diabetes mellitus Agree with discharge home today
--- NOTE | 2017-08-08 10:44 | EEG ---
- Electroencephalogram Date of Service: 08/05/17 History EEG is being done in this 52 yr M to rule out seizures EEG Description: This is an 18 channel EEG with 10-20 lead placement system. Bipolar montages, Referential and Circumferential montages were reviewed. Photic stimulation and Hyperventilation were performed. The posterior dominant background rhythm is 10 HZ synchronous, symmetric, reacting to eye opening and closing. Photo stimulation elicited normal driving response but no abnormal photoparoxysmal response, Hyperventilation did not elicit any abnormal photoparoxysmal response. Sleep was identified. EKG artefact identified in referential montages. There was no epileptiform discharges or electrographic seizures noted during this recording. EEG Interpretation This is a normal awake and asleep EEG. There is no epileptiform discharges or electrographic seizures noted during the record.
--- NOTE | 2017-08-10 16:21 | CASEMGMT ---
RN CM Discharge F/U phone call CHAYA: 9 Strata: 3 Discharge date: 08/07/17 Call date: 08/10/17 Call time: [id number] Duration: minutes Admission dx: Chest pain Pt states has been doing 'OK' since discharge. Pt states had some chest pain this morning when working out by walking up a hill and states took some nitro which helped relieve it. Pt states his attempted to get ahold of cardiac rehab today regarding getting in [place] and had not heard anything back. Pt asked if this RN CM could attempt to help him as he would like to get in. This RN CM left a message with cardiac rehab and will f/u in the am. Pt aware and voices understanding. Pt states that everyone at [facility] was 'Excellent' and he couldn't have received 'better care.' Pt voices no further concerns/needs at this time. SStaten RN ARMAND
== END 2017-08-07 12:43 | disposition home or self-care (01) | DRG 247 ==
LOC: ED 10:14 → PCU 11:39 → ICU 15:00 → PCU 08-05 13:49 → ICU 08-07 07:05 → PCU 08-07 07:06
PROVIDERS: Internal Medicine Cardiovascular Disease; Admitting Provider Internal Medicine; Emergency Provider Emergency Medicine; Family Provider Family Medicine; PCP Family Medicine; Visit Provider Internal Medicine
DX: I21.3 ST elevation (STEMI) myocardial infarction of unspecified site (principal); I10 Essential (primary) hypertension; K22.70 Barrett's esophagus without dysplasia; E11.65 Type 2 diabetes mellitus with hyperglycemia; E66.9 Obesity, unspecified; I25.10 Atherosclerotic heart disease of native coronary artery without angina pectoris; Z68.30 Body mass index [BMI] 30.0-30.9, adult; Z79.4 Long term (current) use of insulin; E78.2 Mixed hyperlipidemia; Z87.891 Personal history of nicotine dependence
CPT/HCPCS: 36415; 71045; 80048; 80061; 82962; 84484; 85025; 85027; 85347; 85610; 85730; 92941; 93005; 93306; 93458; 99152; 99153; 99282; J7030; J7040; Q9967; A4216; C1725; C1769; C1874; C1887; C1894; C9606; J0583; J2405

== ENCOUNTER → 2017-08-18 09:27 | Outpatient (CLI) | payer OTHER, SELFPAY ==
--- NOTE | 2017-08-18 09:58 | EKG12_ITS ---
Test Reason : CP Blood Pressure : / mmHG Vent. Rate : 072 BPM Atrial Rate : 072 BPM P-R Int : 174 ms QRS Dur : 096 ms QT Int : 358 ms P-R-T Axes : 011 007 -06 degrees QTc Int : 392 ms Normal sinus rhythm Normal ECG Confirmed by LILLIAM PERRY MD ([id number]), assignment desk editor ABDI BANUELOS ([id number]) on 08/20/2017 1:34:10 PM Referred By: Mikey Mendoza Confirmed By:LILLIAM PERRY MD
--- NOTE | 2017-09-02 13:08 | PCM.CR.HP2 ---
CR - History & Physical - General Arrival date:: 09/02/17 Arrival time:: 13:08 Date of Referral:: 08/18/17 Date of CR Evaluation:: 08/04/17 Referring Physician: Dr. Mikey Mendoza Primary Diagnosis: Z95.5 PCI with coronary artery stenting - History of Present Cardiac Event Onset Date: Enter Onset Date of cardiac illnesses in Comment field below Acute Myocardial Infarction within 12 months:: Yes PTCA or coronary stenting:: Yes - Medications Home Medications: Ambulatory Orders Medication Instructions Recorded Atorvastatin Calcium 40 mg PO QHS 08/04/17 Fenofibrate [Tricor] 145 mg PO DAILY 08/04/17 Aspirin 81 mg PO DAILY #30 tab.chew 08/07/17 Clopidogrel Bisulfate [Plavix] 75 mg PO DAILY #30 tab 08/07/17 Glimepiride [Amaryl] 2 mg PO DAILY #30 tab 08/07/17 Insulin Glargine,Hum.rec.anlog 14 unit SQ QHS #0 08/07/17 [Basaglar Kwikpen U-100] Nitroglycerin [Nitrostat] 0.4 mg SUBLINGUAL Q5M PRN #10 tab 08/07/17 Omeprazole 40 mg PO BID #0 08/07/17 Isosorbide Mononitrate [Imdur] 30 mg PO DAILY #30 tab 08/19/17 Metformin HCl [Glucophage] 1,000 mg PO BIDCM #0 08/19/17 carvedilol 12.5 mg tablet 12.5 mg PO BID #180 tab 09/02/17 lisinopril 10 mg tablet 10 mg PO BID #60 tab 09/02/17 - Allergies Allergies/Adverse Reactions: Allergies bee venom protein (honey bee) Allergy (Severe, Verified 09/02/17 10:42) Angioedema niacin Allergy (Verified 09/02/17 10:42) Shortness of breath - Sleep Disorder Evaluation Hx of Sleep Apnea: No Do you snore loudly (louder than talking or can be heard through closed doors)?: No Do you often feel tired/ fatigued/ sleepy during daytime?: No Has anyone observed you stop breathing during sleep?: No History of Hypertension (for STOP score): Yes STOP Results: Negative Advanced Directives - Advanced Directives Power of Business Support Administrator: No Living Will: No Advance Directives Information Provided: No Advance Directives on File: No DNR Order?:: No Past Medical History - Past Medical Illness Medical History: Past Medical History (Last Reviewed 09/02/17 @ 10:42 by Landy Iqbal) Inferior myocardial infarction (Acute) I21.19 HTN (hypertension) (Chronic) I10 Mixed hyperlipidemia (Chronic) E78.2 Diabetes mellitus, type II (Chronic) E11.9 Obesity (BMI 30-39.9) (Chronic) E66.9 Barretts esophagus (Chronic) K22.70 STEMI (ST elevation myocardial infarction) (Chronic) Onset Date: 08/04/17 I21.3 Atherosclerotic heart disease of [place] coronary artery without angina pectoris (Chronic) I25.10 JOSEPH Prox LCX using Resolute Integrity 3.0 x18 mm iFR ostial OM1 non-significant at 0.97 08/18/17 PCI-JOSEPH-Mid RCA w/ 3.0 x 38 mm Synergy and 3.0 x 16 mm Synergy 08/04/17 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 CAD (coronary artery disease) I25.10 DM2 (diabetes mellitus, type 2) E11.9 Hiatal hernia K44.9 HTN (hypertension) I10 - Past Surgical History Surgical History: Past Surgical History (Last Reviewed 09/02/17 @ 10:42 by Landy Iqbal) History of coronary artery stent placement (Acute) Onset Date: 08/18/17 Z95.5 JOSEPH Prox LCX using Resolute Integrity 3.0 x18 mm iFR ostial OM1 non-significant at 0.97 08/18/17 PCI-JOSEPH-Mid RCA w/ 3.0 x 38 mm Synergy and 3.0 x 16 mm Synergy 08/04/17 Surgical History: no surgical history - Family History Summary Family History: Family History (Last Updated 09/02/17 @ 10:43 by Landy Iqbal) Mother Heart disease Brother Hypertension Social History - Smoking History Smoking Status: Former smoker Years Smokin Packs Smoked per Day: 1 Hx Smoking Cessation Date: 2010 Hx Tobacco Use: Yes Hx Smoking Exposure: Yes - Alcohol Use Alcohol Usage: No - Substance Abuse Hx Substance Use: No - Occupation Occupation (List type of work in comments):: Employed Hours worked per day:: 10 - Hobbies, Recreation, Social Activities Hobbies: Other - working on cars, [employer] Recreational Activities: I am able to engage in all my recreational activities Social Environment - Status Marital Status: - Current Living Arrangements Living Environment:: Family - Children How many children do you have?: 4 Do any of your children live nearby?: Yes - Safety Do you feel safe in your surroundings?: Yes - Assistance Do you need any assistance at home?: none Review of Systems - Review of Systems Hints: Right click = Denies (Slash). Left click = Reports (Altair) Review of Present Symptoms: Reports: Shortness of Breath with Exertion, Dizziness/Lightheadedness - while working in heat, Appetite - Normal, Appetite - Special Diet, Sleep - Normal. Denies: Shortness of Breath at Rest, PVD, Operative Discomfort, Angina, Wound Healing, Fatigue, Heart Arrhythmia/Irregularities, Sexual Changes - Pain Is Patient Pain Free?: No Risk Factor Assessment - Vital Signs Pulse Ox: 96 - Pulse Pulse Rate: 80 Pulse Rhythm: Regular - Hypertension Blood Pressure Sitting - Left Arm: 100/62 - Stress Stress: Work-related - Diabetes Diabetic History: Type I, Insulin Dependent Nutrition Referral for Diabetes: No - Obesity Height: 1.68 m Weight:: 87.362 kg Weight in Pounds: 192.6 lbs Weight Source: Standing Scale Body Mass Index (BMI): 31.1 Nutritional Referral for Obesity: No - Physical Inactivity Physical Inactivity: Reg Exercise 30 min/day - Risk Stratification Risk Guidelines: Moderate Risk: Risk Factor for Smoking, Risk Factor for Dyslipidemia, Risk Factor for Obesity, Risk Factor for Hypertension, Risk Factor for Sedentary Lifestyle, Risk Factor for Depression, Highest Risk: Risk Factor for Diabetes - For Smoking Smoking Risk Guidelines: Smoking Low Risk: None or quit greater than 6 months ago. Smoking Moderate Risk: Smoker or quit 6 months or less ago. Smoking High Risk: Smoker - For Dyslipidemia Dyslipidemia Risk Guidelines: Low Risk: Moderate Risk: High Risk: 15-25% fat 25.1-29% fat >/= 30% fat. <7% sat fat 7-9% sat fat >9% sat fat. <150 mg chol 150-299 mg chol >/= 300 mg chol. LDL <100 LDL 100-129 LDL >/= 130. Chol/HDL ratio <5.0 Chol/HDL ratio 5.0-6.0 Chol/HDL ratio >6.0. Triglycerides <100 Triglycerides 100-149 Triglycerides >/= 150 - For Diabetes Mellitus Diabetes Risk Guidelines: Diabetes Low Risk: HgA1c <6.5% and/or FBG <120. Diabetes Moderate Risk: HgA1c 6.6-7.9% and/or FBG 120-180. Diabetes High Risk: HgA1c >/= 8% and/or FBG >180 - For Obesity/Overweight Obesity/Overweight Risk Guidelines: Obesity Low Risk: BMI <25.0. Obesity Moderate Risk: BMI 25-29.9. Obesity High Risk: BMI >/= 30.0 - For Hypertension Hypertension Risk Guidelines: Hypertension Low Risk: Systolic <120 and Diastolic <80. Hypertension Moderate Risk: Systolic 120-139 and Diastolic 80-89. Hypertension High Risk: Systolic >/= 140 and Diastolic >/= 90 - For Sedentary Lifestyle Sedentary Lifestyle Risk Guidelines: Sedentary Lifestyle Low Risk: >/= 1,500 kcal/week. Sedentary Lifestyle Moderate Risk: 700-1,499 kcal/week. Sedentary Lifestyle High Risk: < 700 kcal/week - For Depression Depression Risk Guidelines: Depression Low Risk: Not clinically depressed. Depression Moderate Risk: Mildly depressed. Depression High Risk: Clinically depressed - Family History Family History: Family History (Last Updated 09/02/17 @ 10:43 by Landy Iqbal) Mother Heart disease Brother Hypertension Motivation - Motivation to Participate On a scale of 1 to 10, how prepared are you to commit to attending program?: 10 What do you see as barriers to successfully being able to complete the program?: none What do you see as the benefits of succesfully completing the program? In other words, what do you hope to get out of participating in the program?: better health Are there issues you are dealing with that will interfere with completing the program?: none Do you have a spouse or signficant other, family or friends who will help support you to complete the program?: yes
--- NOTE | 2017-09-02 13:19 | CR.HP_ITS ---
CR - History & Physical - General Arrival date:: 09/02/17 Arrival time:: 13:08 Date of Referral:: 08/18/17 Date of CR Evaluation:: 08/04/17 Referring Physician: Dr. Mikey Mendoza Primary Diagnosis: Z95.5 PCI with coronary artery stenting - History of Present Cardiac Event Onset Date: Enter Onset Date of cardiac illnesses in Comment field below Acute Myocardial Infarction within 12 months:: Yes PTCA or coronary stenting:: Yes - Medications Home Medications: Ambulatory Orders Medication Instructions Recorded Atorvastatin Calcium 40 mg PO QHS 08/04/17 Fenofibrate [Tricor] 145 mg PO DAILY 08/04/17 Aspirin 81 mg PO DAILY #30 tab.chew 08/07/17 Clopidogrel Bisulfate [Plavix] 75 mg PO DAILY #30 tab 08/07/17 Glimepiride [Amaryl] 2 mg PO DAILY #30 tab 08/07/17 Insulin Glargine,Hum.rec.anlog 14 unit SQ QHS #0 08/07/17 [Basaglar Kwikpen U-100] Nitroglycerin [Nitrostat] 0.4 mg SUBLINGUAL Q5M PRN #10 tab 08/07/17 Omeprazole 40 mg PO BID #0 08/07/17 Isosorbide Mononitrate [Imdur] 30 mg PO DAILY #30 tab 08/19/17 Metformin HCl [Glucophage] 1,000 mg PO BIDCM #0 08/19/17 carvedilol 12.5 mg tablet 12.5 mg PO BID #180 tab 09/02/17 lisinopril 10 mg tablet 10 mg PO BID #60 tab 09/02/17 - Allergies Allergies/Adverse Reactions: Allergies bee venom protein (honey bee) Allergy (Severe, Verified 09/02/17 10:42) Angioedema niacin Allergy (Verified 09/02/17 10:42) Shortness of breath - Sleep Disorder Evaluation Hx of Sleep Apnea: No Do you snore loudly (louder than talking or can be heard through closed doors)? : No Do you often feel tired/ fatigued/ sleepy during daytime?: No Has anyone observed you stop breathing during sleep?: No History of Hypertension (for STOP score): Yes STOP Results: Negative Advanced Directives - Advanced Directives Power of Valve Fitter: No Living Will: No Advance Directives Information Provided: No Advance Directives on File: No DNR Order?:: No Past Medical History - Past Medical Illness Medical History: Past Medical History (Last Reviewed 09/02/17 @ 10:42 by Landy Iqbal) Inferior myocardial infarction (Acute) I21.19 HTN (hypertension) (Chronic) I10 Mixed hyperlipidemia (Chronic) E78.2 Diabetes mellitus, type II (Chronic) E11.9 Obesity (BMI 30-39.9) (Chronic) E66.9 Barretts esophagus (Chronic) K22.70 STEMI (ST elevation myocardial infarction) (Chronic) Onset Date: 08/04/17 I21.3 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) I25.10 JOSEPH Prox LCX using Resolute Integrity 3.0 x18 mm iFR ostial OM1 non- significant at 0.97 08/18/17 PCI-JOSEPH-Mid RCA w/ 3.0 x 38 mm Synergy and 3.0 x 16 mm Synergy 08/04/17 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 CAD (coronary artery disease) I25.10 DM2 (diabetes mellitus, type 2) E11.9 Hiatal hernia K44.9 HTN (hypertension) I10 - Past Surgical History Surgical History: Past Surgical History (Last Reviewed 09/02/17 @ 10:42 by Landy Iqbal) History of coronary artery stent placement (Acute) Onset Date: 08/18/17 Z95.5 JOSEPH Prox LCX using Resolute Integrity 3.0 x18 mm iFR ostial OM1 non- significant at 0.97 08/18/17 PCI-JOSEPH-Mid RCA w/ 3.0 x 38 mm Synergy and 3.0 x 16 mm Synergy 08/04/17 Surgical History: no surgical history - Family History Summary Family History: Family History (Last Updated 09/02/17 @ 10:43 by Landy Iqbal) Mother Heart disease Brother Hypertension Social History - Smoking History Smoking Status: Former smoker Years Smokin Packs Smoked per Day: 1 Hx Smoking Cessation Date: 2010 Hx Tobacco Use: Yes Hx Smoking Exposure: Yes - Alcohol Use Alcohol Usage: No - Substance Abuse Hx Substance Use: No - Occupation Occupation (List type of work in comments):: Employed Hours worked per day:: 10 - Hobbies, Recreation, Social Activities Hobbies: Other - working on cars, [employer] Recreational Activities: I am able to engage in all my recreational activities Social Environment - Status Marital Status: - Current Living Arrangements Living Environment:: Family - Children How many children do you have?: 4 Do any of your children live nearby?: Yes - Safety Do you feel safe in your surroundings?: Yes - Assistance Do you need any assistance at home?: none Review of Systems - Review of Systems Hints: Right click = Denies ([place]). Left click = Reports ([place]) Review of Present Symptoms: Reports: Shortness of Breath with Exertion, Dizziness/Lightheadedness - while working in heat, Appetite - Normal, Appetite - Special Diet, Sleep - Normal. Denies: Shortness of Breath at Rest, PVD, Operative Discomfort, Angina, Wound Healing, Fatigue, Heart Arrhythmia/ Irregularities, Sexual Changes - Pain Is Patient Pain Free?: No Risk Factor Assessment - Vital Signs Pulse Ox: 96 - Pulse Pulse Rate: 80 Pulse Rhythm: Regular - Hypertension Blood Pressure Sitting - Left Arm: 100/62 - Stress Stress: Work-related - Diabetes Diabetic History: Type I, Insulin Dependent Nutrition Referral for Diabetes: No - Obesity Height: 1.68 m Weight:: 87.362 kg Weight in Pounds: 192.6 lbs Weight Source: Standing Scale Body Mass Index (BMI): 31.1 Nutritional Referral for Obesity: No - Physical Inactivity Physical Inactivity: Reg Exercise 30 min/day - Risk Stratification Risk Guidelines: Moderate Risk: Risk Factor for Smoking, Risk Factor for Dyslipidemia, Risk Factor for Obesity, Risk Factor for Hypertension, Risk Factor for Sedentary Lifestyle, Risk Factor for Depression, Highest Risk: Risk Factor for Diabetes - For Smoking Smoking Risk Guidelines: Smoking Low Risk: None or quit greater than 6 months ago. Smoking Moderate Risk: Smoker or quit 6 months or less ago. Smoking High Risk: Smoker - For Dyslipidemia Dyslipidemia Risk Guidelines: Low Risk: Moderate Risk: High Risk: 15-25% fat 25.1-29% fat >/= 30% fat. <7% sat fat 7-9% sat fat >9% sat fat. <150 mg chol 150-299 mg chol >/= 300 mg chol. LDL <100 LDL 100-129 LDL >/= 130. Chol/HDL ratio <5.0 Chol/HDL ratio 5.0-6.0 Chol/HDL ratio >6.0. Triglycerides <100 Triglycerides 100-149 Triglycerides >/= 150 - For Diabetes Mellitus Diabetes Risk Guidelines: Diabetes Low Risk: HgA1c <6.5% and/or FBG <120. Diabetes Moderate Risk: HgA1c 6.6-7.9% and/or FBG 120-180. Diabetes High Risk: HgA1c >/= 8% and/or FBG >180 - For Obesity/Overweight Obesity/Overweight Risk Guidelines: Obesity Low Risk: BMI <25.0. Obesity Moderate Risk: BMI 25-29.9. Obesity High Risk: BMI >/= 30.0 - For Hypertension Hypertension Risk Guidelines: Hypertension Low Risk: Systolic <120 and Diastolic <80. Hypertension Moderate Risk: Systolic 120-139 and Diastolic 80-89. Hypertension High Risk: Systolic >/= 140 and Diastolic >/= 90 - For Sedentary Lifestyle Sedentary Lifestyle Risk Guidelines: Sedentary Lifestyle Low Risk: >/= 1 ,500 kcal/week. Sedentary Lifestyle Moderate Risk: 700-1,499 kcal/week. Sedentary Lifestyle High Risk: < 700 kcal/week - For Depression Depression Risk Guidelines: Depression Low Risk: Not clinically depressed. Depression Moderate Risk: Mildly depressed. Depression High Risk: Clinically depressed - Family History Family History: Family History (Last Updated 09/02/17 @ 10:43 by Landy Iqbal) Mother Heart disease Brother Hypertension Motivation - Motivation to Participate On a scale of 1 to 10, how prepared are you to commit to attending program?: 10 What do you see as barriers to successfully being able to complete the program? : none What do you see as the benefits of succesfully completing the program? In other words, what do you hope to get out of participating in the program?: better health Are there issues you are dealing with that will interfere with completing the program?: none Do you have a spouse or signficant other, family or friends who will help support you to complete the program?: yes
--- NOTE | 2017-09-02 13:28 | CR.ITP_ITS ---
General Information - General Information Admitting Diagnosis: Z95.5 PCI coronary artery stenting - Education/Goals Barriers to Learning: None Cardiac Rehabilitation Goals: 1. Maintain the individual as the primary focus of care. 2. To improve the patient's quality of life. 3. Identification of cardiac risk factors and provide cardiac risk factor management. 4. Enhance the psychosocial status of the patient. 5. Reconditioning enough to allow the patient to resume customary activities. 6. Control symptoms of cardiac disease Scale for measuring improvement of personal goals: Enter appropriate number in Comments. 2 = Unchanged. 3 = Slightly Better. 4 = Moderate Improvement. 5 = Met my Goal Personal Goals: Initial Assessment: Improve management of stress and emotions, Improve knowledge of cardiac disease, Improve muscle strength and endurance Exercise - Initial Assessment - Visit Date of Eval: 09/02/17 - Initial Eval - Stages of Change Stages of Change:: Contemplate - Exercise Prescription Mode:: Treadmill, Biodyne, Rower, Airdyne, NuStep, Arm Ergometer Angina with exercise?: No Target Heart Rate:: 127-136 - Hypertension Do any of the following apply?: Yes Resting Blood Pressure:: 100/62 - Education Goals:: Warm-up, RPE LISA Scale, S/S, Safe Exercise, Self-Monitoring - Exercise Program Goals Exercise Program Goals: Aerobic Activity >30 min, B/P <130/80 Nutrition - Initial Assessment - Program Goals Nutrition Program Goals: LDL <70. Total Cholesterol <200. HDL >45. Triglycerides <150. HgbA1C <7%. BMI <25 - Visit Date of Assessment:: 09/02/17 - Stages of Change Stages of Change:: Contemplate - Diabetes Diabetes:: Yes Insulin: Yes Do you monitor your blood sugar at home?: Yes - Weight Management Height: 1.68 m Weight:: 87.362 kg Total Score:: 1 - Intervention Referral to dietitian:: No Referral to Diabetic Clinic:: No Will attend diet classes:: Yes - Education Gave educational materials for:: Signs & symptoms of hypoglycemia, Signs & symptoms of hyperglycemia, Relate diabetes to coronary artery disease, Healthy eating Tobacco - Initial Assessment - Program Goals Tobacco Program Goals: Complete smoking cessation. Attend education classes. Improve Knowledge Test score - Stage of Change Stages of Change:: Contemplate - Learning Barriers Total Score:: 19 - Family Support Do you have family support?: Yes - Tobacco Use Tobacco Use: Non-smoker How long ago did you quit using tobacco products?: Greater than or equal to 6 months ago Do you use smokeless tobacco?: No - Intervention Smoking Cessation Referral:: No Individual Education/Counseling:: No Education Schedule Given:: Yes - Education Gave educational material for:: Tobacco triggers, Coronary artery disease, Risk factors, Sexuality, Medical compliance, Cardiac A&P, Angina signs & symptoms Psychosocial - Initial Assess - Target Goals Target Goals: Assess presence or absence of depression. Using a valid screening tool, maximizes coping skills. Positive support system - Stages of Change Stages of Change:: Contemplate - Psychosocial Test Tool Used:: HANDS Depression Questionnaire Total Mood Screening Score:: 3 Self-Efficacy Score:: 8 - Intervention PS - Interventions: Yes Attend Stress Management Classes, Yes Uses Stress Management Skills, No Referral to Mental Health, No Referral to [facility] Case Management, No Referral to Physician - Education Gave educational materials for:: Coping techniques, Signs & symptoms of depression, Stress management, Relaxation techniques - Assistive Devices Assistive Devices:: None Fall Risk Assessed:: Yes Patient Health Questionnaire Initial Assessment 1. Little interest or pleasure in doing things: Not at all 2. Feeling down, depressed, or hopeless: Not at all 3. Trouble falling or staying asleep, or sleeping too much: Not at all 4. Feeling tired or having little energy: Several days 5. Poor appetite or overeating: Not at all 6. Feeling bad about yourself -- or that you are a failure or have let yourself or your family down: Not at all 7. Trouble concentrating on things, such as reading the newspaper or watching television: Several days 8. Moving or speaking so slowly that other people could have noticed. Or the opposite - being so fidgety or restless that you have been moving around a lot more than usual: Several days 9. Thoughts that you would be better off , or of hurting yourself in some way: Not at all How difficult have these problems made it for you to do your work, take care of things at home, or get along with other people?: Not difficult at all Total Score: 3 SOCRATES-Q SV Test - Statements CAD is a disease of the arteries in the heart: False Examples of risk factors for heart disease: True Angina is chest pain or discomfort: True The benefits of resistance training include: True Eating more meat and dairy products: False Anti-platelet medications such as aspirin are important: True The only effective way to manage stress: False An exercise warm-up slowly increases heart rate: True Prepared, processed foods usually have high sodium: True Depression is common after a heart attack: True The statin medications lower cholesterol: True To control blood pressure, lower the amount of sodium: True If someone gets chest discomfort during walking: False Transfats are partially hydrogenated vegetable oils: True Sleep apnea that is not treated increases the risk: False To control cholesterol, one should become a vegetarian: False Someone knows if he/she is exercising at the right level: True Diabetes cannot be prevented with exercise & health eating: True Stress is a large risk for heart attack: True A diet that can help lower blood pressure is rich in: True - Total Score Total Correct Responses: 19 Self-Efficacy Initial Assessment We would like to know how confident you are in doing certain activities. Please select your confidence level for:: Select your confidence level for the following using the scale 1-10 where 1 is not at all confident and 10 is totally confident. Your score is the average of all 6 responses. Fatigue: How confident are you that you can keep the fatigue caused by your disease from interfering with the things you want to do? Select Number: 10 Physical Discomfort or Pain: How confident are you that you can keep the physical discomfort or pain of your disease from interfering with the things you want to do? Select Number: 8 Emotional Distress: How confident are you that you can keep the emotional distress caused by your disease from interfering with the things you want to do? Select Number: 5 Other Symptoms or Health Problems: How confident are you that you can keep other symptoms or health problems from interfering with the things you want to do? Select Number: 10 Different Tasks and Activities: How confident are you that you can do the different tasks and activities needed to manage your health condition so as to reduce your need to see a doctor? Select Number: 10 Medication: How confident are you that you can do things other than just taking medication to reduce how much your illness affects your everyday life? Select Number: 10 Total Score:: 8 Nutrition Survey - Nutrition Survey Instructions Scoring Instructions: Scoring is as follows: Yes = 1 points. No = 0 point. Patient score that is >/=12 is considered to be at potential nutritional risk and could benefit from a referral to a registered dietitian. - Nutrition Survey Initial Have you lost >10 lbs over the past 2 months without trying?: No Are you following a special diet at home for diabetes, low fat, or low salt?: Yes Are you interested in meeting with a dietitian for help understanding your diet? : No Do you eat less than 3 meals a day?: No Do you eat fatty meats (alex, sausage, ribs, etc), fried foods, desserts, large amounts of salad dressings, margarine, butter, or cheese most days?: No Do you have food allergies? [Enter types in comment field]: No Do you eat in restaurants more than 3 times a week?: No Do you season food with salt, seasoning salt, or garlic salt?: No Do you used canned, boxed, frozen meals, or soups, seasoning packets?: No Total Score:: 1
[2017-09-02 14:31] VITALS: BP 100/62; PULSE 80; O2SAT 96; BMI 31.1
[2017-09-02 14:32] VITALS: BP 100/62
== END ==
PROVIDERS: Family Provider Family Medicine; PCP Family Medicine; Visit Provider Internal Medicine Cardiovascular Disease
DX: Z95.5 Presence of coronary angioplasty implant and graft (principal)
CPT/HCPCS: 93005

== ENCOUNTER 2017-08-18 09:57 | Observation (INO) | payer OTHER, SELFPAY ==
[2017-08-18] VITALS (24 sets, daily range): BP systolic 88–138; BP diastolic 53–88; PULSE 58–87; RESP 10–20; TEMP 36.3–36.7; O2SAT 95–100; BMI 30.7; BMI 30.8
--- NOTE | 2017-08-18 10:11 | EKG12_ITS ---
Test Reason : CP Blood Pressure : / mmHG Vent. Rate : 070 BPM Atrial Rate : 070 BPM P-R Int : 176 ms QRS Dur : 098 ms QT Int : 356 ms P-R-T Axes : 022 012 -08 degrees QTc Int : 384 ms Normal sinus rhythm Normal ECG Confirmed by LILLIAM PERRY MD ([id number]), advertising editor ABDI BANUELOS ([id number]) on 08/24/2017 1:10:05 PM Referred By: Mikey Mendoza Confirmed By:LILLIAM PERRY MD
--- NOTE | 2017-08-18 10:14 | ED.DCSUM_ITS ---
- ER Visit Summary Date of Service: 08/18/17 Chief Complaint: Chest pain History of Present Illness: The patient is a 52 M with history of STEMI 2 weeks ago who presents with intermittent left-sided chest pain. Patient was being evaluated for eligibility for cardiac rehab this morning, and was sent to the emergency department for further workup after complaining of intermittent left- sided chest pain radiating to the lower neck. These are similar symptoms to his chest pain that preceded his heart attack. He is currently having mild pain. The recurrent chest pain started 1 week ago when the patient was beginning his daily walks. It resolved with nitro. Since then he has not used any nitro for chest pain episodes. History includes diabetes and Beaulieu's esophagus. Patient denies any fever, abdominal pain, nausea or vomiting but does have some associated dyspnea since the chest pain started again. Physical Examination: Vital signs: afebrile, hemodynamically stable, no hypoxia on room air General: well nourished, well developed, in no distress Skin: warm, moist, no rash, no pallor HEENT: normocephalic and atraumatic; PERRL, EOMI, moist mucous membranes Cardiovascular: regular rate and rhythm without murmurs, no peripheral edema, 2 + pulses all distal extremities Respiratory: No increased work of breathing, lungs are clear to auscultation bilaterally, no rales, rhonchi or wheezing Abdominal: Abdomen is soft, nontender with normoactive bowel sounds, no guarding or rebound, no masses MSK: Moves all extremities, no deformities, normal strength Neuro: Awake and alert, oriented ?4. No facial droop, sensation and motor function intact and symmetric Test Results: Abnormal Lab Results 08/18/17 08/18/17 08/18/17 10:05 10:05 10:05 WBC 7.5 RBC 4.92 Hgb 14.2 Hct 42.2 MCV 85.8 MCH 28.9 MCHC 33.6 RDW 13.8 RDW Differential 43.4 Plt Count 330 MPV 8.8 Immature Gran % (Auto) 0.100 Neut % (Auto) 64.9 Lymph % (Auto) 25.2 [place] % (Auto) 8.4 Eos % (Auto) 1.3 Baso % (Auto) 0.1 Absolute Neuts (auto) 4.8 Absolute Lymphs (auto) 1.88 Total Counted Not Reportable PT 12.3 INR 0.9 APTT 27.1 Sodium 138 Potassium 4.4 Chloride 103 Carbon Dioxide 28.0 Anion Gap 7 BUN 20 H Creatinine 0.94 Estim Creat Clear Calc 84.84 Est GFR (MDRD) Af Amer 109 Est GFR (MDRD) Non-Af 90 BUN/Creatinine Ratio 21.3 H Glucose 191 H Calcium 9.4 Troponin I < 0.015 Clinical Impression(s) from Imaging Studies Chest X-Ray 08/18/17 10:22 IMPRESSION: Normal x-ray examination of the chest. Electronically Signed: Pola Funes MD at 10:58 EDT Tel [phone], Service support , Emergency Department Course and Treatment: Patient was given aspirin and nitro for his chest pain. Patient had complete resolution of his symptoms after the nitro. EKG showed no ischemic changes. Initial troponin negative. Remainder of the labs unremarkable. Patient's presentation with intermittent chest pain at rest that is similar to his chest pain leading up to his STEMI is concerning for acute coronary syndrome. Patient's HEART score places him at moderate risk for 30 day MACE, ASAEL score 4/7. Patient was discussed with Dr. Mendoza. Patient admitted by Dr. Lane for further chest pain workup. Treatment Plan: [] Disposition: [] Impression: unstable angina, history of recent STEMI This note was generated with [employer] dictation software. It may contain incorrect words, spelling, and punctuation that were not noted in review of the chart prior to signing ED Disposition - Plan for ED Patient: Chief Complaint: Chest Pain Referrals: Mikey Rogers MD [Primary Care Provider] -
[2017-08-18] MEDS: Aspirin 81 MG TAB.CHEW 324 MG PO (10:18)
[2017-08-18 10:22] LABS: Absolute Lymphocyte Count 1.88 X10^3/ul (0.83-4.51); Absolute Neutrophil Count 4.8 X10^3/uL (2.0-7.7); Basophil# 0.01 X10^3/uL; Basophil% 0.1 % (0-1); Eosinophils% 1.3 % (0-5); Hematocrit 42.2 % (40-54); Hemoglobin 14.2 g/dl (13.0-16.5); Lymphocyte # 1.88 X10^3/ul (4.0); Lymphocyte % 25.2 % (19-41); Mean Corp Hgb Conc 33.6 g/gl (32-36); Mean Corpuscular Hgb 28.9 pg (27.0-32.0); Mean Corpuscular Volume 85.8 fL (80-94); Mean Platelet Vol. 8.8 fl (6.2-12.0); Monocyte# 0.63 X10^3/uL; Monocyte% 8.4 % (0-10); Neutrophil # 4.84 X10^3/uL (2.7-7.7); Neutrophil % 64.9 % (47-70); Platelet Count 330 K/mm3 (150-450); RBC Distribution Width CV 13.8 % (11.6-14.6); RBC Distribution Width SD 43.4 fl (35.1-43.9); Red Blood Count 4.92 M/mm3 (4.6-6.2); White Blood Count 7.5 K/mm3 (4.4-11.0)
--- NOTE | 2017-08-18 10:22 | RAD_ITS ---
STUDY: X-RAY CHEST REASON FOR EXAM: Male, 52 years old. Chest pain. TECHNIQUE: Single AP portable view of the chest. COMPARISON: Comparison is made with prior study dated August 04, 2017. FINDINGS: EKG electrodes are seen. The lungs are clear and expanded. There is no demonstrated pleural abnormality. Normal size heart. Normal mediastinum and alberto. Normal visualized pulmonary arteries. Normal visualized aortic arch and descending thoracic aorta. There are diffuse degenerative changes of the visualized thoracic spine. Normal visualized ribs, clavicles, and shoulders. There is no demonstrated abnormality of the visualized soft tissue structures of the upper abdomen. RAD/Chest 1 View (Portable) IMPRESSION: Normal x-ray examination of the chest. Electronically Signed: Pola Funes MD at 10:58 EDT Tel [phone], Service support ,
[2017-08-18 10:23] LABS: POSITIVE COUNT NO; POSITIVE DIFFERENTIAL NO; POSITIVE MORPHOLOGY NO
[2017-08-18 10:31] LABS: International Normalized Ratio 0.9; Partial Thromboplast Time 27.1 Seconds (24.1-36.2); Prothrombin Time (Protime)PT. 12.3 SECONDS (11.7-14.9)
[2017-08-18 10:36] LABS: Anion Gap 7 (5-15); BUN 20 mg/dL (7-18); BUN/Creat Ratio 21.3 RATIO (10-20); Calcium,Total 9.4 mg/dL (8.5-10.1); Chloride 103 mmol/L (98-107); Creatinine, Serum 0.94 mg/dL (0.70-1.30); EST Glomerular Filtration Rate 90 mL/min (>60); Est Glom Filt Rate - Afr Amer 109 mL/min (>60); Estimated Creatinine Clearance 84.84 ml/min; Glucose 191 mg/dL (74-106); Potassium 4.4 mmol/L (3.5-5.1); Sodium Level 138 mmol/L (136-145)
--- NOTE | 2017-08-18 10:50 | ED.RN ---
pt had slight pain. rated at 1. nitro sublingual given. pt states pain gone at present time
--- NOTE | 2017-08-18 11:13 | NURSING ---
DR JIMENEZ PAGED
--- NOTE | 2017-08-18 11:23 | NURSING ---
DR ELLIOT TOVAR
--- NOTE | 2017-08-18 11:46 | NURSING ---
116 ELLIOT UNSTABLE ANGINA, HX OF ACS
--- NOTE | 2017-08-18 11:54 | NURSING ---
DR ZARATE IN ER
--- NOTE | 2017-08-18 12:20 | PCM.HP.STD ---
Problem List (1) Chest pain Status: Acute History of Present Illness Date of Admission: 08/18/17 Chief Complaint: chest pain. The patient is a 52 year old M who had ST elevation myocardial infarction on 04 August. Patient had drug-eluting stent to the right coronary artery. Patient was also noted to have 80% stenosis of the mid proximal circumflex and 90% stenosis of the ostial. Patient was sent home and follow-up with cardiology and cardiac rehab. Patient has a history of a hiatal hernia and Beaulieu's esophagus and I would get occasional chest pain with that. Patient was not doing much in way of exertion but did have intermittent chest pain summa which was exertional. Patient was taken nitroglycerin which would seem to help. Today, the patient went to cardiac rehab and told him that he was having intermittent chest pain and they directed him to the emergency room. In the emergency room, patient's a cardiac workup was unremarkable. Dr. Mendoza, cardiology, was contacted by the emergency room. Patient is being admitted for further chest pain rule out. [] Past Medical History Past Medical History (Chronic Problems): Chronic Problems Atherosclerotic heart disease of [place] coronary artery without angina pectoris (Chronic) S/P coronary artery stent placement (Chronic) Barretts esophagus (Chronic) Obesity (BMI 30-39.9) (Chronic) Diabetes mellitus, type II (Chronic) Mixed hyperlipidemia (Chronic) HTN (hypertension) (Chronic) Medical History: Medical History (Last Updated 08/18/17 @ 12:[address] DO) 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 CAD (coronary artery disease) I25.10 DM2 (diabetes mellitus, type 2) E11.9 Hiatal hernia K44.9 HTN (hypertension) I10 Allergies bee venom protein (honey bee) Allergy (Severe, Verified 08/18/17 09:58) Angioedema niacin Allergy (Verified 08/18/17 09:58) Shortness of breath Home Medications: Ambulatory Orders Medication Instructions Recorded Atorvastatin Calcium 40 mg PO QHS 08/04/17 Fenofibrate [Tricor] 145 mg PO DAILY 08/04/17 Amlodipine [Norvasc] 2.5 mg PO DAILY #30 tab 08/07/17 Aspirin 81 mg PO DAILY #30 tab.chew 08/07/17 Carvedilol 6.25 mg PO BID #60 tab 06/29/18 Clopidogrel Bisulfate [Plavix] 75 mg PO DAILY #30 tab 08/07/17 Glimepiride [Amaryl] 2 mg PO DAILY #30 tab 08/07/17 Insulin Glargine,Hum.rec.anlog 14 unit SQ QHS #0 08/07/17 [Basaglar Kwikpen U-100] Lisinopril [Zestril] 10 mg PO DAILY #30 tab 08/07/17 Mag Hydrox/Al Hydrox/Simeth 15 ml PO Q4H PRN PRN #1 bottle 08/07/17 [Mylanta II] Nitroglycerin [Nitrostat] 0.4 mg SUBLINGUAL Q5M PRN #10 tab 08/07/17 Omeprazole 40 mg PO BID #0 08/07/17 Surgical History: no surgical history Psychiatric History: No pertinent psych hx Smoking Status: Never smoker - *Family History Paternal History Items: Cancer - esophageal Maternal History Items: Heart Disease Review of Systems Constitutional: Reports: - - clamminess.. Denies: Anorexia, Chills, Fever Eyes: Denies: Blurred vision, Double vision HEENT: Denies: Head Aches, Sinus Congestion, Sinus Drainage Cardiovascular: Reports: Chest Pain. Denies: Edema Respiratory: Reports: Shortness of Breath. Denies: Cough, Hemoptysis Gastrointestinal: Denies: Abdominal Pain, Nausea, Vomiting Genitourinary: Denies: Dysuria Musculoskeletal: Denies: Joint Pain, Joint Tenderness Skin: Denies: Rash, Wounds Neurological: Denies: Numbness, Tingling, Focal weakness Psychiatric: Denies: Anxiety, Depression Hematologic/ Lymphatic: Denies: Easy Bruising, Easy Bleeding, Hx of blood clot VTE Information - Inpt Only VTE Present on Admission: No VTE Pharm Prophylaxis ordered?: Yes Patient Problems: Active and Suspected Problems Chest pain (Acute) - Physical Exam General: Alert, Cooperative, No apparent distress HEENT: Atraumatic, Normocephalic Neck: No Nodes, Thyroid Normal Size and Texture Lungs: Clear to auscultation, Normal air movement, No rhonchi, No wheeze Cardiovascular: Regular rate, Regular Rhythm, Normal S1, Normal S2, No murmurs Abdomen: Bowel Sounds Present, Soft, Non Tender, Non-Distended, No Hepato-splenomegaly Extremities: No clubbing, No cyanosis, No edema, Capillary Refill Less than 3 Seconds Skin: No rashes, No breakdown, - - Whitish plaque over the left anterior torres Musculoskeletal: No Tenderness to Palpation of Joints or Extremities, No Muscle Wasting Psych/Mental Status: Normal Affect, Appropriate Vital Signs Temp Pulse Resp BP Pulse Ox 36.7 C 70 14 117/84 H 98 08/18/17 09:58 08/18/17 12:00 08/18/17 12:00 08/18/17 12:00 08/18/17 12:00 Oxygen Flow Rate (L/min) 2 Oxygen Delivery Method Nasal Cannula Weight: 86.183 kg Body Mass Index (BMI) 30.7 Finger Stick Blood Glucose 79 Laboratory Tests Past 24 Hrs 08/18/17 08/18/17 08/18/17 10:05 10:05 10:05 WBC 7.5 RBC 4.92 Hgb 14.2 Hct 42.2 MCV 85.8 MCH 28.9 MCHC 33.6 RDW 13.8 RDW Differential 43.4 Plt Count 330 MPV 8.8 Immature Gran % (Auto) 0.100 Neut % (Auto) 64.9 Lymph % (Auto) 25.2 [place] % (Auto) 8.4 Eos % (Auto) 1.3 Baso % (Auto) 0.1 Absolute Neuts (auto) 4.8 Absolute Lymphs (auto) 1.88 Total Counted Not Reportable PT 12.3 INR 0.9 APTT 27.1 Sodium 138 Potassium 4.4 Chloride 103 Carbon Dioxide 28.0 Anion Gap 7 BUN 20 H Creatinine 0.94 Estim Creat Clear Calc 84.84 Est GFR (MDRD) Af Amer 109 Est GFR (MDRD) Non-Af 90 BUN/Creatinine Ratio 21.3 H Glucose 191 H Calcium 9.4 Troponin I < 0.015 Assessment/Plan All Active Problems Chest pain (Acute) STEMI (ST elevation myocardial infarction) (Acute) Diabetes mellitus, new onset (Acute) Chest pain (Acute) Accelerated hypertension (Acute) 1. Chest pain Atypical. Occurs with slight exertion and not. Patient has not not been overly exerting himself given his recent myocardial infarction. Cardiology has been contacted by the emergency room patient by them in the hospital. We will cycle the patient's troponins Continue with aspirin, Plavix, high intensity statin and lisinopril Given the patient's heart catheterization and other coronary artery disease will not proceed with any stress test and will await further cardiology recommendations 2. Diabetes mellitus type 2 Continue with Levemir and that for now 3. DVT prophylaxis with DVT prophylaxis dosing of Lovenox. The patient is a put on weight-based Lovenox or heparin then that will need to be discontinued Code Visit OBSV E&M: 55014 Initial observation care L3
--- NOTE | 2017-08-18 12:29 | HP.PCM_ITS ---
Problem List (1) Chest pain Status: Acute History of Present Illness Date of Admission: 08/18/17 Chief Complaint: chest pain. The patient is a 52 year old M who had ST elevation myocardial infarction on 04 August. Patient had drug-eluting stent to the right coronary artery. Patient was also noted to have 80% stenosis of the mid proximal circumflex and 90% stenosis of the ostial. Patient was sent home and follow-up with cardiology and cardiac rehab. Patient has a history of a hiatal hernia and Beaulieu's esophagus and I would get occasional chest pain with that. Patient was not doing much in way of exertion but did have intermittent chest pain summa which was exertional. Patient was taken nitroglycerin which would seem to help. Today, the patient went to cardiac rehab and told him that he was having intermittent chest pain and they directed him to the emergency room. In the emergency room, patient's a cardiac workup was unremarkable. Dr. Mendoza, cardiology, was contacted by the emergency room. Patient is being admitted for further chest pain rule out. [] Past Medical History Past Medical History (Chronic Problems): Chronic Problems Atherosclerotic heart disease of [place] coronary artery without angina pectoris (Chronic) S/P coronary artery stent placement (Chronic) Barretts esophagus (Chronic) Obesity (BMI 30-39.9) (Chronic) Diabetes mellitus, type II (Chronic) Mixed hyperlipidemia (Chronic) HTN (hypertension) (Chronic) Medical History: Medical History (Last Updated 08/18/17 @ 12:[address] DO) 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 CAD (coronary artery disease) I25.10 DM2 (diabetes mellitus, type 2) E11.9 Hiatal hernia K44.9 HTN (hypertension) I10 Allergies bee venom protein (honey bee) Allergy (Severe, Verified 08/18/17 09:58) Angioedema niacin Allergy (Verified 08/18/17 09:58) Shortness of breath Home Medications: Ambulatory Orders Medication Instructions Recorded Atorvastatin Calcium 40 mg PO QHS 08/04/17 Fenofibrate [Tricor] 145 mg PO DAILY 08/04/17 Amlodipine [Norvasc] 2.5 mg PO DAILY #30 tab 08/07/17 Aspirin 81 mg PO DAILY #30 tab.chew 08/07/17 Carvedilol 6.25 mg PO BID #60 tab 06/29/18 Clopidogrel Bisulfate [Plavix] 75 mg PO DAILY #30 tab 08/07/17 Glimepiride [Amaryl] 2 mg PO DAILY #30 tab 08/07/17 Insulin Glargine,Hum.rec.anlog 14 unit SQ QHS #0 08/07/17 [Basaglar Kwikpen U-100] Lisinopril [Zestril] 10 mg PO DAILY #30 tab 08/07/17 Mag Hydrox/Al Hydrox/Simeth 15 ml PO Q4H PRN PRN #1 bottle 08/07/17 [Mylanta II] Nitroglycerin [Nitrostat] 0.4 mg SUBLINGUAL Q5M PRN #10 tab 08/07/17 Omeprazole 40 mg PO BID #0 08/07/17 Surgical History: no surgical history Psychiatric History: No pertinent psych hx Smoking Status: Never smoker - *Family History Paternal History Items: Cancer - esophageal Maternal History Items: Heart Disease Review of Systems Constitutional: Reports: - - clamminess.. Denies: Anorexia, Chills, Fever Eyes: Denies: Blurred vision, Double vision HEENT: Denies: Head Aches, Sinus Congestion, Sinus Drainage Cardiovascular: Reports: Chest Pain. Denies: Edema Respiratory: Reports: Shortness of Breath. Denies: Cough, Hemoptysis Gastrointestinal: Denies: Abdominal Pain, Nausea, Vomiting Genitourinary: Denies: Dysuria Musculoskeletal: Denies: Joint Pain, Joint Tenderness Skin: Denies: Rash, Wounds Neurological: Denies: Numbness, Tingling, Focal weakness Psychiatric: Denies: Anxiety, Depression Hematologic/ Lymphatic: Denies: Easy Bruising, Easy Bleeding, Hx of blood clot VTE Information - Inpt Only VTE Present on Admission: No VTE Pharm Prophylaxis ordered?: Yes Patient Problems: Active and Suspected Problems Chest pain (Acute) - Physical Exam General: Alert, Cooperative, No apparent distress HEENT: Atraumatic, Normocephalic Neck: No Nodes, Thyroid Normal Size and Texture Lungs: Clear to auscultation, Normal air movement, No rhonchi, No wheeze Cardiovascular: Regular rate, Regular Rhythm, Normal S1, Normal S2, No murmurs Abdomen: Bowel Sounds Present, Soft, Non Tender, Non-Distended, No Hepato- splenomegaly Extremities: No clubbing, No cyanosis, No edema, Capillary Refill Less than 3 Seconds Skin: No rashes, No breakdown, - - Whitish plaque over the left anterior torres Musculoskeletal: No Tenderness to Palpation of Joints or Extremities, No Muscle Wasting Psych/Mental Status: Normal Affect, Appropriate Vital Signs Temp Pulse Resp BP Pulse Ox 36.7 C 70 14 117/84 H 98 08/18/17 09:58 08/18/17 12:00 08/18/17 12:00 08/18/17 12:00 08/18/17 12:00 Oxygen Flow Rate (L/min) 2 Oxygen Delivery Method Nasal Cannula Weight: 86.183 kg Body Mass Index (BMI) 30.7 Finger Stick Blood Glucose 79 Laboratory Tests Past 24 Hrs 08/18/17 08/18/17 08/18/17 10:05 10:05 10:05 WBC 7.5 RBC 4.92 Hgb 14.2 Hct 42.2 MCV 85.8 MCH 28.9 MCHC 33.6 RDW 13.8 RDW Differential 43.4 Plt Count 330 MPV 8.8 Immature Gran % (Auto) 0.100 Neut % (Auto) 64.9 Lymph % (Auto) 25.2 [place] % (Auto) 8.4 Eos % (Auto) 1.3 Baso % (Auto) 0.1 Absolute Neuts (auto) 4.8 Absolute Lymphs (auto) 1.88 Total Counted Not Reportable PT 12.3 INR 0.9 APTT 27.1 Sodium 138 Potassium 4.4 Chloride 103 Carbon Dioxide 28.0 Anion Gap 7 BUN 20 H Creatinine 0.94 Estim Creat Clear Calc 84.84 Est GFR (MDRD) Af Amer 109 Est GFR (MDRD) Non-Af 90 BUN/Creatinine Ratio 21.3 H Glucose 191 H Calcium 9.4 Troponin I < 0.015 Assessment/Plan All Active Problems Chest pain (Acute) STEMI (ST elevation myocardial infarction) (Acute) Diabetes mellitus, new onset (Acute) Chest pain (Acute) Accelerated hypertension (Acute) 1. Chest pain * Atypical. Occurs with slight exertion and not. Patient has not not been overly exerting himself given his recent myocardial infarction. * Cardiology has been contacted by the emergency room patient by them in the hospital. * We will cycle the patient's troponins * Continue with aspirin, Plavix, high intensity statin and lisinopril * Given the patient's heart catheterization and other coronary artery disease will not proceed with any stress test and will await further cardiology recommendations 2. Diabetes mellitus type 2 * Continue with Levemir and that for now 3. DVT prophylaxis with DVT prophylaxis dosing of Lovenox. The patient is a put on weight-based Lovenox or heparin then that will need to be discontinued Code Visit OBSV E&M: 56112 Initial observation care L3
--- NOTE | 2017-08-18 13:52 | NURSING ---
1227 notified [facility]ulcan[employer] charger to receive patient
--- NOTE | 2017-08-18 14:09 | PCM.CONS.C ---
Problem List (1) Unstable angina pectoris Status: Acute (2) CAD (coronary artery disease) Status: Chronic Qualifiers: Coronary Disease-Associated Artery/Lesion type: [place] artery [place] vs. transplanted heart: [place] heart Associated angina: with unstable angina Qualified Code(s): I25.110 - Atherosclerotic heart disease of [place] coronary artery with unstable angina pectoris (3) STEMI (ST elevation myocardial infarction) Status: Chronic Qualifiers: Involved coronary artery: right coronary artery Qualified Code(s): I21.11 - ST elevation (STEMI) myocardial infarction involving right coronary artery (4) S/P coronary artery stent placement Status: Chronic (5) Mixed hyperlipidemia Status: Chronic (6) HTN (hypertension) Status: Chronic Qualifiers: Hypertension type: essential hypertension Qualified Code(s): I10 - Essential (primary) hypertension (7) Diabetes mellitus, type II Status: Chronic Qualifiers: Diabetes mellitus custodial insulin use: without long term care pharmacist use Diabetes mellitus complication status: with unspecified complications Qualified Code(s): E11.8 - Type 2 diabetes mellitus with unspecified complications Reason for Consult Date of Consultation: 08/18/17 History of Present Illness: The patient is a 52 year old white male with a past medical history of hyperlipidemia, hypertension, diabetes mellitus, status post recent acute inferior ST segment elevation [place]-RCA related who returns to [facility] for concerns of unstable angina pectoris. Status post his IN and cardiovascular evaluation he was released home for future outpatient cardiovascular follow-up which is tentatively scheduled for his first outpatient cardiovascular visit on 08/20/2017. In the interim he has been undergoing precardiac rehabilitation evaluation by the [facility] cardiac rehabilitation team. He complained to them of ongoing chest discomfort. He also had discussed this with his primary care physician. He was subsequently referred back to the [facility] emergency department for further evaluation and care. He notes that he has been having chest discomfort with minimal activity such as walking. At other times he has had it at rest. He feels different discomforts including a heavy pressure sensation on his chest. He has had no obvious orthopnea or PND or peripheral pitting edema. There has been no syncope. He has felt both yesterday, and today in the hospital, near syncope which appeared to be documented both yesterday and today occurring with hypoglycemia with glucose levels between 50 and 60. His initial cardiac enzyme is negative. His initial ECGs have demonstrated sinus rhythm with no acute ECG changes. However he has continued to have chest discomfort even in the hospital. [] Past Medical History Allergies/Adverse Reactions: Allergies bee venom protein (honey bee) Allergy (Severe, Verified 08/18/17 09:58) Angioedema niacin Allergy (Verified 08/18/17 09:58) Shortness of breath Home Medications: Ambulatory Orders Medication Instructions Recorded Atorvastatin Calcium 40 mg PO QHS 08/04/17 Fenofibrate [Tricor] 145 mg PO DAILY 08/04/17 Amlodipine [Norvasc] 2.5 mg PO DAILY #30 tab 08/07/17 Aspirin 81 mg PO DAILY #30 tab.chew 08/07/17 Carvedilol 6.25 mg PO BID #60 tab 08/07/17 Clopidogrel Bisulfate [Plavix] 75 mg PO DAILY #30 tab 08/07/17 Glimepiride [Amaryl] 2 mg PO DAILY #30 tab 08/07/17 Insulin Glargine,Hum.rec.anlog 14 unit SQ QHS #0 08/07/17 [Basaglar Kwikpen U-100] Lisinopril [Zestril] 10 mg PO DAILY #30 tab 08/07/17 Mag Hydrox/Al Hydrox/Simeth 15 ml PO Q4H PRN PRN #1 bottle 08/07/17 [Mylanta II] Nitroglycerin [Nitrostat] 0.4 mg SUBLINGUAL Q5M PRN #10 tab 08/07/17 Omeprazole 40 mg PO BID #0 08/07/17 Past Medical History (Chronic Problems): Chronic Problems (Last Updated 08/18/17 @ 12:[address] DO) HTN (hypertension) (Chronic) Mixed hyperlipidemia (Chronic) Diabetes mellitus, type II (Chronic) Obesity (BMI 30-39.9) (Chronic) Barretts esophagus (Chronic) STEMI (ST elevation myocardial infarction) (Chronic) S/P coronary artery stent placement (Chronic) Atherosclerotic heart disease of [place] coronary artery without angina pectoris (Chronic) CAD (coronary artery disease) (Chronic) Surgical History: no surgical history, angioplasty Psychiatric History: No pertinent psych hx - *Family History Paternal History Items: Cancer - esophageal Maternal History Items: Heart Disease Lives: Spouse/ Significant Other Smoking Status: Never smoker Alcohol: None Drugs: None Review of Systems - Review of Systems General: Denies: Fever, Night Sweats, Fatigue Cardiovascular: Reports: Chest Discomfort, Chest Discomfort at Rest, Chest Discomfort with Exertion, Lightheadedness, Dizziness, Near Syncope. Denies: Shortness of Breath, Orthopnea, PND, Peripheral Edema, Palpitations, Syncope Respiratory: Denies: Cough, Sputum Production, Hemoptysis Gastrointestinal: Denies: Hematemesis, Hematochezia, Melena Genitourinary: Denies: Dysuria, Hematuria Skin: Denies: Rash Subjectve: Is a 52-year-old white male who appears to be resting comfortably at the moment status post treatment for his hypoglycemic episode and in no acute distress. Objective: Vital Signs Temp Pulse Resp BP Pulse Ox 97.8 F 65 18 124/87 H 100 08/18/17 13:10 08/18/17 13:10 08/18/17 13:10 08/18/17 13:10 08/18/17 13:10 Oxygen Flow Rate (L/min) 2 Oxygen Delivery Method Nasal Cannula Weight: 190 lb 14.725 oz Body Mass Index (BMI) 30.8 General: Awake, Alert, Oriented x 3, Cooperative, No Acute Distress HEENT: Atraumatic, Normocephalic, PERRL, EOMI, Sclera Non Icteric Oral: Moist Mucosa Neck: Supple, Good ROM, No JVD Lungs: Clear to auscultation Cardiovascular: Regular Rhythm, Normal S1, Normal S2, Positive S4 Vascular: No Carotid Bruits Abdomen: Bowel Sounds Present, Soft, Non Tender Extremities: No Cyanosis, No Clubbing, No edema Neurological: No Focal Motor or Sensory Deficit Psych/Mental Status: Appropriate, Normal Affect Rhythm: Sinus rhythm EKG: Sinus rhythm; no acute ECG changes ECHO: 08/05/2017: Left ventricle normal with an LVEF of 65%; trivial TR; estimated RV systolic pressure 23 mmHg Cardiac Cath: 08/04/2017: LV normal with an LVEF 60%; left main coronary artery with 20% mid stenosis; LAD with 30% proximal stenosis; LCx with 80% proximal to mid stenosis and 90% ostial stenosis of OM 2; RCA with 50% proximal stenosis, 60% mid stenosis, and 99% distal stenosis PCI: 07/29/2017: Successful PTCA/JOSEPH to the distal RCA using a Synergy 3.0 x 16 mm and 3.0 x 38 mm stent CXR: Preliminary evaluation: No acute cardiopulmonary disease process appreciated: Please see official report Assessment/Plan 1. Unstable angina pectoris The patient presents with symptoms concerning for unstable angina pectoris superimposed upon his recent acute inferior ST segment elevation [place]. He has been using nitroglycerin sublingual with relief. He has continued his other medications as previously prescribed. His initial cardiac enzymes are negative and initial ECG demonstrates no acute changes. His previous cardiac catheterization report and films were reviewed. He does have LCx disease. There were concerns that he may need a staged PCI to the LCx system. At the present time would be recommended the patient be reevaluated in the cardiac catheterization laboratory for any obvious evidence of in-stent restenosis as well as his LCx disease and proceed with revascularization therapy as deemed appropriate. The procedure and risks were discussed with the patient with his spouse present. He was agreeable to this approach. 2. CAD status post recent acute inferior ST segment elevation [place] status post recent RCA PTCA/JOSEPH At the present time the patient is undergoing evaluation care as noted above. He will continue medical management. He will have his coronary vasculature reevaluated in the cardiac catheterization laboratory for evidence of in-stent restenosis. He may need repeat PTCA/stent to the RCA system and/or proceed with his staged procedure to the LCx system. 3. Hyperlipidemia The patient will continue lipid-lowering therapy as deemed appropriate. 4. Hypertension The patient's home blood pressures were reviewed. He has had borderline to mild elevation of his systolic and diastolic pressures. He may need adjustment of his medications. 5. Diabetes mellitus The patient has had 2 episodes of hypoglycemia with associated symptoms. He may need his medications adjusted. Comment: The above was discussed and reviewed with the patient, his spouse, and the [facility] emergency department staff. This note was generated with [employer] software. It may contain incorrect words, spelling, and punctuation that were not noted in checking the note before signing.
[2017-08-18 14:15] LABS: Bedside Glucose 79 mg/dL (70-110)
[2017-08-18 14:15] LABS: Bedside Glucose 54 mg/dL (70-110)
--- NOTE | 2017-08-18 14:19 | CON.PCM_ITS ---
Problem List (1) Unstable angina pectoris Status: Acute (2) CAD (coronary artery disease) Status: Chronic Qualifiers: Coronary Disease-Associated Artery/Lesion type: [place] artery [place] vs. transplanted heart: [place] heart Associated angina: with unstable angina Qualified Code(s): I25.110 - Atherosclerotic heart disease of [place] coronary artery with unstable angina pectoris (3) STEMI (ST elevation myocardial infarction) Status: Chronic Qualifiers: Involved coronary artery: right coronary artery Qualified Code(s): I21.11 - ST elevation (STEMI) myocardial infarction involving right coronary artery (4) S/P coronary artery stent placement Status: Chronic (5) Mixed hyperlipidemia Status: Chronic (6) HTN (hypertension) Status: Chronic Qualifiers: Hypertension type: essential hypertension Qualified Code(s): I10 - Essential (primary) hypertension (7) Diabetes mellitus, type II Status: Chronic Qualifiers: Diabetes mellitus long-term insulin use: without intermediate card tender use Diabetes mellitus complication status: with unspecified complications Qualified Code(s) : E11.8 - Type 2 diabetes mellitus with unspecified complications Reason for Consult Date of Consultation: 08/18/17 History of Present Illness: The patient is a 52 year old white male with a past medical history of hyperlipidemia, hypertension, diabetes mellitus, status post recent acute inferior ST segment elevation [place]-RCA related who returns to [facility] for concerns of unstable angina pectoris. Status post his [place] and cardiovascular evaluation he was released home for future outpatient cardiovascular follow-up which is tentatively scheduled for his first outpatient cardiovascular visit on 08/20/2017. In the interim he has been undergoing precardiac rehabilitation evaluation by the [facility] cardiac rehabilitation team. He complained to them of ongoing chest discomfort. He also had discussed this with his primary care physician. He was subsequently referred back to the [facility] emergency department for further evaluation and care. He notes that he has been having chest discomfort with minimal activity such as walking. At other times he has had it at rest. He feels different discomforts including a heavy pressure sensation on his chest. He has had no obvious orthopnea or PND or peripheral pitting edema. There has been no syncope. He has felt both yesterday, and today in the hospital, near syncope which appeared to be documented both yesterday and today occurring with hypoglycemia with glucose levels between 50 and 60. His initial cardiac enzyme is negative. His initial ECGs have demonstrated sinus rhythm with no acute ECG changes. However he has continued to have chest discomfort even in the hospital. [] Past Medical History Allergies/Adverse Reactions: Allergies bee venom protein (honey bee) Allergy (Severe, Verified 08/18/17 09:58) Angioedema niacin Allergy (Verified 08/18/17 09:58) Shortness of breath Home Medications: Ambulatory Orders Medication Instructions Recorded Atorvastatin Calcium 40 mg PO QHS 08/04/17 Fenofibrate [Tricor] 145 mg PO DAILY 08/04/17 Amlodipine [Norvasc] 2.5 mg PO DAILY #30 tab 08/07/17 Aspirin 81 mg PO DAILY #30 tab.chew 08/07/17 Carvedilol 6.25 mg PO BID #60 tab 08/07/17 Clopidogrel Bisulfate [Plavix] 75 mg PO DAILY #30 tab 08/07/17 Glimepiride [Amaryl] 2 mg PO DAILY #30 tab 08/07/17 Insulin Glargine,Hum.rec.anlog 14 unit SQ QHS #0 08/07/17 [Basaglar Kwikpen U-100] Lisinopril [Zestril] 10 mg PO DAILY #30 tab 08/07/17 Mag Hydrox/Al Hydrox/Simeth 15 ml PO Q4H PRN PRN #1 bottle 08/07/17 [Mylanta II] Nitroglycerin [Nitrostat] 0.4 mg SUBLINGUAL Q5M PRN #10 tab 08/07/17 Omeprazole 40 mg PO BID #0 08/07/17 Past Medical History (Chronic Problems): Chronic Problems (Last Updated 08/18/17 @ 12:[address] DO) HTN (hypertension) (Chronic) Mixed hyperlipidemia (Chronic) Diabetes mellitus, type II (Chronic) Obesity (BMI 30-39.9) (Chronic) Barretts esophagus (Chronic) STEMI (ST elevation myocardial infarction) (Chronic) S/P coronary artery stent placement (Chronic) Atherosclerotic heart disease of [place] coronary artery without angina pectoris (Chronic) CAD (coronary artery disease) (Chronic) Surgical History: no surgical history, angioplasty Psychiatric History: No pertinent psych hx - *Family History Paternal History Items: Cancer - esophageal Maternal History Items: Heart Disease Lives: Spouse/ Significant Other Smoking Status: Never smoker Alcohol: None Drugs: None Review of Systems - Review of Systems General: Denies: Fever, Night Sweats, Fatigue Cardiovascular: Reports: Chest Discomfort, Chest Discomfort at Rest, Chest Discomfort with Exertion, Lightheadedness, Dizziness, Near Syncope. Denies: Shortness of Breath, Orthopnea, PND, Peripheral Edema, Palpitations, Syncope Respiratory: Denies: Cough, Sputum Production, Hemoptysis Gastrointestinal: Denies: Hematemesis, Hematochezia, Melena Genitourinary: Denies: Dysuria, Hematuria Skin: Denies: Rash Subjectve: Is a 52-year-old white male who appears to be resting comfortably at the moment status post treatment for his hypoglycemic episode and in no acute distress. Objective: Vital Signs Temp Pulse Resp BP Pulse Ox 97.8 F 65 18 124/87 H 100 08/18/17 13:10 08/18/17 13:10 08/18/17 13:10 08/18/17 13:10 08/18/17 13:10 Oxygen Flow Rate (L/min) 2 Oxygen Delivery Method Nasal Cannula Weight: 190 lb 14.725 oz Body Mass Index (BMI) 30.8 General: Awake, Alert, Oriented x 3, Cooperative, No Acute Distress HEENT: Atraumatic, Normocephalic, PERRL, EOMI, Sclera Non Icteric Oral: Moist Mucosa Neck: Supple, Good ROM, No JVD Lungs: Clear to auscultation Cardiovascular: Regular Rhythm, Normal S1, Normal S2, Positive S4 Vascular: No Carotid Bruits Abdomen: Bowel Sounds Present, Soft, Non Tender Extremities: No Cyanosis, No Clubbing, No edema Neurological: No Focal Motor or Sensory Deficit Psych/Mental Status: Appropriate, Normal Affect Rhythm: Sinus rhythm EKG: Sinus rhythm; no acute ECG changes ECHO: 08/05/2017: Left ventricle normal with an LVEF of 65%; trivial TR; estimated RV systolic pressure 23 mmHg Cardiac Cath: 08/04/2017: LV normal with an LVEF 60%; left main coronary artery with 20% mid stenosis; LAD with 30% proximal stenosis; LCx with 80% proximal to mid stenosis and 90% ostial stenosis of OM 2; RCA with 50% proximal stenosis, 60 % mid stenosis, and 99% distal stenosis PCI: 07/29/2017: Successful PTCA/JOSEPH to the distal RCA using a Synergy 3.0 x 16 mm and 3.0 x 38 mm stent CXR: Preliminary evaluation: No acute cardiopulmonary disease process appreciated: Please see official report Assessment/Plan 1. Unstable angina pectoris The patient presents with symptoms concerning for unstable angina pectoris superimposed upon his recent acute inferior ST segment elevation [place]. He has been using nitroglycerin sublingual with relief. He has continued his other medications as previously prescribed. His initial cardiac enzymes are negative and initial ECG demonstrates no acute changes. His previous cardiac catheterization report and films were reviewed. He does have LCx disease. There were concerns that he may need a staged PCI to the LCx system. At the present time would be recommended the patient be reevaluated in the cardiac catheterization laboratory for any obvious evidence of in-stent restenosis as well as his LCx disease and proceed with revascularization therapy as deemed appropriate. The procedure and risks were discussed with the patient with his spouse present. He was agreeable to this approach. 2. CAD status post recent acute inferior ST segment elevation [place] status post recent RCA PTCA/JOSEPH At the present time the patient is undergoing evaluation care as noted above. He will continue medical management. He will have his coronary vasculature reevaluated in the cardiac catheterization laboratory for evidence of in-stent restenosis. He may need repeat PTCA/stent to the RCA system and/or proceed with his staged procedure to the LCx system. 3. Hyperlipidemia The patient will continue lipid-lowering therapy as deemed appropriate. 4. Hypertension The patient's home blood pressures were reviewed. He has had borderline to mild elevation of his systolic and diastolic pressures. He may need adjustment of his medications. 5. Diabetes mellitus The patient has had 2 episodes of hypoglycemia with associated symptoms. He may need his medications adjusted. Comment: The above was discussed and reviewed with the patient, his spouse, and the [facility] emergency department staff. This note was generated with Wickration software. It may contain incorrect words, spelling, and punctuation that were not noted in checking the note before signing.
--- NOTE | 2017-08-18 14:41 | EKG12_ITS ---
Test Reason : POST PCI Blood Pressure : / mmHG Vent. Rate : 061 BPM Atrial Rate : 061 BPM P-R Int : 184 ms QRS Dur : 104 ms QT Int : 412 ms P-R-T Axes : 020 016 -19 degrees QTc Int : 414 ms Normal sinus rhythm Inferior infarct , age undetermined Abnormal ECG When compared with ECG of 18-AUG-2017 13:22, MANUAL COMPARISON REQUIRED, DATA IS UNCONFIRMED Confirmed by ORLANDO QUACH, LILLIAM ([id number]), supervising editor news reel ABDI BANUELOS ([id number]) on 08/24/2017 2:16:11 PM Referred By: Mikey Mendoza Confirmed By:LILLIAM PERRY MD
--- NOTE | 2017-08-18 16:07 | EKG12_ITS ---
Test Reason : POST STEMI Blood Pressure : / mmHG Vent. Rate : 073 BPM Atrial Rate : 073 BPM P-R Int : 180 ms QRS Dur : 100 ms QT Int : 390 ms P-R-T Axes : 030 014 008 degrees QTc Int : 429 ms Normal sinus rhythm Normal ECG Confirmed by TONY QUACH, LORE ([id number]), website/blog editor ABDI BANUELOS ([id number]) on 08/20/2017 2:20:41 PM Referred By: CLIVE Confirmed By:LORE JIMENEZ MD
--- NOTE | 2017-08-18 16:17 | CL.I_ITS ---
Patient Name: ASIF CASE Study Date: 08/18/2017 Performing: Leoncio Mills MD Ht: 66.14 inches 168 cm : 1965 Wt: 189.6 lbs 86 kg Age: 52 Gender: male BSA: 1.96 PROCEDURE(S) PERFORMED [id number] W OR WO PTCA, SINGLE CORONARY ARTERY [id number], CORONARY OR GRAFT, INITIAL VESSEL CLINICAL PROFILE AND CO-MORBIDITIES Indications: Worsening Angina Heart Failure: None Stress/Imaging Stress/Image Study Performed: No Angina Classification Anginal Classification w/in 2 Weeks: CCS III CAD Presentations: Unstable angina. CONCLUSIONS Successful JOSEPH Prox LCX using Resolute Integrity 3.0x18 mm iFR ostial OM1 non-significant at 0.97 RECOMMENDATIONS ASA Indefinitley Plavix for at least 12 months DESCRIPTION OF PROCEDURE XB 3 Guide catheter was inserted and engaged into the LCA. runthrough Guide wire was advanced to the Circumflex. emerge 3.0x12 Balloon catheter was inserted. PTCA balloon inflated at 6 atms for 10 secs. PTCA balloon inflated at 6 atms for 20 secs. resolute 3.0x18 Drug Eluting stent was inserted. PTCA b alloon inflated at 10 atms for 16 secs. nc emerge 3.0x15 Balloon catheter was inserted. PTCA balloon inflated at 14 atms for 11 secs. PTCA balloon inflated at 16 atms for 11 secs. The FFR/iFR wire was i nserted. Pressures and FFR/iFR were then recorded. iFR Ratio: 1.01 The FFR/iFR wire was inserted. Pre ssures and FFR/iFR were then recorded. iFR Ratio: 0.97 iFR Ratio: 0.98 The FFR/iFR wire was then latisha dale. The arterial sheath was pulled and a TR Band was applied for hemostasis w/ 13ml air INTERVENTION INFORMATION LESION SITE: Circumflex (Proximal) Lesion Complexity: Non-High/Non-C, culprit lesion: Yes Pre Stenosis: 80 % Pre intervention ASAEL flow: 3 PROCEDURE: Drug Eluting Stent with pre and post dilatation Post Stenosis: 0 % Post intervention ASAEL flow: 3 Lesion Devices: Cordis 6 Fr XB3.0 100cm Guide Catheter Marky Sci EMERGE MR 3.00x12 BALLOON Medtronic Resolute RX JOSEPH 3.0x18 Marky Sci NC EMERGE MR 3.00x15 BALLOON LESION SITE: 1st OM (Ostial) PROCEDURE: iFR Lesion Devices: [place] Coronary FFR Wire COMPLICATIONS No Complications PROCEDURE MEDICATIONS Versed 1 mg IV Fentanyl 50 mcg IV Fentanyl 50 mcg IV Versed 1 mg IV Fentanyl 25 mcg IV Fentanyl 25 mcg IV Fentanyl 25 mcg IV Oxygen: 2 L/min via nasal cannula Heparin diluted in 23cc Heparinized saline. Patient given 10cc IA of this solution. 08/18/2017 14:51: 46 Heparin 7000 unit(s) IV 08/18/2017 15:15:39 Heparin 3000 unit(s) IV 08/18/2017 15:58:43 Nitro 200 mcg IC 08/18/2017 15:34:01 Verapamil 2.5mg, Ntg 100mcgs, 2000 units of Heparin diluted in 23cc Heparinized saline. Patient give n 10cc IA of this solution. 08/18/2017 14:51:46 IV Bolus: .9 NaCl 500 ml total 08/18/2017 15:25:17 SUMMARY OF HEMODYNAMIC DATA Time AIR REST ECG 14:35:10 AO 104/63 (76) SA 14:52:49 Signed By Leoncio Mills MD On 08/18/2017 16:16:57 Leoncio Mills MD
[2017-08-18 16:30] LABS: Bedside Glucose 100 mg/dL (70-110)
[2017-08-18 16:30] LABS: ACT Activated Clotting Time 191 sec (74-137)
[2017-08-18 16:36] LABS: Bedside Glucose 87 mg/dL (70-110)
[2017-08-18] MEDS: 0.9% Normal Saline 1,000 ML 100 ML IV (16:38)
[2017-08-18] MEDS: Isosorbide Mononitrate 60 MG Tablet PO (17:36)
[2017-08-18 19:56] LABS: M R Staph aureus DNA By PCR Negative (Negative); Probe Check PASS; Specimen Processing Control PASS
[2017-08-18 21:05] LABS: Bedside Glucose 108 mg/dL (70-110)
[2017-08-18] MEDS: Ranolazine 500 MG Tablet PO (21:09)
[2017-08-18] MEDS: Pantoprazole Sodium 40 MG Tablet PO (21:09)
[2017-08-18] MEDS: Atorvastatin Calcium 40 MG Tablet PO (21:09)
[2017-08-18] MEDS: Carvedilol 6.25 MG Tablet PO (21:09)
[2017-08-19] VITALS (15 sets, daily range): BP systolic 82–127; BP diastolic 42–78; PULSE 61–79; RESP 10–18; TEMP 36.6–36.9; O2SAT 94–99
[2017-08-19 04:56] LABS: Hematocrit 34.6 % (40-54); Hemoglobin 11.8 g/dl (13.0-16.5); Mean Corp Hgb Conc 34.1 g/gl (32-36); Mean Corpuscular Hgb 29.4 pg (27.0-32.0); Mean Corpuscular Volume 86.1 fL (80-94); Mean Platelet Vol. 9.3 fl (6.2-12.0); Platelet Count 299 K/mm3 (150-450); RBC Distribution Width CV 13.9 % (11.6-14.6); RBC Distribution Width SD 42.6 fl (35.1-43.9); Red Blood Count 4.02 M/mm3 (4.6-6.2); White Blood Count 8.1 K/mm3 (4.4-11.0)
[2017-08-19 04:59] LABS: Scan Indicated on CBC? Y/N NO
[2017-08-19 05:11] LABS: Anion Gap 7 (5-15); BUN 16 mg/dL (7-18); Calcium,Total 8.4 mg/dL (8.5-10.1); Chloride 108 mmol/L (98-107); Creatinine, Serum 0.62 mg/dL (0.70-1.30); EST Glomerular Filtration Rate 147 mL/min (>60); Est Glom Filt Rate - Afr Amer 178 mL/min (>60); Estimated Creatinine Clearance 128.63 ml/min; Glucose 109 mg/dL (74-106); Potassium 3.9 mmol/L (3.5-5.1); Sodium Level 143 mmol/L (136-145)
[2017-08-19 07:00] LABS: Bedside Glucose 110 mg/dL (70-110)
[2017-08-19] MEDS: Glimepiride 2 MG Tablet PO (08:13)
[2017-08-19] MEDS: Aspirin 81 MG TAB.CHEW PO (08:13)
--- NOTE | 2017-08-19 08:42 | CRPHASE1 ---
Patient Data/Charges Former Patient:: Phase I Reason Not Completed:: Patient was previous STEMI case about 2 weeks ago and seen by CR staff for Phase I Education & Assessment. Patient was acutually in CR for his evaluation on 08/18/17 when he experienced chest pains and was taken to emergency room.
--- NOTE | 2017-08-19 08:44 | CRPH1.INSTRU ---
General Education CAD and cardiac anatomy and function:: Patient communicates acknowledgment Explanation of diagnoses and procedures:: Patient communicates acknowledgment Sign/Symptoms of TN:: Patient communicates acknowledgment Antiplatelet therapy: Patient communicates acknowledgment Proper use of NTG-SL: Patient communicates acknowledgment Emergency procedures and activation of EMS: Patient communicates acknowledgment Compliance of all prescribed medications: Patient communicates acknowledgment - Patient was previously seen following his STEMI and PCI intervention about 2 weeks ago.
--- NOTE | 2017-08-19 08:47 | CRPH1.INST_ITS ---
General Education CAD and cardiac anatomy and function:: Patient communicates acknowledgment Explanation of diagnoses and procedures:: Patient communicates acknowledgment Sign/Symptoms of DC:: Patient communicates acknowledgment Antiplatelet therapy: Patient communicates acknowledgment Proper use of NTG-SL: Patient communicates acknowledgment Emergency procedures and activation of EMS: Patient communicates acknowledgment Compliance of all prescribed medications: Patient communicates acknowledgment - Patient was previously seen following his STEMI and PCI intervention about 2 weeks ago.
--- NOTE | 2017-08-19 09:49 | CL.D_ITS ---
Patient Name: ASIF CASE Study Date: 08/18/2017 Performing: Mikey Mendoza MD Ht: 66.14 inches 168 cm : 1965 Wt: 189.6 lbs 86 kg Age: 52 Gender: male BSA: 1.96 PROCEDURE(S) PERFORMED [id number] W OR WO PTCA, SINGLE CORONARY ARTERY [id number], CORONARY OR GRAFT, INITIAL VESSEL CLINICAL PROFILE AND INDICATIONS Indications: Worsening Angina Heart Failure: None Stress/Imaging Stress/Image Study Performed: No Angina Classification Anginal Classification w/in 2 Weeks: CCS III CAD Presentations: Unstable angina. CONCLUSIONS [place] Multivessel CAD RECOMMENDATIONS Risk factor modification Medical therapy Referred for immediate PCI DESCRIPTION OF PROCEDURE The patient arrived to the procedure lab. The risks and benefits of the procedure as well as a full d escription of our services here and current unavailability of surgical backup were fully explained to the patient and/or their significant other prior to the catheterization. The Timeout was completed, verifying the correct patient and procedure. The patient's procedural site was prepped and draped in the usual fashion. Local anesthetic was given subcutaneously to right radial region with Lidocaine 2% . Using a modified Seldinger technique, arterial access was obtained via the right radial artery, a 6 Fr sheath was inserted. Right Coronary Artery selective angiography was then performed in multiple v iews using a 5 Fr. 4.0 [place] catheter. Left Coronary Artery selective angiography was performed in mu ltiple views using a 5 Fr. JL3.5 catheter.The arterial sheath was pulled and a TR Band was applied fo r hemostasis w/ 13ml air CORONARY ANGIOGRAPHY DOMINANCE: Right Dominant LEFT HEART ASSESSMENT Left Ventricular Ejection Fraction: Not assessed LEFT MAIN: Proximal [place] with no angiographically significant appearing stenosis LEFT ANTERIOR DECENDING ARTERY: PROX LAD: Eccentric: 25 % Stenosis CIRCUMFLEX ARTERY: PROX CIRC: Diffuse: Irregular: 85 % Stenosis OM 1: Ostial - 85 % Stenosis RIGHT CORONARY ARTERY: DISTAL RCA: Previously placed stent is patent COMPLICATIONS No Complications PROCEDURE MEDICATIONS Versed 1 mg IV Fentanyl 50 mcg IV Fentanyl 50 mcg IV Versed 1 mg IV Fentanyl 25 mcg IV Fentanyl 25 mcg IV Fentanyl 25 mcg IV Oxygen: 2 L/min via nasal cannula Heparin diluted in 23cc Heparinized saline. Patient given 10cc IA of this solution. 08/18/2017 14:51: 46 Heparin 7000 unit(s) IV 08/18/2017 15:15:39 Heparin 3000 unit(s) IV 08/18/2017 15:58:43 Nitro 200 mcg IC 08/18/2017 15:34:01 Verapamil 2.5mg, Ntg 100mcgs, 2000 units of Heparin diluted in 23cc Heparinized saline. Patient give n 10cc IA of this solution. 08/18/2017 14:51:46 IV Bolus: .9 NaCl 500 ml total 08/18/2017 15:25:17 SUMMARY OF HEMODYNAMIC DATA Time AIR REST ECG 14:35:10 AO 104/63 (76) SA 14:52:49 Signed By Mikey Mendoza MD On 08/19/2017 09:48:58 Mikey Mendoza MD
--- NOTE | 2017-08-19 10:00 | EKG12_ITS ---
Test Reason : CHEST PAIN Blood Pressure : / mmHG Vent. Rate : 065 BPM Atrial Rate : 065 BPM P-R Int : 176 ms QRS Dur : 098 ms QT Int : 370 ms P-R-T Axes : 010 013 -04 degrees QTc Int : 384 ms Normal sinus rhythm Normal ECG When compared with ECG of 18-AUG-2017 09:48, MANUAL COMPARISON REQUIRED, DATA IS UNCONFIRMED Confirmed by [place]O QUACH, LILLIAM ([id number]), assignment editor ABDI BANUELOS ([id number]) on 08/24/2017 2:20:16 PM Referred By: Mikey Mendoza Confirmed By:LILLIAM PERRY MD
[2017-08-19] MEDS: Clopidogrel Bisulfate 75 MG Tablet PO (10:02)
[2017-08-19] MEDS: Fenofibrate 145 MG Tablet PO (10:02)
[2017-08-19] MEDS: Pantoprazole Sodium 40 MG Tablet PO (10:02)
[2017-08-19] MEDS: Ranolazine 500 MG Tablet PO (10:03)
[2017-08-19] MEDS: Carvedilol 6.25 MG Tablet PO (10:03)
[2017-08-19] MEDS: Lisinopril 5 MG Tablet PO (10:04)
[2017-08-19] MEDS: Isosorbide Mononitrate 30 MG Tablet PO (10:04)
[2017-08-19] MEDS: Acetaminophen 325 MG Tablet 650 MG PO (10:09)
--- NOTE | 2017-08-19 10:35 | PCM.PN.CARD ---
Subjectve: The patient looks better today and states he is feeling better today. He no longer has any chest heaviness sitting on his chest. He has had no other acute concerns. Objective: Vital Signs Temp Pulse Resp BP Pulse Ox 98.4 F 79 12 127/70 H 98 08/19/17 10:00 08/19/17 10:00 08/19/17 10:00 08/19/17 10:00 08/19/17 10:00 Oxygen Flow Rate (L/min) 2 Oxygen Delivery Method Room Air Weight: 182 lb 8.684 oz Body Mass Index (BMI) 30.8 Intake and Output for Last 24 Hours 08/17/17 08/18/17 08/19/17 23:59 23:59 23:59 Intake Total 1305 / 1305 240 / 240 Balance 1305 / 1305 240 / 240 General: Awake, Alert, Oriented x 3, Cooperative, No Acute Distress HEENT: Atraumatic, Normocephalic, PERRL, EOMI, Sclera Non Icteric Oral: Moist Mucosa Neck: Supple, Good ROM, No JVD Lungs: Clear to auscultation Cardiovascular: Regular Rhythm, Normal S1, Normal S2 Vascular: No Carotid Bruits, Normal Radial Pulses Abdomen: Bowel Sounds Present, Soft, Non Tender Extremities: No Cyanosis, No Clubbing, No edema Neurological: No Focal Motor or Sensory Deficit Psych/Mental Status: Appropriate, Normal Affect 08/18/17 14:05: Troponin I < 0.015 08/18/17 16:45: Troponin I < 0.015 08/19/17 04:20: WBC 8.1, RBC 4.02 L, Hgb 11.8 L, Hct 34.6 L, MCV 86.1, MCH 29.4, MCHC 34.1, RDW 13.9, RDW Differential 42.6, Plt Count 299, MPV 9.3 08/19/17 04:20: Sodium 143, Potassium 3.9, Chloride 108 H, Carbon Dioxide 28.0, Anion Gap 7, BUN 16, Creatinine 0.62 L, Est GFR (MDRD) Af Amer 178, Est GFR (MDRD) Non-Af 147, BUN/Creatinine Ratio 26.0 H, Glucose 109 H, Calcium 8.4 L Rhythm: Sinus rhythm EKG: Sinus rhythm; nonspecific T-wave abnormality; no new acute ECG changes Medical Necessity - Tobacco Use Smoking Status: Never smoker Assessment/Plan 1. Unstable angina pectoris The patient presents with symptoms concerning for unstable angina pectoris superimposed upon his recent acute inferior ST segment elevation [place]. His cardiac enzymes have remained negative. His ECG has demonstrated no new acute changes. He has undergone evaluation with diagnostic cardiac catheterization which led to LCx PCI. He was noted to have an OM lesion which underwent FFR. This was considered negative and thus he did not require any type of PCI to the OM vessel. He will continue medical management. 2. CAD status post recent acute inferior ST segment elevation [place] status post recent RCA PTCA/JOSEPH At the present time the patient is undergoing evaluation care as noted above. He will continue medical management. He will continue with outpatient cardiac rehabilitation. 3. Hyperlipidemia The patient will continue lipid-lowering therapy as deemed appropriate. 4. Hypertension The patient's home blood pressures were reviewed. His blood pressures in the hospital have been normal to low. Thus his medications are being readjusted. If his blood pressure is elevated at home than he may need readjustment of his medications. 5. Diabetes mellitus The patient has had 2 episodes of hypoglycemia with associated symptoms. He may need his medications adjusted. 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 Comment: The above was discussed and reviewed with the patient. This note was generated with [employer] dictation software. It may contain incorrect words, spelling, and punctuation that were not noted in checking the note before signing.
--- NOTE | 2017-08-19 10:38 | PN.CARD_ITS ---
Subjectve: The patient looks better today and states he is feeling better today. He no longer has any chest heaviness sitting on his chest. He has had no other acute concerns. Objective: Vital Signs Temp Pulse Resp BP Pulse Ox 98.4 F 79 12 127/70 H 98 08/19/17 10:00 08/19/17 10:00 08/19/17 10:00 08/19/17 10:00 08/19/17 10:00 Oxygen Flow Rate (L/min) 2 Oxygen Delivery Method Room Air Weight: 182 lb 8.684 oz Body Mass Index (BMI) 30.8 Intake and Output for Last 24 Hours 08/17/17 08/18/17 08/19/17 23:59 23:59 23:59 Intake Total 1305 / 1305 240 / 240 Balance 1305 / 1305 240 / 240 General: Awake, Alert, Oriented x 3, Cooperative, No Acute Distress HEENT: Atraumatic, Normocephalic, PERRL, EOMI, Sclera Non Icteric Oral: Moist Mucosa Neck: Supple, Good ROM, No JVD Lungs: Clear to auscultation Cardiovascular: Regular Rhythm, Normal S1, Normal S2 Vascular: No Carotid Bruits, Normal Radial Pulses Abdomen: Bowel Sounds Present, Soft, Non Tender Extremities: No Cyanosis, No Clubbing, No edema Neurological: No Focal Motor or Sensory Deficit Psych/Mental Status: Appropriate, Normal Affect 08/18/17 14:05: Troponin I < 0.015 08/18/17 16:45: Troponin I < 0.015 08/19/17 04:20: WBC 8.1, RBC 4.02 L, Hgb 11.8 L, Hct 34.6 L, MCV 86.1, MCH 29.4 , MCHC 34.1, RDW 13.9, RDW Differential 42.6, Plt Count 299, MPV 9.3 08/19/17 04:20: Sodium 143, Potassium 3.9, Chloride 108 H, Carbon Dioxide 28.0, Anion Gap 7, BUN 16, Creatinine 0.62 L, Est GFR (MDRD) Af Amer 178, Est GFR ( MDRD) Non-Af 147, BUN/Creatinine Ratio 26.0 H, Glucose 109 H, Calcium 8.4 L Rhythm: Sinus rhythm EKG: Sinus rhythm; nonspecific T-wave abnormality; no new acute ECG changes Medical Necessity - Tobacco Use Smoking Status: Never smoker Assessment/Plan 1. Unstable angina pectoris The patient presents with symptoms concerning for unstable angina pectoris superimposed upon his recent acute inferior ST segment elevation [place]. His cardiac enzymes have remained negative. His ECG has demonstrated no new acute changes. He has undergone evaluation with diagnostic cardiac catheterization which led to LCx PCI. He was noted to have an OM lesion which underwent FFR. This was considered negative and thus he did not require any type of PCI to the OM vessel. He will continue medical management. 2. CAD status post recent acute inferior ST segment elevation [place] status post recent RCA PTCA/JOSEPH At the present time the patient is undergoing evaluation care as noted above. He will continue medical management. He will continue with outpatient cardiac rehabilitation. 3. Hyperlipidemia The patient will continue lipid-lowering therapy as deemed appropriate. 4. Hypertension The patient's home blood pressures were reviewed. His blood pressures in the hospital have been normal to low. Thus his medications are being readjusted. If his blood pressure is elevated at home than he may need readjustment of his medications. 5. Diabetes mellitus The patient has had 2 episodes of hypoglycemia with associated symptoms. He may need his medications adjusted. He was advised to follow with his PCP and his endoscopy rn for his diabetes mellitus management. Comment: The above was discussed and reviewed with the patient. This note was generated with [employer] dictation software. It may contain incorrect words, spelling, and punctuation that were not noted in checking the note before signing.
--- NOTE | 2017-08-19 11:26 | PCM.DC ---
- Discharge Diagnoses Current Active Problems: Current Active and Chronic Problems (Last Updated 08/18/17 @ 12:[address] DO) Chest pain (Acute) Unstable angina pectoris (Acute) CAD (coronary artery disease) (Chronic) You will use the following diet at home:: Calorie/Carbohydrate Controlled (specify 1200, 1400, etc) - 1800, Cardiac Your food should be the consistency of: Regular Discharge Activity: - - activity as tolerated Call your doctor if you observe: Fever of 101 or Higher, Shortness of breath, Chest pain Instructions: Discharge Instructions for Angina, Recognizing a Heart Attack or Angina Allergies/Adverse Reactions: Allergies bee venom protein (honey bee) Allergy (Severe, Verified 08/18/17 09:58) Angioedema niacin Allergy (Verified 08/18/17 09:58) Shortness of breath Medications to take at Discharge Atorvastatin Calcium 40 mg PO QHS 08/04/17 Fenofibrate [Tricor] 145 mg PO DAILY 08/04/17 Aspirin 81 mg PO DAILY #30 tab.chew 08/07/17 Carvedilol 6.25 mg PO BID #60 tab 08/07/17 Clopidogrel Bisulfate [Plavix] 75 mg PO DAILY #30 tab 08/07/17 Glimepiride [Amaryl] 2 mg PO DAILY #30 tab 08/07/17 Insulin Glargine,Hum.rec.anlog [Basaglar Kwikpen U-100] 14 unit SQ QHS #0 08/07/17 Mag Hydrox/Al Hydrox/Simeth [Mylanta II] 15 ml PO Q4H PRN PRN #1 bottle 08/07/17 Nitroglycerin [Nitrostat] 0.4 mg SUBLINGUAL Q5M PRN #10 tab 08/07/17 Omeprazole 40 mg PO BID #0 08/07/17 Isosorbide Mononitrate [Imdur] 30 mg PO DAILY #30 tab 08/19/17 Lisinopril [Zestril] 5 mg PO BID #60 tab 08/19/17 Metformin HCl [Glucophage] 1,000 mg PO BIDCM #0 08/19/17 Ranolazine [Ranexa] 500 mg PO BID #60 tab 08/19/17 The following prescriptions were given: Isosorbide Mononitrate [Imdur] 30 mg PO DAILY #30 tab Lisinopril [Zestril] 5 mg PO BID #60 tab Ranolazine [Ranexa] 500 mg PO BID #60 tab Primary Care Physician: Mikey Rogers MD [Primary Care Provider] - Within 2 Weeks Test Results: Test results from this visit will be discussed in further detail at your follow-up appointment, if applicable. Please Follow Up With: Mikey Mendoza MD When: 2-4 weeks Proposed Discharge Date: 08/19/17
--- NOTE | 2017-08-19 11:28 | PCM.DC.SUM ---
Discharge Date and Diagnosis - Problem List Patient Problems: Active and Suspected Problems (Last Updated 08/18/17 @ 12:[address] DO) Unstable angina (Acute) Date of Admission: 08/18/17 Date of Discharge: 08/19/17 - Primary Discharge Diagnosis Active and Suspected Problems (Last Updated 08/18/17 @ 12:[address] DO) Unstable angina (Acute) Chest pain (Acute) Unstable angina pectoris (Acute) - Secondary Discharge Diagnosis Chronic Problems (Last Updated 08/18/17 @ 12:[address] DO) HTN (hypertension) (Chronic) Mixed hyperlipidemia (Chronic) Diabetes mellitus, type II (Chronic) Obesity (BMI 30-39.9) (Chronic) Barretts esophagus (Chronic) STEMI (ST elevation myocardial infarction) (Chronic) S/P coronary artery stent placement (Chronic) Atherosclerotic heart disease of [place] coronary artery without angina pectoris (Chronic) CAD (coronary artery disease) (Chronic) Hospital Course and Treatment Imaging Results: Clinical Impression(s) from Imaging Studies Chest X-Ray 08/18/17 10:22 IMPRESSION: Normal x-ray examination of the chest. Electronically Signed: Pola Funes MD at 10:58 EDT Tel [phone], Service support , Operations: None Procedures: Cardiac catheterization Summary of Care Provided: The patient is a 52 year old M presents with intermittent chest pain. Patient had had a ST elevation myocardial infarction on August 04. Patient had a drug-eluting stent to his right coronary at that time. Patient just been having intermittent chest pain went to cardiac rehab where they sent him to the emergency room. Patient's cardiac workup was unremarkable the patient was seen in consultation by cardiology. Patient did have a known lesion of his left circumflexWhich is concerning to be the suspect lesion at this time. Patient underwent a cardiac catheterization on the and had a stent placed to that vessel. Patient said that after our this patient's chest pain had completed resolved. Patient has been asymptomatic here. Patient did have some modifications to his blood pressure medications but is otherwise feeling well and will be discharged to home. Physical exam: Patient is up in a chair no acute distress no respiratory distress. Heart is regular rate and rhythm plus S1-S2 without any murmurs gallops or rubs. Abdomen is soft nontender nondistended normal bowel sounds with no hepatosplenomegaly. [] Discharge Diet: Low fat/ Low Cholesterol, 1800 Calorie Control Diet Discharge Activity: - - activity as tolerated Call your doctor if you observe: Fever of 101 or Higher, Shortness of breath, Chest pain Home Medications: Medications to take at Discharge Atorvastatin Calcium 40 mg PO QHS 08/04/17 Fenofibrate [Tricor] 145 mg PO DAILY 08/04/17 Aspirin 81 mg PO DAILY #30 tab.chew 08/07/17 Carvedilol 6.25 mg PO BID #60 tab 08/07/17 Clopidogrel Bisulfate [Plavix] 75 mg PO DAILY #30 tab 08/07/17 Glimepiride [Amaryl] 2 mg PO DAILY #30 tab 08/07/17 Insulin Glargine,Hum.rec.anlog [Basaglar Kwikpen U-100] 14 unit SQ QHS #0 08/07/17 Mag Hydrox/Al Hydrox/Simeth [Mylanta II] 15 ml PO Q4H PRN PRN #1 bottle 08/07/17 Nitroglycerin [Nitrostat] 0.4 mg SUBLINGUAL Q5M PRN #10 tab 08/07/17 Omeprazole 40 mg PO BID #0 08/07/17 Isosorbide Mononitrate [Imdur] 30 mg PO DAILY #30 tab 08/19/17 Lisinopril [Zestril] 5 mg PO BID #60 tab 08/19/17 Metformin HCl [Glucophage] 1,000 mg PO BIDCM #0 08/19/17 Ranolazine [Ranexa] 500 mg PO BID #60 tab 08/19/17 Following Prescrptions Were Given to Patient: Isosorbide Mononitrate [Imdur] 30 mg PO DAILY #30 tab Lisinopril [Zestril] 5 mg PO BID #60 tab Ranolazine [Ranexa] 500 mg PO BID #60 tab Primary Care Physician: Mikey Rogers MD [Primary Care Provider] - Within 2 Weeks Please Follow Up With: Mikey Mendoza MD When: 2-4 weeks Patient Instructions: Recognizing a Heart Attack or Angina, Discharge Instructions for Angina Disposition: Home Minutes spent on discharge:: 28 Patient Condition:: Good Medical Necessity - Tobacco Use Smoking Status: Never smoker Meaningful Use Info Meaningful Use Diagnoses (Choose all that apply): None applicable Code Visit OBSV E&M: 58503 Observation care discharge
[2017-08-19 11:31] LABS: Bedside Glucose 238 mg/dL (70-110)
--- NOTE | 2017-08-19 11:34 | DS.PCM_ITS ---
Discharge Date and Diagnosis - Problem List Patient Problems: Active and Suspected Problems (Last Updated 08/18/17 @ 12:[address] DO ) Unstable angina (Acute) Date of Admission: 08/18/17 Date of Discharge: 08/19/17 - Primary Discharge Diagnosis Active and Suspected Problems (Last Updated 08/18/17 @ 12:[address] DO ) Unstable angina (Acute) Chest pain (Acute) Unstable angina pectoris (Acute) - Secondary Discharge Diagnosis Chronic Problems (Last Updated 08/18/17 @ 12:[address] DO) HTN (hypertension) (Chronic) Mixed hyperlipidemia (Chronic) Diabetes mellitus, type II (Chronic) Obesity (BMI 30-39.9) (Chronic) Barretts esophagus (Chronic) STEMI (ST elevation myocardial infarction) (Chronic) S/P coronary artery stent placement (Chronic) Atherosclerotic heart disease of [place] coronary artery without angina pectoris (Chronic) CAD (coronary artery disease) (Chronic) Hospital Course and Treatment Imaging Results: Clinical Impression(s) from Imaging Studies Chest X-Ray 08/18/17 10:22 IMPRESSION: Normal x-ray examination of the chest. Electronically Signed: Pola Funes MD at 10:58 EDT Tel [phone], Service support , Operations: None Procedures: Cardiac catheterization Summary of Care Provided: The patient is a 52 year old M presents with intermittent chest pain. Patient had had a ST elevation myocardial infarction on August 04. Patient had a drug- eluting stent to his right coronary at that time. Patient just been having intermittent chest pain went to cardiac rehab where they sent him to the emergency room. Patient's cardiac workup was unremarkable the patient was seen in consultation by cardiology. Patient did have a known lesion of his left circumflexWhich is concerning to be the suspect lesion at this time. Patient underwent a cardiac catheterization on the and had a stent placed to that vessel. Patient said that after our this patient's chest pain had completed resolved. Patient has been asymptomatic here. Patient did have some modifications to his blood pressure medications but is otherwise feeling well and will be discharged to home. Physical exam: Patient is up in a chair no acute distress no respiratory distress. Heart is regular rate and rhythm plus S1-S2 without any murmurs gallops or rubs. Abdomen is soft nontender nondistended normal bowel sounds with no hepatosplenomegaly. [] Discharge Diet: Low fat/ Low Cholesterol, 1800 Calorie Control Diet Discharge Activity: - - activity as tolerated Call your doctor if you observe: Fever of 101 or Higher, Shortness of breath, Chest pain Home Medications: Medications to take at Discharge Atorvastatin Calcium 40 mg PO QHS 08/04/17 Fenofibrate [Tricor] 145 mg PO DAILY 08/04/17 Aspirin 81 mg PO DAILY #30 tab.chew 08/07/17 Carvedilol 6.25 mg PO BID #60 tab 08/07/17 Clopidogrel Bisulfate [Plavix] 75 mg PO DAILY #30 tab 08/07/17 Glimepiride [Amaryl] 2 mg PO DAILY #30 tab 08/07/17 Insulin Glargine,Hum.rec.anlog [Basaglar Kwikpen U-100] 14 unit SQ QHS #0 Mag Hydrox/Al Hydrox/Simeth [Mylanta II] 15 ml PO Q4H PRN PRN #1 bottle Nitroglycerin [Nitrostat] 0.4 mg SUBLINGUAL Q5M PRN #10 tab 08/07/17 Omeprazole 40 mg PO BID #0 08/07/17 Isosorbide Mononitrate [Imdur] 30 mg PO DAILY #30 tab 08/19/17 Lisinopril [Zestril] 5 mg PO BID #60 tab 08/19/17 Metformin HCl [Glucophage] 1,000 mg PO BIDCM #0 08/19/17 Ranolazine [Ranexa] 500 mg PO BID #60 tab 08/19/17 Following Prescrptions Were Given to Patient: Isosorbide Mononitrate [Imdur] 30 mg PO DAILY #30 tab Lisinopril [Zestril] 5 mg PO BID #60 tab Ranolazine [Ranexa] 500 mg PO BID #60 tab Primary Care Physician: Mikey Rogers MD [Primary Care Provider] - Within 2 Weeks Please Follow Up With: Mikey Mendoza MD When: 2-4 weeks Patient Instructions: Recognizing a Heart Attack or Angina, Discharge Instructions for Angina Disposition: Home Minutes spent on discharge:: 28 Patient Condition:: Good Medical Necessity - Tobacco Use Smoking Status: Never smoker Meaningful Use Info Meaningful Use Diagnoses (Choose all that apply): None applicable Code Visit OBSV E&M: 40605 Observation care discharge
--- NOTE | 2017-08-19 11:59 | CASEMGMT ---
MISHA ACUNA assessment. DC Plan Home -Discussed pt's insurance- has [employer] coverage. Pt will be on Plavix for dc, states he is able to afford this medication. Pt states his monthly premium is $1800 and many medications are not covered. Will not require RN ARMAND intervention @ this time. Jerry PEREZ RN ACM
--- NOTE | 2017-08-19 16:15 | EKG12_ITS ---
Test Reason : AM Blood Pressure : / mmHG Vent. Rate : 068 BPM Atrial Rate : 068 BPM P-R Int : 184 ms QRS Dur : 098 ms QT Int : 394 ms P-R-T Axes : 032 027 -10 degrees QTc Int : 418 ms Normal sinus rhythm Normal ECG When compared with ECG of 18-AUG-2017 16:25, MANUAL COMPARISON REQUIRED, DATA IS UNCONFIRMED Confirmed by OR[place]O QUACH, LILLIAM ([id number]), newspaper editor managing ABDI BANUELOS ([id number]) on 08/24/2017 2:15:52 PM Referred By: ELLIOT Confirmed By:LILLIAM PERRY MD
== END 2017-08-19 12:20 | disposition home or self-care (01) ==
LOC: ED 11:04 → PCU 12:22 → ICU 18:26
PROVIDERS: Internal Medicine Cardiovascular Disease; Emergency Provider Emergency Medicine; Family Provider Family Medicine; PCP Family Medicine
DX: I25.110 Atherosclerotic heart disease of native coronary artery with unstable angina pectoris (principal); E78.2 Mixed hyperlipidemia; I10 Essential (primary) hypertension; I21.19 ST elevation (STEMI) myocardial infarction involving other coronary artery of inferior wall; E66.9 Obesity, unspecified; Z68.30 Body mass index [BMI] 30.0-30.9, adult; Z71.3 Dietary counseling and surveillance; Z95.5 Presence of coronary angioplasty implant and graft; K22.70 Barrett's esophagus without dysplasia; K44.9 Diaphragmatic hernia without obstruction or gangrene; Z79.02 Long term (current) use of antithrombotics/antiplatelets; Z79.4 Long term (current) use of insulin; Z79.899 Other long term (current) drug therapy; Z79.82 Long term (current) use of aspirin; E11.649 Type 2 diabetes mellitus with hypoglycemia without coma; I25.2 Old myocardial infarction
CPT/HCPCS: 71045; 80048; 82962; 84484; 85025; 85027; 85347; 85610; 85730; 87641; 92928; 93005; 93454; 93571; 96360; 96361; 99152; 99153; 99218; 99285; J7030; Q9967; A4216; C1725; C1769; C1874; C1887; C1894; C9600; G0378

== ENCOUNTER → 2017-09-04 11:20 | Outpatient (CLI) | payer OTHER, SELFPAY ==
--- NOTE | 2017-09-04 19:12 | STRESSREP ---
Stress Test Report Date: 09/04/2017 Procedure: Exercise tolerance test Indications: CAD; status post ST segment elevation MD; status post PCI; precardiac rehabilitation evaluation Consent: Per the patient Procedure: The patient exercised on a Jose C protocol for 8 minutes completing Stage II and 2 minutes of Stage III achieving a peak heart rate of 130 bpm (76 % predicted maximal heart rate) with a peak blood pressure 180/70 mmHg and a peak MET capacity of approximately 9 MET's. The baseline ECG demonstrated normal sinus rhythm. The peak exercise ECG demonstrated no obvious ECG changes. There were no cardiac dysrhythmias pretest, during exercise, or recovery. The functional capacity was considered good. The patient had vague chest discomfort during exercise or recovery spontaneous resolution in recovery The examination was discontinued secondary to concerns of chest discomfort. Impression: 1. Technically adequate (percent predicted maximal heart rate greater than 85%) exercise tolerance test 2. Peak exercise ECG with no obvious ECG changes at the heart rate achieved 3. No cardiac dysrhythmias during exercise or recovery This note was generated with [employer] software. It may contain incorrect words, spelling, and punctuation that were not noted in checking the note before signing.
--- NOTE | 2017-09-04 19:16 | STRESSREP_ITS ---
Stress Test Report Date: 09/04/2017 Procedure: Exercise tolerance test Indications: CAD; status post ST segment elevation MN; status post PCI; precardiac rehabilitation evaluation Consent: Per the patient Procedure: The patient exercised on a Jose C protocol for 8 minutes completing Stage II and 2 minutes of Stage III achieving a peak heart rate of 130 bpm (76 % predicted maximal heart rate) with a peak blood pressure 180/70 mmHg and a peak MET capacity of approximately 9 MET's. The baseline ECG demonstrated normal sinus rhythm. The peak exercise ECG demonstrated no obvious ECG changes. There were no cardiac dysrhythmias pretest, during exercise, or recovery. The functional capacity was considered good. The patient had vague chest discomfort during exercise or recovery spontaneous resolution in recovery The examination was discontinued secondary to concerns of chest discomfort. Impression: 1. Technically adequate (percent predicted maximal heart rate greater than 85% ) exercise tolerance test 2. Peak exercise ECG with no obvious ECG changes at the heart rate achieved 3. No cardiac dysrhythmias during exercise or recovery This note was generated with [employer] software. It may contain incorrect words, spelling, and punctuation that were not noted in checking the note before signing.
== END ==
PROVIDERS: Family Provider Family Medicine; PCP Family Medicine; Visit Provider Internal Medicine Cardiovascular Disease
DX: I25.10 Atherosclerotic heart disease of native coronary artery without angina pectoris (principal); Z95.5 Presence of coronary angioplasty implant and graft
CPT/HCPCS: 93017

== ENCOUNTER 2017-09-14 10:16 | Observation (INO) | payer OTHER, SELFPAY ==
[2017-09-14] VITALS (17 sets, daily range): BP systolic 117–143; BP diastolic 68–87; PULSE 56–75; RESP 14–18; TEMP 36.5–37.1; O2SAT 95–99; BMI 29.9
--- NOTE | 2017-09-14 10:21 | RAD_ITS ---
STUDY: X-RAY CHEST REASON FOR EXAM: Male, 52 years old. Chest pain, recent cardiac stent placement TECHNIQUE: Single AP portable view of the chest. COMPARISON: 08/18/2017 FINDINGS: Cardiac monitoring leads overlie the chest. The lungs are clear and expanded. There is no demonstrated pleural abnormality. Normal size heart. Normal mediastinum and alberto. Normal visualized pulmonary arteries. Normal visualized aortic arch and descending thoracic aorta. There are diffuse degenerative changes of the visualized thoracic spine. Normal visualized ribs, clavicles, and shoulders. There is no demonstrated abnormality of the visualized soft tissue structures of the upper abdomen. RAD/Chest 1 View (Portable) IMPRESSION: No acute process in the chest. Electronically Signed: Aidan Doran DO at 10:51 EDT Tel , Service support ,
--- NOTE | 2017-09-14 10:26 | ED.DCSUM_ITS ---
- ER Visit Summary Date of Service: 09/14/17 Chief Complaint: Chest pain, syncope History of Present Illness: The patient is a 52 M who is at cardiac rehab today. He states that he normally has a chest heaviness that surrounded 2 out of 10 when he wakes up in the morning. He had the same chest heaviness at rehab and they documented that. He states he was feeling short of breath when he switched exercise machines and after that he had a syncopal episode. He checked his blood sugar and it was 210. He did feel diaphoretic. The patient had a STEMI on August 03 and had 2 stents placed. He then had another stent placed 2 weeks after that because of continued pain. He sees Dr. Mendoza Physical Examination: Vital signs reviewed. HEENT exam unremarkable. Heart is regular rate and rhythm without murmurs. Lungs are clear to auscultation. Abdomen is soft and nontender. Extremities reveal no edema. Skin exam normal. Neurologic exam normal. Peripheral pulses are equal Test Results: EKG was normal sinus rhythm with nonspecific ST changes. Chest x- ray unremarkable. Laboratory studies reveal a normal troponin. 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 He will recommend the patient be admitted to the hospital to cycle his enzymes. And possibly do a nuclear stress test in the morning. Patient was discussed with the hospitalist for admission Treatment Plan: [] Disposition: Admit Impression: Chest pain, syncope This note was generated with Shibumi dictation software. It may contain incorrect words, spelling, and punctuation that were not noted in review of the chart prior to signing ED Disposition - Plan for ED Patient: Chief Complaint: Chest Pain Referrals: Mikey Rogers MD [Primary Care Provider] -
[2017-09-14 10:41] LABS: Absolute Lymphocyte Count 1.88 X10^3/ul (0.83-4.51); Basophil# 0.01 X10^3/uL; Basophil% 0.2 % (0-1); Eosinophil# 0.12 X10^3/uL; Eosinophils% 1.8 % (0-5); Hematocrit 38.3 % (40-54); Hemoglobin 12.5 g/dl (13.0-16.5); Lymphocyte # 1.88 X10^3/ul (4.0); Lymphocyte % 28.9 % (19-41); Mean Corp Hgb Conc 32.6 g/gl (32-36); Mean Corpuscular Hgb 28.5 pg (27.0-32.0); Mean Corpuscular Volume 87.4 fL (80-94); Monocyte# 0.47 X10^3/uL; Monocyte% 7.2 % (0-10); Neutrophil % 61.4 % (47-70); Platelet Count 303 K/mm3 (150-450); RBC Distribution Width SD 44.3 fl (35.1-43.9); Red Blood Count 4.38 M/mm3 (4.6-6.2); White Blood Count 6.5 K/mm3 (4.4-11.0)
[2017-09-14 10:42] LABS: POSITIVE COUNT NO; POSITIVE DIFFERENTIAL NO; POSITIVE MORPHOLOGY NO
[2017-09-14] MEDS: Aspirin 81 MG TAB.CHEW 324 MG PO (10:48)
[2017-09-14 11:00] LABS: Anion Gap 6 (5-15); BUN 16 mg/dL (7-18); Calcium,Total 8.8 mg/dL (8.5-10.1); Chloride 107 mmol/L (98-107); Creatinine, Serum 0.89 mg/dL (0.70-1.30); EST Glomerular Filtration Rate 96 mL/min (>60); Est Glom Filt Rate - Afr Amer 116 mL/min (>60); Estimated Creatinine Clearance 92.84 ml/min; Glucose 177 mg/dL (74-106); Potassium 4.3 mmol/L (3.5-5.1); Sodium Level 139 mmol/L (136-145)
--- NOTE | 2017-09-14 11:53 | NURSING ---
105 CP, SYNCOPE ASHELFAH
--- NOTE | 2017-09-14 12:01 | HP.PCM_ITS ---
Problem List (1) HTN (hypertension) Status: Chronic Qualifiers: (2) Mixed hyperlipidemia Status: Chronic (3) Diabetes mellitus, type II Status: Chronic Qualifiers: (4) Barretts esophagus Status: Chronic Qualifiers: (5) STEMI (ST elevation myocardial infarction) Status: Chronic Qualifiers: (6) Atherosclerotic heart disease of [place] coronary artery without angina pectoris Status: Chronic Qualifiers: Comment: JOSEPH Prox LCX using Resolute Integrity 3.0 x18 mm iFR ostial OM1 non- significant at 0.97 08/18/17 PCI-JOSEPH-Mid RCA w/ 3.0 x 38 mm Synergy and 3.0 x 16 mm Synergy 08/04/17 History of Present Illness Date of Admission: 09/14/17 Chief Complaint: chest pain, syncope. The patient is a 52 year old M with past medical history as mentioned above presented to the emergency room because of chest pain and syncope. Patient was at the cardiac rehab department doing exercises and he started having left- sided chest pain, sharp pain, initially was mild up to 3 out of 10 in severity, and later became up to 7 out of 10 in severity, radiates to his neck and left arm, associated with shortness of breath and dizziness and without relieving or aggravating factors. Shortly after, patient became dizzy and he passed out. On August 18, 2017, patient admitted for unstable angina, underwent for cardiac catheterization with successful drug eluting stent to proximal left circumflex. Exercise tolerance stress test technically adequate exercise stress test without EKG changes and there was no cardiac arrhythmias. No nuclear imaging was done with this test. In the emergency department, vital signs were stable. Routine blood work was unremarkable. EKG revealed normal sinus rhythm, normal OH interval, normal QRS, no acute ischemic changes. Troponin is negative. Chest x-ray showed no acute findings. He is being admitted for chest pain and syncope for evaluation. Past Medical History Past Medical History (Chronic Problems): Chronic Problems (Last Updated 09/14/17 @ 11:59 by Jaqui Robertson MD) HTN (hypertension) (Chronic) Mixed hyperlipidemia (Chronic) Diabetes mellitus, type II (Chronic) Obesity (BMI 30-39.9) (Chronic) Barretts esophagus (Chronic) STEMI (ST elevation myocardial infarction) (Chronic 08/04/17) Atherosclerotic heart disease of [place] coronary artery without angina pectoris (Chronic) JOSEPH Prox LCX using Resolute Integrity 3.0 x18 mm iFR ostial OM1 non- significant at 0.97 08/18/17 PCI-JOSEPH-Mid RCA w/ 3.0 x 38 mm Synergy and 3.0 x 16 mm Synergy 08/04/17 Medical History: Medical History (Last Updated 09/14/17 @ 11:59 by Jaqui Robertson MD) HTN (hypertension) (Chronic) I10 Mixed hyperlipidemia (Chronic) E78.2 Diabetes mellitus, type II (Chronic) E11.9 Obesity (BMI 30-39.9) (Chronic) E66.9 Barretts esophagus (Chronic) K22.70 STEMI (ST elevation myocardial infarction) (Chronic) Onset Date: 08/04/17 I21.3 Atherosclerotic heart disease of [place] coronary artery without angina pectoris (Chronic) I25.10 JOSEPH Prox LCX using Resolute Integrity 3.0 x18 mm iFR ostial OM1 non- significant at 0.97 08/18/17 PCI-JOSEPH-Mid RCA w/ 3.0 x 38 mm Synergy and 3.0 x 16 mm Synergy 08/04/17 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 CAD (coronary artery disease) I25.10 DM2 (diabetes mellitus, type 2) E11.9 Hiatal hernia K44.9 HTN (hypertension) I10 Allergies bee venom protein (honey bee) Allergy (Severe, Verified 09/02/17 10:42) Angioedema niacin Allergy (Verified 09/02/17 10:42) Shortness of breath Home Medications: Ambulatory Orders Medication Instructions Recorded Atorvastatin Calcium 40 mg PO QHS 08/04/17 Fenofibrate [Tricor] 145 mg PO DAILY 08/04/17 Aspirin 81 mg PO DAILY #30 tab.chew 08/07/17 Clopidogrel Bisulfate [Plavix] 75 mg PO DAILY #30 tab 08/07/17 Glimepiride [Amaryl] 2 mg PO DAILY #30 tab 08/07/17 Insulin Glargine,Hum.rec.anlog 14 unit SQ QHS #0 08/07/17 [Basaglar Kwikpen U-100] Nitroglycerin [Nitrostat] 0.4 mg SUBLINGUAL Q5M PRN #10 tab 08/07/17 Omeprazole 40 mg PO BID #0 08/07/17 Isosorbide Mononitrate [Imdur] 30 mg PO DAILY #30 tab 08/19/17 Metformin HCl [Glucophage] 1,000 mg PO BIDCM #0 08/19/17 carvedilol 12.5 mg tablet 12.5 mg PO BID #180 tab 09/02/17 lisinopril 10 mg tablet 10 mg PO BID #60 tab 09/02/17 Surgical History: angioplasty Psychiatric History: No pertinent psych hx Lives: Spouse/ Significant Other Smoking Status: Former smoker Alcohol: None Drugs: None - *Family History Paternal Family History: Family History (Last Updated 09/02/17 @ 10:43 by Landy Iqbal) Mother Heart disease Brother Hypertension History Items: Cancer - esophageal Maternal Family History: Family History (Last Updated 09/02/17 @ 10:43 by Landy Iqbal) Mother Heart disease Brother Hypertension History Items: Heart Disease Review of Systems Constitutional: Denies: Anorexia, Chills, Fever, Weakness Eyes: Denies: Blurred vision, Double vision, Drainage, Redness HEENT: Denies: Difficulty Hearing, Ear Pain, Eye Pain, Nasal Congestion, Sore Throat Cardiovascular: Reports: Chest Pain, Light Headedness, Syncope. Denies: Orthopnea, Palpitations, Paroxysmal Noc. Dyspnea Respiratory: Reports: Shortness of Breath. Denies: Cough, Pleuritic Pain, Sputum production, Wheezing Gastrointestinal: Denies: Abdominal Pain, Constipation, Diarrhea, Nausea, Vomiting Genitourinary: Denies: Dysuria, Frequency, Hematuria Musculoskeletal: Denies: Arm Pain, Back Pain, Foot Pain Skin: Denies: Dryness, Rash Neurological: Denies: Balance problems, Double vision, Headaches, Incoordination , Numbness Psychiatric: Denies: Anxiety, Depression Endocrine: Denies: Change in Body Habitus, Polydipsia VTE Information - Inpt Only VTE Present on Admission: No VTE Mechan Device Prophylaxis: None VTE Pharm Prophylaxis ordered?: Yes - Physical Exam General: Alert, Oriented x3, Cooperative, No apparent distress HEENT: Atraumatic, PERRLA, EOMI, Normocephalic Oral: Moist Mucosa, No Gingival or Mucosal Lesions/ Ulcerations Neck: Supple, No JVD, Negative Carotid Bruits, Trachea Midline, Thyroid Normal Size and Texture Lungs: Clear to auscultation, Normal air movement, No rhonchi, No wheeze, Diminished Cardiovascular: Regular rate, Regular Rhythm, Normal S1, Normal S2, PMI Normal Abdomen: Bowel Sounds Present, Soft, Non Tender, Non-Distended, No Hepato- splenomegaly Extremities: No clubbing, No cyanosis, No edema Skin: No rashes, No breakdown Lymphatic: No Cervical, Supraclavicular, or Inguinal Adenopathy Neurological: Cranial nerves II-XII grossly intact, Motor Exam 5/5 strength throughout Psych/Mental Status: Normal Affect, Appropriate, Alert and oriented to time, place, person, mood and affect Vital Signs Temp Pulse Resp BP Pulse Ox 98.2 F 59 L 15 118/77 96 09/14/17 10:18 09/14/17 11:17 09/14/17 11:17 09/14/17 11:17 09/14/17 11:17 Oxygen Delivery Method Room Air Weight: 191 lb Body Mass Index (BMI) 29.9 Finger Stick Blood Glucose 79 Laboratory Tests Past 24 Hrs 09/14/17 09/14/17 10:25 10:25 WBC 6.5 RBC 4.38 L Hgb 12.5 L Hct 38.3 L MCV 87.4 MCH 28.5 MCHC 32.6 RDW 14.0 RDW Differential 44.3 H Plt Count 303 MPV 9.0 Immature Gran % (Auto) 0.500 Neut % (Auto) 61.4 Lymph % (Auto) 28.9 [place] % (Auto) 7.2 Eos % (Auto) 1.8 Baso % (Auto) 0.2 Absolute Neuts (auto) 4.0 Absolute Lymphs (auto) 1.88 Total Counted Not Reportable Sodium 139 Potassium 4.3 Chloride 107 Carbon Dioxide 26.0 Anion Gap 6 BUN 16 Creatinine 0.89 Estim Creat Clear Calc 92.84 Est GFR (MDRD) Af Amer 116 Est GFR (MDRD) Non-Af 96 BUN/Creatinine Ratio 18.0 Glucose 177 H Calcium 8.8 Troponin I < 0.015 Clinical Impression(s) from Imaging Studies Chest X-Ray 09/14/17 10:21 IMPRESSION: No acute process in the chest. Electronically Signed: Aidan Doran DO at 10:51 EDT Tel , Service support , Assessment/Plan All Active Problems (Last Updated 09/14/17 @ 11:59 by Jaqui Robertson MD) Chest pain (Resolved) Chest pain (Resolved) Unstable angina (Resolved) Unstable angina pectoris (Resolved) This is a 52 years old male patient presented to the medicine because of chest pain and syncope while doing cardiac rehab as outpatient and he is being admitted for evaluation. #1 chest pain/angina pectoris: In context of recent history of unstable angina, status post stents to LAD. EKG revealed no acute ischemic changes. Troponin is negative. Chest x-ray showed no acute findings. Vital signs are stable. Plan: Admit to PCU for observation, cardiac monitoring, serial cardiac enzymes, repeat EKG tomorrow morning, IV fluids, IV morphine as needed for pain, nuclear stress test if cardiac enzymes are negative, cardiology consult. #2 syncope: Seems to be vasovagal, patient was sweaty, pain and clammy. At this time, he has normal symptoms. His vital signs are stable. Plan for IV fluids, cardiac monitoring, orthostatic vitals. #2 CAD/recent unstable angina: Status post JOSEPH to proximal left circumflex. Plan as above, continue aspirin, Plavix, Coreg, lisinopril and isosorbide mononitrate. #3 hypertension: Blood pressure stable, continue Coreg, lisinopril and isosorbide mononitrate. Will check orthostatic vitals. #4 type 2 diabetes mellitus: ADA diet, Accu-Cheks, insulin scale, continue glimepiride, hold metformin. #5 hyperlipidemia: Continue statins. #6 Beaulieu's esophagus: Continue PPI. #7 DVT prophylaxis: Subcu Lovenox. This note was generated with [employer] dictation software. It may contain incorrect words, spelling, and punctuation that were not noted in checking the note before signing. Code Visit OBSV E&M: [id number] Initial observation care L3
[2017-09-14 12:41] LABS: Bedside Glucose 79 mg/dL (70-110)
[2017-09-14] MEDS: 0.9% Normal Saline 1,000 ML 75 ML IV (13:39)
[2017-09-14] MEDS: Carvedilol 12.5 MG Tablet PO (16:43)
[2017-09-14 17:20] LABS: Bedside Glucose 126 mg/dL (70-110)
--- NOTE | 2017-09-14 17:58 | PCM.CONS.C ---
Problem List (1) Chest pain Status: Acute (2) Near syncope Status: Acute (3) CAD (coronary artery disease) Status: Chronic Qualifiers: Coronary Disease-Associated Artery/Lesion type: [place] artery (4) S/P PTCA (percutaneous transluminal coronary angioplasty) Status: Chronic (5) Mixed hyperlipidemia Status: Chronic (6) HTN (hypertension) Status: Chronic Qualifiers: (7) Diabetes mellitus, type II Status: Chronic Qualifiers: Reason for Consult Date of Consultation: 09/14/17 History of Present Illness: The patient is a 52 year old white male with a past medical history of underlying CAD, acute coronary syndrome, subsequent RCA PTCA/JOSEPH, subsequent LCx PTCA/JOSEPH, subsequent OM FFR reported as negative (0.97) who now presents for cardiac rehabilitation with concerns of continued chest discomfort and a near syncopal event. He states he has been having chest discomfort which is been mainly with exertional activity and/or exposure to the heat and humidity. He notes that he has been able to tolerate his discomfort. However today in cardiac rehab his discomfort was worse than usual with exercising. He was asked to discontinue his exercise. His discomfort improved. However then he became very diaphoretic and Clammy . He states he does not quite remember everything that happened after that. According to the cardiac rehabilitation crew he appeared to have near syncope but did not lose consciousness. According to their documentation he remained in sinus rhythm with no change in his underlying conduction system nor any development of any cardiac dysrhythmia. He was subsequently taken to the emergency department for further evaluation. Since his evaluation he has been placed in the PCU. He has had cardiac enzymes performed which have been negative. His ECG demonstrated sinus rhythm with no acute ECG changes. He notes that he has not used nitroglycerin sublingual at home. In the PCU he states he has been having waxing and waning chest discomfort which she has not reported to the staff. He was given a nitroglycerin sublingual. However he notes as soon as the discomfort arrived and also dissipated. It is unclear as to whether the nitroglycerin made any significant difference for him. He has denied any orthopnea or PND or peripheral pitting edema. He states that as he is adjusted his diet and has gone to a low carbohydrate diet he has had issues with his glucose levels being low as well. [] Past Medical History Allergies/Adverse Reactions: Allergies bee venom protein (honey bee) Allergy (Severe, Verified 09/02/17 10:42) Angioedema niacin Allergy (Verified 09/02/17 10:42) Shortness of breath Home Medications: Ambulatory Orders Medication Instructions Recorded RX: Atorvastatin Calcium 40 mg PO QHS 08/04/17 RX: Fenofibrate [Tricor] 145 mg PO DAILY 08/04/17 RX: Aspirin 81 mg PO DAILY #30 tab.chew 08/07/17 RX: Clopidogrel Bisulfate [Plavix] 75 mg PO DAILY #30 tab 08/07/17 RX: Glimepiride [Amaryl] 2 mg PO DAILY #30 tab 08/07/17 RX: Insulin Glargine,Hum.rec.anlog 14 unit SQ QHS #0 08/07/17 [Basaglar Kwikpen U-100] RX: Nitroglycerin [Nitrostat] 0.4 mg SUBLINGUAL Q5M PRN #10 tab 08/07/17 RX: Omeprazole 40 mg PO BID #0 08/07/17 RX: Isosorbide Mononitrate [Imdur] 30 mg PO DAILY #30 tab 08/19/17 RX: Metformin HCl [Glucophage] 1,000 mg PO BIDCM #0 08/19/17 carvedilol 12.5 mg tablet 12.5 mg PO BID #180 tab 09/02/17 lisinopril 10 mg tablet 10 mg PO BID #60 tab 09/02/17 Past Medical History (Chronic Problems): Chronic Problems (Last Updated 09/14/17 @ 11:59 by Jaqui Robertson MD) CAD (coronary artery disease) (Chronic) S/P PTCA (percutaneous transluminal coronary angioplasty) (Chronic) HTN (hypertension) (Chronic) Mixed hyperlipidemia (Chronic) Diabetes mellitus, type II (Chronic) Obesity (BMI 30-39.9) (Chronic) Barretts esophagus (Chronic) STEMI (ST elevation myocardial infarction) (Chronic 08/04/17) Surgical History: angioplasty Psychiatric History: No pertinent psych hx - *Family History Paternal Family History: Family History (Last Updated 09/02/17 @ 10:43 by Landy Iqbal) Mother Heart disease Brother Hypertension History Items: Cancer - esophageal Maternal Family History: Family History (Last Updated 09/02/17 @ 10:43 by Landy Iqbal) Mother Heart disease Brother Hypertension History Items: Heart Disease Lives: Spouse/ Significant Other Smoking Status: Former smoker Alcohol: None Drugs: None Review of Systems - Review of Systems General: Denies: Fever, Night Sweats, Fatigue Cardiovascular: Reports: Chest Discomfort, Chest Discomfort at Rest, Chest Discomfort with Exertion, Near Syncope. Denies: Shortness of Breath, Orthopnea, PND, Peripheral Edema, Palpitations, Lightheadedness, Dizziness, Syncope Respiratory: Denies: Cough, Sputum Production, Hemoptysis Gastrointestinal: Denies: Hematemesis, Hematochezia, Melena Genitourinary: Denies: Dysuria, Hematuria Subjectve: This is a 52-year-old white male who appears to be resting comfortably at the moment in no acute distress. Objective: Vital Signs Temp Pulse Resp BP Pulse Ox 98.7 F 75 18 134/70 H 96 09/14/17 16:39 09/14/17 17:45 09/14/17 17:45 09/14/17 17:45 09/14/17 17:45 Oxygen Delivery Method Room Air Weight: 191 lb 9.6 oz Body Mass Index (BMI) 29.9 Orthostatic Vital Signs Start: 09/14/17 13:06 Freq: q24h Status: Active Protocol: Activity Type Activity Date Activity User E-Sign Co-Sign Detail Recorded Client Recorded Date Recorded By Document 09/14/17 12:20 AG [id number] 09/14/17 13:35 AG 09/14/17 12:20 Orthostatic Vitals Standing -Blood Pressure (90/60-120/80 mm Hg) 131/87 H -Extremity Use Right Arm -Pulse Rate (60-100 beats/min) 62 Sitting -Blood Pressure (90/60-120/80 mm Hg) 123/79 H -Extremity Use Right Arm -Pulse Rate (60-100 beats/min) 61 Lying -Blood Pressure (90/60-120/80 mm Hg) 143/84 H -Extremity Use Right Arm -Pulse Rate (60-100 beats/min) 56 L Intake and Output for Last 24 Hours 09/12/17 09/13/17 09/14/17 23:59 23:59 23:59 Intake Total 827 / 827 Balance 827 / 827 General: Awake, Alert, Oriented x 3, Cooperative, No Acute Distress HEENT: Atraumatic, Normocephalic, PERRL, EOMI, Sclera Non Icteric Oral: Moist Mucosa Neck: Supple, Good ROM, No JVD Lungs: Clear to auscultation Cardiovascular: Regular Rhythm, Normal S1, Normal S2 Vascular: No Carotid Bruits Abdomen: Bowel Sounds Present, Soft, Non Tender Extremities: No Cyanosis, No Clubbing, No edema Neurological: No Focal Motor or Sensory Deficit Psych/Mental Status: Appropriate, Normal Affect 09/14/17 13:08: Troponin I < 0.015 09/14/17 16:11: Troponin I < 0.015 Rhythm: Sinus rhythm EKG: Sinus rhythm; no acute ECG changes ECHO: 08/04/2017: Reported as the LV was normal with an LVEF of 65%; trivial TR; estimated RV systolic pressure of 23 mmHg Stress Test: 09/04/2016: Procedure: Exercise tolerance test Indications: CAD; status post ST segment elevation AL; status post PCI; precardiac rehabilitation evaluation Consent: Per the patient Procedure: The patient exercised on a Jose C protocol for 8 minutes completing Stage II and 2 minutes of Stage III achieving a peak heart rate of 130 bpm (76 % predicted maximal heart rate) with a peak blood pressure 180/70 mmHg and a peak MET capacity of approximately 9 MET's. The baseline ECG demonstrated normal sinus rhythm. The peak exercise ECG demonstrated no obvious ECG changes. There were no cardiac dysrhythmias pretest, during exercise, or recovery. The functional capacity was considered good. The patient had vague chest discomfort during exercise or recovery spontaneous resolution in recovery The examination was discontinued secondary to concerns of chest discomfort. Impression: 1. Technically adequate (percent predicted maximal heart rate greater than 85%) exercise tolerance test 2. Peak exercise ECG with no obvious ECG changes at the heart rate achieved 3. No cardiac dysrhythmias during exercise or recovery Cardiac Cath: 08/04/2017: Per the report: LVEF 60%; proximal to mid LCx with 80% stenosis; OM 2 with ostial 90% stenosis; RCA with distal 99% stenosis 08/18/2016: Left ventricle not assessed; left main with a proximal [place] band with no angiographically significant appearing stenosis; LAD with proximal eccentric 25% stenosis; LCx with diffuse irregular 85% stenosis and OM1 ostial 85% stenosis PCI: 08/04/2017: RCA PTCA/JOSEPH 08/18/2016: LCx PTCA/JOSEPH 08/18/2016: OM1: FFR: 0.97: Negative CXR: Preliminary evaluation: No acute cardiopulmonary disease process: Please see official report Assessment/Plan 1. Chest pain The patient presents with recurrent chest pain. The etiology is unclear as to whether this represents his underlying CAD process with angina pectoris with exertion, exposure to the elements, and now potentially at rest versus a non-CAD process. Thus far he has had no obvious objective change with his cardiac enzymes or his ECG. He has been treated with nitroglycerin sublingual without significant relief. However he states his chest discomfort can come and go quickly and is not sure whether the nitroglycerin had a significant contribution to his chest discomfort. At the moment he will continue his medical management. He will continue to be monitored. His case has been discussed with Dr. Rondon of interventional cardiology. Status post review of his previous cardiac catheterization procedures and his ongoing clinical course it was recommended to, barring a change in his objective markers, proceed with noninvasive evaluation with a stress imaging study and depending upon the results consider repeat cardiac catheterization for any evidence of obvious in-stent restenosis or progression of OM disease that would require repeat revascularization therapy. 2. Near syncope The patient was reported as having a near syncopal event. Based upon the description, lack of other objective changes at the time, there is concern this may have been vasovagal vagal in etiology. The patient will continue to be monitored. He will continue his medical therapy. He will continue his evaluation as noted above. 3. CAD status post previous ST segment elevation AL-inferior status post RCA and subsequent LCx PTCA/JOSEPH Again the patient's objective markers are negative thus far for any evidence of acute coronary syndrome based upon his troponin I levels and his ECG. He will continue to be monitored. He will continue evaluation care as noted above. 4. Hyperlipidemia The patient will continue medical management. 5. Hypertension The patient will continue his antihypertensive therapy with adjustment as needed. 6. Diabetes mellitus The patient will continue under the care of internal medicine. Comment: The patient's case was discussed and reviewed with the patient and his multiple family members present. This note was generated with [employer] software. It may contain incorrect words, spelling, and punctuation that were not noted in checking the note before signing.
--- NOTE | 2017-09-14 18:05 | CON.PCM_ITS ---
Problem List (1) Chest pain Status: Acute (2) Near syncope Status: Acute (3) CAD (coronary artery disease) Status: Chronic Qualifiers: Coronary Disease-Associated Artery/Lesion type: [place] artery (4) S/P PTCA (percutaneous transluminal coronary angioplasty) Status: Chronic (5) Mixed hyperlipidemia Status: Chronic (6) HTN (hypertension) Status: Chronic Qualifiers: (7) Diabetes mellitus, type II Status: Chronic Qualifiers: Reason for Consult Date of Consultation: 09/14/17 History of Present Illness: The patient is a 52 year old white male with a past medical history of underlying CAD, acute coronary syndrome, subsequent RCA PTCA/JOSEPH, subsequent LCx PTCA/JOSEPH, subsequent OM FFR reported as negative (0.97) who now presents for cardiac rehabilitation with concerns of continued chest discomfort and a near syncopal event. He states he has been having chest discomfort which is been mainly with exertional activity and/or exposure to the heat and humidity. He notes that he has been able to tolerate his discomfort. However today in cardiac rehab his discomfort was worse than usual with exercising. He was asked to discontinue his exercise. His discomfort improved. However then he became very diaphoretic and Clammy . He states he does not quite remember everything that happened after that. According to the cardiac rehabilitation crew he appeared to have near syncope but did not lose consciousness. According to their documentation he remained in sinus rhythm with no change in his underlying conduction system nor any development of any cardiac dysrhythmia. He was subsequently taken to the emergency department for further evaluation. Since his evaluation he has been placed in the PCU. He has had cardiac enzymes performed which have been negative. His ECG demonstrated sinus rhythm with no acute ECG changes. He notes that he has not used nitroglycerin sublingual at home. In the PCU he states he has been having waxing and waning chest discomfort which she has not reported to the staff. He was given a nitroglycerin sublingual. However he notes as soon as the discomfort arrived and also dissipated. It is unclear as to whether the nitroglycerin made any significant difference for him. He has denied any orthopnea or PND or peripheral pitting edema. He states that as he is adjusted his diet and has gone to a low carbohydrate diet he has had issues with his glucose levels being low as well. [] Past Medical History Allergies/Adverse Reactions: Allergies bee venom protein (honey bee) Allergy (Severe, Verified 09/02/17 10:42) Angioedema niacin Allergy (Verified 09/02/17 10:42) Shortness of breath Home Medications: Ambulatory Orders Medication Instructions Recorded RX: Atorvastatin Calcium 40 mg PO QHS 08/04/17 RX: Fenofibrate [Tricor] 145 mg PO DAILY 08/04/17 RX: Aspirin 81 mg PO DAILY #30 tab.chew 08/07/17 RX: Clopidogrel Bisulfate [Plavix] 75 mg PO DAILY #30 tab 08/07/17 RX: Glimepiride [Amaryl] 2 mg PO DAILY #30 tab 08/07/17 RX: Insulin Glargine,Hum.rec.anlog 14 unit SQ QHS #0 08/07/17 [Basaglar Kwikpen U-100] RX: Nitroglycerin [Nitrostat] 0.4 mg SUBLINGUAL Q5M PRN #10 tab 08/07/17 RX: Omeprazole 40 mg PO BID #0 08/07/17 RX: Isosorbide Mononitrate [Imdur] 30 mg PO DAILY #30 tab 08/19/17 RX: Metformin HCl [Glucophage] 1,000 mg PO BIDCM #0 08/19/17 carvedilol 12.5 mg tablet 12.5 mg PO BID #180 tab 09/02/17 lisinopril 10 mg tablet 10 mg PO BID #60 tab 09/02/17 Past Medical History (Chronic Problems): Chronic Problems (Last Updated 09/14/17 @ 11:59 by Jaqui Robertson MD) CAD (coronary artery disease) (Chronic) S/P PTCA (percutaneous transluminal coronary angioplasty) (Chronic) HTN (hypertension) (Chronic) Mixed hyperlipidemia (Chronic) Diabetes mellitus, type II (Chronic) Obesity (BMI 30-39.9) (Chronic) Barretts esophagus (Chronic) STEMI (ST elevation myocardial infarction) (Chronic 08/04/17) Surgical History: angioplasty Psychiatric History: No pertinent psych hx - *Family History Paternal Family History: Family History (Last Updated 09/02/17 @ 10:43 by Landy Iqbal) Mother Heart disease Brother Hypertension History Items: Cancer - esophageal Maternal Family History: Family History (Last Updated 09/02/17 @ 10:43 by Landy Iqbal) Mother Heart disease Brother Hypertension History Items: Heart Disease Lives: Spouse/ Significant Other Smoking Status: Former smoker Alcohol: None Drugs: None Review of Systems - Review of Systems General: Denies: Fever, Night Sweats, Fatigue Cardiovascular: Reports: Chest Discomfort, Chest Discomfort at Rest, Chest Discomfort with Exertion, Near Syncope. Denies: Shortness of Breath, Orthopnea , PND, Peripheral Edema, Palpitations, Lightheadedness, Dizziness, Syncope Respiratory: Denies: Cough, Sputum Production, Hemoptysis Gastrointestinal: Denies: Hematemesis, Hematochezia, Melena Genitourinary: Denies: Dysuria, Hematuria Subjectve: This is a 52-year-old white male who appears to be resting comfortably at the moment in no acute distress. Objective: Vital Signs Temp Pulse Resp BP Pulse Ox 98.7 F 75 18 134/70 H 96 09/14/17 16:39 09/14/17 17:45 09/14/17 17:45 09/14/17 17:45 09/14/17 17:45 Oxygen Delivery Method Room Air Weight: 191 lb 9.6 oz Body Mass Index (BMI) 29.9 Orthostatic Vital Signs Start: 09/14/17 13:06 Freq: q24h Status: Active Protocol: Activity Type Activity Date Activity User E-Sign Co-Sign Detail Recorded Client Recorded Date Recorded By Document 09/14/17 12:20 AG [id number] 09/14/17 13:35 AG 09/14/17 12:20 Orthostatic Vitals Standing -Blood Pressure (90/60-120/80 mm Hg) 131/87 H -Extremity Use Right Arm -Pulse Rate (60-100 beats/min) 62 Sitting -Blood Pressure (90/60-120/80 mm Hg) 123/79 H -Extremity Use Right Arm -Pulse Rate (60-100 beats/min) 61 Lying -Blood Pressure (90/60-120/80 mm Hg) 143/84 H -Extremity Use Right Arm -Pulse Rate (60-100 beats/min) 56 L Intake and Output for Last 24 Hours 09/12/17 09/13/17 09/14/17 23:59 23:59 23:59 Intake Total 827 / 827 Balance 827 / 827 General: Awake, Alert, Oriented x 3, Cooperative, No Acute Distress HEENT: Atraumatic, Normocephalic, PERRL, EOMI, Sclera Non Icteric Oral: Moist Mucosa Neck: Supple, Good ROM, No JVD Lungs: Clear to auscultation Cardiovascular: Regular Rhythm, Normal S1, Normal S2 Vascular: No Carotid Bruits Abdomen: Bowel Sounds Present, Soft, Non Tender Extremities: No Cyanosis, No Clubbing, No edema Neurological: No Focal Motor or Sensory Deficit Psych/Mental Status: Appropriate, Normal Affect 09/14/17 13:08: Troponin I < 0.015 09/14/17 16:11: Troponin I < 0.015 Rhythm: Sinus rhythm EKG: Sinus rhythm; no acute ECG changes ECHO: 08/04/2017: Reported as the LV was normal with an LVEF of 65%; trivial TR; estimated RV systolic pressure of 23 mmHg Stress Test: 09/04/2016: Procedure: Exercise tolerance test Indications: CAD; status post ST segment elevation CO; status post PCI; precardiac rehabilitation evaluation Consent: Per the patient Procedure: The patient exercised on a Jose C protocol for 8 minutes completing Stage II and 2 minutes of Stage III achieving a peak heart rate of 130 bpm (76 % predicted maximal heart rate) with a peak blood pressure 180/70 mmHg and a peak MET capacity of approximately 9 MET's. The baseline ECG demonstrated normal sinus rhythm. The peak exercise ECG demonstrated no obvious ECG changes. There were no cardiac dysrhythmias pretest, during exercise, or recovery. The functional capacity was considered good. The patient had vague chest discomfort during exercise or recovery spontaneous resolution in recovery The examination was discontinued secondary to concerns of chest discomfort. Impression: 1. Technically adequate (percent predicted maximal heart rate greater than 85% ) exercise tolerance test 2. Peak exercise ECG with no obvious ECG changes at the heart rate achieved 3. No cardiac dysrhythmias during exercise or recovery Cardiac Cath: 08/04/2017: Per the report: LVEF 60%; proximal to mid LCx with 80% stenosis; OM 2 with ostial 90% stenosis; RCA with distal 99% stenosis 08/18/2016: Left ventricle not assessed; left main with a proximal [place] band with no angiographically significant appearing stenosis; LAD with proximal eccentric 25% stenosis; LCx with diffuse irregular 85% stenosis and OM1 ostial 85% stenosis PCI: 08/04/2017: RCA PTCA/JOSEPH 08/18/2016: LCx PTCA/JOSEPH 08/18/2016: OM1: FFR: 0.97: Negative CXR: Preliminary evaluation: No acute cardiopulmonary disease process: Please see official report Assessment/Plan 1. Chest pain The patient presents with recurrent chest pain. The etiology is unclear as to whether this represents his underlying CAD process with angina pectoris with exertion, exposure to the elements, and now potentially at rest versus a non- CAD process. Thus far he has had no obvious objective change with his cardiac enzymes or his ECG. He has been treated with nitroglycerin sublingual without significant relief. However he states his chest discomfort can come and go quickly and is not sure whether the nitroglycerin had a significant contribution to his chest discomfort. At the moment he will continue his medical management. He will continue to be monitored. His case has been discussed with Dr. Rondon of interventional cardiology. Status post review of his previous cardiac catheterization procedures and his ongoing clinical course it was recommended to, barring a change in his objective markers, proceed with noninvasive evaluation with a stress imaging study and depending upon the results consider repeat cardiac catheterization for any evidence of obvious in-stent restenosis or progression of OM disease that would require repeat revascularization therapy. 2. Near syncope The patient was reported as having a near syncopal event. Based upon the description, lack of other objective changes at the time, there is concern this may have been vasovagal vagal in etiology. The patient will continue to be monitored. He will continue his medical therapy. He will continue his evaluation as noted above. 3. CAD status post previous ST segment elevation CO-inferior status post RCA and subsequent LCx PTCA/JOSEPH Again the patient's objective markers are negative thus far for any evidence of acute coronary syndrome based upon his troponin I levels and his ECG. He will continue to be monitored. He will continue evaluation care as noted above. 4. Hyperlipidemia The patient will continue medical management. 5. Hypertension The patient will continue his antihypertensive therapy with adjustment as needed. 6. Diabetes mellitus The patient will continue under the care of internal medicine. Comment: The patient's case was discussed and reviewed with the patient and his multiple family members present. This note was generated with GetQuikation software. It may contain incorrect words, spelling, and punctuation that were not noted in checking the note before signing.
[2017-09-14] MEDS: Atorvastatin Calcium 40 MG Tablet PO (21:40)
[2017-09-14] MEDS: Pantoprazole Sodium 40 MG Tablet PO (21:40)
[2017-09-14] MEDS: Lisinopril 10 MG Tablet PO (21:40)
[2017-09-14 22:36] LABS: Bedside Glucose 186 mg/dL (70-110)
[2017-09-15] VITALS (22 sets, daily range): BP systolic 100–135; BP diastolic 59–89; PULSE 58–73; RESP 9–21; TEMP 36.3–36.8; O2SAT 96–100
[2017-09-15] MEDS: 0.9% Normal Saline 1,000 ML 75 ML IV (02:26)
--- NOTE | 2017-09-15 05:55 | EKG12_ITS ---
Test Reason : MORNING EKG Blood Pressure : / mmHG Vent. Rate : 067 BPM Atrial Rate : 067 BPM P-R Int : 172 ms QRS Dur : 098 ms QT Int : 388 ms P-R-T Axes : 154 159 179 degrees QTc Int : 409 ms Suspect arm lead reversal, interpretation assumes no reversal Recommend repeat ECG Abnormal ECG Confirmed by TONY QUACH, LORE ([id number]), newspaper editor managing ABDI BANUELOS ([id number]) on 09/18/2017 2:08:39 PM Referred By: PRASHANT Confirmed By:LORE JIMENEZ MD
[2017-09-15 05:56] LABS: Absolute Lymphocyte Count 1.85 X10^3/ul (0.83-4.51); Basophil# 0.02 X10^3/uL; Basophil% 0.3 % (0-1); Eosinophil# 0.14 X10^3/uL; Eosinophils% 2.2 % (0-5); Hematocrit 36.9 % (40-54); Hemoglobin 12.4 g/dl (13.0-16.5); Lymphocyte # 1.85 X10^3/ul (4.0); Lymphocyte % 28.5 % (19-41); Mean Corp Hgb Conc 33.6 g/gl (32-36); Mean Corpuscular Hgb 29.5 pg (27.0-32.0); Mean Corpuscular Volume 87.6 fL (80-94); Monocyte# 0.51 X10^3/uL; Monocyte% 7.9 % (0-10); Neutrophil # 3.95 X10^3/uL (2.7-7.7); Neutrophil % 60.8 % (47-70); Platelet Count 300 K/mm3 (150-450); RBC Distribution Width CV 13.9 % (11.6-14.6); RBC Distribution Width SD 43.7 fl (35.1-43.9); Red Blood Count 4.21 M/mm3 (4.6-6.2); White Blood Count 6.5 K/mm3 (4.4-11.0)
[2017-09-15 06:00] LABS: Prothrombin Time (Protime)PT. 13.6 SECONDS (11.7-14.9)
[2017-09-15 06:01] LABS: Partial Thromboplast Time 26.7 Seconds (24.1-36.2)
[2017-09-15 06:05] LABS: POSITIVE COUNT NO; POSITIVE DIFFERENTIAL NO; POSITIVE MORPHOLOGY NO
[2017-09-15] MEDS: Clopidogrel Bisulfate 75 MG Tablet PO (06:05)
[2017-09-15] MEDS: Aspirin 81 MG TAB.CHEW PO (06:05)
[2017-09-15] MEDS: Lisinopril 10 MG Tablet PO ×2 (06:05→22:27)
[2017-09-15 06:25] LABS: Bedside Glucose 107 mg/dL (70-110)
[2017-09-15 06:32] LABS: Anion Gap 9 (5-15); BUN 12 mg/dL (7-18); BUN/Creat Ratio 16.7 RATIO (10-20); Calcium,Total 8.4 mg/dL (8.5-10.1); Chloride 110 mmol/L (98-107); Creatinine, Serum 0.72 mg/dL (0.70-1.30); EST Glomerular Filtration Rate 123 mL/min (>60); Est Glom Filt Rate - Afr Amer 149 mL/min (>60); Estimated Creatinine Clearance 114.76 ml/min; Glucose 100 mg/dL (74-106); Potassium 4.1 mmol/L (3.5-5.1); Sodium Level 145 mmol/L (136-145)
[2017-09-15 07:25] LABS: Bedside Glucose 111 mg/dL (70-110)
[2017-09-15 09:10] LABS: Bedside Glucose 153 mg/dL (70-110)
--- NOTE | 2017-09-15 09:16 | STRESSREP_ITS ---
Stress Test Report Date: 09/15/2017 Procedure: Exercise tolerance test/imaging study Indications: Angina pectoris CAD; status post PCI Consent: Per the patient Procedure: The patient exercised on a Jose C protocol for 8 minutes and 30 seconds completing Stage II and 2 minutes and 30 seconds of Stage III achieving a peak heart rate of 123 bpm (72 % predicted maximal heart rate) with a peak blood pressure 174/74 mmHg and a peak MET capacity of 9 METs. The baseline ECG demonstrated normal sinus rhythm. The peak exercise ECG demonstrated approximately 1-[address] segment depression in leads II, III, aVF, and approximately 0.5-1.0 mm horizontal/upsloping ST segment depression in leads V4, V5, V6 with gradual resolution towards baseline in recovery. There was a rare PVC during exercise and recovery. The functional capacity was considered good. There was chest discomfort/burning sensation during exercise with spontaneous resolution to baseline in recovery. The examination was discontinued secondary to chest discomfort. Impression: 1. Technically inadequate (percent predicted maximal heart rate less than 85%) exercise tolerance test 2. Peak exercise ECG demonstrated approximately 1-[address] segment depression in leads II, III, aVF, and approximately 0.5-1.0 millimeter of horizontal/upsloping ST segment depression in leads V4, V5, and V6 with gradual resolution towards baseline in recovery 3. There was a rare PVC during exercise and recovery. 4. Nuclear images pending Myocardial perfusion imaging study: Technique: The patient was injected with 11 mCi of technetium 99m Cardiolite and subsequently rest SPECT Cardiolite nuclear imaging was obtained in the horizontal long, vertical long, and short axis views. The patient exercised on a Jose C protocol for 8 minutes and 30 seconds completing Stage II and 2 minutes and 30 seconds of Stage III achieving a peak heart rate of 123 bpm (72 % predicted maximal heart rate) with a peak blood pressure 174/74 mmHg and a peak MET capacity of 9 METs. The patient was injected with 34 mCi of technetium 99m Cardiolite and subsequently stress SPECT Cardiolite nuclear imaging was obtained in the horizontal long, vertical long, and short axis views. A gated Cardiolite study at peak stress was obtained. Interpretation: Rest and stress SPECT Cardiolite nuclear imaging status post realignment, normalization, and attenuation correction, demonstrates the appearance of relative uniform tracer uptake and myocardial perfusion appearing within normal limits. There is end systolic thickening and brightening. The gated Cardiolite study demonstrates myocardial thickening and inward wall motion. The reported LVEF is 63 %. Impression: 1. Rest and stress SPECT Cardiolite nuclear imaging demonstrate relative uniform tracer uptake and myocardial perfusion appearing within normal limits at the heart rate achieved, however, myocardial perfusion changes indicative of stress-induced myocardial ischemia at a higher heart rate cannot be excluded. 2. The gated Cardiolite study reports an LVEF of 63 %. This note was generated with SOLEM Electron[employer]ation software. It may contain incorrect words, spelling, and punctuation that were not noted in checking the note before signing.
[2017-09-15] MEDS: Isosorbide Mononitrate 30 MG Tablet PO (09:17)
[2017-09-15] MEDS: Carvedilol 12.5 MG Tablet PO ×2 (09:17→18:35)
[2017-09-15] MEDS: Fenofibrate 145 MG Tablet PO (09:17)
[2017-09-15] MEDS: Pantoprazole Sodium 40 MG Tablet PO ×2 (09:17→22:27)
--- NOTE | 2017-09-15 10:10 | CASEMGMT ---
According to [facility] website, the following are in-network tertiary facilities: [facility], [place], [facility], [facility], [facility], and . Luc CABRAL CM
--- NOTE | 2017-09-15 11:20 | PCM.PROGNOTE ---
Patient Problems: Active and Suspected Problems (Last Updated 09/14/17 @ 11:59 by Jaqui Robertson MD) Chest pain (Acute) Near syncope (Acute) Subjective: Chief complaint: Follow-up after admission for angina pectoris and syncope. Patient seen and examined. No acute events overnight. At this time, he denied chest pain or shortness of breath. Denied dizziness or lightheadedness. This morning, he underwent nuclear stress test that revealed myocardial perfusion changes indicative of stress-induced myocardial ischemia. His vital signs are stable. - Physical Exam General: Alert, Oriented x3, Cooperative HEENT: Atraumatic, PERRLA, EOMI, Normocephalic Oral: Moist Mucosa, No Gingival or Mucosal Lesions/ Ulcerations Neck: Supple, No JVD, Negative Carotid Bruits, Trachea Midline, Thyroid Normal Size and Texture Lungs: Clear to auscultation, No rhonchi, No wheeze, No rales, Diminished Cardiovascular: Regular rate, Regular Rhythm, Normal S1, Normal S2, No murmurs, PMI Normal Abdomen: Bowel Sounds Present, Soft, Non Tender, Non-Distended, No Hepato-splenomegaly Extremities: No clubbing, No cyanosis, No edema Skin: No rashes, No breakdown Lymphatic: No Cervical, Supraclavicular, or Inguinal Adenopathy Neurological: Cranial nerves II-XII grossly intact, Motor Exam 5/5 strength throughout Psych/Mental Status: Normal Affect, Appropriate, Alert and oriented to time, place, person, mood and affect Vital Signs Temp Pulse Resp BP Pulse Ox 97.9 F 69 16 113/65 98 09/15/17 11:17 09/15/17 11:17 09/15/17 11:17 09/15/17 11:17 09/15/17 11:17 Oxygen Delivery Method Room Air Weight: 191 lb 9.6 oz Body Mass Index (BMI) 29.9 Orthostatic Vital Signs Start: 09/14/17 13:06 Freq: q24h Status: Active Protocol: Activity Type Activity Date Activity User E-Sign Co-Sign Detail Recorded Client Recorded Date Recorded By Document 09/15/17 06:02 KG [id number] 09/15/17 06:03 KG 09/15/17 06:02 Orthostatic Vitals Standing -Extremity Use Right Arm -Pulse Rate (60-100) 66 Sitting -Blood Pressure (90/60-120/80) 134/81 H -Extremity Use Right Arm -Pulse Rate (60-100) 64 Lying -Blood Pressure (90/60-120/80) 124/74 H -Extremity Use Right Arm -Pulse Rate (60-100) 71 Intake and Output for Last 24 Hours 09/13/17 09/14/17 09/15/17 23:59 23:59 23:59 Intake Total 827 / 827 1507 / 1507 Output Total 1000 / 1000 Balance 827 / 827 507 / 507 Laboratory Tests Past 24 Hrs 09/14/17 09/14/17 09/15/17 13:08 16:11 05:40 WBC 6.5 RBC 4.21 L Hgb 12.4 L Hct 36.9 L MCV 87.6 MCH 29.5 MCHC 33.6 RDW 13.9 RDW Differential 43.7 Plt Count 300 MPV 9.0 Immature Gran % (Auto) 0.300 Neut % (Auto) 60.8 Lymph % (Auto) 28.5 Hubbard % (Auto) 7.9 Eos % (Auto) 2.2 Baso % (Auto) 0.3 Absolute Neuts (auto) 4.0 Absolute Lymphs (auto) 1.85 Total Counted Not Reportable PT INR APTT Sodium Potassium Chloride Carbon Dioxide Anion Gap BUN Creatinine Estim Creat Clear Calc Est GFR (MDRD) Af Amer Est GFR (MDRD) Non-Af BUN/Creatinine Ratio Glucose Calcium Troponin I < 0.015 < 0.015 09/15/17 09/15/17 05:40 05:40 WBC RBC Hgb Hct MCV MCH MCHC RDW RDW Differential Plt Count MPV Immature Gran % (Auto) Neut % (Auto) Lymph % (Auto) Hubbard % (Auto) Eos % (Auto) Baso % (Auto) Absolute Neuts (auto) Absolute Lymphs (auto) Total Counted PT 13.6 INR 1.0 APTT 26.7 Sodium 145 Potassium 4.1 Chloride 110 H Carbon Dioxide 26.0 Anion Gap 9 BUN 12 Creatinine 0.72 Estim Creat Clear Calc 114.76 Est GFR (MDRD) Af Amer 149 Est GFR (MDRD) Non-Af 123 BUN/Creatinine Ratio 16.7 Glucose 100 Calcium 8.4 L Troponin I POC Glucose 09/15/17 09/15/17 09/15/17 08:53 07:19 06:14 POC Glucose 153 H 111 H 107 09/14/17 09/14/17 09/14/17 21:32 16:33 12:32 POC Glucose 186 H 126 H 79 Clinical Impression(s) from Imaging Studies Chest X-Ray 09/14/17 10:21 IMPRESSION: No acute process in the chest. Electronically Signed: Aidan DoranDO at 10:51 EDT Tel , Service support , Medical Necessity - Tobacco Use Smoking Status: Former smoker Assessment/Plan All Active Problems (Last Updated 09/14/17 @ 11:59 by Jaqui Robertson MD) Chest pain (Acute) Near syncope (Acute) Chest pain (Resolved) Chest pain (Resolved) Unstable angina (Resolved) Unstable angina pectoris (Resolved) This is a 52 years old male patient presented to the medicine because of chest pain and syncope while doing cardiac rehab as outpatient and he is being admitted for evaluation. #1 chest pain/angina pectoris: Repeat EKG again revealed no evidence of acute ischemic changes. Troponin is negative ?3. This morning, patient underwent nuclear stress test that revealed evidence of stress-induced myocardial ischemia. Vital signs are stable. Cardiology consulted and plan for cardiac catheterization today. #2 syncope: Today, patient denies any more dizziness or lightheadedness. His vital signs are stable. Orthostatic vitals were normal. This is probably vasovagal syncope. #2 CAD/recent unstable angina: Status post JOSEPH to proximal left circumflex. Plan as above, continue aspirin, Plavix, Coreg, lisinopril and isosorbide mononitrate. #3 hypertension: Blood pressure stable, continue Coreg, lisinopril and isosorbide mononitrate. Will check orthostatic vitals. #4 type 2 diabetes mellitus: Blood sugar stable, continue ADA diet, Accu-Cheks, insulin scale, continue glimepiride, keep holding metformin. #5 hyperlipidemia: Continue statins. #6 Beaulieu's esophagus: Continue PPI. #7 DVT prophylaxis: Subcu Lovenox. This note was generated with inFreeDAation software. It may contain incorrect words, spelling, and punctuation that were not noted in checking the note before signing. Code Visit OBSV E&M: 55061 Subsequent observation care L2
[2017-09-15 11:26] LABS: Bedside Glucose 106 mg/dL (70-110)
[2017-09-15 11:46] LABS: Bedside Glucose 102 mg/dL (70-110)
--- NOTE | 2017-09-15 12:51 | PCM.PN.CARD ---
Subjectve: The patient went further evaluation. Included cardiac enzymes and ECGs which were unremarkable. He subsequently underwent further evaluation with an exercise tolerance test/imaging study. During exercise he had recurrent chest discomfort in his chest, neck, and shoulder areas. He stated this was reminiscent of his discomfort with his previous acute coronary syndrome. During that time, on his ECG, he was noted to have ECG changes. Objective: Vital Signs Temp Pulse Resp BP Pulse Ox 97.9 F 63 16 113/65 98 09/15/17 11:17 09/15/17 11:25 09/15/17 11:17 09/15/17 11:17 09/15/17 11:17 Oxygen Delivery Method Room Air Weight: 191 lb 9.6 oz Body Mass Index (BMI) 29.9 Orthostatic Vital Signs Start: 09/14/17 13:06 Freq: q24h Status: Active Protocol: Activity Type Activity Date Activity User E-Sign Co-Sign Detail Recorded Client Recorded Date Recorded By Document 09/15/17 06:02 KG [id number] 09/15/17 06:03 KG 09/15/17 06:02 Orthostatic Vitals Standing -Extremity Use Right Arm -Pulse Rate (60-100) 66 Sitting -Blood Pressure (90/60-120/80) 134/81 H -Extremity Use Right Arm -Pulse Rate (60-100) 64 Lying -Blood Pressure (90/60-120/80) 124/74 H -Extremity Use Right Arm -Pulse Rate (60-100) 71 Intake and Output for Last 24 Hours 09/13/17 09/14/17 09/15/17 23:59 23:59 23:59 Intake Total 827 / 827 1507 / 1507 Output Total 1000 / 1000 Balance 827 / 827 507 / 507 General: Awake, Alert, Oriented x 3, Cooperative, No Acute Distress HEENT: Atraumatic, Normocephalic, PERRL, EOMI, Sclera Non Icteric Oral: Moist Mucosa Neck: Supple, Good ROM, No JVD Lungs: Clear to auscultation Cardiovascular: Regular Rhythm, Normal S1, Normal S2 Vascular: No Carotid Bruits Abdomen: Bowel Sounds Present, Soft, Non Tender Extremities: No Cyanosis, No Clubbing, No edema Neurological: No Focal Motor or Sensory Deficit 09/14/17 13:08: Troponin I < 0.015 09/14/17 16:11: Troponin I < 0.015 09/15/17 05:40: WBC 6.5, RBC 4.21 L, Hgb 12.4 L, Hct 36.9 L, MCV 87.6, MCH 29.5, MCHC 33.6, RDW 13.9, RDW Differential 43.7, Plt Count 300, MPV 9.0, Immature Gran % (Auto) 0.300, Neut % (Auto) 60.8, Lymph % (Auto) 28.5, Boundary % (Auto) 7.9, Eos % (Auto) 2.2, Baso % (Auto) 0.3, Absolute Neuts (auto) 4.0, Total Counted Not Reportable 09/15/17 05:40: PT 13.6, INR 1.0, APTT 26.7 09/15/17 05:40: Sodium 145, Potassium 4.1, Chloride 110 H, Carbon Dioxide 26.0, Anion Gap 9, BUN 12, Creatinine 0.72, Est GFR (MDRD) Af Amer 149, Est GFR (MDRD) Non-Af 123, BUN/Creatinine Ratio 16.7, Glucose 100, Calcium 8.4 L Rhythm: Sinus rhythm EKG: Sinus rhythm Cardiac Cath: Please see official report PCI: Please see official report Medical Necessity - Tobacco Use Smoking Status: Former smoker Assessment/Plan 1. Chest pain The patient presents with recurrent chest pain. The etiology is unclear as to whether this represents his underlying CAD process with angina pectoris with exertion, exposure to the elements, and now potentially at rest versus a non-CAD process. Thus far he has had no obvious objective change with his cardiac enzymes or his ECG. He has been treated with nitroglycerin sublingual without significant relief. However he states his chest discomfort can come and go quickly and is not sure whether the nitroglycerin had a significant contribution to his chest discomfort. Test/imaging study. He had recurrent symptoms. He had electrocardiographic changes. His nuclear images appear to be unremarkable at the heart rate achieved-which was less than 85% predicted maximal heart rate. His case has been discussed with Dr. Rondon of interventional cardiology. Status post review of his case it was elected to bring the patient back to the cardiac catheterization laboratory to reassess his previously placed stents and to consider further evaluation care of his obtuse marginal branch. 2. Near syncope The patient was reported as having a near syncopal event. Based upon the description, lack of other objective changes at the time, there is concern this may have been vasovagal vagal in etiology. The patient will continue to be monitored. He will continue his medical therapy. He will continue his evaluation as noted above. 3. CAD status post previous ST segment elevation MS-inferior status post RCA and subsequent LCx PTCA/JOSEPH The patient is now status post repeat diagnostic cardiac catheterization. His previous RCA and LCx stents placed in July and August of this year respectively remain patent. He is obtuse marginal branch continue to demonstrate ostial tapering. He has subsequently underwent further PTCA/stent of the obtuse marginal branch. He will need to continue medical management, outpatient follow-up, and outpatient cardiac rehabilitation. 4. Hyperlipidemia The patient will continue medical management. 5. Hypertension The patient will continue his antihypertensive therapy with adjustment as needed. 6. Diabetes mellitus The patient will continue under the care of internal medicine. Comment: The patient's case was discussed and reviewed with the patient and his spouse. This note was generated with [employer] dictation software. It may contain incorrect words, spelling, and punctuation that were not noted in checking the note before signing.
--- NOTE | 2017-09-15 12:54 | CL.I_ITS ---
Patient Name: ASIF CASE Study Date: 09/15/2017 Performing: Storm Rondon MD Ht: 66.92 inches 170 cm : 1965 Wt: 191.8 lbs 87 kg Age: 52 Gender: male BSA: 1.98 PROCEDURE(S) PERFORMED [id number] W OR WO PTCA, SINGLE CORONARY ARTERY [id number], EACH ADD'L CORONARY ART, SAME MAJOR CLINICAL PROFILE AND CO-MORBIDITIES Indications: ACS <= 24 hrs, Worsening Angina, Stable Known CAD Heart Failure: None Stress/Imaging Stress Test w/SPECT MPI: Yes Result: Positive Intermediate Risk Stress Test with S PECT MPI: Positive Intermediate Risk Angina Classification Anginal Classification w/in 2 Weeks: CCS III CAD Presentations: Unstable angina. Comorbidities/Risk Factors: Hypertension Dyslipidemia Prior PCI CONCLUSIONS Successful PTCA/JOSEPH of the of ostial OM#2 with a 2.75 x 20 Promus Synergy, post dilated with a 3.0 x 8 NC Balloon; 85%-->0%, no dissection. Pt had identical CP/arm pain symptoms that he has been having at home, which were relieved with balloon deflation. Successful PCI with PTCA to the mid LCX plaque shift with first a 2.0 then a 2.5 mm balloon only. Pt had similar CP during balloon inflation. No additional stenting done due to <50% residual stenosis and out of concern for bifurcation stenting with possible in stent restenosis. RECOMMENDATIONS Highly recommend quitting all tobacco products Follow up with primary marina porter Risk factor modification ASA Indefinitley Plavix for at least 12 months Routine post interventional care Refer for Outpatient Cardiac Rehab Manual sheath removal per protocol Follow up with Dr. Mendoza NO closure device deployed out of concern for hypersensitivity reaction. Would not entertain PCI of bifurcation of LCX/OM#2 until at least 3 months to allow for endotheliazat ion of stent placed on 08/18/17 as well as today. DESCRIPTION OF PROCEDURE The patient arrived to the procedure lab. The risks and benefits of the procedure as well as a full d escription of our services here and current unavailability of surgical backup were fully explained to the patient and/or their significant other prior to the catheterization. The Timeout was completed, verifying the correct patient and procedure. The patient's procedural site was prepped and draped in the usual fashion. Local anesthetic was given subcutaneously to right groin region with Lidocaine 2% Using a modified Seldinger technique,arterial access was obtained via the right femoral artery, a 4Fr sheath was inserted Left Coronary Artery selective angiography was performed in multiple views using a 4 Fr. JL5 catheter. Right Coronary Artery selective angiography was then performed in multiple vie ws using a 4 Fr. 3DRC catheter. Left Ventriculography was performed in WELCH projection using a 4 Fr. P igtail catheter. LV to AO pullback pressures were then recorded.The images were reviewed and options discussed. A decision was then made to proceed with an Intervention, IVUS or other adjunct procedure. Arterial sheath was exchanged for a 6 Fr Sheath. EBU 3.75 Guide catheter was inserted and engaged int o the LCA. BMW Guide wire was advanced to the 1st OM. 2.0 x 12 Emerge Balloon catheter was inserted. Balloon catheter was advanced across lesion in the first obtuse marginal, ostial. PTCA balloon inflat ed at 8 atms for 60 secs. Chest Pain noted during balloon inflation Angiogram performed post balloon dilatation. 2.75 x 20 Synergy Drug Eluting stent was inserted. Drug Eluting stent was advanced across the lesion in the first obtuse marginal, ostial. 3.0 x 8.0 NC Emerge Balloon catheter was inserted. Balloon catheter was inserted post stent. Post Stent PTCA balloon inflated at 14 atms for 8 secs. Ang iogram performed post stent deployment. BMW Guide wire was advanced to the Circumflex. 2.0 x 12 Emerg e Balloon catheter was inserted. Balloon catheter was advanced across lesion in the circumflex, mid. PTCA balloon inflated at 8 atms for 20 secs. PTCA balloon inflated at 10 atms for 20 secs. 3.0x 8.0 N C Emerge Balloon catheter was inserted. Balloon catheter was advanced across lesion in the first obtu se marginal, ostial. 2.5 x 12 Emerge Balloon catheter was inserted. Balloon catheter was advanced acr oss lesion in the circumflex, mid. PTCA balloon inflated at 8 atms for 25 secs. Angiogram performed p ost balloon dilatation. The arterial sheath was sutured in place and capped. The arterial sheath wa s pulled and manual compression applied until hemostasis is achieved. INTERVENTION INFORMATION LESION SITE: 1st OM (Ostial) Lesion Complexity: High/C, lesion at bifurcation: Yes, thrombus present: No, lesion length: 20 mm, cu lprit lesion: Yes Pre Stenosis: 85 % Pre intervention ASAEL flow: 3 PROCEDURE: Drug Eluting Stent with pre and post dilatation Post Stenosis: 0 % Post intervention ASAEL flow: 3 Lesion Devices: Wise .014 BMW [place] Straight 190cm Medtronic 6 Fr EBU3.75 100cm Guide Catheter Marky Sci EMERGE MR 2.00x12 BALLOON Marky Sci Synergy MR JOSEPH 2.75x20 Marky Sci NC EMERGE MR 3.00x08 BALLOON LESION SITE: Circumflex (Mid) Lesion Complexity: Non-High/Non-C, lesion at bifurcation: Yes, thrombus present: No, culprit lesion: No Pre Stenosis: 75 % Pre intervention ASAEL flow: 3 PROCEDURE: Balloon Angioplasty Post Stenosis: 30 % Post intervention ASAEL flow: 3 Lesion Devices: Medtronic 6 Fr EBU3.75 100cm Guide Catheter Marky Sci EMERGE MR 2.00x12 BALLOON Wise .014 BMW [place] Straight 190cm Bracco 100cc Isovue Marky Sci EMERGE MR 2.50x12 BALLOON COMPLICATIONS No Complications PROCEDURE MEDICATIONS Versed 1 mg IV Fentanyl 25 mcg IV Fentanyl 25 mcg IV Fentanyl 25 mcg IV Versed 1 mg IV Oxygen: 2 L/min via nasal cannula Heparin 6000 unit(s) IV 09/15/2017 12:07:52 Nitro 200 mcg IC 09/15/2017 12:16:00 Nitro 200 mcg IC 09/15/2017 12:16:00 IV Fluids: .9 NaCl increased to 250 ml/hr 09/15/2017 11:49:47 IV Fluids: .9 NaCl increased to W/O ml/hr 09/15/2017 11:53:17 SUMMARY OF HEMODYNAMIC DATA Time AIR REST ECG 11:33:01 AO 99/70 (85) SA 11:49:16 LV 117/1, 23 11:58:17 LV 113/-1, 20 11:58:24 LV 107/7, 24 11:59:14 LVp 104/7, 21 11:59:18 AOp 101/64 (81) 11:59:23 Signed By Storm Rondon MD On 09/15/2017 12:53:30 Storm Rondon MD
--- NOTE | 2017-09-15 12:57 | PN.CARD_ITS ---
Subjectve: The patient went further evaluation. Included cardiac enzymes and ECGs which were unremarkable. He subsequently underwent further evaluation with an exercise tolerance test/imaging study. During exercise he had recurrent chest discomfort in his chest, neck, and shoulder areas. He stated this was reminiscent of his discomfort with his previous acute coronary syndrome. During that time, on his ECG, he was noted to have ECG changes. Objective: Vital Signs Temp Pulse Resp BP Pulse Ox 97.9 F 63 16 113/65 98 09/15/17 11:17 09/15/17 11:25 09/15/17 11:17 09/15/17 11:17 09/15/17 11:17 Oxygen Delivery Method Room Air Weight: 191 lb 9.6 oz Body Mass Index (BMI) 29.9 Orthostatic Vital Signs Start: 09/14/17 13:06 Freq: q24h Status: Active Protocol: Activity Type Activity Date Activity User E-Sign Co-Sign Detail Recorded Client Recorded Date Recorded By Document 09/15/17 06:02 KG [id number] 09/15/17 06:03 KG 09/15/17 06:02 Orthostatic Vitals Standing -Extremity Use Right Arm -Pulse Rate (60-100) 66 Sitting -Blood Pressure (90/60-120/80) 134/81 H -Extremity Use Right Arm -Pulse Rate (60-100) 64 Lying -Blood Pressure (90/60-120/80) 124/74 H -Extremity Use Right Arm -Pulse Rate (60-100) 71 Intake and Output for Last 24 Hours 09/13/17 09/14/17 09/15/17 23:59 23:59 23:59 Intake Total 827 / 827 1507 / 1507 Output Total 1000 / 1000 Balance 827 / 827 507 / 507 General: Awake, Alert, Oriented x 3, Cooperative, No Acute Distress HEENT: Atraumatic, Normocephalic, PERRL, EOMI, Sclera Non Icteric Oral: Moist Mucosa Neck: Supple, Good ROM, No JVD Lungs: Clear to auscultation Cardiovascular: Regular Rhythm, Normal S1, Normal S2 Vascular: No Carotid Bruits Abdomen: Bowel Sounds Present, Soft, Non Tender Extremities: No Cyanosis, No Clubbing, No edema Neurological: No Focal Motor or Sensory Deficit 09/14/17 13:08: Troponin I < 0.015 09/14/17 16:11: Troponin I < 0.015 09/15/17 05:40: WBC 6.5, RBC 4.21 L, Hgb 12.4 L, Hct 36.9 L, MCV 87.6, MCH 29.5 , MCHC 33.6, RDW 13.9, RDW Differential 43.7, Plt Count 300, MPV 9.0, Immature Gran % (Auto) 0.300, Neut % (Auto) 60.8, Lymph % (Auto) 28.5, Wells % (Auto) 7.9 , Eos % (Auto) 2.2, Baso % (Auto) 0.3, Absolute Neuts (auto) 4.0, Total Counted Not Reportable 09/15/17 05:40: PT 13.6, INR 1.0, APTT 26.7 09/15/17 05:40: Sodium 145, Potassium 4.1, Chloride 110 H, Carbon Dioxide 26.0, Anion Gap 9, BUN 12, Creatinine 0.72, Est GFR (MDRD) Af Amer 149, Est GFR (MDRD ) Non-Af 123, BUN/Creatinine Ratio 16.7, Glucose 100, Calcium 8.4 L Rhythm: Sinus rhythm EKG: Sinus rhythm Cardiac Cath: Please see official report PCI: Please see official report Medical Necessity - Tobacco Use Smoking Status: Former smoker Assessment/Plan 1. Chest pain The patient presents with recurrent chest pain. The etiology is unclear as to whether this represents his underlying CAD process with angina pectoris with exertion, exposure to the elements, and now potentially at rest versus a non- CAD process. Thus far he has had no obvious objective change with his cardiac enzymes or his ECG. He has been treated with nitroglycerin sublingual without significant relief. However he states his chest discomfort can come and go quickly and is not sure whether the nitroglycerin had a significant contribution to his chest discomfort. Test/imaging study. He had recurrent symptoms. He had electrocardiographic changes. His nuclear images appear to be unremarkable at the heart rate achieved-which was less than 85% predicted maximal heart rate. His case has been discussed with Dr. Rondon of interventional cardiology. Status post review of his case it was elected to bring the patient back to the cardiac catheterization laboratory to reassess his previously placed stents and to consider further evaluation care of his obtuse marginal branch. 2. Near syncope The patient was reported as having a near syncopal event. Based upon the description, lack of other objective changes at the time, there is concern this may have been vasovagal vagal in etiology. The patient will continue to be monitored. He will continue his medical therapy. He will continue his evaluation as noted above. 3. CAD status post previous ST segment elevation SC-inferior status post RCA and subsequent LCx PTCA/JOSEPH The patient is now status post repeat diagnostic cardiac catheterization. His previous RCA and LCx stents placed in July and August of this year respectively remain patent. He is obtuse marginal branch continue to demonstrate ostial tapering. He has subsequently underwent further PTCA/stent of the obtuse marginal branch. He will need to continue medical management, outpatient follow-up, and outpatient cardiac rehabilitation. 4. Hyperlipidemia The patient will continue medical management. 5. Hypertension The patient will continue his antihypertensive therapy with adjustment as needed. 6. Diabetes mellitus The patient will continue under the care of internal medicine. Comment: The patient's case was discussed and reviewed with the patient and his spouse. This note was generated with [email or web address] dictation software. It may contain incorrect words, spelling, and punctuation that were not noted in checking the note before signing.
[2017-09-15 13:11] LABS: ACT Activated Clotting Time 158 sec (74-137)
--- NOTE | 2017-09-15 13:25 | NURSING ---
In ICU 3 from outside laborer, outside laborer RN in attendance
[2017-09-15] MEDS: Dextrose 50%-Water 25 GM/50 ML DISP.SYRIN IV (13:45)
[2017-09-15 13:46] LABS: Bedside Glucose 75 mg/dL (70-110)
--- NOTE | 2017-09-15 14:27 | CASEMGMT ---
RN CM READMISSION NOTE: DC PLAN: Home with family - Pt was here in July 2017 with STEMI, PCI of RCA. In August, pt admitted for chest pain, PCI of LCA. -Intro role of CM to patient, and daughter in room. states pt was doing well independently @ home, no DME use. Was coming to cardiac rehab when symptoms worsened. Pt is diabetic, states they will see crimper operator in [place] in Nov. they are trying to adhere to diabetic diet. Recommend diabetic counseling while in hospital if questions arise re: home diet. Pharmacy: [facility] Prescription coverage: yes PCP: Dr. Ken Edwards BSN RN ACM
[2017-09-15 16:56] LABS: Bedside Glucose 92 mg/dL (70-110)
[2017-09-15] MEDS: 0.9% Normal Saline 1,000 ML 150 ML IV (18:36)
--- NOTE | 2017-09-15 21:04 | CL.D_ITS ---
Patient Name: ASIF CASE Study Date: 09/15/2017 Performing: Mikey Mendoza MD Ht: 67 inches 170 cm : 1965 Wt: 192.1 lbs 87 kg Age: 52 Gender: male BSA: 1.98 PROCEDURE(S) PERFORMED [id number]/COR/LV [id number] W OR WO PTCA, SINGLE CORONARY ARTERY [id number], EACH ADD'L CORONARY ART, SAME MAJOR CLINICAL PROFILE AND INDICATIONS Indications: ACS <= 24 hrs, Worsening Angina, Stable Known CAD, Worsening Angina Heart Failure: None Stress/Imaging Stress Test w/SPECT MPI: Yes Result: Positive Intermediate RiskStress Test with SP ECT MPI: Positive Intermediate Risk Angina Classification Anginal Classification w/in 2 Weeks: CCS III CAD Presentations: Unstable angina. Unstable angina. Comorbidities/Risk Factors: Hypertension Dyslipidemia Prior PCI CONCLUSIONS Elevated Left Ventricular End Diastolic Pressure Normal LV size, wall motion,and systolic function LVEF: by LV gram 60 % [place] Multivessel CAD RECOMMENDATIONS Risk factor modification Medical therapy Referred for immediate PCI DESCRIPTION OF PROCEDURE The patient arrived to the procedure lab. The risks and benefits of the procedure as well as a full d escription of our services here and current unavailability of surgical backup were fully explained to the patient and/or their significant other prior to the catheterization. The Timeout was completed, verifying the correct patient and procedure. The patient's procedural site was prepped and draped in the usual fashion. Local anesthetic was given subcutaneously to right groin region with Lidocaine 2%. Using a modified Seldinger technique, arterial access was obtained via the right femoral artery, a 4 Fr sheath was inserted Left Coronary Artery selective angiography was performed in multiple views us ing a 4 Fr. JL5 catheter. Right Coronary Artery selective angiography was then performed in multiple views using a 4 Fr. 3DRC catheter. Left Ventriculography was performed in WELCH projection using a 4 Fr . Pigtail catheter. LV to AO pullback pressures were then recorded.The arterial sheath was sutured in place and capped. The arterial sheath was pulled and manual compression applied until hemostasis is achieved. CORONARY ANGIOGRAPHY DOMINANCE: Right Dominant LEFT HEART ASSESSMENT Left Ventricular Ejection Fraction: by LV Gram 60 % Normal LV wall motion Elevated Left Ventricular End Diastolic Pressure LVEDP: 20 mmHg LEFT MAIN: Angiographically normal LEFT ANTERIOR DECENDING ARTERY: Angiographically normal CIRCUMFLEX ARTERY: PROX CIRC: Previously placed stent is patent OM 1: Ostial - 85 % Stenosis RIGHT CORONARY ARTERY: PROX RCA: Mild luminal irregularities DISTAL RCA: Previously placed stent is patent with minimal luminal irregularities VALVE FINDINGS: Normal Aortic Valve function Normal Mitral Valve function AORTIC ROOT: Angiographically normal COMPLICATIONS No Complications PROCEDURE MEDICATIONS Versed 1 mg IV Fentanyl 25 mcg IV Fentanyl 25 mcg IV Fentanyl 25 mcg IV Versed 1 mg IV Oxygen: 2 L/min via nasal cannula Heparin 6000 unit(s) IV 09/15/2017 12:07:52 Nitro 200 mcg IC 09/15/2017 12:16:00 Nitro 200 mcg IC 09/15/2017 12:16:00 IV Bolus: .9 NaCl 1300 ml total 09/15/2017 12:55:40 IV Fluids: .9 NaCl increased to 250 ml/hr 09/15/2017 11:49:47 IV Fluids: .9 NaCl increased to W/O ml/hr 09/15/2017 11:53:17 IV Fluids: .9 NaCl decreased to 15 ml/hr 09/15/2017 13:02:57 SUMMARY OF HEMODYNAMIC DATA Time AIR REST ECG 11:33:01 AO 99/70 (85) SA 11:49:16 LV 117/1, 23 11:58:17 LV 113/-1, 20 11:58:24 LV 107/7, 24 11:59:14 LVp 104/7, 21 11:59:18 AOp 101/64 (81) 11:59:23 Signed By Mikey Mendoza MD On 09/15/2017 21:04:17 Mikey Mendoza MD
[2017-09-15] MEDS: Atorvastatin Calcium 40 MG Tablet PO (22:27)
[2017-09-15] MEDS: Insulin Lispro 100 UNIT/ML INSULN.PEN SC (22:28)
[2017-09-15 22:46] LABS: Bedside Glucose 165 mg/dL (70-110)
[2017-09-16] VITALS (12 sets, daily range): BP systolic 122–145; BP diastolic 74–100; PULSE 58–76; RESP 14–20; TEMP 36.4–37; O2SAT 95–100
[2017-09-16 05:39] LABS: Hematocrit 35.1 % (40-54); Hemoglobin 11.7 g/dl (13.0-16.5); Mean Corp Hgb Conc 33.3 g/gl (32-36); Mean Corpuscular Hgb 29.3 pg (27.0-32.0); Mean Platelet Vol. 9.3 fl (6.2-12.0); Platelet Count 277 K/mm3 (150-450); RBC Distribution Width CV 13.9 % (11.6-14.6); RBC Distribution Width SD 44.5 fl (35.1-43.9); Red Blood Count 3.99 M/mm3 (4.6-6.2)
[2017-09-16 05:49] LABS: Anion Gap 7 (5-15); BUN 9 mg/dL (7-18); BUN/Creat Ratio 12.2 RATIO (10-20); Calcium,Total 8.3 mg/dL (8.5-10.1); Chloride 110 mmol/L (98-107); Creatinine, Serum 0.74 mg/dL (0.70-1.30); EST Glomerular Filtration Rate 120 mL/min (>60); Est Glom Filt Rate - Afr Amer 145 mL/min (>60); Estimated Creatinine Clearance 111.66 ml/min; Glucose 89 mg/dL (74-106); Sodium Level 145 mmol/L (136-145)
[2017-09-16 06:07] LABS: Scan Indicated on CBC? Y/N NO
[2017-09-16 06:46] LABS: Bedside Glucose 100 mg/dL (70-110)
[2017-09-16] MEDS: Isosorbide Mononitrate 30 MG Tablet PO (08:38)
[2017-09-16] MEDS: Carvedilol 12.5 MG Tablet PO (08:38)
[2017-09-16] MEDS: Aspirin 81 MG TAB.CHEW PO (08:38)
[2017-09-16] MEDS: Fenofibrate 145 MG Tablet PO (08:38)
[2017-09-16] MEDS: Clopidogrel Bisulfate 75 MG Tablet PO (08:39)
[2017-09-16] MEDS: Pantoprazole Sodium 40 MG Tablet PO (08:39)
[2017-09-16] MEDS: Lisinopril 10 MG Tablet PO (08:39)
[2017-09-16] MEDS: Glimepiride 2 MG Tablet PO (08:44)
--- NOTE | 2017-09-16 09:09 | PCM.DC ---
- Discharge Diagnoses Current Active Problems: Current Active and Chronic Problems (Last Updated 09/15/17 @ 16:27 by Tawana Young) Chest pain (Acute) Near syncope (Acute) S/P PTCA (percutaneous transluminal coronary angioplasty) (Chronic) 08/04/17: JOSEPH to RCA; 08/18/16: JOSEPH to LCX, FFR to OM1 (0.97=neg).09/15/17: JOSEPH to first OM (Synergy MR 2.75 X 20 mm), POBA to mid Cx You will use the following diet at home:: Calorie/Carbohydrate Controlled (specify 1200, 1400, etc) - 1800 hebert, Cardiac Your food should be the consistency of: Regular Discharge Activity: Return to Normal Activity Weight Bearing Status: Full weight bearing Call your doctor if you observe: Fever of 101 or Higher, Shortness of breath, Dizziness, Fainting spells, Chest pain, Increased palpitations (irregular heartbeat), Uncontrolled pain Allergies/Adverse Reactions: Allergies bee venom protein (honey bee) Allergy (Severe, Verified 09/02/17 10:42) Angioedema niacin Allergy (Verified 09/02/17 10:42) Shortness of breath Medications to take at Discharge Atorvastatin Calcium 40 mg PO QHS 08/04/17 Fenofibrate [Tricor] 145 mg PO DAILY 08/04/17 Aspirin 81 mg PO DAILY #30 tab.chew 08/07/17 Clopidogrel Bisulfate [Plavix] 75 mg PO DAILY #30 tab 08/07/17 Glimepiride [Amaryl] 2 mg PO DAILY #30 tab 08/07/17 Insulin Glargine,Hum.rec.anlog [Sophieagldayami Araiza U-100] 14 unit SQ QHS #0 08/07/17 Nitroglycerin [Nitrostat] 0.4 mg SUBLINGUAL Q5M PRN #10 tab 08/07/17 Omeprazole 40 mg PO BID #0 08/07/17 Isosorbide Mononitrate [Imdur] 30 mg PO DAILY #30 tab 08/19/17 Metformin HCl [Glucophage] 1,000 mg PO BIDCM #0 08/19/17 carvedilol 12.5 mg tablet 12.5 mg PO BID #180 tab 09/02/17 lisinopril 10 mg tablet 10 mg PO BID #60 tab 09/02/17 Primary Care Physician: Mikey Rogers MD [Primary Care Provider] - Please follow up with your Primary Care Physician in: 2 WEEKS. Test Results: Test results from this visit will be discussed in further detail at your follow-up appointment, if applicable. Please Follow Up With: Mikey Mendoza MD When: Call his office.
--- NOTE | 2017-09-16 10:00 | EKG12_ITS ---
Test Reason : AM EKG Blood Pressure : / mmHG Vent. Rate : 068 BPM Atrial Rate : 068 BPM P-R Int : 178 ms QRS Dur : 098 ms QT Int : 390 ms P-R-T Axes : 012 012 006 degrees QTc Int : 414 ms Normal sinus rhythm Normal ECG Confirmed by TONY QUACH, LORE ([id number]), sound editor ABDI BANUELOS ([id number] on 09/18/2017 2:09:21 PM Referred By: LARISA Confirmed By:LORE JIMENEZ MD
--- NOTE | 2017-09-16 10:11 | PCM.PN.CARD ---
Subjectve: Patient doing very well overnight, completely chest pain-free, and in fact feels great. Right groin is clean/dry/intact without evidence of thrills, hematoma or bruits. Telemetry is negative. EKG shows normal sinus rhythm, no acute changes. Hemoglobin and creatinine are within nominal limits. Objective: Vital Signs Temp Pulse Resp BP Pulse Ox 98.6 F 72 14 142/82 H 99 09/16/17 09:51 09/16/17 09:51 09/16/17 09:51 09/16/17 09:51 09/16/17 09:51 Oxygen Delivery Method Room Air Weight: 191 lb 9.6 oz Body Mass Index (BMI) 29.9 Orthostatic Vital Signs Start: 09/14/17 13:06 Freq: q24h Status: Active Protocol: Activity Type Activity Date Activity User E-Sign Co-Sign Detail Recorded Client Recorded Date Recorded By Document 09/16/17 05:48 JLA [id number] 09/16/17 05:49 JLA 09/16/17 05:48 Orthostatic Vitals Standing -Blood Pressure (90/60-120/80) 140/99 H -Extremity Use Right Arm -Pulse Rate (60-100) 76 Sitting -Blood Pressure (90/60-120/80) 145/100 H -Extremity Use Right Arm -Pulse Rate (60-100) 73 Lying -Blood Pressure (90/60-120/80) 131/83 H -Extremity Use Right Arm -Pulse Rate (60-100) 72 Intake and Output for Last 24 Hours 09/14/17 09/15/17 09/16/17 23:59 23:59 23:59 Intake Total 827 / 827 4787 / 4787 250 / 250 Output Total 2600 / 2600 775 / 775 Balance 827 / 827 2187 / 2187 -525 / -525 General: Awake, Alert, Oriented x 3 HEENT: PERRL, EOMI, Sclera Non Icteric Neck: Supple, Good ROM, No Lymph Node Enlargement Lungs: Clear to auscultation Cardiovascular: Regular Rhythm, Normal S1, Normal S2, No Murmurs, No Rubs, No Gallops Vascular: No Carotid Bruits, Normal Femoral Pulses, Normal Radial Pulses, Normal Dorsalis Pedal Pulse, Normal Posterior Tibial Pulses Abdomen: Bowel Sounds Present, Soft, Non Tender, No HSM, No Organomegaly Extremities: No Cyanosis, No Clubbing, No edema Neurological: No Focal Motor or Sensory Deficit 09/16/17 05:00: Sodium 145, Potassium 4.0, Chloride 110 H, Carbon Dioxide 28.0, Anion Gap 7, BUN 9, Creatinine 0.74, Est GFR (MDRD) Af Amer 145, Est GFR (MDRD) Non-Af 120, BUN/Creatinine Ratio 12.2, Glucose 89, Calcium 8.3 L 09/16/17 05:00: WBC 8.0, RBC 3.99 L, Hgb 11.7 L, Hct 35.1 L, MCV 88.0, MCH 29.3, MCHC 33.3, RDW 13.9, RDW Differential 44.5 H, Plt Count 277, MPV 9.3 Rhythm: EKG: ECHO: Stress Test: Cardiac Cath: PCI: CT Surgery: Holter monitor: EPS: PPM: CXR: Chest CT Scan: Medical Necessity - Tobacco Use Smoking Status: Former smoker Assessment/Plan 1. Coronary artery disease: The patient is status post angioplasty and stenting to his distal RCA, followed by proximal left circumflex, with flow wire evaluation of the ostium of obtuse marginal several weeks ago by Dr. Mills. The FFR at that time was 0.97. Despite these findings, the patient continued to have classical anginal pain, and in fact had similar chest pain with balloon inflation while we were angioplasty and his obtuse marginal. Patient underwent angioplasty and drug-eluting stent into the mid left circumflex segue into the obtuse marginal, followed by balloon angioplasty through the struts of the stent into the main AV circumflex. His symptoms were reproduced exactly during each of these balloon inflations. No bifurcating stenting was performed out of concern for compromising the ostium of the obtuse marginal with additional metal. At this point I believe patient hopefully will have no further anginal symptoms. Should he have recurrent angina I would not recommend repeat catheterization or angioplasty until his stents have endothelialized over the next several months. Recommend additional blood pressure control if indicated. Patient will be discharged home today and follow-up with Dr. Mendoza. He will be arranged for him to undergo cardiac rehab given his recent myocardial infarction. 2. Hyperlipidemia: Continue statin based medications. 3. Patient may be discharged home today. Code Visit Inpatient E&M: 41496 Subs Hosp L2
--- NOTE | 2017-09-16 10:15 | PN.CARD_ITS ---
Subjectve: Patient doing very well overnight, completely chest pain-free, and in fact feels great. Right groin is clean/dry/intact without evidence of thrills, hematoma or bruits. Telemetry is negative. EKG shows normal sinus rhythm, no acute changes. Hemoglobin and creatinine are within nominal limits. Objective: Vital Signs Temp Pulse Resp BP Pulse Ox 98.6 F 72 14 142/82 H 99 09/16/17 09:51 09/16/17 09:51 09/16/17 09:51 09/16/17 09:51 09/16/17 09:51 Oxygen Delivery Method Room Air Weight: 191 lb 9.6 oz Body Mass Index (BMI) 29.9 Orthostatic Vital Signs Start: 09/14/17 13:06 Freq: q24h Status: Active Protocol: Activity Type Activity Date Activity User E-Sign Co-Sign Detail Recorded Client Recorded Date Recorded By Document 09/16/17 05:48 JLA [id number] 09/16/17 05:49 JLA 09/16/17 05:48 Orthostatic Vitals Standing -Blood Pressure (90/60-120/80) 140/99 H -Extremity Use Right Arm -Pulse Rate (60-100) 76 Sitting -Blood Pressure (90/60-120/80) 145/100 H -Extremity Use Right Arm -Pulse Rate (60-100) 73 Lying -Blood Pressure (90/60-120/80) 131/83 H -Extremity Use Right Arm -Pulse Rate (60-100) 72 Intake and Output for Last 24 Hours 09/14/17 09/15/17 09/16/17 23:59 23:59 23:59 Intake Total 827 / 827 4787 / 4787 250 / 250 Output Total 2600 / 2600 775 / 775 Balance 827 / 827 2187 / 2187 -525 / -525 General: Awake, Alert, Oriented x 3 HEENT: PERRL, EOMI, Sclera Non Icteric Neck: Supple, Good ROM, No Lymph Node Enlargement Lungs: Clear to auscultation Cardiovascular: Regular Rhythm, Normal S1, Normal S2, No Murmurs, No Rubs, No Gallops Vascular: No Carotid Bruits, Normal Femoral Pulses, Normal Radial Pulses, Normal Dorsalis Pedal Pulse, Normal Posterior Tibial Pulses Abdomen: Bowel Sounds Present, Soft, Non Tender, No HSM, No Organomegaly Extremities: No Cyanosis, No Clubbing, No edema Neurological: No Focal Motor or Sensory Deficit 09/16/17 05:00: Sodium 145, Potassium 4.0, Chloride 110 H, Carbon Dioxide 28.0, Anion Gap 7, BUN 9, Creatinine 0.74, Est GFR (MDRD) Af Amer 145, Est GFR (MDRD) Non-Af 120, BUN/Creatinine Ratio 12.2, Glucose 89, Calcium 8.3 L 09/16/17 05:00: WBC 8.0, RBC 3.99 L, Hgb 11.7 L, Hct 35.1 L, MCV 88.0, MCH 29.3 , MCHC 33.3, RDW 13.9, RDW Differential 44.5 H, Plt Count 277, MPV 9.3 Rhythm: EKG: ECHO: Stress Test: Cardiac Cath: PCI: CT Surgery: Holter monitor: EPS: PPM: CXR: Chest CT Scan: Medical Necessity - Tobacco Use Smoking Status: Former smoker Assessment/Plan 1. Coronary artery disease: The patient is status post angioplasty and stenting to his distal RCA, followed by proximal left circumflex, with flow wire evaluation of the ostium of obtuse marginal several weeks ago by Dr. Mills. The FFR at that time was 0.97. Despite these findings, the patient continued to have classical anginal pain, and in fact had similar chest pain with balloon inflation while we were angioplasty and his obtuse marginal. Patient underwent angioplasty and drug- eluting stent into the mid left circumflex segue into the obtuse marginal, followed by balloon angioplasty through the struts of the stent into the main AV circumflex. His symptoms were reproduced exactly during each of these balloon inflations. No bifurcating stenting was performed out of concern for compromising the ostium of the obtuse marginal with additional metal. At this point I believe patient hopefully will have no further anginal symptoms. Should he have recurrent angina I would not recommend repeat catheterization or angioplasty until his stents have endothelialized over the next several months. Recommend additional blood pressure control if indicated. Patient will be discharged home today and follow-up with Dr. Mendoza. He will be arranged for him to undergo cardiac rehab given his recent myocardial infarction. 2. Hyperlipidemia: Continue statin based medications. 3. Patient may be discharged home today. Code Visit Inpatient E&M: 67239 Subs Hosp L2
--- NOTE | 2017-09-16 10:48 | PN.CARD_ITS ---
Subjectve: Patient is status post diagnostic cardiac catheterization and LCx/OM PCI. At the moment he states he has had no recurrent chest discomfort. He has had no other acute complaints. Objective: Vital Signs Temp Pulse Resp BP Pulse Ox 98.6 F 72 14 142/82 H 99 09/16/17 09:51 09/16/17 09:51 09/16/17 09:51 09/16/17 09:51 09/16/17 09:51 Oxygen Delivery Method Room Air Weight: 191 lb 9.6 oz Body Mass Index (BMI) 29.9 Orthostatic Vital Signs Start: 09/14/17 13:06 Freq: q24h Status: Active Protocol: Activity Type Activity Date Activity User E-Sign Co-Sign Detail Recorded Client Recorded Date Recorded By Document 09/16/17 05:48 SUSIE [id number] 09/16/17 05:49 SUSIE 09/16/17 05:48 Orthostatic Vitals Standing -Blood Pressure (90/60-120/80) 140/99 H -Extremity Use Right Arm -Pulse Rate (60-100) 76 Sitting -Blood Pressure (90/60-120/80) 145/100 H -Extremity Use Right Arm -Pulse Rate (60-100) 73 Lying -Blood Pressure (90/60-120/80) 131/83 H -Extremity Use Right Arm -Pulse Rate (60-100) 72 Intake and Output for Last 24 Hours 09/14/17 09/15/17 09/16/17 23:59 23:59 23:59 Intake Total 827 / 827 4787 / 4787 250 / 250 Output Total 2600 / 2600 775 / 775 Balance 827 / 827 2187 / 2187 -525 / -525 General: Awake, Alert, Oriented x 3, Cooperative, No Acute Distress HEENT: Atraumatic, Normocephalic, PERRL, EOMI, Sclera Non Icteric Oral: Moist Mucosa Neck: Supple, Good ROM, No JVD Lungs: Clear to auscultation Cardiovascular: Regular Rhythm, Normal S1, Normal S2 Vascular: Normal Femoral Pulses Abdomen: Bowel Sounds Present, Soft, Non Tender Extremities: No edema Neurological: No Focal Motor or Sensory Deficit 09/16/17 05:00: Sodium 145, Potassium 4.0, Chloride 110 H, Carbon Dioxide 28.0, Anion Gap 7, BUN 9, Creatinine 0.74, Est GFR (MDRD) Af Amer 145, Est GFR (MDRD) Non-Af 120, BUN/Creatinine Ratio 12.2, Glucose 89, Calcium 8.3 L 09/16/17 05:00: WBC 8.0, RBC 3.99 L, Hgb 11.7 L, Hct 35.1 L, MCV 88.0, MCH 29.3 , MCHC 33.3, RDW 13.9, RDW Differential 44.5 H, Plt Count 277, MPV 9.3 Rhythm: Sinus rhythm EKG: Sinus rhythm; no acute ECG changes Medical Necessity - Tobacco Use Smoking Status: Former smoker Assessment/Plan 1. CAD status post previous ST segment elevation [place]-inferior status post RCA and subsequent LCx PTCA/JOSEPH and subsequent LCx/OM PTCA/JOSEPH The patient is now status post repeat diagnostic cardiac catheterization. His previous RCA and LCx stents placed in July and August of this year respectively remain patent. Is now status post LCx OM PTCA/JOSEPH. He appears to be without ongoing symptoms or acute complaint. He will need to continue medical management, outpatient follow-up, and outpatient cardiac rehabilitation. 4. Hyperlipidemia The patient will continue medical management. 5. Hypertension The patient will continue his antihypertensive therapy with adjustment as needed. 6. Diabetes mellitus The patient will continue under the care of internal medicine. Comment: The patient's case was discussed and reviewed with the patient. This note was generated with [employer] software. It may contain incorrect words, spelling, and punctuation that were not noted in checking the note before signing.
--- NOTE | 2017-09-16 11:49 | CRPHASE1 ---
Patient Data/Charges Phase I Charge:: Level I - Education - HE IS ALREADY IN THE PROGRAM WILL RETURN AFTER September Risk Factors/Lifestyle Family History: Family History (Last Updated 09/02/17 @ 10:43 by Landy Iqbal) Mother Heart disease Brother Hypertension
--- NOTE | 2017-09-16 11:50 | CRPH1.INSTRU ---
General Education Sign/Symptoms of [place]:: Not instructed - HE IS ALREADY IN THE PROGRAM WILL RETURN AFTER September
--- NOTE | 2017-09-16 11:51 | CRPH1.INST_ITS ---
General Education Sign/Symptoms of [place]:: Not instructed - HE IS ALREADY IN THE PROGRAM WILL RETURN AFTER September
--- NOTE | 2017-09-16 13:11 | PCM.DC.SUM ---
Discharge Date and Diagnosis Date of Admission: 09/14/17 Date of Discharge: 09/16/17 - Primary Discharge Diagnosis #1 unstable angina, status post PCI to left circumflex and obtuse marginal arteries. #[address] elevation [place] status post JOSEPH to proximal circumflex artery. #3 vasovagal syncope. - Secondary Discharge Diagnosis Chronic Problems (Last Updated 09/15/17 @ 16:27 by Tawana Young) Arteriosclerosis of coronary artery (Chronic) 08/04/17: JOSEPH to RCA; 08/18/16: JOSEPH to LCX, FFR to OM1 (0.97=neg).09/15/17: JOSEPH to first OM (Synergy MR 2.75 X 20 mm), POBA to mid Cx S/P PTCA (percutaneous transluminal coronary angioplasty) (Chronic) 08/04/17: JOSEPH to RCA; 08/18/16: JOSEPH to LCX, FFR to OM1 (0.97=neg).09/15/17: JOSEPH to first OM (Synergy MR 2.75 X 20 mm), POBA to mid Cx HTN (hypertension) (Chronic) Mixed hyperlipidemia (Chronic) Diabetes mellitus, type II (Chronic) Obesity (BMI 30-39.9) (Chronic) Barretts esophagus (Chronic) STEMI (ST elevation myocardial infarction) (Chronic 08/04/17) Hospital Course and Treatment Imaging Results: Clinical Impression(s) from Imaging Studies Chest X-Ray 09/14/17 10:21 IMPRESSION: No acute process in the chest. Electronically Signed: Aidan Doran DO at 10:51 EDT Tel , Service support , Dr. Rondon/Dr. Mendoza, cardiology. Operations: None Procedures: Cardiac catheterization Summary of Care Provided: Patient seen and examined on the day of discharge and appeared to be stable to be discharged home. He denies any more chest pain or shortness of breath. His vitals are stable. - Physical Exam General: Alert, Oriented x3, Cooperative, No apparent distress. HEENT: Atraumatic, PERRLA, EOMI. Neck: Supple, No JVD, Negative Carotid Bruits, Trachea Midline, Thyroid Normal. Lungs: Clear to auscultation, Normal air movement, No rhonchi, No wheeze, No rales. Cardiovascular: Regular rate, Regular Rhythm, Normal S1, Normal S2, PMI Normal. Abdomen: Bowel Sounds Present, Soft, Non Tender, Non-Distended, No Hepato-splenomegaly. Extremities: No clubbing, No cyanosis, No edema Skin: No rashes, No breakdown Neurological: Neuro grossly intact Vital Signs are stable. Hospital course: The patient is a 52 year old M admitted because of typical chest pain, found to have unstable angina in context of recent history of inferior wall ST elevation [place] status post JOSEPH to proximal left circumflex artery. His EKG revealed no evidence of acute ischemic changes. His troponin was negative ?3. Patient's symptoms was so classic for angina pectoris. Cardiology consulted and patient underwent cardiac catheterization, status post PCI to left circumflex and obtuse marginal artery. His previous RCA and left circumflex stents placed in July and August respectively remained patent. He was treated with aspirin, statins, Plavix, Coreg, lisinopril and isosorbide mononitrate as well as TriCor and statins. His routine blood work was unremarkable. His vital signs were stable. Chest x-ray showed no acute findings. Patient discharged home in a stable medical condition, discharged on aspirin, statins, Coreg, Plavix, TriCor, lisinopril and isosorbide mononitrate, continued on his chronic home medication without any changes, plan to follow-up with cardiology according to Dr. Mendoza, recommended follow-up with PCP in 2 weeks. Discharge Activity: Return to Normal Activity Weight Bearing Status: Full weight bearing Call your doctor if you observe: Fever of 101 or Higher, Shortness of breath, Dizziness, Fainting spells, Chest pain, Increased palpitations (irregular heartbeat), Uncontrolled pain Home Medications: Medications to take at Discharge Atorvastatin Calcium 40 mg PO QHS 08/04/17 Fenofibrate [Tricor] 145 mg PO DAILY 08/04/17 Aspirin 81 mg PO DAILY #30 tab.chew 08/07/17 Clopidogrel Bisulfate [Plavix] 75 mg PO DAILY #30 tab 08/07/17 Glimepiride [Amaryl] 2 mg PO DAILY #30 tab 08/07/17 Insulin Glargine,Hum.rec.anlog [Mary Araiza U-100] 14 unit SQ QHS #0 08/07/17 Nitroglycerin [Nitrostat] 0.4 mg SUBLINGUAL Q5M PRN #10 tab 08/07/17 Omeprazole 40 mg PO BID #0 08/07/17 Metformin HCl [Glucophage] 1,000 mg PO BIDCM #0 08/19/17 carvedilol 12.5 mg tablet 12.5 mg PO BID #180 tab 09/02/17 lisinopril 10 mg tablet 10 mg PO BID #60 tab 09/02/17 Isosorbide Mononitrate [Imdur] 30 mg PO DAILY #90 tab 09/16/17 Following Prescrptions Were Given to Patient: Isosorbide Mononitrate [Imdur] 30 mg PO DAILY #90 tab Primary Care Physician: Mikey Rogers MD [Primary Care Provider] - Please follow up with your Primary Care Physician in: 2 WEEKS. Please Follow Up With: Mikey Mendoza MD When: Call his office. Disposition: Home Minutes spent on discharge:: 32 Patient Condition:: Stable Medical Necessity - Tobacco Use Smoking Status: Former smoker Meaningful Use Info Meaningful Use Diagnoses (Choose all that apply): None applicable Code Visit Inpatient E&M: 62452 Disch Hosp
--- NOTE | 2017-09-16 13:15 | DS.PCM_ITS ---
Discharge Date and Diagnosis Date of Admission: 09/14/17 Date of Discharge: 09/16/17 - Primary Discharge Diagnosis #1 unstable angina, status post PCI to left circumflex and obtuse marginal arteries. #[address] elevation [place] status post JOSEPH to proximal circumflex artery. #3 vasovagal syncope. - Secondary Discharge Diagnosis Chronic Problems (Last Updated 09/15/17 @ 16:27 by Tawana Young) Arteriosclerosis of coronary artery (Chronic) 08/04/17: JOSEPH to RCA; 08/18/16: JOSEPH to LCX, FFR to OM1 (0.97=neg).09/15/17: JOSEPH to first OM (Synergy MR 2.75 X 20 mm), POBA to mid Cx S/P PTCA (percutaneous transluminal coronary angioplasty) (Chronic) 08/04/17: JOSEPH to RCA; 08/18/16: JOSEPH to LCX, FFR to OM1 (0.97=neg).09/15/17: JOSEPH to first OM (Synergy MR 2.75 X 20 mm), POBA to mid Cx HTN (hypertension) (Chronic) Mixed hyperlipidemia (Chronic) Diabetes mellitus, type II (Chronic) Obesity (BMI 30-39.9) (Chronic) Barretts esophagus (Chronic) STEMI (ST elevation myocardial infarction) (Chronic 08/04/17) Hospital Course and Treatment Imaging Results: Clinical Impression(s) from Imaging Studies Chest X-Ray 09/14/17 10:21 IMPRESSION: No acute process in the chest. Electronically Signed: Aidan Doran DO at 10:51 EDT Tel , Service support , Dr. oRndon/Dr. Mendoza, cardiology. Operations: None Procedures: Cardiac catheterization Summary of Care Provided: Patient seen and examined on the day of discharge and appeared to be stable to be discharged home. He denies any more chest pain or shortness of breath. His vitals are stable. - Physical Exam General: Alert, Oriented x3, Cooperative, No apparent distress. HEENT: Atraumatic, PERRLA, EOMI. Neck: Supple, No JVD, Negative Carotid Bruits, Trachea Midline, Thyroid Normal. Lungs: Clear to auscultation, Normal air movement, No rhonchi, No wheeze, No rales. Cardiovascular: Regular rate, Regular Rhythm, Normal S1, Normal S2, PMI Normal. Abdomen: Bowel Sounds Present, Soft, Non Tender, Non-Distended, No Hepato- splenomegaly. Extremities: No clubbing, No cyanosis, No edema Skin: No rashes, No breakdown Neurological: Neuro grossly intact Vital Signs are stable. Hospital course: The patient is a 52 year old M admitted because of typical chest pain, found to have unstable angina in context of recent history of inferior wall ST elevation [place] status post JOSEPH to proximal left circumflex artery. His EKG revealed no evidence of acute ischemic changes. His troponin was negative ?3. Patient's symptoms was so classic for angina pectoris. Cardiology consulted and patient underwent cardiac catheterization, status post PCI to left circumflex and obtuse marginal artery. His previous RCA and left circumflex stents placed in July and August respectively remained patent. He was treated with aspirin, statins, Plavix, Coreg, lisinopril and isosorbide mononitrate as well as TriCor and statins. His routine blood work was unremarkable. His vital signs were stable. Chest x-ray showed no acute findings. Patient discharged home in a stable medical condition, discharged on aspirin, statins, Coreg, Plavix, TriCor , lisinopril and isosorbide mononitrate, continued on his chronic home medication without any changes, plan to follow-up with cardiology according to Dr. Mendoza, recommended follow-up with PCP in 2 weeks. Discharge Activity: Return to Normal Activity Weight Bearing Status: Full weight bearing Call your doctor if you observe: Fever of 101 or Higher, Shortness of breath, Dizziness, Fainting spells, Chest pain, Increased palpitations (irregular heartbeat), Uncontrolled pain Home Medications: Medications to take at Discharge Atorvastatin Calcium 40 mg PO QHS 08/04/17 Fenofibrate [Tricor] 145 mg PO DAILY 08/04/17 Aspirin 81 mg PO DAILY #30 tab.chew 08/07/17 Clopidogrel Bisulfate [Plavix] 75 mg PO DAILY #30 tab 08/07/17 Glimepiride [Amaryl] 2 mg PO DAILY #30 tab 08/07/17 Insulin Glargine,Hum.rec.anlog [Mary Araiza U-100] 14 unit SQ QHS #0 Nitroglycerin [Nitrostat] 0.4 mg SUBLINGUAL Q5M PRN #10 tab 08/07/17 Omeprazole 40 mg PO BID #0 08/07/17 Metformin HCl [Glucophage] 1,000 mg PO BIDCM #0 08/19/17 carvedilol 12.5 mg tablet 12.5 mg PO BID #180 tab 09/02/17 lisinopril 10 mg tablet 10 mg PO BID #60 tab 09/02/17 Isosorbide Mononitrate [Imdur] 30 mg PO DAILY #90 tab 09/16/17 Following Prescrptions Were Given to Patient: Isosorbide Mononitrate [Imdur] 30 mg PO DAILY #90 tab Primary Care Physician: Mikey Rogers MD [Primary Care Provider] - Please follow up with your Primary Care Physician in: 2 WEEKS. Please Follow Up With: Mikey Mendoza MD When: Call his office. Disposition: Home Minutes spent on discharge:: 32 Patient Condition:: Stable Medical Necessity - Tobacco Use Smoking Status: Former smoker Meaningful Use Info Meaningful Use Diagnoses (Choose all that apply): None applicable Code Visit Inpatient E&M: 46791 Disch Hosp
== END 2017-09-16 10:58 | disposition home or self-care (01) ==
LOC: ED 11:24 → PCU 12:00 → ICU 09-15 13:20
PROVIDERS: Internal Medicine Cardiovascular Disease; Admitting Provider Hospitalist; Emergency Provider Emergency Medicine; Family Provider Family Medicine; PCP Family Medicine; Visit Provider Hospitalist
DX: I25.110 Atherosclerotic heart disease of native coronary artery with unstable angina pectoris (principal); R55 Syncope and collapse; I25.2 Old myocardial infarction; Z95.5 Presence of coronary angioplasty implant and graft; E78.2 Mixed hyperlipidemia; E11.9 Type 2 diabetes mellitus without complications; I10 Essential (primary) hypertension; Z79.899 Other long term (current) drug therapy; Z79.4 Long term (current) use of insulin; Z79.02 Long term (current) use of antithrombotics/antiplatelets; E66.9 Obesity, unspecified; Z68.30 Body mass index [BMI] 30.0-30.9, adult; Z71.3 Dietary counseling and surveillance; K22.70 Barrett's esophagus without dysplasia; Z87.891 Personal history of nicotine dependence; K44.9 Diaphragmatic hernia without obstruction or gangrene
CPT/HCPCS: 36415; 71045; 78452; 80048; 82962; 84484; 85025; 85027; 85347; 85610; 85730; 92921; 92928; 93005; 93017; 93458; 96361; 96374; 99152; 99153; 99218; 99283; A9500; J7030; J7040; Q9967; A4216; C1725; C1769; C1874; C1887; C1894; C9600; G0378; J2785

== ENCOUNTER 2017-10-09 09:15 | Outpatient (RCR) | payer OTHER, SELFPAY ==
--- NOTE | 2017-09-14 09:30 | EKG12_ITS ---
Test Reason : NEAR SYNCOPE Blood Pressure : / mmHG Vent. Rate : 068 BPM Atrial Rate : 068 BPM P-R Int : 178 ms QRS Dur : 096 ms QT Int : 372 ms P-R-T Axes : 014 014 003 degrees QTc Int : 395 ms Normal sinus rhythm Nonspecific T wave abnormality Confirmed by TONY QUACH, LORE ([id number]), digital editor ABDI BANUELOS ([id number] on 09/16/2017 10:06:54 AM Referred By: [facility] Confirmed By:LORE JIMENEZ MD
--- NOTE | 2017-10-02 13:48 | CR.ITP_ITS ---
General Information - General Information Admitting Diagnosis: STEMI, PCI w/coronary stenting Special Needs: Pt on Medical hold at this point. Returning 10/05 - Education/Goals Cardiac Rehabilitation Goals: 1. Maintain the individual as the primary focus of care. 2. To improve the patient's quality of life. 3. Identification of cardiac risk factors and provide cardiac risk factor management. 4. Enhance the psychosocial status of the patient. 5. Reconditioning enough to allow the patient to resume customary activities. 6. Control symptoms of cardiac disease Scale for measuring improvement of personal goals: Enter appropriate number in Comments. 2 = Unchanged. 3 = Slightly Better. 4 = Moderate Improvement. 5 = Met my Goal Exercise - 30-day Assessment - Visit Date of Eval: 10/02/17 Session #:: 3 - Stages of Change Stages of Change:: Action - Exercise Prescription Mode:: Treadmill, Airdyne, NuStep Frequency (x/week): 3 Duration:: 30 METs - Progression: 0.5-1 MET as tolerated: 3.5 Target Heart Rate:: 127-136 Max HR 100 - Hypertension Resting Blood Pressure:: 98/60 Peak Exercise Blood Pressure:: 150/82 - Intervention Home Exercise/Activity Goal:: Sitting Time <3 hrs/day - Education Goals:: Warm-up, RPE LISA Scale, S/S, Safe Exercise, Self-Monitoring - Exercise Program Goals Exercise Program Goals: Aerobic Activity >30 min, B/P <130/80 Nutrition - 30-Day Assessment - Program Goals Nutrition Program Goals: LDL <70. Total Cholesterol <200. HDL >45. Triglycerides <150. HgbA1C <7%. BMI <25 - Visit Date of Eval: 10/02/17 - Stages of Change Stages of Change:: Action - Lipids Has the patient seen the dietitian?: No - Diabetes Diabetes:: Yes Random Blood Glucose:: 272 - Weight Management Weight:: 88.677 kg - Intervention Referral to dietitian:: No Referral to Diabetic Clinic:: No Will attend diet classes:: No - Education Attended class for:: Signs & symptoms of hypoglycemia, Signs & symptoms of hyperglycemia, Relate diabetes to coronary artery disease, Healthy eating Tobacco - 30-Day Assessment - Program Goals Tobacco Program Goals: Complete smoking cessation. Attend education classes. Improve Knowledge Test score - Stage of Change Stages of Change:: Action - Learning Barriers Learning Barriers: Participates in education - Family Support Do you have family support?: Yes - Tobacco Use Tobacco Use: Non-smoker Do you use smokeless tobacco?: No - Intervention Smoking Cessation Referral:: No Individual Education/Counseling:: No Education Schedule Given:: Yes - Education Attended class for:: Tobacco triggers, Coronary artery disease, Risk factors, Sexuality, Medical compliance, Cardiac A&P, Angina signs & symptoms Psychosocial - 30-Day Assess - Target Goals Target Goals: Assess presence or absence of depression. Using a valid screening tool, maximizes coping skills. Positive support system - Stages of Change Stages of Change:: Action - Psychosocial Test Tool Used:: HANDS Depression Questionnaire - Intervention PS - Interventions: Yes Attend Stress Management Classes, Yes Uses Stress Management Skills, No Referral to Mental Health, No Referral to [facility] Case Management, No Referral to Physician - Education Attended classes for:: Coping techniques, Signs & symptoms of depression, Stress management, Relaxation techniques - Assistive Devices Assistive Devices:: None Fall Risk Assessed:: Yes Patient Health Questionnaire 30-Day Re-eval Assessment 1. Little interest or pleasure in doing things: Not at all 2. Feeling down, depressed, or hopeless: Not at all 3. Trouble falling or staying asleep, or sleeping too much: Not at all 4. Feeling tired or having little energy: Several days 5. Poor appetite or overeating: Not at all 6. Feeling bad about yourself -- or that you are a failure or have let yourself or your family down: Not at all 7. Trouble concentrating on things, such as reading the newspaper or watching television: Several days 8. Moving or speaking so slowly that other people could have noticed. Or the opposite - being so fidgety or restless that you have been moving around a lot more than usual: Several days 9. Thoughts that you would be better off , or of hurting yourself in some way: Not at all How difficult have these problems made it for you to do your work, take care of things at home, or get along with other people?: Not difficult at all Total Score: 3 Self-Efficacy 30-Day Re-eval Assessment We would like to know how confident you are in doing certain activities. Please select your confidence level for:: Select your confidence level for the following using the scale 1-10 where 1 is not at all confident and 10 is totally confident. Your score is the average of all 6 responses. Fatigue: How confident are you that you can keep the fatigue caused by your disease from interfering with the things you want to do? Select Number: 10 Physical Discomfort or Pain: How confident are you that you can keep the physical discomfort or pain of your disease from interfering with the things you want to do? Select Number: 8 Emotional Distress: How confident are you that you can keep the emotional distress caused by your disease from interfering with the things you want to do? Select Number: 5 Other Symptoms or Health Problems: How confident are you that you can keep other symptoms or health problems from interfering with the things you want to do? Select Number: 10 Different Tasks and Activities: How confident are you that you can do the different tasks and activities needed to manage your health condition so as to reduce your need to see a doctor? Select Number: 10 Medication: How confident are you that you can do things other than just taking medication to reduce how much your illness affects your everyday life? Select Number: 10 Total Score:: 8
[2017-10-02 13:52] VITALS: BP 150/82; BP 98/60
== END 2017-10-09 23:59 ==
LOC: CR 09:15
PROVIDERS: Family Provider Family Medicine; PCP Family Medicine; Visit Provider Internal Medicine Cardiovascular Disease
DX: Z95.5 Presence of coronary angioplasty implant and graft (principal); I25.10 Atherosclerotic heart disease of native coronary artery without angina pectoris
CPT/HCPCS: 93005; 93798

== ENCOUNTER 2017-10-14 10:02 | Observation (INO) | payer OTHER, SELFPAY ==
[2017-10-14] VITALS (10 sets, daily range): BP systolic 123–138; BP diastolic 78–90; PULSE 64–79; RESP 11–18; TEMP 36.4–36.6; O2SAT 97–100; BMI 31.4; BMI 31.2
--- NOTE | 2017-10-14 10:40 | EKG12_ITS ---
Test Reason : CP Blood Pressure : / mmHG Vent. Rate : 074 BPM Atrial Rate : 074 BPM P-R Int : 166 ms QRS Dur : 096 ms QT Int : 352 ms P-R-T Axes : 016 010 016 degrees QTc Int : 390 ms Normal sinus rhythm Normal ECG Confirmed by ALMITA LABOY ([id number]), editorial assistant ABDI BANUELOS ([id number]) on 10/20/2017 1:52:09 PM Referred By: Confirmed By:ALMITA LABOY
--- NOTE | 2017-10-14 10:40 | NURSING ---
DR JIMENEZ PAGED
--- NOTE | 2017-10-14 11:01 | ED.VISSUMM ---
- ER Visit Summary Date of Service: 10/14/17 Chief Complaint: Chest heaviness History of Present Illness: The patient is a 52 M who has history of coronary disease status post ST elevation MS August 04, 2017, diabetes, hypertension, hypercholesterolemia and former smoker one pack per day for 20 years presents with chest heaviness after using equipment at cardio pulmonary rehab. He states he went to the most difficult machine first. He was on the machine for 10 minutes. He began his cooldown. He developed heaviness that radiated to his throat associated with dyspnea, nausea, diaphoresis and lightheadedness. Pain did resolve. He has had [address] elevation MS and has numerous stents and been placed by Dr. Mills as well as Dr. Rondon. Patient states he took his Plavix and aspirin this morning. States he is compliant with his meds. Furthermore, he informed me that his A1c 4 months ago was 12.1 and his most recent is 6.1. Physical Examination: Patient appears in no distress. Vital signs are noted and remarkable for an elevated blood pressure 133/90. HEENT exam is unremarkable. Heart is regular without murmur, gallop or rub. S1 and S2 are normal. Lungs are clear to auscultation with good movement of air bilaterally. Abdomen is soft nontender without palpable semester down bruit. Lower extremity exam reveals no swelling, discoloration, asymmetry, leg vein distention, palpable coarseness on the distal recent deep venous system. He does have distal palpable pulses. Neuro exam is nonfocal. Test Results: EKG was obtained without pain and is normal with a rate of 74. IN interval, QRS duration and QT interval are normal. Ama is normal. Portable single view chest x-ray interpreted by me as negative unchanged from prior. CBC unremarkable. Basic metabolic panel slight elevation of BUN and glucose 20 and 144 respectively. Troponin less than 0.015. Emergency Department Course and Treatment: Cardiac workup was initiated. Case discussed with Dr. Mendoza to inform him of the patient. He was made aware of patient. Discussed anticoagulation. Patient to receive 1 mg/kg of Lovenox and plan is admission PCU and to determine if stress test versus cardiac cath. Treatment Plan: Patient be admitted and after reviewing case Dr. Mendoza to determine if stress test is indicated versus cardiac catheterization. Disposition: PCU 23 hour observation Impression: Classic exertional angina History of coronary disease History hypertension History diabetes History of hypercholesterolemia This note was generated with [employer] dictation software. It may contain incorrect words, spelling, and punctuation that were not noted in review of the chart prior to signing ED Disposition - Plan for ED Patient: Chief Complaint: Chest Pain Referrals: Mikey Rogers MD [Primary Care Provider] -
[2017-10-14 11:12] LABS: Absolute Lymphocyte Count 1.68 X10^3/ul (0.83-4.51); Absolute Neutrophil Count 5.1 X10^3/uL (2.0-7.7); Basophil# 0.02 X10^3/uL; Basophil% 0.3 % (0-1); Eosinophil# 0.13 X10^3/uL; Eosinophils% 1.7 % (0-5); Hematocrit 42.4 % (40-54); Hemoglobin 14.1 g/dl (13.0-16.5); Lymphocyte # 1.68 X10^3/ul (4.0); Lymphocyte % 22.5 % (19-41); Mean Corp Hgb Conc 33.3 g/gl (32-36); Mean Corpuscular Volume 87.1 fL (80-94); Mean Platelet Vol. 9.2 fl (6.2-12.0); Monocyte# 0.52 X10^3/uL; Neutrophil # 5.06 X10^3/uL (2.7-7.7); Neutrophil % 67.7 % (47-70); Platelet Count 337 K/mm3 (150-450); RBC Distribution Width CV 12.9 % (11.6-14.6); RBC Distribution Width SD 40.3 fl (35.1-43.9); Red Blood Count 4.87 M/mm3 (4.6-6.2); White Blood Count 7.5 K/mm3 (4.4-11.0)
[2017-10-14 11:13] LABS: POSITIVE COUNT NO; POSITIVE DIFFERENTIAL NO; POSITIVE MORPHOLOGY NO
[2017-10-14 11:15] LABS: Anion Gap 9 (5-15); BUN 20 mg/dL (7-18); BUN/Creat Ratio 22.2 RATIO (10-20); Calcium,Total 9.2 mg/dL (8.5-10.1); Chloride 107 mmol/L (98-107); EST Glomerular Filtration Rate 95 mL/min (>60); Est Glom Filt Rate - Afr Amer 114 mL/min (>60); Estimated Creatinine Clearance 88.61 ml/min; Glucose 144 mg/dL (74-106); Potassium 4.4 mmol/L (3.5-5.1); Sodium Level 141 mmol/L (136-145)
[2017-10-14] MEDS: Enoxaparin 100 MG/ML Syringe 90 MG SC (11:20)
--- NOTE | 2017-10-14 11:35 | NURSING ---
DR ANTHONY FOR DR KU
--- NOTE | 2017-10-14 11:47 | NURSING ---
128 CP, UNSTABLE ANGINA PAINTSIL
--- NOTE | 2017-10-14 12:50 | PCM.HP.STD ---
Problem List (1) Chest pain Status: Acute Qualifiers: Ischemic chest pain type: unspecified angina pectoris type (2) HTN (hypertension) Status: Chronic Qualifiers: Hypertension type: essential hypertension Qualified Code(s): I10 - Essential (primary) hypertension (3) Diabetes mellitus, type II Status: Chronic Qualifiers: (4) Obesity (BMI 30-39.9) Status: Chronic Qualifiers: Obesity type: unspecified obesity type Obesity classification: adult class 1 (BMI 30 - 34.9) Body mass index: BMI 31.0-31.9 (5) Barretts esophagus Status: Chronic Qualifiers: History of Present Illness Date of Admission: 10/15/17 Chief Complaint: chest pain - 1 day The patient is a 52 year old M with PMHx of Hypertension, hyperlipidemia, CAD status 5 post stents, comes in with complaints of chest pain whilst in cardiac rehab. Patient initially presented to the hospital in July 2017 with chest pain and had a STEMI with stenting of his RCA. He subsequently had angioplasty and stenting to his left circumflex/obtuse marginal in September 2017. Since his stenting, patient realized that he has been able to do much work around the house like cutting his days and do yard work 4 hours. He sometimes gets some residual chest pain which he rates 2 out of 10. Patient was in cardiac rehab today when after using the intense exercise machine he went onto the treadmill and started having severe chest pain that was 2-3 out of 10 but increased to 4 out of 10 associated with diaphoresis, dizziness and near syncope. His EKG shows no acute ST-T changes. His blood work is unremarkable. Past Medical History Past Medical History (Chronic Problems): Chronic Problems (Last Updated 09/15/17 @ 16:27 by Tawana Young) Arteriosclerosis of coronary artery (Chronic) 08/04/17: JOSEPH to RCA; 08/18/16: JOSEPH to LCX, FFR to OM1 (0.97=neg).09/15/17: JOSEPH to first OM (Synergy MR 2.75 X 20 mm), POBA to mid Cx S/P PTCA (percutaneous transluminal coronary angioplasty) (Chronic) 08/04/17: JOSEPH to RCA; 08/18/16: JOSEPH to LCX, FFR to OM1 (0.97=neg).09/15/17: JOSEPH to first OM (Synergy MR 2.75 X 20 mm), POBA to mid Cx HTN (hypertension) (Chronic) Mixed hyperlipidemia (Chronic) Diabetes mellitus, type II (Chronic) Obesity (BMI 30-39.9) (Chronic) Barretts esophagus (Chronic) STEMI (ST elevation myocardial infarction) (Chronic 08/04/17) Medical History: Medical History (Last Updated 09/15/17 @ 16:27 by Tawana Young) Arteriosclerosis of coronary artery (Chronic) I25.10 08/04/17: JOSEPH to RCA; 08/18/16: JOSEPH to LCX, FFR to OM1 (0.97=neg).09/15/17: JOSEPH to first OM (Synergy MR 2.75 X 20 mm), POBA to mid Cx HTN (hypertension) (Chronic) I10 Mixed hyperlipidemia (Chronic) E78.2 Diabetes mellitus, type II (Chronic) E11.9 Obesity (BMI 30-39.9) (Chronic) E66.9 Barretts esophagus (Chronic) K22.70 STEMI (ST elevation myocardial infarction) (Chronic) Onset Date: 08/04/17 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 CAD (coronary artery disease) I25.10 DM2 (diabetes mellitus, type 2) E11.9 Hiatal hernia K44.9 HTN (hypertension) I10 Allergies bee venom protein (honey bee) Allergy (Severe, Verified 10/14/17 10:16) Angioedema niacin Allergy (Verified 10/14/17 10:16) Shortness of breath Home Medications: Ambulatory Orders Medication Instructions Recorded Atorvastatin Calcium 40 mg PO QHS 08/04/17 Fenofibrate [Tricor] 145 mg PO DAILY 08/04/17 Aspirin 81 mg PO DAILY #30 tab.chew 08/07/17 Clopidogrel Bisulfate [Plavix] 75 mg PO DAILY #30 tab 08/07/17 Glimepiride [Amaryl] 2 mg PO DAILY #30 tab 08/07/17 Nitroglycerin [Nitrostat] 0.4 mg SUBLINGUAL Q5M PRN #10 tab 08/07/17 Omeprazole 40 mg PO BID #0 08/07/17 Metformin HCl [Glucophage] 1,000 mg PO BIDCM #0 08/19/17 carvedilol 12.5 mg tablet 12.5 mg PO BID #180 tab 07/25/18 lisinopril 10 mg tablet 10 mg PO BID #60 tab 09/02/17 Isosorbide Mononitrate [Imdur] 30 mg PO DAILY #90 tab 09/16/17 Insulin Glargine,Hum.rec.anlog 10 unit SQ QHS 10/14/17 [Mary Araiza U-100] Surgical History: Surgical History (Last Reviewed 10/02/17 @ 13:17 by Maru Cardoso) S/P PTCA (percutaneous transluminal coronary angioplasty) (Chronic) Z98.61 08/04/17: JOSEPH to RCA; 08/18/16: JOSEPH to LCX, FFR to OM1 (0.97=neg).09/15/17: JOSEPH to first OM (Synergy MR 2.75 X 20 mm), POBA to mid Cx Surgical History: angioplasty Lives: Spouse/ Significant Other, With Family Smoking Status: Former smoker - *Family History Paternal Family History: Family History (Last Updated 10/02/17 @ 13:22 by Maru Cardoso) Mother Heart disease Brother Hypertension History Items: Cancer - esophageal Maternal Family History: Family History (Last Updated 10/02/17 @ 13:22 by Maru Cardoso) Mother Heart disease Brother Hypertension History Items: Heart Disease Review of Systems Constitutional: Denies: Anorexia, Chills, Fever, Weakness, Weight Change Eyes: Denies: Blurred vision, Cataracts, Conjunctivae Inflammation, Double vision, Pain, Redness HEENT: Denies: Difficulty Hearing, Difficulty Swallowing, Head Aches, Hearing Changes, Sinus Congestion, Sinus Drainage, Sore Throat Cardiovascular: Reports: Chest Pain, Chest Tightness, Light Headedness. Denies: Orthopnea, Palpitations, Paroxysmal Noc. Dyspnea Respiratory: Denies: Cough, Hemoptysis, Shortness of breath at rest, Shortness of breath upon exertion, Sputum production Gastrointestinal: Denies: Abdominal Pain, Constipation, Nausea, Vomiting Genitourinary: Denies: Dysuria, Frequency, Incontinence Musculoskeletal: Denies: Joint Pain, Joint stiffness, Joint swelling, Joint Tenderness Skin: Denies: Rash, Wounds Neurological: Denies: Numbness, Tingling, Focal weakness Psychiatric: Denies: Anxiety, Depression, Homicidal Ideations, Suicidal Ideations Hematologic/ Lymphatic: Denies: Easy Bruising, Easy Bleeding VTE Information - Inpt Only VTE Present on Admission: No VTE Pharm Prophylaxis ordered?: Yes - Physical Exam General: Alert, Oriented x3, Cooperative, No apparent distress HEENT: Atraumatic, PERRLA, EOMI, Normocephalic Oral: Moist Mucosa Neck: Supple, No JVD, Negative Carotid Bruits Lungs: Clear to auscultation, Normal air movement Cardiovascular: Regular rate, Regular Rhythm, Normal S1, Normal S2, No murmurs Abdomen: Bowel Sounds Present, Soft, Non Tender, Non-Distended, No Hepato-splenomegaly Extremities: No edema Skin: No rashes, No breakdown Musculoskeletal: No Tenderness to Palpation of Joints or Extremities Lymphatic: No Cervical, Supraclavicular, or Inguinal Adenopathy Neurological: Cranial nerves II-XII grossly intact, Neuro grossly intact Psych/Mental Status: Normal Affect, Appropriate Vital Signs Temp Pulse Resp BP Pulse Ox 97.5 F L 66 16 127/89 H 99 10/14/17 10:03 10/14/17 12:23 10/14/17 11:20 10/14/17 11:20 10/14/17 11:20 Assessment/Plan All Active Problems (Last Updated 09/15/17 @ 16:27 by Tawana Young) Chest pain (Acute) Near syncope (Acute) Chest pain (Resolved) Chest pain (Resolved) Unstable angina (Resolved) Unstable angina pectoris (Resolved) 52 year old M with PMHx of Hypertension, hyperlipidemia, CAD status 5 post stents, comes in with complaints of chest pain whilst in cardiac rehab. 1. Chest pain, likely unstable angina, in a patient with known cardiac risk factors, no acute EKG changes Plan: Admit to PCU, monitor on telemetry, trend troponins, cardiology consult- ED informed already, continue on aspirin and plavix, statin, Imdur 2. Hypertension, continue on home regimen 3. Hyperlipidemia, on statin and fenofibrate 4. Type 2 DM, on insulin and amaryl as well as metformin. Metformin on hold will continue with accucheks and ISS 5. GERD on PPI 6. DVT PPx-Lovenox SC Code Visit Inpatient E&M: 12076 Init Hosp L3
[2017-10-14 13:41] LABS: Bedside Glucose 70 mg/dL (70-110)
--- NOTE | 2017-10-14 15:06 | PCM.CONS.C ---
Problem List (1) Arteriosclerosis of coronary artery Status: Chronic Comment: 08/04/17: JOSEPH to RCA; 08/18/16: JOSEPH to LCX, FFR to OM1 (0.97=neg).09/15/17: JOSEPH to first OM (Synergy MR 2.75 X 20 mm), POBA to mid Cx (2) Chest pain Status: Acute (3) Near syncope Status: Acute (4) S/P PTCA (percutaneous transluminal coronary angioplasty) Status: Chronic Comment: 08/04/17: JOSEPH to RCA; 08/18/16: JOSEPH to LCX, FFR to OM1 (0.97=neg).09/15/17: JOSEPH to first OM (Synergy MR 2.75 X 20 mm), POBA to mid Cx (5) HTN (hypertension) Status: Chronic Qualifiers: Hypertension type: essential hypertension Qualified Code(s): I10 - Essential (primary) hypertension (6) Mixed hyperlipidemia Status: Chronic Reason for Consult Date of Consultation: 10/14/17 Reason for Consultation: Chest pain, near syncope, coronary disease, diabetes, hypertension, hypercholesterolemia, anxiety History of Present Illness: The patient is a 52 year old M, patient of Dr. Mendoza'riddhi with a history of hypertension, hypercholesterolemia, coronary artery disease status post angioplasty and stenting of his RCA by Dr. Mills in July 2017, followed by angioplasty and stenting of his left circumflex in August 2017, again by Dr. Mills, followed by recent angioplasty and drug-eluting stenting to his left circumflex/obtuse marginal by myself on 09/14/17. Each of these instances were for chest pain. The most recent angioplasty took place on 09/14/17, at a bifurcation of his left circumflex and obtuse marginal. The inferior leg of the left circumflex was ballooned only with no additional stenting. The patient was on recuperated until around 10/02/17 at which time he resumed cardiac rehab last week. The first 2 cardiac rehab episodes had no chest pain however on Thursday he had subtle substernal chest pain rated 2 out of 10 although he did not bring attending but his attention at the time. Today while in cardiac rehab he was assigned a more intense exercise piece of equipment, and the patient developed 2 out of 10 chest pain which rapidly increased to 4 out of 10 left-sided chest pain with associated diaphoresis, dizziness, and near syncope. When he brought this to medical attention of the cardiac rehab staff, they called our office, and the patient referred the patient to the emergency room. Upon arrival to the emergency room patient was chest pain-free. His EKG showed normal sinus rhythm with no acute changes in J-point elevation which was found to be old. His initial troponin was negative. Patient reports that he has been compliant with his aspirin Plavix. Patient's blood pressure was slightly elevated at 133/90 in the emergency room. There appeared to be no blood pressures taken at cardiac rehab that I can find. [] Past Medical History Allergies/Adverse Reactions: Allergies bee venom protein (honey bee) Allergy (Severe, Verified 10/14/17 10:16) Angioedema niacin Allergy (Verified 10/14/17 10:16) Shortness of breath Home Medications: Ambulatory Orders Medication Instructions Recorded Atorvastatin Calcium 40 mg PO QHS 08/04/17 Fenofibrate [Tricor] 145 mg PO DAILY 08/04/17 Aspirin 81 mg PO DAILY #30 tab.chew 08/07/17 Clopidogrel Bisulfate [Plavix] 75 mg PO DAILY #30 tab 08/07/17 Glimepiride [Amaryl] 2 mg PO DAILY #30 tab 08/07/17 Nitroglycerin [Nitrostat] 0.4 mg SUBLINGUAL Q5M PRN #10 tab 08/07/17 Omeprazole 40 mg PO BID #0 08/07/17 Metformin HCl [Glucophage] 1,000 mg PO BIDCM #0 08/19/17 carvedilol 12.5 mg tablet 12.5 mg PO BID #180 tab 09/02/17 lisinopril 10 mg tablet 10 mg PO BID #60 tab 09/02/17 Isosorbide Mononitrate [Imdur] 30 mg PO DAILY #90 tab 09/16/17 Insulin Glargine,Hum.rec.anlog 10 unit SQ QHS 10/14/17 [Mary Araiza U-100] Past Medical History (Chronic Problems): Chronic Problems (Last Updated 09/15/17 @ 16:27 by Tawana Young) Arteriosclerosis of coronary artery (Chronic) 08/04/17: JOSEPH to RCA; 08/18/16: JOSEPH to LCX, FFR to OM1 (0.97=neg).09/15/17: JOSEPH to first OM (Synergy MR 2.75 X 20 mm), POBA to mid Cx S/P PTCA (percutaneous transluminal coronary angioplasty) (Chronic) 08/04/17: JOSEPH to RCA; 08/18/16: JOSEPH to LCX, FFR to OM1 (0.97=neg).09/15/17: JOSEPH to first OM (Synergy MR 2.75 X 20 mm), POBA to mid Cx HTN (hypertension) (Chronic) Mixed hyperlipidemia (Chronic) Diabetes mellitus, type II (Chronic) Obesity (BMI 30-39.9) (Chronic) Barretts esophagus (Chronic) STEMI (ST elevation myocardial infarction) (Chronic 08/04/17) Surgical History: angioplasty - *Family History Paternal Family History: Family History (Last Updated 10/02/17 @ 13:22 by Maru Cardoso) Mother Heart disease Brother Hypertension History Items: Cancer - esophageal Maternal Family History: Family History (Last Updated 10/02/17 @ 13:22 by Maru Cardoso) Mother Heart disease Brother Hypertension History Items: Heart Disease Smoking Status: Former smoker Review of Systems - Review of Systems General: Denies: Fever, Night Sweats, Fatigue Cardiovascular: Reports: Chest Discomfort, Chest Discomfort with Exertion. Denies: Shortness of Breath, Orthopnea, PND, Peripheral Edema, Palpitations, Lightheadedness, Dizziness, Near Syncope, Syncope Respiratory: Denies: Cough, Sputum Production, Hemoptysis Gastrointestinal: Denies: Hematemesis, Hematochezia, Melena Genitourinary: Denies: Dysuria, Hematuria Skin: Denies: Rash Subjectve: Patient sitting at the edge of beds, no acute distress. Objective: Vital Signs Temp Pulse Resp BP Pulse Ox 97.8 F 67 18 129/78 H 99 10/14/17 12:43 10/14/17 12:43 10/14/17 12:43 10/14/17 12:43 10/14/17 12:43 Oxygen Flow Rate (L/min) 2 Oxygen Delivery Method Nasal Cannula Weight: 193 lb 9.054 oz Body Mass Index (BMI) 31.2 General: Awake, Alert, Oriented x 3 HEENT: PERRL, EOMI, Sclera Non Icteric Neck: Supple, Good ROM, No Lymph Node Enlargement Lungs: Clear to auscultation Cardiovascular: Regular Rhythm, Normal S1, Normal S2, No Murmurs, No Rubs, No Gallops Vascular: No Carotid Bruits, Normal Femoral Pulses, Normal Radial Pulses, Normal Dorsalis Pedal Pulse, Normal Posterior Tibial Pulses Abdomen: Bowel Sounds Present, Soft, Non Tender, No HSM, No Organomegaly Extremities: No Cyanosis, No Clubbing, No edema Neurological: No Focal Motor or Sensory Deficit 10/14/17 13:20: Troponin I < 0.015 Rhythm: EKG: ECHO: Stress Test: Cardiac Cath: PCI: CT Surgery: Holter monitor: EPS: PPM: CXR: Chest CT Scan: Assessment/Plan 1. Coronary artery disease: The patient has known coronary disease and has had several stents in several portions of his left circumflex and right coronary artery systems over the last 3 months. Patient's chest pain appeared to improve after his most recent angioplasty however he has really not exert himself since his PCI up until last week. In addition, there appears to be a anxiety component to the patient set of symptoms, although he does have known coronary disease. The patient is concerned not so much about the chest pain but that he almost passed out due to the severity of the pain most recently today cardiac rehab. I recommended the patient be ruled out for myocardial infarction with troponins at ?3. If his troponins are all negative, I would recommend he undergo a treadmill echocardiogram to assess his functional capacity, blood pressure response to exercise, angina, and to evaluate for possible inferior lateral ischemia consistent with the inferior branch of his left circumflex system that only had balloon angioplasty applied to it 1 month ago. If his stress test is markedly abnormal for ischemia, particularly in that territory to have a low threshold for repeat catheterization and complex bifurcating stenting of his left circumflex and obtuse marginal. We were hesitant to do this at our last angioplasty given the small vessel nature of the inferior branch of the circumflex, as well as less than 50% stenosis at the end of her angioplasty with balloon inflation only. Patient will continue his baby aspirin, Plavix we will hold his Coreg in order to get his heart rate up for his stress test, and continue his other antihypertensive medications including Imdur. 2. Hyperlipidemia: Continue Lipitor. 3. Thank you very much for the opportunity to participate in the cardiac care of your patient. Consultation time between 245 and 3:15 PM. Code Visit Inpatient E&M: 27146 Init Hosp L2
[2017-10-14 16:35] LABS: Bedside Glucose 95 mg/dL (70-110)
[2017-10-14] MEDS: Pantoprazole Sodium 40 MG Tablet PO (21:09)
[2017-10-14] MEDS: Atorvastatin Calcium 40 MG Tablet PO (21:09)
[2017-10-14] MEDS: Lisinopril 10 MG Tablet PO (21:09)
[2017-10-14] MEDS: Carvedilol 12.5 MG Tablet PO (21:09)
[2017-10-14 22:20] LABS: Bedside Glucose 169 mg/dL (70-110)
[2017-10-15 03:00] VITALS: PULSE 71
[2017-10-15 03:15] VITALS: BP 103/66; PULSE 66; RESP 16; TEMP 36.7; O2SAT 96
[2017-10-15 05:06] LABS: Absolute Lymphocyte Count 1.85 X10^3/ul (0.83-4.51); Absolute Neutrophil Count 5.6 X10^3/uL (2.0-7.7); Basophil# 0.02 X10^3/uL; Basophil% 0.2 % (0-1); Eosinophil# 0.22 X10^3/uL; Eosinophils% 2.6 % (0-5); Hematocrit 41.9 % (40-54); Hemoglobin 13.7 g/dl (13.0-16.5); Lymphocyte # 1.85 X10^3/ul (4.0); Lymphocyte % 22.2 % (19-41); Mean Corp Hgb Conc 32.7 g/gl (32-36); Mean Corpuscular Hgb 28.7 pg (27.0-32.0); Mean Corpuscular Volume 87.8 fL (80-94); Mean Platelet Vol. 8.7 fl (6.2-12.0); Monocyte# 0.67 X10^3/uL; Neutrophil # 5.56 X10^3/uL (2.7-7.7); Neutrophil % 66.8 % (47-70); Platelet Count 276 K/mm3 (150-450); RBC Distribution Width SD 41.6 fl (35.1-43.9); Red Blood Count 4.77 M/mm3 (4.6-6.2); White Blood Count 8.3 K/mm3 (4.4-11.0)
[2017-10-15 05:13] LABS: Partial Thromboplast Time 26.7 Seconds (24.1-36.2); Prothrombin Time (Protime)PT. 13.3 SECONDS (11.7-14.9)
[2017-10-15 05:17] LABS: Anion Gap 9 (5-15); BUN 20 mg/dL (7-18); BUN/Creat Ratio 23.5 RATIO (10-20); Calcium,Total 8.8 mg/dL (8.5-10.1); Chloride 105 mmol/L (98-107); Creatinine, Serum 0.85 mg/dL (0.70-1.30); EST Glomerular Filtration Rate 101 mL/min (>60); Est Glom Filt Rate - Afr Amer 122 mL/min (>60); Estimated Creatinine Clearance 93.82 ml/min; Glucose 134 mg/dL (74-106); Potassium 4.3 mmol/L (3.5-5.1); Sodium Level 142 mmol/L (136-145)
[2017-10-15 05:30] LABS: POSITIVE COUNT NO; POSITIVE DIFFERENTIAL NO; POSITIVE MORPHOLOGY NO
--- NOTE | 2017-10-15 05:55 | EKG12_ITS ---
Test Reason : AM EKG Blood Pressure : / mmHG Vent. Rate : 065 BPM Atrial Rate : 065 BPM P-R Int : 186 ms QRS Dur : 096 ms QT Int : 394 ms P-R-T Axes : 017 005 006 degrees QTc Int : 409 ms Normal sinus rhythm Normal ECG When compared with ECG of 14-OCT-2017 10:01, MANUAL COMPARISON REQUIRED, DATA IS UNCONFIRMED Confirmed by ORLANDO QUACH, LILLIAM ([id number]), news copy editor ABDI BANUELOS ([id number]) on 10/23/2017 1:32:16 PM Referred By: RAJ ALBA Confirmed By:LILLIAM PERRY MD
[2017-10-15 07:00] LABS: Bedside Glucose 132 mg/dL (70-110)
[2017-10-15 07:14] VITALS: PULSE 61
[2017-10-15 08:49] VITALS: BP 115/76; PULSE 65; RESP 17; TEMP 36.1; O2SAT 100
[2017-10-15] MEDS: Aspirin 81 MG TAB.CHEW PO (08:52)
[2017-10-15] MEDS: Clopidogrel Bisulfate 75 MG Tablet PO (08:52)
[2017-10-15] MEDS: Lisinopril 10 MG Tablet PO (08:52)
[2017-10-15] MEDS: Pantoprazole Sodium 40 MG Tablet PO (08:52)
[2017-10-15 10:20] LABS: Bedside Glucose 128 mg/dL (70-110)
--- NOTE | 2017-10-15 11:46 | PCM.PN.CARD ---
Subjectve: Patient doing well this morning. No 24 hour events. Objective: Vital Signs Temp Pulse Resp BP Pulse Ox 96.9 F L 65 17 115/76 100 10/15/17 08:49 10/15/17 08:49 10/15/17 08:49 10/15/17 08:49 10/15/17 08:49 Oxygen Flow Rate (L/min) 2 Oxygen Delivery Method Room Air Weight: 193 lb 9.054 oz Body Mass Index (BMI) 31.2 Intake and Output for Last 24 Hours 10/13/17 10/14/17 10/15/17 23:59 23:59 23:59 Intake Total 400 / 400 Balance 400 / 400 General: Awake, Alert, Oriented x 3 HEENT: PERRL, EOMI, Sclera Non Icteric Neck: Supple, Good ROM, No Lymph Node Enlargement Lungs: Clear to auscultation Cardiovascular: Regular Rhythm, Normal S1, Normal S2, No Murmurs, No Rubs, No Gallops Vascular: No Carotid Bruits, Normal Femoral Pulses, Normal Radial Pulses, Normal Dorsalis Pedal Pulse, Normal Posterior Tibial Pulses Abdomen: Bowel Sounds Present, Soft, Non Tender, No HSM, No Organomegaly Extremities: No Cyanosis, No Clubbing, No edema Neurological: No Focal Motor or Sensory Deficit 10/14/17 13:20: Troponin I < 0.015 10/14/17 16:13: Troponin I < 0.015 10/15/17 04:56: Sodium 142, Potassium 4.3, Chloride 105, Carbon Dioxide 28.0, Anion Gap 9, BUN 20 H, Creatinine 0.85, Est GFR (MDRD) Af Amer 122, Est GFR (MDRD) Non-Af 101, BUN/Creatinine Ratio 23.5 H, Glucose 134 H, Calcium 8.8 10/15/17 04:56: WBC 8.3, RBC 4.77, Hgb 13.7, Hct 41.9, MCV 87.8, MCH 28.7, MCHC 32.7, RDW 13.0, RDW Differential 41.6, Plt Count 276, MPV 8.7, Immature Gran % (Auto) 0.200, Neut % (Auto) 66.8, Lymph % (Auto) 22.2, Boundary % (Auto) 8.0, Eos % (Auto) 2.6, Baso % (Auto) 0.2, Absolute Neuts (auto) 5.6, Total Counted Not Reportable 10/15/17 04:56: PT 13.3, INR 1.0, APTT 26.7 Rhythm: EKG: ECHO: Stress Test: Negative for inducible ischemia Cardiac Cath: PCI: CT Surgery: Holter monitor: EPS: PPM: CXR: Chest CT Scan: Medical Necessity - Tobacco Use Smoking Status: Former smoker Assessment/Plan 1. Coronary artery disease: The patient has known coronary disease and has had several stents in several portions of his left circumflex and right coronary artery systems over the last 3 months. Patient's chest pain appeared to improve after his most recent angioplasty however he has really not exert himself since his PCI up until last week. In addition, there appears to be a anxiety component to the patient set of symptoms, although he does have known coronary disease. Patient ruled out for myocardial infarction with troponins negative ?3. He underwent a walking treadmill echocardiogram this morning which was negative for inducible ischemia at an excellent workload. No chest pain symptoms noted. Recommend he continue his current antihypertensive medical therapy, as well as aspirin and Plavix. Patient may be discharged home and follow-up with his primary real estate agent/broker Dr. Mendoza. Patient may resume cardiac rehab. 2. Hyperlipidemia: Continue Lipitor. 3. Thank you very much for the opportunity to participate in the cardiac care of your patient. Patient may be discharged home. Code Visit Inpatient E&M: 32943 Subs Hosp L2
--- NOTE | 2017-10-15 11:52 | PCM.DC ---
- Discharge Diagnoses Reason(s) for Visit for Discharge Instructions: chest pain You will use the following diet at home:: Calorie/Carbohydrate Controlled (specify 1200, 1400, etc) - 1999, Cardiac Your food should be the consistency of: Regular Your liquids should be the consistency of: Regular/Thin Discharge Activity: Return to Normal Activity Additional Instructions: Continue to take all your medications. Continue to follow with cardiac rehab and Dr. Mendoza. Allergies/Adverse Reactions: Allergies bee venom protein (honey bee) Allergy (Severe, Verified 10/14/17 10:16) Angioedema niacin Allergy (Verified 10/14/17 10:16) Shortness of breath Medications to take at Discharge Atorvastatin Calcium 40 mg PO QHS 08/04/17 Fenofibrate [Tricor] 145 mg PO DAILY 08/04/17 Aspirin 81 mg PO DAILY #30 tab.chew 08/07/17 Clopidogrel Bisulfate [Plavix] 75 mg PO DAILY #30 tab 08/07/17 Glimepiride [Amaryl] 2 mg PO DAILY #30 tab 08/07/17 Nitroglycerin [Nitrostat] 0.4 mg SUBLINGUAL Q5M PRN #10 tab 08/07/17 Omeprazole 40 mg PO BID #0 08/07/17 Metformin HCl [Glucophage] 1,000 mg PO BIDCM #0 08/19/17 carvedilol 12.5 mg tablet 12.5 mg PO BID #180 tab 09/02/17 lisinopril 10 mg tablet 10 mg PO BID #60 tab 09/02/17 Isosorbide Mononitrate [Imdur] 30 mg PO DAILY #90 tab 09/16/17 Insulin Glargine,Hum.rec.anlog [Basaglar Kwikpen U-100] 10 unit SQ QHS 10/14/17 Primary Care Physician: Mikey Rogers MD [Primary Care Provider] - Please follow up with your Primary Care Physician in: within 2 weeks Test Results: Test results from this visit will be discussed in further detail at your follow-up appointment, if applicable. Please Follow Up With: Mikey Mendoza MD When: within 2 weeks Proposed Discharge Date: 10/15/17
--- NOTE | 2017-10-15 11:57 | PCM.DC.SUM ---
Discharge Date and Diagnosis Date of Admission: 10/15/17 Date of Discharge: 10/15/17 - Primary Discharge Diagnosis Chest pain, concerning for possible unstable angina - Secondary Discharge Diagnosis Chronic Problems (Last Updated 09/15/17 @ 16:27 by Tawana Young) Arteriosclerosis of coronary artery (Chronic) 08/04/17: JOSEPH to RCA; 08/18/16: JOSEPH to LCX, FFR to OM1 (0.97=neg).09/15/17: JOSEPH to first OM (Synergy MR 2.75 X 20 mm), POBA to mid Cx S/P PTCA (percutaneous transluminal coronary angioplasty) (Chronic) 08/04/17: JOSEPH to RCA; 08/18/16: JOSEPH to LCX, FFR to OM1 (0.97=neg).09/15/17: JOSEPH to first OM (Synergy MR 2.75 X 20 mm), POBA to mid Cx HTN (hypertension) (Chronic) Mixed hyperlipidemia (Chronic) Diabetes mellitus, type II (Chronic) Obesity (BMI 30-39.9) (Chronic) Barretts esophagus (Chronic) STEMI (ST elevation myocardial infarction) (Chronic 08/04/17) Hospital Course and Treatment Imaging Results: 10/15/17 10:07 Stress Test Echo w/o Contrast [ECHO] Routine 10/15/17 10:23 Echo Complete [ECHO] Routine Cardiology Operations: None Procedures: None Summary of Care Provided: 52 year old M with PMHx of Hypertension, hyperlipidemia, CAD status 5 post stents, following Dr. Mendoza in Clinic comes in with complaints of chest pain associated with diaphoresis and and pre-syncope whilst exercising in cardiac rehab. His vitals in the ED were normal, EKG unremarkable. Troponins were negative. No acute events on telemetry. He was seen by Cardiology, underwent a stress test that was negative. He was continued on his aspirin, plavix, Imdur, beta-velia, statin. He will continue with his cardiac rehab and cardiology follow-up. Discharge Diet: Low fat/ Low Cholesterol, 2000 mg Sodium Diet Discharge Activity: Return to Normal Activity Home Medications: Medications to take at Discharge Atorvastatin Calcium 40 mg PO QHS 08/04/17 Fenofibrate [Tricor] 145 mg PO DAILY 08/04/17 Aspirin 81 mg PO DAILY #30 tab.chew 08/07/17 Clopidogrel Bisulfate [Plavix] 75 mg PO DAILY #30 tab 08/07/17 Glimepiride [Amaryl] 2 mg PO DAILY #30 tab 08/07/17 Nitroglycerin [Nitrostat] 0.4 mg SUBLINGUAL Q5M PRN #10 tab 08/07/17 Omeprazole 40 mg PO BID #0 08/07/17 Metformin HCl [Glucophage] 1,000 mg PO BIDCM #0 08/19/17 carvedilol 12.5 mg tablet 12.5 mg PO BID #180 tab 09/02/17 lisinopril 10 mg tablet 10 mg PO BID #60 tab 09/02/17 Isosorbide Mononitrate [Imdur] 30 mg PO DAILY #90 tab 09/16/17 Insulin Glargine,Hum.rec.anlog [Basaglar Kwikpen U-100] 10 unit SQ QHS 10/14/17 Primary Care Physician: Mikey Rogers MD [Primary Care Provider] - Please follow up with your Primary Care Physician in: within 2 weeks Please Follow Up With: Mikey Mendoza MD When: within 2 weeks Minutes spent on discharge:: 40 Patient Condition:: Stable Medical Necessity - Tobacco Use Smoking Status: Former smoker Tobacco Use: Non-smoker Meaningful Use Info Meaningful Use Diagnoses (Choose all that apply): None applicable Code Visit OBSV E&M: 72299 Observation care discharge
[2017-10-15] MEDS: Isosorbide Mononitrate 30 MG Tablet PO (12:19)
[2017-10-15] MEDS: Fenofibrate 145 MG Tablet PO (12:19)
== END 2017-10-15 13:58 | disposition home or self-care (01) ==
LOC: ED 10:56 → PCU 15:33
PROVIDERS: Internal Medicine Cardiovascular Disease; Admitting Provider Internal Medicine; Emergency Provider Emergency Medicine; Family Provider Family Medicine; PCP Family Medicine; Visit Provider Internal Medicine
DX: R07.89 Other chest pain (principal); I25.10 Atherosclerotic heart disease of native coronary artery without angina pectoris; Z95.5 Presence of coronary angioplasty implant and graft; I10 Essential (primary) hypertension; E78.2 Mixed hyperlipidemia; Z79.899 Other long term (current) drug therapy; Z79.02 Long term (current) use of antithrombotics/antiplatelets; Z79.82 Long term (current) use of aspirin; Z79.4 Long term (current) use of insulin; E11.9 Type 2 diabetes mellitus without complications; E66.9 Obesity, unspecified; Z68.31 Body mass index [BMI] 31.0-31.9, adult; Z71.3 Dietary counseling and surveillance; I25.2 Old myocardial infarction; Z87.891 Personal history of nicotine dependence; K21.9 Gastro-esophageal reflux disease without esophagitis
CPT/HCPCS: 36415; 71045; 80048; 82962; 84484; 85025; 85610; 85730; 93005; 93017; 93306; 93350; 96372; 99218; 99285; A4216; G0378

== ENCOUNTER 2017-11-06 09:15 | Outpatient (RCR) | payer OTHER, SELFPAY ==
[2017-10-10 00:18] VITALS: BP 150/82; BP 98/60
--- NOTE | 2017-11-04 13:33 | CR.ITP_ITS ---
General Information - General Information Admitting Diagnosis: STEMI, PCI w/coronary artery stenting - Education/Goals Cardiac Rehabilitation Goals: 1. Maintain the individual as the primary focus of care. 2. To improve the patient's quality of life. 3. Identification of cardiac risk factors and provide cardiac risk factor management. 4. Enhance the psychosocial status of the patient. 5. Reconditioning enough to allow the patient to resume customary activities. 6. Control symptoms of cardiac disease Scale for measuring improvement of personal goals: Enter appropriate number in Comments. 2 = Unchanged. 3 = Slightly Better. 4 = Moderate Improvement. 5 = Met my Goal Exercise - 60-Day Assessment - Visit Date of Eval: 11/04/17 Session #:: 13 - Stages of Change Stages of Change:: Action - Exercise Prescription Mode:: Treadmill, Biodyne, NuStep Frequency (x/week): 3 Duration:: 30 METs: 4.5 Target Heart Rate:: 127-136 Max HR 105 - Hypertension Resting Blood Pressure:: 124/64 Peak Exercise Blood Pressure:: 138/68 - Intervention Home Exercise/Activity Goal:: Sitting Time <3 hrs/day - Education Goals:: Warm-up, RPE LISA Scale, S/S, Safe Exercise, Self-Monitoring - Exercise Program Goals Exercise Program Goals: Aerobic Activity >30 min, B/P <130/80 Nutrition - 60-Day Assessment - Program Goals Nutrition Program Goals: LDL <70. Total Cholesterol <200. HDL >45. Triglycerides <150. HgbA1C <7%. BMI <25 - Visit Date of Eval: 11/04/17 - Stages of Change Stages of Change:: Action - Lipids Has the patient seen the dietitian?: No - Diabetes Diabetes:: Yes - Weight Management Weight:: 88.451 kg - Intervention Referral to dietitian:: No Referral to Diabetic Clinic:: No Will attend diet classes:: Yes - Education Attended class for:: Signs & symptoms of hypoglycemia, Signs & symptoms of hyperglycemia, Relate diabetes to coronary artery disease, Healthy eating Tobacco - 60-Day Assessment - Program Goals Tobacco Program Goals: Complete smoking cessation. Attend education classes. Improve Knowledge Test score - Stage of Change Stages of Change:: Action - Learning Barriers Learning Barriers: Participates in education - Family Support Do you have family support?: Yes - Tobacco Use Tobacco Use: Non-smoker Do you use smokeless tobacco?: No - Intervention Smoking Cessation Referral:: No Individual Education/Counseling:: No Education Schedule Given:: Yes - Education Attended class for:: Tobacco triggers, Coronary artery disease, Risk factors, Sexuality, Medical compliance, Cardiac A&P, Angina signs & symptoms Psychosocial - Initial Assess - Target Goals Target Goals: Assess presence or absence of depression. Using a valid screening tool, maximizes coping skills. Positive support system - Psychosocial Test Tool Used:: HANDS Depression Questionnaire - Assistive Devices Fall Risk Assessed:: Yes Psychosocial - 60-Day Assess - Target Goals Target Goals: Assess presence or absence of depression. Using a valid screening tool, maximizes coping skills. Positive support system - Stages of Change Stages of Change:: Action - Psychosocial Test Tool Used:: HANDS Depression Questionnaire - Intervention PS - Interventions: Yes Attend Stress Management Classes, Yes Uses Stress Management Skills, No Referral to Mental Health, No Referral to [facility] Case Management, No Referral to Physician - Education Attended classes for:: Coping techniques, Signs & symptoms of depression, Stress management, Relaxation techniques - Assistive Devices Assistive Devices:: None Fall Risk Assessed:: Yes Patient Health Questionnaire 60-Day Re-eval Assessment 1. Little interest or pleasure in doing things: Not at all 2. Feeling down, depressed, or hopeless: Not at all 3. Trouble falling or staying asleep, or sleeping too much: Not at all 4. Feeling tired or having little energy: Several days 5. Poor appetite or overeating: Not at all 6. Feeling bad about yourself -- or that you are a failure or have let yourself or your family down: Not at all 7. Trouble concentrating on things, such as reading the newspaper or watching television: Several days 8. Moving or speaking so slowly that other people could have noticed. Or the opposite - being so fidgety or restless that you have been moving around a lot more than usual: Several days 9. Thoughts that you would be better off , or of hurting yourself in some way: Not at all How difficult have these problems made it for you to do your work, take care of things at home, or get along with other people?: Not difficult at all Total Score: 3 Self-Efficacy 60-Day Re-eval Assessment We would like to know how confident you are in doing certain activities. Please select your confidence level for:: Select your confidence level for the following using the scale 1-10 where 1 is not at all confident and 10 is totally confident. Your score is the average of all 6 responses. Fatigue: How confident are you that you can keep the fatigue caused by your disease from interfering with the things you want to do? Select Number: 10 Physical Discomfort or Pain: How confident are you that you can keep the physical discomfort or pain of your disease from interfering with the things you want to do? Select Number: 8 Emotional Distress: How confident are you that you can keep the emotional distress caused by your disease from interfering with the things you want to do? Select Number: 5 Other Symptoms or Health Problems: How confident are you that you can keep other symptoms or health problems from interfering with the things you want to do? Select Number: 10 Different Tasks and Activities: How confident are you that you can do the different tasks and activities needed to manage your health condition so as to reduce your need to see a doctor? Select Number: 10 Medication: How confident are you that you can do things other than just taking medication to reduce how much your illness affects your everyday life? Select Number: 10 Total Score:: 8
[2017-11-04 13:34] VITALS: BP 124/64; BP 138/68
== END 2017-11-08 23:59 ==
LOC: CR 09:15
PROVIDERS: Family Provider Family Medicine; PCP Family Medicine; Visit Provider Internal Medicine Cardiovascular Disease
DX: Z95.5 Presence of coronary angioplasty implant and graft (principal); I25.10 Atherosclerotic heart disease of native coronary artery without angina pectoris
CPT/HCPCS: 93798

== ENCOUNTER → 2017-11-30 08:02 | Outpatient (CLI) | payer OTHER, SELFPAY ==
[2017-11-30 10:56] LABS: Cholesterol 183 mg/dL (200); High Density Lipoprotein 32 mg/dL; Triglycerides 261 mg/dL; Very Low Density Lipoprotein 52 mg/dL (5-40)
[2017-11-30 11:38] LABS: ALB/GLOB Ratio 1.1 RATIO (0.9-2.4); AST(SGOT) 22 U/L (15-37); Alanine Aminotransfer ALT/SGPT 33 U/L (16-61); Albumin, Serum 4.1 g/dL (3.2-5.0); Alkaline Phosphatase 89 U/L (45-117); Anion Gap 12 (5-15); BUN 14 mg/dL (7-18); BUN/Creat Ratio 14.2 RATIO (10-20); Calcium,Total 8.9 mg/dL (8.5-10.1); Chloride 103 mmol/L (98-107); Creatinine, Serum 0.98 mg/dL (0.70-1.30); EST Glomerular Filtration Rate 85 mL/min (>60); Est Glom Filt Rate - Afr Amer 103 mL/min (>60); Free T3 2.7 pg/mL (2.18-3.98); Globulin 3.7 g/dL (2.2-4.2); Glucose 126 mg/dL (74-106); Potassium 4.7 mmol/L (3.5-5.1); Protein, Total 7.8 g/dL (6.4-8.2); Sodium Level 137 mmol/L (136-145); Thyroid Stim Hormone (TSH) 3.45 uIU/mL (0.358-3.74)
[2017-12-02 11:18] LABS: C-Peptide 5.1 ng/mL (1.1-4.4); Thyroid Peroxidase AB 10 IU/mL (0-34)
== END ==
PROVIDERS: Family Provider Family Medicine; PCP Family Medicine; Referring Provider Internal Medicine Endocrinology, Diabetes & Metabolism; Visit Provider Internal Medicine Endocrinology, Diabetes & Metabolism
DX: E11.9 Type 2 diabetes mellitus without complications (principal); Z86.39 Personal history of other endocrine, nutritional and metabolic disease
CPT/HCPCS: 36415; 80053; 80061; 84439; 84443; 84481; 84681; 86376

== ENCOUNTER 2017-12-09 09:15 | Outpatient (RCR) | payer OTHER, SELFPAY ==
[2017-11-09 00:21] VITALS: BP 124/64; BP 138/68
--- NOTE | 2017-12-04 08:25 | PCM.CR.ITP ---
Exercise - Final/Discharge - Visit Date of Eval: 12/04/17 Session #:: 24 - Stages of Change Stages of Change:: Action - Exercise Prescription Mode:: Treadmill, Rower, Airdyne, NuStep Frequency (x/week): 3 Duration:: 35 METs: 5.5 limited increase due to ongoing angina pectoris Target Heart Rate:: 127-136 - Hypertension Do any of the following apply?: Yes, Medication Resting Blood Pressure:: 122/62 Peak Exercise Blood Pressure:: 144/80 - Intervention Home Exercise/Activity Goal:: Moderate Exercise 30 min/day x 5 days/wk - Education Goal Progress: Goal Met - Exercise Program Goals Exercise Program Goals: Aerobic Activity >30 min Nutrition - Final Assessment - Program Goals Nutrition Program Goals: LDL <70. Total Cholesterol <200. HDL >45. Triglycerides <150. HgbA1C <7%. BMI <25 - Visit Date of Eval: 12/04/17 - Stages of Change Stages of Change:: Action - Diabetes Diabetes:: Yes Insulin: Yes Non-Insulin Dependent?: Yes Random Blood Glucose:: 178 - 178-228 range pre/post exercise - Weight Management Height: 5 ft 6 in Weight:: 198 lb Body Fat %:: 31 - Intervention Referral to dietitian:: No Referral to Diabetic Clinic:: No Will attend diet classes:: Yes - Education Education Goal Reached?: Yes Tobacco - Final Assessment - Program Goals Tobacco Program Goals: Complete smoking cessation. Attend education classes. Improve Knowledge Test score - Stage of Change Stages of Change:: Action - Family Support Do you have family support?: Yes - Tobacco Use Tobacco Use: Non-smoker Do you use smokeless tobacco?: No - Intervention Smoking Cessation Referral:: No Individual Education/Counseling:: No Education Schedule Given:: Yes - Education Education Goal Reached?: Yes - patient actively particpated in education and training Psychosocial - Initial Assess - Target Goals Target Goals: Assess presence or absence of depression. Using a valid screening tool, maximizes coping skills. Positive support system - Psychosocial Test Tool Used:: HANDS Depression Questionnaire - Assistive Devices Fall Risk Assessed:: Yes Psychosocial - Final Assessmen - Target Goals Target Goals: Assess presence or absence of depression. Using a valid screening tool, maximizes coping skills. Positive support system - Stages of Change Stages of Change:: Action - Psychosocial Test Tool Used:: HANDS Depression Questionnaire - Intervention PS - Interventions: Yes Attend Stress Management Classes, Yes Uses Stress Management Skills - patient greatly improved ability to control anxiety, No Referral to Mental Health, No Referral to [facility] Case Management, No Referral to Physician - Education Education Goal Reached?: Yes - Patient/Program Goal Preventative Medication(s):: Aspirin, Clopidogrel, Beta velia, Statin/lipid - Assistive Devices Assistive Devices:: None Fall Risk Assessed:: Yes Patient Health Questionnaire Discharge Assessment 1. Little interest or pleasure in doing things: Not at all 2. Feeling down, depressed, or hopeless: Not at all 3. Trouble falling or staying asleep, or sleeping too much: Not at all 4. Feeling tired or having little energy: Not at all 5. Poor appetite or overeating: Not at all 6. Feeling bad about yourself -- or that you are a failure or have let yourself or your family down: Not at all 7. Trouble concentrating on things, such as reading the newspaper or watching television: Not at all 8. Moving or speaking so slowly that other people could have noticed. Or the opposite - being so fidgety or restless that you have been moving around a lot more than usual: Not at all 9. Thoughts that you would be better off , or of hurting yourself in some way: Not at all Total Score: 0 SOCRATES-Q SV Test - Statements CAD is a disease of the arteries in the heart: False Examples of risk factors for heart disease: True Angina is chest pain or discomfort: True The benefits of resistance training include: True Eating more meat and dairy products: False Anti-platelet medications such as aspirin are important: True The only effective way to manage stress: False An exercise warm-up slowly increases heart rate: True Prepared, processed foods usually have high sodium: True Depression is common after a heart attack: True The statin medications lower cholesterol: True To control blood pressure, lower the amount of sodium: True If someone gets chest discomfort during walking: False Transfats are partially hydrogenated vegetable oils: True Sleep apnea that is not treated increases the risk: False To control cholesterol, one should become a vegetarian: False Someone knows if he/she is exercising at the right level: True Diabetes cannot be prevented with exercise & health eating: False Stress is a large risk for heart attack: True A diet that can help lower blood pressure is rich in: True - Total Score Total Correct Responses: 20 Self-Efficacy Discharge Assessment We would like to know how confident you are in doing certain activities. Please select your confidence level for:: Select your confidence level for the following using the scale 1-10 where 1 is not at all confident and 10 is totally confident. Your score is the average of all 6 responses. Fatigue: How confident are you that you can keep the fatigue caused by your disease from interfering with the things you want to do? Select Number: 10 Physical Discomfort or Pain: How confident are you that you can keep the physical discomfort or pain of your disease from interfering with the things you want to do? Select Number: 10 Emotional Distress: How confident are you that you can keep the emotional distress caused by your disease from interfering with the things you want to do? Select Number: 10 Other Symptoms or Health Problems: How confident are you that you can keep other symptoms or health problems from interfering with the things you want to do? Select Number: 10 Different Tasks and Activities: How confident are you that you can do the different tasks and activities needed to manage your health condition so as to reduce your need to see a doctor? Select Number: 10 Medication: How confident are you that you can do things other than just taking medication to reduce how much your illness affects your everyday life? Select Number: 10 Total Score:: 10 Nutrition Survey - Nutrition Survey Instructions Scoring Instructions: Scoring is as follows: Yes = 1 points. No = 0 point. Patient score that is >/=12 is considered to be at potential nutritional risk and could benefit from a referral to a registered dietitian. - Nutrition Survey Discharge Have you lost >10 lbs over the past 2 months without trying?: No Are you following a special diet at home for diabetes, low fat, or low salt?: Yes - 1800 calorie low fat low sodium diabetic diet Are you interested in meeting with a dietitian for help understanding your diet?: No Do you eat less than 3 meals a day?: No Do you eat fatty meats (alex, sausage, ribs, etc), fried foods, desserts, large amounts of salad dressings, margarine, butter, or cheese most days?: No Do you have food allergies? [Enter types in comment field]: No Do you eat in restaurants more than 3 times a week?: No Do you season food with salt, seasoning salt, or garlic salt?: No Do you used canned, boxed, frozen meals, or soups, seasoning packets?: Yes Total Score:: 2
[2017-12-04 08:30] VITALS: BP 122/62; BP 144/80
== END 2017-12-09 23:59 ==
LOC: CR 09:15
PROVIDERS: Family Provider Family Medicine; PCP Family Medicine; Visit Provider Internal Medicine Cardiovascular Disease
DX: I25.10 Atherosclerotic heart disease of native coronary artery without angina pectoris (principal); Z95.5 Presence of coronary angioplasty implant and graft
CPT/HCPCS: 93798

== ENCOUNTER 2017-12-30 09:15 | Outpatient (RCR) | payer OTHER, SELFPAY ==
[2017-12-10 00:32] VITALS: BP 122/62; BP 144/80
== END 2018-01-08 23:59 ==
LOC: CR 09:15
PROVIDERS: Family Provider Family Medicine; PCP Family Medicine; Referring Provider Internal Medicine Cardiovascular Disease; Visit Provider Internal Medicine Cardiovascular Disease
DX: I25.10 Atherosclerotic heart disease of native coronary artery without angina pectoris (principal); Z95.5 Presence of coronary angioplasty implant and graft
CPT/HCPCS: 93798

== ENCOUNTER → 2018-03-19 08:55 | Outpatient (CLI) | payer OTHER, SELFPAY ==
[2017-12-25 13:52] VITALS: BMI 32.9
[2018-03-19 10:50] LABS: AST(SGOT) 25 U/L (15-37); Alanine Aminotransfer ALT/SGPT 48 U/L (16-61); Albumin, Serum 4.3 g/dL (3.2-5.0); Alkaline Phosphatase 82 U/L (45-117); Anion Gap 11 (5-15); BUN 25 mg/dL (7-18); BUN/Creat Ratio 25.5 RATIO (10-20); Bilirubin, Direct 0.15 mg/dL (0.00-0.30); Calcium,Total 9.1 mg/dL (8.5-10.1); Chloride 102 mmol/L (98-107); Cholesterol 204 mg/dL (200); Creatinine, Serum 0.98 mg/dL (0.70-1.30); EST Glomerular Filtration Rate 86 mL/min (>60); Est Glom Filt Rate - Afr Amer 104 mL/min (>60); Globulin 3.5 g/dL (2.2-4.2); Glucose 194 mg/dL (74-106); High Density Lipoprotein 30 mg/dL; Potassium 5.2 mmol/L (3.5-5.1); Protein, Total 7.8 g/dL (6.4-8.2); Sodium Level 136 mmol/L (136-145); Triglycerides 341 mg/dL; Very Low Density Lipoprotein 68 mg/dL (5-40)
== END ==
PROVIDERS: Family Provider Family Medicine; PCP Family Medicine; Visit Provider Family Medicine
DX: E11.9 Type 2 diabetes mellitus without complications (principal)
CPT/HCPCS: 36415; 80048; 80061; 80076

== ENCOUNTER 2018-03-22 07:56 | Observation (INO) | payer OTHER, SELFPAY ==
[2017-12-25 13:52] VITALS: BMI 32.9
[2018-03-22] VITALS (16 sets, daily range): BP systolic 106–156; BP diastolic 56–94; PULSE 59–92; RESP 13–18; TEMP 35.7–36.6; O2SAT 95–100; BMI 32.6; BMI 33.0
--- NOTE | 2018-03-22 08:07 | RAD_ITS ---
STUDY: X-RAY CHEST REASON FOR EXAM: Male, 53 years old. Chest pain. TECHNIQUE: Single AP portable view of the chest. COMPARISON: Comparison is made with prior study dated October 14, 2017. FINDINGS: EKG electrodes are seen. The lungs are clear and expanded. Scattered calcified granulomas. Stable mild elevation of the right hemidiaphragm. There is no demonstrated pleural abnormality. There is borderline cardiomegaly. Normal mediastinum and alberto. Normal visualized pulmonary arteries. Normal visualized aortic arch and descending thoracic aorta. Normal visualized thoracic spine. There is degenerative osteoarthritis of the bilateral shoulders. There is no demonstrated abnormality of the visualized soft tissue structures of the upper abdomen. RAD/Chest 1 View (Portable) IMPRESSION: Borderline cardiomegaly. No acute abnormality is seen. Electronically Signed: Pola Funes MD at 8:53 EST , Service support ,
--- NOTE | 2018-03-22 08:07 | EKG12_ITS ---
Test Reason : FLOOR EKG CP Blood Pressure : / mmHG Vent. Rate : 066 BPM Atrial Rate : 066 BPM P-R Int : 186 ms QRS Dur : 100 ms QT Int : 386 ms P-R-T Axes : 021 017 022 degrees QTc Int : 404 ms Normal sinus rhythm Normal ECG When compared with ECG of 15-OCT-2017 05:24, No significant change was found Confirmed by ORLANDO QUACH, LILLIAM ([id number]), news copy editor ABDI BANUELOS ([id number]) on 03/25/2018 8:48:51 AM Referred By: HOSP Confirmed By:LILLIAM PERRY MD
--- NOTE | 2018-03-22 08:09 | ED.VISSUMM ---
- ER Visit Summary Date of Service: 03/22/18 Chief Complaint: Chest pain History of Present Illness: The patient is a 53 M history of prior [place] in 2018. He had 3 cardiac caths last year. He is a total of 5 coronary stents. He states recently has been doing very well. He exercises and walks states he has not had any exertional chest pain or dyspnea. At 430 this morning he was awoken from sleep with midsternal chest pain. He does have a history of reflux said he took his normal medication for his reflux and did no benefit. Did not take away his pain. Pain was intermittent. It would go from midsternal his neck down to his left shoulder and elbow. He did have shortness of breath, nausea and diaphoresis with it. He did on 1 of the more severe episodes of chest pain take a sublingual nitro which completely resolved his pain. He was brought in by squad. Squad did 2 EKGs which were normal. Currently the patient is pain-free. Physical Examination: Well-appearing middle-age male. Vital signs are stable. He is afebrile. H EENT exam is unremarkable. Neck nontender. Lungs clear to auscultation bilaterally. Heart regular rate and rhythm no murmur. Chest wall is nontender. Abdomen is soft and nontender. Normal bowel sounds. No peritoneal signs. Patient is moving all 4 extremities. Calves are nontender without edema or cords. Radial pulses are equal and symmetrical. Neurologically is awake and alert with no focal motor deficits. Test Results: First EKG done in the ER shows a sinus rhythm rate of 89 with no acute signs of [place] or ischemia. No ST elevation or depression. CBC normal white count of 6. Hemoglobin 14. Chemistries normal creatinine 0.9. Glucose elevated at 229. Troponin normal. Chest x-ray portable one view shows no acute abnormality. Normal cardiac silhouette. Read both of myself and the radiologist. Patient had dull aching pain and had a repeat EKG it showed a sinus rhythm rate 81 again with no [place] or ischemia. Emergency Department Course and Treatment: Patient will undergo cardiac workup. He will receive p.o. aspirin. Treatment Plan: On repeat exam at 08 38 patient is doing well. He had recurrent chest pain but the repeat EKG was unremarkable. He does not want a nitroglycerin and the pain is resolving. He describes it as dull. I very spoken to Dr. Mendoza who is taking care of this patient in the past and I have a hospitalist on page for admission. Patient denied discussed his presentation and all his test results. Disposition: Admission Impression: Acute chest pain History of CAD, [place], 5 cardiac stents This note was generated with [employer] dictation software. It may contain incorrect words, spelling, and punctuation that were not noted in review of the chart prior to signing ED Disposition - Plan for ED Patient: Referrals: Mikey Rogers MD [Primary Care Provider] -
--- NOTE | 2018-03-22 08:12 | ED.DCSUM_ITS ---
- ER Visit Summary Date of Service: 03/22/18 Chief Complaint: Chest pain History of Present Illness: The patient is a 53 M history of prior CT in 2018. He had 3 cardiac caths last year. He is a total of 5 coronary stents. He states recently has been doing very well. He exercises and walks states he has not had any exertional chest pain or dyspnea. At 430 this morning he was awoken from sleep with midsternal chest pain. He does have a history of reflux said he took his normal medication for his reflux and did no benefit. Did not take away his pain. Pain was intermittent. It would go from midsternal his neck down to his left shoulder and elbow. He did have shortness of breath, nausea and martinez phoresis with it. He did on 1 of the more severe episodes of chest pain take a sublingual nitro which completely resolved his pain. He was brought in by squad. Squad did 2 EKGs which were normal. Currently the patient is pain-free. Physical Examination: Well-appearing middle-age male. Vital signs are stable. He is afebrile. H EENT exam is unremarkable. Neck nontender. Lungs clear to auscultation bilaterally. Heart regular rate and rhythm no murmur. Chest wall is nontender. Abdomen is soft and nontender. Normal bowel sounds. No peritoneal signs. Patient is moving all 4 extremities. Calves are nontender without edema or cords. Radial pulses are equal and symmetrical. Neurologically is awake and alert with no focal motor deficits. Test Results: First EKG done in the ER shows a sinus rhythm rate of 89 with no acute signs of CT or ischemia. No ST elevation or depression. CBC normal white count of 6. Hemoglobin 14. Chemistries normal creatinine 0.9. Glucose elevated at 229. Troponin normal. Chest x-ray portable one view shows no acute abnormality. Normal cardiac silhouette. Read both of myself and the radiologist. Patient had dull aching pain and had a repeat EKG it showed a sinus rhythm rate [address] or ischemia. Emergency Department Course and Treatment: Patient will undergo cardiac workup. He will receive p.o. aspirin. Treatment Plan: On repeat exam at 08 38 patient is doing well. He had recurrent chest pain but the repeat EKG was unremarkable. He does not want a nitroglycerin and the pain is resolving. He describes it as dull. I very spoken to Dr. Mendoza who is taking care of this patient in the past and I have a hospitalist on page for admission. Patient denied discussed his presentation and all his test results. Disposition: Admission Impression: Acute chest pain History of CAD, CT, 5 cardiac stents This note was generated with [employer] dictation software. It may contain incorrect words, spelling, and punctuation that were not noted in review of the chart prior to signing ED Disposition - Plan for ED Patient: Referrals: Mikey Rogers MD [Primary Care Provider] -
[2018-03-22 08:24] LABS: Absolute Lymphocyte Count 1.56 X10^3/ul (0.83-4.51); Absolute Neutrophil Count 4.5 X10^3/uL (2.0-7.7); Basophil# 0.01 X10^3/uL; Basophil% 0.1 % (0-1); Eosinophil# 0.11 X10^3/uL; Eosinophils% 1.6 % (0-5); Hematocrit 42.3 % (40-54); Lymphocyte # 1.56 X10^3/ul (4.0); Lymphocyte % 22.8 % (19-41); Mean Corp Hgb Conc 33.1 g/gl (32-36); Mean Corpuscular Hgb 28.2 pg (27.0-32.0); Mean Corpuscular Volume 85.1 fL (80-94); Mean Platelet Vol. 9.2 fl (6.2-12.0); Monocyte% 8.8 % (0-10); Neutrophil # 4.53 X10^3/uL (2.7-7.7); Neutrophil % 66.3 % (47-70); Platelet Count 266 K/mm3 (150-450); RBC Distribution Width CV 13.4 % (11.6-14.6); RBC Distribution Width SD 40.9 fl (35.1-43.9); Red Blood Count 4.97 M/mm3 (4.6-6.2); White Blood Count 6.8 K/mm3 (4.4-11.0)
[2018-03-22 08:25] LABS: POSITIVE COUNT NO; POSITIVE DIFFERENTIAL NO; POSITIVE MORPHOLOGY NO
[2018-03-22 08:35] LABS: Anion Gap 8 (5-15); BUN 23 mg/dL (7-18); BUN/Creat Ratio 24.5 RATIO (10-20); Calcium,Total 8.3 mg/dL (8.5-10.1); Chloride 103 mmol/L (98-107); Creatinine, Serum 0.94 mg/dL (0.70-1.30); EST Glomerular Filtration Rate 90 mL/min (>60); Est Glom Filt Rate - Afr Amer 109 mL/min (>60); Estimated Creatinine Clearance 99.02 ml/min; Glucose 229 mg/dL (74-106); Sodium Level 139 mmol/L (136-145)
--- NOTE | 2018-03-22 08:45 | EKG12_ITS ---
Test Reason : REPEAT Blood Pressure : / mmHG Vent. Rate : 081 BPM Atrial Rate : 081 BPM P-R Int : 172 ms QRS Dur : 100 ms QT Int : 364 ms P-R-T Axes : 013 013 013 degrees QTc Int : 422 ms Normal sinus rhythm Normal ECG Confirmed by LILLIAM PERRY MD ([id number]), city editor ABDI BANUELOS ([id number]) on 03/26/2018 8:56:51 AM Referred By: JAYME Confirmed By:LILLIAM PERRY MD
--- NOTE | 2018-03-22 09:30 | HP.PCM_ITS ---
History of Present Illness Date of Admission: 03/22/18 Chief Complaint: chest pain The patient is a 53 year old M with an extensive cardiac history which includes CAD s/p stents x 5, and diabetes as well as hyperlipidemia. He was admitted to the ED on 03/22/2018 with a complaint of chest pain. Chest pain started around 4:30 AM on day of admission. It was retrosternal and he initially thought it was due to reflux. He therefore took some baking soda mixed with water to see if pain will be relieved. However pain still persisted with assisted diaphoresis, shortness of breath and increased dizziness. He took a sublingual nitro which helped relieve the pain. He therefore decided to call the EMS to brought to the hospital. Initial troponin was negative and EKG showed no acute ST changes. He is been admitted to be worked up for chest pain to rule out ACS. [] Past Medical History Past Medical History (Chronic Problems): Chronic Problems (Last Updated 03/22/18 @ 13:39 by Cynthia Pedraza) Atherosclerosis of coronary artery of de[place] heart without angina pectoris (Chronic) 08/18/16: JOSEPH to LCX, FFR to OM1 (0.97=neg); 08/04/17: JOSEPH to RCA; 09/15/17: JOSEPH to first OM (Synergy MR 2.75 X 20 mm), POBA to mid Cx HTN (hypertension) (Chronic) Mixed hyperlipidemia (Chronic) Diabetes mellitus, type II (Chronic) Obesity (BMI 30-39.9) (Chronic) Barretts esophagus (Chronic) STEMI (ST elevation myocardial infarction) (Chronic 08/04/17) Medical History: Medical History (Last Updated 03/22/18 @ 13:39 by Cynthia Pedraza) Atherosclerosis of coronary artery of [place] heart without angina pectoris (Chronic) I25.10 08/18/16: JOSEPH to LCX, FFR to OM1 (0.97=neg); 08/04/17: JOSEPH to RCA; 09/15/17: JOSEPH to first OM (Synergy MR 2.75 X 20 mm), POBA to mid Cx HTN (hypertension) (Chronic) I10 Mixed hyperlipidemia (Chronic) E78.2 Diabetes mellitus, type II (Chronic) E11.9 Obesity (BMI 30-39.9) (Chronic) E66.9 Barretts esophagus (Chronic) K22.70 STEMI (ST elevation myocardial infarction) (Chronic) Onset Date: 08/04/17 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 CAD (coronary artery disease) I25.10 DM2 (diabetes mellitus, type 2) E11.9 Hiatal hernia K44.9 HTN (hypertension) I10 Allergies bee venom protein (honey bee) Allergy (Severe, Verified 03/22/18 08:04) Angioedema niacin Allergy (Verified 03/22/18 08:04) Shortness of breath Home Medications: Ambulatory Orders Medication Instructions Recorded Atorvastatin Calcium 40 mg PO QHS 08/04/17 Fenofibrate [Tricor] 145 mg PO DAILY 08/04/17 Glimepiride [Amaryl] 2 mg PO DAILY #30 tab 08/07/17 Nitroglycerin [Nitrostat] 0.4 mg SUBLINGUAL Q5M PRN #10 tab 08/07/17 Metformin HCl [Glucophage] 1,000 mg PO BIDCM #0 08/19/17 Insulin Glargine,Hum.rec.anlog 12 unit SQ QHS 10/14/17 [Basaglar Beataikpen U-100] Aspirin 81 mg PO DAILY 03/22/18 Carvedilol 12.5 mg PO BID 03/22/18 Clopidogrel Bisulfate [Plavix] 75 mg PO QHS 03/22/18 Isosorbide Mononitrate [Imdur] 30 mg PO DAILY 03/22/18 Lisinopril 20 mg PO QAM 03/22/18 Omeprazole 40 mg PO DAILY 03/22/18 Surgical History: Surgical History (Last Updated 03/22/18 @ 13:39 by Cynthia Pedraza) History of coronary artery stent placement (Resolved) Onset Date: 09/15/17 Z95.5 08/18/16: JOSEPH to LCX, FFR to OM1 (0.97=neg); 08/04/17: JOSEPH to RCA; 09/15/17: JOSEPH to first OM (Synergy MR 2.75 X 20 mm), POBA to mid Cx History of left heart catheterization Onset Date: 03/22/18 Z98.890 Surgical History: angioplasty Lives: With Family Smoking Status: Former smoker Alcohol: None Drugs: None - *Family History Paternal Family History: Family History (Last Updated 10/02/17 @ 13:22 by Maru Cardoso) Mother Heart disease Brother Hypertension History Items: Cancer - esophageal Maternal Family History: Family History (Last Updated 10/02/17 @ 13:22 by Maru Cardoso) Mother Heart disease Brother Hypertension History Items: Heart Disease Review of Systems Constitutional: Denies: Chills, Fever, Malaise, Weight Change Eyes: Denies: Blurred vision HEENT: Denies: Head Aches, Sinus Congestion, Sinus Drainage Cardiovascular: Reports: Chest Pain, Light Headedness, Palpitations. Denies: Chest Pressure, Chest Tightness, Edema, Heaviness, Orthopnea, Syncope Respiratory: Denies: Cough, Shortness of breath at rest, Sputum production Gastrointestinal: Denies: Abdominal Pain, Nausea, Vomiting Genitourinary: Denies: Dysuria Musculoskeletal: Denies: Joint Pain, Joint Tenderness Skin: Denies: Rash, Wounds Neurological: Denies: Numbness, Tingling, Focal weakness Psychiatric: Denies: Anxiety, Depression, Homicidal Ideations, Suicidal Ideations Hematologic/ Lymphatic: Reports: Adenopathy VTE Information - Inpt Only VTE Present on Admission: No VTE Pharm Prophylaxis ordered?: Yes - Physical Exam General: Alert, Oriented x3, Cooperative, No apparent distress HEENT: Atraumatic, PERRLA, EOMI, Normocephalic Oral: Moist Mucosa Neck: Supple, No JVD, Negative Carotid Bruits Lungs: Clear to auscultation, Normal air movement, No rhonchi, No wheeze, No rales Cardiovascular: Regular rate, Regular Rhythm, Normal S1, Normal S2, No murmurs Abdomen: Bowel Sounds Present, Soft, Non Tender Extremities: No clubbing, No cyanosis, No edema, Capillary Refill Less than 3 Seconds Skin: No rashes, No breakdown Musculoskeletal: No Tenderness to Palpation of Joints or Extremities Lymphatic: No Cervical, Supraclavicular, or Inguinal Adenopathy Neurological: Cranial nerves II-XII grossly intact, Neuro grossly intact, Motor Exam 5/5 strength throughout Psych/Mental Status: Normal Affect, Appropriate, Alert and oriented to time, place, person, mood and affect Vital Signs Temp Pulse Resp BP Pulse Ox 98 F 75 13 110/56 L 97 03/22/18 07:57 03/22/18 09:06 03/22/18 09:06 03/22/18 09:06 03/22/18 09:06 Weight: 233 lb 14.567 oz Body Mass Index (BMI) 32.6 Finger Stick Blood Glucose 79 Laboratory Tests Past 24 Hrs 03/22/18 03/22/18 08:05 08:05 WBC 6.8 RBC 4.97 Hgb 14.0 Hct 42.3 MCV 85.1 MCH 28.2 MCHC 33.1 RDW 13.4 RDW Differential 40.9 Plt Count 266 MPV 9.2 Immature Gran % (Auto) 0.400 Neut % (Auto) 66.3 Lymph % (Auto) 22.8 Lyman % (Auto) 8.8 Eos % (Auto) 1.6 Baso % (Auto) 0.1 Absolute Neuts (auto) 4.5 Absolute Lymphs (auto) 1.56 Total Counted Not Reportable Sodium 139 Potassium 4.0 Chloride 103 Carbon Dioxide 28.0 Anion Gap 8 BUN 23 H Creatinine 0.94 Estim Creat Clear Calc 99.02 Est GFR (MDRD) Af Amer 109 Est GFR (MDRD) Non-Af 90 BUN/Creatinine Ratio 24.5 H Glucose 229 H Calcium 8.3 L Troponin I < 0.015 Diagnostic Data Chest X-Ray 03/22/18 08:07 IMPRESSION: Borderline cardiomegaly. No acute abnormality is seen. Electronically Signed: Pola Funes MD at 8:53 EST , Service support , Assessment/Plan All Active Problems (Last Updated 03/22/18 @ 13:39 by Cynthia Pedraza) History of coronary artery stent placement (Resolved 09/15/17) Chest pain (Resolved) Chest pain (Resolved) Chest pain (Resolved) Near syncope (Resolved) Unstable angina (Resolved) Unstable angina pectoris (Resolved) 53-year-old male admitted with a complaint of chest pain. 1. Chest pain to rule out ACS * Chest pain was lived by nitro and had assisted diaphoresis and shortness of breath as well as dizziness. * Initial troponin was negative and EKG showed no acute ST changes. * has extensive cardiac history including 5 stents the last of which was in September 2017. Had drug-eluting stents placed to the RCA, left circumflex artery.\ * Admit to PCU with telemetry * Cycle troponins. Cardiology was consulted by ED doctor on account of patient's extensive cardiac history. * per cardiology, to take patient for cardiac cath today * PO aspirin 81mg daily, SL nitroglycerin prn * continue PO plavix * 2. CAD status post stents: * On aspirin, Plavix, statin as well as carvedilol and imdur * echo(10/27); EF of 65% with normal diastole. 3. Hypertension: Continue BP meds- carvedilol and lisinopril 4. Diabetes mellitus: * on insulin basaglar 12IU qhs and glimepiride as well as metformin. * Will hold metformin and glimepiride and continue insulin. * ISS. * Accuchecks ACHS 5. Barrets esophagus: On PPI DVT prophylaxis: heparin Code Visit OBSV E&M: [id number] Initial observation care L3
[2018-03-22 11:21] LABS: Bedside Glucose 176 mg/dL (70-110)
--- NOTE | 2018-03-22 11:36 | PCM.CONS.C ---
Reason for Consult Date of Consultation: 03/22/18 Reason for Consultation: Chest pain History of Present Illness: The patient is a 53 year old M with a known history of hypertension and coronary artery disease. He presented to the emergency room this morning after experiencing chest discomfort starting early this morning. He said that it was a tightness and he initially thought that it was reflux. He did take some antacid for this but did not completely relieve it. It also went into his shoulder and his left arm. There was no associated diaphoresis near syncope or syncope. He did take a sublingual nitroglycerin with near complete relief of the discomfort. He presented to the emergency room and due to his previous history which is elucidated before below it was decided to admit him. His EKG demonstrated normal sinus rhythm with a rate of 66 bpm, no acute changes were noted. He had previously undergone a cardiac catheterization which had demonstrated a right dominant coronary artery, and left main coronary artery with mild disease left circumflex artery with an 80% ostial first obtuse marginal vessel and a distal right coronary artery which had a previously placed stents. He had been admitted in July of this year and a cardiac catheterization at that time demonstrated a 99% distal right coronary artery stenosis, the mid circumflex artery had an 80% stenosis, the first obtuse marginal branch had a 90% stenosis and he underwent successful drug-eluting stent placed to the circumflex artery with a 3.0 x 18 mm drug-eluting stent and an IFR to the first obtuse marginal branch which was 0.97 and nonsignificant. His last catheterization was in September 2017 which demonstrated angiographically normal left anterior descending artery, angiographically normal left main coronary artery, proximal circumflex with a previously placed stent which was patent first obtuse marginal branch with an 85% stenosis in the right coronary artery which was previously angioplastied which was noted to be patent. It appears that he underwent a drug-eluting stent placement to the first obtuse marginal branch with a synergy 2.5 x 20 mm stent. He had done well since then and was following with his primary putty maker. [] Past Medical History Allergies/Adverse Reactions: Allergies bee venom protein (honey bee) Allergy (Severe, Verified 03/22/18 08:04) Angioedema niacin Allergy (Verified 03/22/18 08:04) Shortness of breath Home Medications: Ambulatory Orders Medication Instructions Recorded Atorvastatin Calcium 40 mg PO QHS 08/04/17 Fenofibrate [Tricor] 145 mg PO DAILY 08/04/17 Glimepiride [Amaryl] 2 mg PO DAILY #30 tab 08/07/17 Nitroglycerin [Nitrostat] 0.4 mg SUBLINGUAL Q5M PRN #10 tab 08/07/17 Metformin HCl [Glucophage] 1,000 mg PO BIDCM #0 08/19/17 Insulin Glargine,Hum.rec.anlog 12 unit SQ QHS 10/14/17 [Basaglar Beataikpen U-100] Aspirin 81 mg PO DAILY 03/22/18 Carvedilol 12.5 mg PO BID 03/22/18 Clopidogrel Bisulfate [Plavix] 75 mg PO QHS 03/22/18 Isosorbide Mononitrate [Imdur] 30 mg PO DAILY 03/22/18 Lisinopril 20 mg PO QAM 03/22/18 Omeprazole 40 mg PO DAILY 03/22/18 Past Medical History (Chronic Problems): Chronic Problems (Last Updated 09/15/17 @ 16:27 by Tawana Young) Arteriosclerosis of coronary artery (Chronic) 08/04/17: JOSEPH to RCA; 08/18/16: JOSEPH to LCX, FFR to OM1 (0.97=neg).09/15/17: JOSEPH to first OM (Synergy MR 2.75 X 20 mm), POBA to mid Cx S/P PTCA (percutaneous transluminal coronary angioplasty) (Chronic) 08/04/17: JOSEPH to RCA; 08/18/16: JOSEPH to LCX, FFR to OM1 (0.97=neg).09/15/17: JOSEPH to first OM (Synergy MR 2.75 X 20 mm), POBA to mid Cx HTN (hypertension) (Chronic) Mixed hyperlipidemia (Chronic) Diabetes mellitus, type II (Chronic) Obesity (BMI 30-39.9) (Chronic) Barretts esophagus (Chronic) STEMI (ST elevation myocardial infarction) (Chronic 08/04/17) Surgical History: angioplasty - *Family History Paternal Family History: Family History (Last Updated 10/02/17 @ 13:22 by Maru Cardoso) Mother Heart disease Brother Hypertension History Items: Cancer - esophageal Maternal Family History: Family History (Last Updated 10/02/17 @ 13:22 by Maru Nolt) Mother Heart disease Brother Hypertension History Items: Heart Disease Lives: With Family Smoking Status: Former smoker Alcohol: None Drugs: None Review of Systems - Review of Systems General: Denies: Fever, Night Sweats, Fatigue HEENT: Reports: Vision Change Cardiovascular: Reports: Chest Discomfort, Chest Discomfort at Rest, Chest Discomfort with Exertion. Denies: Shortness of Breath, Orthopnea, PND, Peripheral Edema, Palpitations, Lightheadedness, Dizziness, Near Syncope, Syncope Respiratory: Denies: Cough, Sputum Production, Hemoptysis Gastrointestinal: Denies: Hematemesis, Hematochezia, Melena Genitourinary: Denies: Dysuria, Hematuria Muscoloskeletal: Denies: Myalgias Skin: Denies: Rash Neurological: Denies: Dizziness Psychiatric: Reports: Anxiety Endocrine: Denies: Unexplained Weight Loss Hematologic/ Lymphatic: Denies: Anemia Subjectve: 1. Chest pain- He presents with recurrent chest discomfort. He has had multiple angioplasty and stenting procedures involving the circumflex artery, obtuse marginal branch, right coronary artery. He is very concerned that this may be related to coronary disease. With his level of anxiety as well as with the chest discomfort and the multiple stenting procedures it may be prudent to reevaluate him with a cardiac catheterization rather than stress testing. I have discussed the above with him the risk benefits alternatives he understands and agrees to proceed. 2. Coronary artery disease Anatomy has been discussed as above. Depending on the results of the cardiac catheterization further recommendations will be made. 3. Hypertension His blood pressure appears to be under good control on the current medical therapy and depending on the findings further recommendations will be made. 4. Hyperlipidemia Continue with high intensity statin. Thank you for allowing me to participate in the care of your patient. Please don't hesitate to call if any issues arise Objective: Vital Signs Temp Pulse Resp BP Pulse Ox 96.8 F L 68 17 106/70 98 03/22/18 10:15 03/22/18 10:15 03/22/18 10:15 03/22/18 10:15 03/22/18 10:15 Oxygen Delivery Method Room Air Weight: 205 lb 0.478 oz Body Mass Index (BMI) 33.0 Finger Stick Blood Glucose 79 Intake and Output for Last 24 Hours 03/20/18 03/21/18 03/22/18 23:59 23:59 23:59 Intake Total 250 / 250 Balance 250 / 250 03/22/18 08:05: WBC 6.8, RBC 4.97, Hgb 14.0, Hct 42.3, MCV 85.1, MCH 28.2, MCHC 33.1, RDW 13.4, RDW Differential 40.9, Plt Count 266, MPV 9.2, Immature Gran % (Auto) 0.400, Neut % (Auto) 66.3, Lymph % (Auto) 22.8, Nolan % (Auto) 8.8, Eos % (Auto) 1.6, Baso % (Auto) 0.1, Absolute Neuts (auto) 4.5, Total Counted Not Reportable 03/22/18 08:05: Sodium 139, Potassium 4.0, Chloride 103, Carbon Dioxide 28.0, Anion Gap 8, BUN 23 H, Creatinine 0.94, Est GFR (MDRD) Af Amer 109, Est GFR (MDRD) Non-Af 90, BUN/Creatinine Ratio 24.5 H, Glucose 229 H, Calcium 8.3 L, Troponin I < 0.015 Rhythm: EKG: ECHO: Stress Test: Cardiac Cath: PCI: CT Surgery: Holter monitor: EPS: PPM: CXR: Chest CT Scan: Assessment/Plan Cardiac catheterization performed today demonstrated the following: Normal left main coronary artery. Left anterior descending artery with no significant stenosis. Left circumflex artery previously stented including the first and second obtuse marginal branch with no significant stenosis. Mid left circumflex artery with mild disease. Dominant right coronary artery previously stented with no high-grade stenosis. Preserved left ventricular systolic function. Based on the above angiographic findings I do not detect any significant obstructive coronary artery lesions. Would recommend patient go home on the current medical therapy in addition to the isosorbide.
[2018-03-22] MEDS: 0.9% Normal Saline 1,000 ML 15 ML IV (11:40)
--- NOTE | 2018-03-22 11:41 | CASEMGMT ---
According to the [facility] website, the following are in-network tertiary facilities: [facility], [place], [place], [facility], [facility], [facility], [facility], [employer], and . Luc CABRAL CM
--- NOTE | 2018-03-22 11:43 | CON.PCM_ITS ---
Reason for Consult Date of Consultation: 03/22/18 Reason for Consultation: Chest pain History of Present Illness: The patient is a 53 year old M with a known history of hypertension and coronary artery disease. He presented to the emergency room this morning after experiencing chest discomfort starting early this morning. He said that it was a tightness and he initially thought that it was reflux. He did take some antacid for this but did not completely relieve it. It also went into his shoulder and his left arm. There was no associated diaphoresis near syncope or syncope. He did take a sublingual nitroglycerin with near complete relief of the discomfort. He presented to the emergency room and due to his previous history which is elucidated before below it was decided to admit him. His EKG demonstrated normal sinus rhythm with a rate of 66 bpm, no acute changes were noted. He had previously undergone a cardiac catheterization which had demonstrated a right dominant coronary artery, and left main coronary artery with mild disease left circumflex artery with an 80% ostial first obtuse marginal vessel and a distal right coronary artery which had a previously placed stents. He had been admitted in July of this year and a cardiac catheterization at that time demonstrated a 99% distal right coronary artery stenosis, the mid circumflex artery had an 80% stenosis, the first obtuse marginal branch had a 90% stenosis and he underwent successful drug-eluting stent placed to the circumflex artery with a 3.0 x 18 mm drug-eluting stent and an IFR to the first obtuse marginal branch which was 0.97 and nonsignificant. His last catheterization was in September 2017 which demonstrated angiographically normal left anterior descending artery, angiographically normal left main coronary artery, proximal circumflex with a previously placed stent which was patent first obtuse marginal branch with an 85% stenosis in the right coronary artery which was previously angioplastied which was noted to be patent. It appears that he underwent a drug-eluting stent placement to the first obtuse marginal branch with a synergy 2.5 x 20 mm stent. He had done well since then and was following with his primary human resource intern. [] Past Medical History Allergies/Adverse Reactions: Allergies bee venom protein (honey bee) Allergy (Severe, Verified 03/22/18 08:04) Angioedema niacin Allergy (Verified 03/22/18 08:04) Shortness of breath Home Medications: Ambulatory Orders Medication Instructions Recorded Atorvastatin Calcium 40 mg PO QHS 08/04/17 Fenofibrate [Tricor] 145 mg PO DAILY 08/04/17 Glimepiride [Amaryl] 2 mg PO DAILY #30 tab 08/07/17 Nitroglycerin [Nitrostat] 0.4 mg SUBLINGUAL Q5M PRN #10 tab 08/07/17 Metformin HCl [Glucophage] 1,000 mg PO BIDCM #0 08/19/17 Insulin Glargine,Hum.rec.anlog 12 unit SQ QHS 10/14/17 [Basaglar Beataikpen U-100] Aspirin 81 mg PO DAILY 03/22/18 Carvedilol 12.5 mg PO BID 03/22/18 Clopidogrel Bisulfate [Plavix] 75 mg PO QHS 03/22/18 Isosorbide Mononitrate [Imdur] 30 mg PO DAILY 03/22/18 Lisinopril 20 mg PO QAM 03/22/18 Omeprazole 40 mg PO DAILY 03/22/18 Past Medical History (Chronic Problems): Chronic Problems (Last Updated 09/15/17 @ 16:27 by Tawana Young) Arteriosclerosis of coronary artery (Chronic) 08/04/17: JOSEPH to RCA; 08/18/16: JOSEPH to LCX, FFR to OM1 (0.97=neg).09/15/17: JOSEPH to first OM (Synergy MR 2.75 X 20 mm), POBA to mid Cx S/P PTCA (percutaneous transluminal coronary angioplasty) (Chronic) 08/04/17: JOSEPH to RCA; 08/18/16: JOSEPH to LCX, FFR to OM1 (0.97=neg).09/15/17: JOSEPH to first OM (Synergy MR 2.75 X 20 mm), POBA to mid Cx HTN (hypertension) (Chronic) Mixed hyperlipidemia (Chronic) Diabetes mellitus, type II (Chronic) Obesity (BMI 30-39.9) (Chronic) Barretts esophagus (Chronic) STEMI (ST elevation myocardial infarction) (Chronic 08/04/17) Surgical History: angioplasty - *Family History Paternal Family History: Family History (Last Updated 10/02/17 @ 13:22 by Maru Cardoso) Mother Heart disease Brother Hypertension History Items: Cancer - esophageal Maternal Family History: Family History (Last Updated 10/02/17 @ 13:22 by Maru Nolt) Mother Heart disease Brother Hypertension History Items: Heart Disease Lives: With Family Smoking Status: Former smoker Alcohol: None Drugs: None Review of Systems - Review of Systems General: Denies: Fever, Night Sweats, Fatigue HEENT: Reports: Vision Change Cardiovascular: Reports: Chest Discomfort, Chest Discomfort at Rest, Chest Discomfort with Exertion. Denies: Shortness of Breath, Orthopnea, PND, Peripheral Edema, Palpitations, Lightheadedness, Dizziness, Near Syncope, Syncope Respiratory: Denies: Cough, Sputum Production, Hemoptysis Gastrointestinal: Denies: Hematemesis, Hematochezia, Melena Genitourinary: Denies: Dysuria, Hematuria Muscoloskeletal: Denies: Myalgias Skin: Denies: Rash Neurological: Denies: Dizziness Psychiatric: Reports: Anxiety Endocrine: Denies: Unexplained Weight Loss Hematologic/ Lymphatic: Denies: Anemia Subjectve: 1. Chest pain- * He presents with recurrent chest discomfort. He has had multiple angioplasty and stenting procedures involving the circumflex artery, obtuse marginal branch, right coronary artery. He is very concerned that this may be related to coronary disease. With his level of anxiety as well as with the chest discomfort and the multiple stenting procedures it may be prudent to reevaluate him with a cardiac catheterization rather than stress testing. I have discussed the above with him the risk benefits alternatives he understands and agrees to proceed. * 2. Coronary artery disease * Anatomy has been discussed as above. Depending on the results of the cardiac catheterization further recommendations will be made. * 3. Hypertension * His blood pressure appears to be under good control on the current medical therapy and depending on the findings further recommendations will be made. * 4. Hyperlipidemia * Continue with high intensity statin. * * Thank you for allowing me to participate in the care of your patient. Please don't hesitate to call if any issues arise Objective: Vital Signs Temp Pulse Resp BP Pulse Ox 96.8 F L 68 17 106/70 98 03/22/18 10:15 03/22/18 10:15 03/22/18 10:15 03/22/18 10:15 03/22/18 10:15 Oxygen Delivery Method Room Air Weight: 205 lb 0.478 oz Body Mass Index (BMI) 33.0 Finger Stick Blood Glucose 79 Intake and Output for Last 24 Hours 03/20/18 03/21/18 03/22/18 23:59 23:59 23:59 Intake Total 250 / 250 Balance 250 / 250 03/22/18 08:05: WBC 6.8, RBC 4.97, Hgb 14.0, Hct 42.3, MCV 85.1, MCH 28.2, MCHC 33.1, RDW 13.4, RDW Differential 40.9, Plt Count 266, MPV 9.2, Immature Gran % (Auto) 0.400, Neut % (Auto) 66.3, Lymph % (Auto) 22.8, [place] % (Auto) 8.8, Eos % (Auto) 1.6, Baso % (Auto) 0.1, Absolute Neuts (auto) 4.5, Total Counted Not Reportable 03/22/18 08:05: Sodium 139, Potassium 4.0, Chloride 103, Carbon Dioxide 28.0, A nion Gap 8, BUN 23 H, Creatinine 0.94, Est GFR (MDRD) Af Amer 109, Est GFR (MDRD) Non-Af 90, BUN/Creatinine Ratio 24.5 H, Glucose 229 H, Calcium 8.3 L, Troponin I < 0.015 Rhythm: EKG: ECHO: Stress Test: Cardiac Cath: PCI: CT Surgery: Holter monitor: EPS: PPM: CXR: Chest CT Scan: Assessment/Plan Cardiac catheterization performed today demonstrated the following: Normal left main coronary artery. Left anterior descending artery with no significant stenosis. Left circumflex artery previously stented including the first and second obtuse marginal branch with no significant stenosis. Mid left circumflex artery with mild disease. Dominant right coronary artery previously stented with no high-grade stenosis. Preserved left ventricular systolic function. Based on the above angiographic findings I do not detect any significant obstr uctive coronary artery lesions. Would recommend patient go home on the current medical therapy in addition to the isosorbide.
--- NOTE | 2018-03-22 12:51 | CL.D_ITS ---
Patient Name: ASIF CASE Study Date: 03/22/2018 Performing: Otf Sandoavl MD Ht: 66 inches 168 cm : 1965 Wt: 205.3 lbs 93 kg Age: 53 Gender: male BSA: 2.02 PROCEDURE(S) PERFORMED [id number] CLINICAL PROFILE AND INDICATIONS Indications: Suspected CAD Heart Failure: None Stress/Imaging Stress/Image Study Performed: No CAD Presentations: Symptom unlikely to be ischemic. CONCLUSIONS Mild CAD with previously placed stents patent. RECOMMENDATIONS Medical therapy DESCRIPTION OF PROCEDURE The patient arrived to the procedure lab. The risks and benefits of the procedure as well as a full d escription of our services here and current unavailability of surgical backup were fully explained to the patient and/or their significant other prior to the catheterization. The Timeout was completed, verifying the correct patient and procedure. The patient's procedural site was prepped and draped in the usual fashion. Local anesthetic was given subcutaneously to right groin region with Lidocaine 2%. Using a modified Seldinger technique, arterial access was obtained via the right femoral artery, a 5 Fr sheath was inserted. Left Coronary Artery selective angiography was performed in multiple views u sing a 5 Fr. JL4 catheter. Right Coronary Artery selective angiography was then performed in multiple views using a 5 Fr. 3DRC (Matthew) catheter. Left Ventriculography was performed in WELCH projection using a 5 Fr. Pigtail catheter. LV to AO pullback pressures were then recorded.Contrast was injected through the sheath and the Right Iliac and Femoral artery were assessed for possible chava sure device.The arterial sheath was pulled and manual compression applied until hemostasis is achieve d. CORONARY ANGIOGRAPHY DOMINANCE: Right Dominant LEFT HEART ASSESSMENT Left Ventricular Ejection Fraction: by LV Gram 60 % Normal LV wall motion Normal Left Ventricular systolic function LEFT MAIN: Angiographically normal LEFT ANTERIOR DECENDING ARTERY: Mild luminal irregularities CIRCUMFLEX ARTERY: Mild luminal irregularities MID CIRC: Previously placed stent is patent, 40 % Stenosis OM 2: Proximal - Previously placed stent is patent RIGHT CORONARY ARTERY: Mild luminal irregularities DISTAL RCA: Previously placed stent is patent COMPLICATIONS No Complications PROCEDURE MEDICATIONS Versed 1 mg IV Versed 1 mg IV Versed 1 mg IV Fentanyl 25 mcg IV Oxygen: 2 L/min via nasal cannula SUMMARY OF HEMODYNAMIC DATA Time AIR REST ECG 11:59:10 AO 106/75 (91) SA 12:18:35 LV 115/7, 11 12:26:13 LV 112/8, 14 12:26:19 LV 123/1, 17 12:27:18 LVp 123/2, 18 12:27:28 AOp 122/73 (96) 12:27:33 Signed By Otf Sandoval MD On 03/22/2018 12:50:33 Otf Sandoval MD
[2018-03-22 14:06] LABS: Bedside Glucose 125 mg/dL (70-110)
--- NOTE | 2018-03-22 16:13 | PCM.DC ---
- Discharge Diagnoses Current Active Problems: Current Active and Chronic Problems (Last Updated 03/22/18 @ 13:39 by Cynthia Pedraza) Atherosclerosis of coronary artery of [place] heart without angina pectoris (Chronic) 08/18/16: JOSEPH to LCX, FFR to OM1 (0.97=neg); 08/04/17: JOSEPH to RCA; 09/15/17: JOSEPH to first OM (Synergy MR 2.75 X 20 mm), POBA to mid Cx You will use the following diet at home:: Cardiac Your food should be the consistency of: Regular Your liquids should be the consistency of: Regular/Thin Discharge Activity: Return to Normal Activity Weight Bearing Status: Weight bearing as tolerated Call your doctor if you observe: Chest pain Allergies/Adverse Reactions: Allergies bee venom protein (honey bee) Allergy (Severe, Verified 03/22/18 08:04) Angioedema niacin Allergy (Verified 03/22/18 08:04) Shortness of breath Medications to take at Discharge Atorvastatin Calcium 40 mg PO QHS 08/04/17 Fenofibrate [Tricor] 145 mg PO DAILY 08/04/17 Glimepiride [Amaryl] 2 mg PO DAILY #30 tab 08/07/17 Nitroglycerin [Nitrostat] 0.4 mg SUBLINGUAL Q5M PRN #10 tab 08/07/17 Metformin HCl [Glucophage] 1,000 mg PO BIDCM #0 08/19/17 Insulin Glargine,Hum.rec.anlog [Basaglar Kwikpen U-100] 12 unit SQ QHS 10/14/17 Aspirin 81 mg PO DAILY 03/22/18 Carvedilol 12.5 mg PO BID 03/22/18 Clopidogrel Bisulfate [Plavix] 75 mg PO QHS 03/22/18 Isosorbide Mononitrate [Imdur] 30 mg PO DAILY 03/22/18 Lisinopril 20 mg PO QAM 03/22/18 Omeprazole 40 mg PO DAILY 03/22/18 Primary Care Physician: Mikey Rogers MD [Primary Care Provider] - Please follow up with your Primary Care Physician in: one week Test Results: Test results from this visit will be discussed in further detail at your follow-up appointment, if applicable. Proposed Discharge Date: 03/22/18
--- NOTE | 2018-03-22 16:18 | DCINST_ITS ---
- Discharge Diagnoses Current Active Problems: Current Active and Chronic Problems (Last Updated 03/22/18 @ 13:39 by Cynthia Pedraza) Atherosclerosis of coronary artery of [place] heart without angina pectoris (Chronic) 08/18/16: JOSEPH to LCX, FFR to OM1 (0.97=neg); 08/04/17: JOSEPH to RCA; 09/15/17: JOSEPH to first OM (Synergy MR 2.75 X 20 mm), POBA to mid Cx You will use the following diet at home:: Cardiac Your food should be the consistency of: Regular Your liquids should be the consistency of: Regular/Thin Discharge Activity: Return to Normal Activity Weight Bearing Status: Weight bearing as tolerated Call your doctor if you observe: Chest pain Allergies/Adverse Reactions: Allergies bee venom protein (honey bee) Allergy (Severe, Verified 03/22/18 08:04) Angioedema niacin Allergy (Verified 03/22/18 08:04) Shortness of breath Medications to take at Discharge Atorvastatin Calcium 40 mg PO QHS 08/04/17 Fenofibrate [Tricor] 145 mg PO DAILY 08/04/17 Glimepiride [Amaryl] 2 mg PO DAILY #30 tab 08/07/17 Nitroglycerin [Nitrostat] 0.4 mg SUBLINGUAL Q5M PRN #10 tab 08/07/17 Metformin HCl [Glucophage] 1,000 mg PO BIDCM #0 08/19/17 Insulin Glargine,Hum.rec.anlog [Basaglar Kwikpen U-100] 12 unit SQ QHS 10/14/17 Aspirin 81 mg PO DAILY 03/22/18 Carvedilol 12.5 mg PO BID 03/22/18 Clopidogrel Bisulfate [Plavix] 75 mg PO QHS 03/22/18 Isosorbide Mononitrate [Imdur] 30 mg PO DAILY 03/22/18 Lisinopril 20 mg PO QAM 03/22/18 Omeprazole 40 mg PO DAILY 03/22/18 Primary Care Physician: Mikey Rogers MD [Primary Care Provider] - Please follow up with your Primary Care Physician in: one week Test Results: Test results from this visit will be discussed in further detail at your follow- up appointment, if applicable. Proposed Discharge Date: 03/22/18
--- NOTE | 2018-03-22 16:18 | PCM.DC.SUM ---
Discharge Date and Diagnosis Date of Admission: 03/22/18 Date of Discharge: 03/22/18 - Primary Discharge Diagnosis chest pain - Secondary Discharge Diagnosis Chronic Problems (Last Updated 03/22/18 @ 13:39 by Cynthia Pedraza) Atherosclerosis of coronary artery of [place] heart without angina pectoris (Chronic) 08/18/16: JOSEPH to LCX, FFR to OM1 (0.97=neg); 08/04/17: JOSEPH to RCA; 09/15/17: JOSEPH to first OM (Synergy MR 2.75 X 20 mm), POBA to mid Cx HTN (hypertension) (Chronic) Mixed hyperlipidemia (Chronic) Diabetes mellitus, type II (Chronic) Obesity (BMI 30-39.9) (Chronic) Barretts esophagus (Chronic) STEMI (ST elevation myocardial infarction) (Chronic 08/04/17) Hospital Course and Treatment Imaging Results: 03/22/18 08:07 Chest 1 View (Portable) [RAD] Stat Diagnostic Data Chest X-Ray 03/22/18 08:07 IMPRESSION: Borderline cardiomegaly. No acute abnormality is seen. Electronically Signed: Pola Funes MD at 8:53 EST , Service support , cardiology- Dr Sandoval Operations: None Procedures: Cardiac catheterization Summary of Care Provided: The patient is a 53 year old M with an extensive cardiac history which includes CAD s/p stents x 5, and diabetes as well as hyperlipidemia. He was admitted to the ED on 03/22/2018 with a complaint of chest pain. Chest pain started around 4:30 AM on day of admission. It was retrosternal and he initially thought it was due to reflux. He therefore took some baking soda mixed with water to see if pain will be relieved. However pain still persisted with assisted diaphoresis, shortness of breath and increased dizziness. He took a sublingual nitro which helped relieve the pain. He therefore decided to call the EMS to brought to the hospital. Initial troponin was negative and EKG showed no acute ST changes. He is been admitted to be worked up for chest pain to rule out ACS. Cardiology was consulted and decision was made to send patient for cardiac cath. Findings of cardiac cath showed estimated EF of 60%, mild luminal irregularities in left anterior descending and circumflex arteries and previously placed stent in the mid circumflex artery showed 40% stenosis. Left main artery was angiographically normal and RCA showed mild luminal irregularities. Distal RCA had a patent stents. Patient remained stable and was discharged home approximately 5 hours after cardiac cath. 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 Patient seen and examined prior to discharge. He had no complaints and felt well. He denied any fever chills, cough or chest pain, shortness of breath, abdominal pain, diarrhea vomiting. Review of systems otherwise negative. Labs and vitals reviewed. Home medications reviewed and reconciled o/e: Vital Signs Height 5 ft 6 in Weight: 205 lb 0.478 oz Weight in Pounds 205.0 lbs Pulse Ox 98 Temperature 97.1 F Pulse Rate 67 Respiratory Rate 17 Blood Pressure 138/67 Blood Pressure Position Semi-Fowlers General: Alert, Oriented x3, Cooperative, No apparent distress HEENT: Atraumatic, PERRLA, EOMI, Normocephalic Oral: Moist Mucosa Neck: Supple, No JVD, Negative Carotid Bruits Lungs: Clear to auscultation, Normal air movement, No rhonchi, No wheeze, No rales Cardiovascular: Regular rate, Regular Rhythm, Normal S1, Normal S2, No murmurs Abdomen: Bowel Sounds Present, Soft, Non Tender Extremities: No clubbing, No cyanosis, No edema, Capillary Refill Less than 3 Seconds Skin: No rashes, No breakdown Musculoskeletal: No Tenderness to Palpation of Joints or Extremities Lymphatic: No Cervical, Supraclavicular, or Inguinal Adenopathy Neurological: Cranial nerves II-XII grossly intact, Neuro grossly intact, Motor Exam 5/5 strength throughout Psych/Mental Status: Normal Affect, Appropriate, Alert and oriented to time, place, person, mood and affect Plan as stated above. - Physical Exam Vital Signs Temp Pulse Resp BP Pulse Ox 97.1 F L 67 17 138/67 H 98 03/22/18 16:15 03/22/18 16:15 03/22/18 16:15 03/22/18 16:15 03/22/18 16:15 Oxygen Delivery Method Room Air Weight: 205 lb 0.478 oz Body Mass Index (BMI) 33.0 Finger Stick Blood Glucose 79 Intake and Output for Last 24 Hours 03/20/18 03/21/1819 23:59 23:59 23:59 Intake Total 250 / 250 Balance 250 / 250 Laboratory Tests Past 24 Hrs 03/22/18 03/22/18 08:05 08:05 WBC 6.8 RBC 4.97 Hgb 14.0 Hct 42.3 MCV 85.1 MCH 28.2 MCHC 33.1 RDW 13.4 RDW Differential 40.9 Plt Count 266 MPV 9.2 Immature Gran % (Auto) 0.400 Neut % (Auto) 66.3 Lymph % (Auto) 22.8 [place] % (Auto) 8.8 Eos % (Auto) 1.6 Baso % (Auto) 0.1 Absolute Neuts (auto) 4.5 Absolute Lymphs (auto) 1.56 Total Counted Not Reportable Sodium 139 Potassium 4.0 Chloride 103 Carbon Dioxide 28.0 Anion Gap 8 BUN 23 H Creatinine 0.94 Estim Creat Clear Calc 99.02 Est GFR (MDRD) Af Amer 109 Est GFR (MDRD) Non-Af 90 BUN/Creatinine Ratio 24.5 H Glucose 229 H Calcium 8.3 L Troponin I < 0.015 POC Glucose 03/22/18 03/22/18 13:34 11:12 POC Glucose 125 H 176 H Discharge Diet: Low fat/ Low Cholesterol Discharge Activity: Return to Normal Activity Weight Bearing Status: Weight bearing as tolerated Call your doctor if you observe: Chest pain Home Medications: Medications to take at Discharge Atorvastatin Calcium 40 mg PO QHS 08/04/17 Fenofibrate [Tricor] 145 mg PO DAILY 08/04/17 Glimepiride [Amaryl] 2 mg PO DAILY #30 tab 08/07/17 Nitroglycerin [Nitrostat] 0.4 mg SUBLINGUAL Q5M PRN #10 tab 08/07/17 Metformin HCl [Glucophage] 1,000 mg PO BIDCM #0 08/19/17 Insulin Glargine,Hum.rec.anlog [Sophieagldayami Araiza U-100] 12 unit SQ QHS 10/14/17 Aspirin 81 mg PO DAILY 03/22/18 Carvedilol 12.5 mg PO BID 03/22/18 Clopidogrel Bisulfate [Plavix] 75 mg PO QHS 03/22/18 Isosorbide Mononitrate [Imdur] 30 mg PO DAILY 02/11/19 Lisinopril 20 mg PO QAM 03/22/18 Omeprazole 40 mg PO DAILY 03/22/18 Primary Care Physician: Mikey Rogers MD [Primary Care Provider] - Please follow up with your Primary Care Physician in: one week Patient Instructions: What Is Angina? Disposition: Home Minutes spent on discharge:: 40 Patient Condition:: Stable Medical Necessity - Tobacco Use Smoking Status: Former smoker Meaningful Use Info Meaningful Use Diagnoses (Choose all that apply): None applicable Code Visit Inpatient E&M: 65422 Disch Hosp
--- NOTE | 2018-03-22 16:22 | DS.PCM_ITS ---
Discharge Date and Diagnosis Date of Admission: 03/22/18 Date of Discharge: 03/22/18 - Primary Discharge Diagnosis chest pain - Secondary Discharge Diagnosis Chronic Problems (Last Updated 03/22/18 @ 13:39 by Cytnhia Pedraza) Atherosclerosis of coronary artery of [place] heart without angina pectoris (Chronic) 08/18/16: JOSEPH to LCX, FFR to OM1 (0.97=neg); 08/04/17: JOSEPH to RCA; 09/15/17: JOSEPH to first OM (Synergy MR 2.75 X 20 mm), POBA to mid Cx HTN (hypertension) (Chronic) Mixed hyperlipidemia (Chronic) Diabetes mellitus, type II (Chronic) Obesity (BMI 30-39.9) (Chronic) Barretts esophagus (Chronic) STEMI (ST elevation myocardial infarction) (Chronic 08/04/17) Hospital Course and Treatment Imaging Results: 03/22/18 08:07 Chest 1 View (Portable) [RAD] Stat Diagnostic Data Chest X-Ray 03/22/18 08:07 IMPRESSION: Borderline cardiomegaly. No acute abnormality is seen. Electronically Signed: Pola Funes MD at 8:53 EST , Service support , cardiology- Dr Sandoval Operations: None Procedures: Cardiac catheterization Summary of Care Provided: The patient is a 53 year old M with an extensive cardiac history which includes CAD s/p stents x 5, and diabetes as well as hyperlipidemia. He was admitted to the ED on 03/22/2018 with a complaint of chest pain. Chest pain started around 4:30 AM on day of admission. It was retrosternal and he initially thought it was due to reflux. He therefore took some baking soda mixed with water to see if pain will be relieved. However pain still persisted with assisted diaphoresis, shortness of breath and increased dizziness. He took a sublingual nitro which helped relieve the pain. He therefore decided to call the EMS to brought to the hospital. Initial troponin was negative and EKG showed no acute ST changes. He is been admitted to be worked up for chest pain to rule out ACS. Cardiology was consulted and decision was made to send patient for cardiac cath. Findings of cardiac cath showed estimated EF of 60%, mild luminal irregularities in left anterior descending and circumflex arteries and previously placed stent in the mid circumflex artery showed 40% stenosis. Left main artery was angiographically normal and RCA showed mild luminal irregularities. Distal RCA had a patent stents. Patient remained stable and was discharged home approximately 5 hours after cardiac cath. 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 Patient seen and examined prior to discharge. He had no complaints and felt well. He denied any fever chills, cough or chest pain, shortness of breath, abdominal pain, diarrhea vomiting. Review of systems otherwise negative. Labs and vitals reviewed. Home medications reviewed and reconciled o/e: Vital Signs Height 5 ft 6 in Weight: 205 lb 0.478 oz Weight in Pounds 205.0 lbs Pulse Ox 98 Temperature 97.1 F Pulse Rate 67 Respiratory Rate 17 Blood Pressure 138/67 Blood Pressure Position Semi-Fowlers General: Alert, Oriented x3, Cooperative, No apparent distress HEENT: Atraumatic, PERRLA, EOMI, Normocephalic Oral: Moist Mucosa Neck: Supple, No JVD, Negative Carotid Bruits Lungs: Clear to auscultation, Normal air movement, No rhonchi, No wheeze, No rales Cardiovascular: Regular rate, Regular Rhythm, Normal S1, Normal S2, No murmurs Abdomen: Bowel Sounds Present, Soft, Non Tender Extremities: No clubbing, No cyanosis, No edema, Capillary Refill Less than 3 Seconds Skin: No rashes, No breakdown Musculoskeletal: No Tenderness to Palpation of Joints or Extremities Lymphatic: No Cervical, Supraclavicular, or Inguinal Adenopathy Neurological: Cranial nerves II-XII grossly intact, Neuro grossly intact, Motor Exam 5/5 strength throughout Psych/Mental Status: Normal Affect, Appropriate, Alert and oriented to time, place, person, mood and affect Plan as stated above. - Physical Exam Vital Signs Temp Pulse Resp BP Pulse Ox 97.1 F L 67 17 138/67 H 98 03/22/18 16:15 03/22/18 16:15 03/22/18 16:15 03/22/18 16:15 03/22/18 16:15 Oxygen Delivery Method Room Air Weight: 205 lb 0.478 oz Body Mass Index (BMI) 33.0 Finger Stick Blood Glucose 79 Intake and Output for Last 24 Hours 03/20/18 03/21/1819 23:59 23:59 23:59 Intake Total 250 / 250 Balance 250 / 250 Laboratory Tests Past 24 Hrs 03/22/18 03/22/18 08:05 08:05 WBC 6.8 RBC 4.97 Hgb 14.0 Hct 42.3 MCV 85.1 MCH 28.2 MCHC 33.1 RDW 13.4 RDW Differential 40.9 Plt Count 266 MPV 9.2 Immature Gran % (Auto) 0.400 Neut % (Auto) 66.3 Lymph % (Auto) 22.8 [place] % (Auto) 8.8 Eos % (Auto) 1.6 Baso % (Auto) 0.1 Absolute Neuts (auto) 4.5 Absolute Lymphs (auto) 1.56 Total Counted Not Reportable Sodium 139 Potassium 4.0 Chloride 103 Carbon Dioxide 28.0 Anion Gap 8 BUN 23 H Creatinine 0.94 Estim Creat Clear Calc 99.02 Est GFR (MDRD) Af Amer 109 Est GFR (MDRD) Non-Af 90 BUN/Creatinine Ratio 24.5 H Glucose 229 H Calcium 8.3 L Troponin I < 0.015 POC Glucose 03/22/18 03/22/18 13:34 11:12 POC Glucose 125 H 176 H Discharge Diet: Low fat/ Low Cholesterol Discharge Activity: Return to Normal Activity Weight Bearing Status: Weight bearing as tolerated Call your doctor if you observe: Chest pain Home Medications: Medications to take at Discharge Atorvastatin Calcium 40 mg PO QHS 08/04/17 Fenofibrate [Tricor] 145 mg PO DAILY 08/04/17 Glimepiride [Amaryl] 2 mg PO DAILY #30 tab 08/07/17 Nitroglycerin [Nitrostat] 0.4 mg SUBLINGUAL Q5M PRN #10 tab 08/07/17 Metformin HCl [Glucophage] 1,000 mg PO BIDCM #0 08/19/17 Insulin Glargine,Hum.rec.anlog [Sophieagldayami Araiza U-100] 12 unit SQ QHS 10/14/17 Aspirin 81 mg PO DAILY 03/22/18 Carvedilol 12.5 mg PO BID 03/22/18 Clopidogrel Bisulfate [Plavix] 75 mg PO QHS 03/22/18 Isosorbide Mononitrate [Imdur] 30 mg PO DAILY 02/11/19 Lisinopril 20 mg PO QAM 03/22/18 Omeprazole 40 mg PO DAILY 03/22/18 Primary Care Physician: Mikey Rogers MD [Primary Care Provider] - Please follow up with your Primary Care Physician in: one week Patient Instructions: What Is Angina? Disposition: Home Minutes spent on discharge:: 40 Patient Condition:: Stable Medical Necessity - Tobacco Use Smoking Status: Former smoker Meaningful Use Info Meaningful Use Diagnoses (Choose all that apply): None applicable Code Visit Inpatient E&M: 49499 Disch Hosp
[2018-03-22 16:26] LABS: Bedside Glucose 183 mg/dL (70-110)
[2018-03-22] MEDS: Insulin Lispro 100 UNIT/ML INSULN.PEN SQ (17:50)
== END 2018-03-22 19:20 | disposition home or self-care (01) ==
LOC: ED 09:27 → PCU 09:43
PROVIDERS: Admitting Provider Student in an Organized Health Care Education/Training Program; Emergency Provider Emergency Medicine; Family Provider Family Medicine; PCP Family Medicine; Visit Provider Student in an Organized Health Care Education/Training Program
DX: R07.89 Other chest pain (principal); I25.2 Old myocardial infarction; K21.9 Gastro-esophageal reflux disease without esophagitis; R06.02 Shortness of breath; I25.10 Atherosclerotic heart disease of native coronary artery without angina pectoris; E78.2 Mixed hyperlipidemia; E11.9 Type 2 diabetes mellitus without complications; I10 Essential (primary) hypertension; E66.9 Obesity, unspecified; Z68.33 Body mass index [BMI] 33.0-33.9, adult; Z71.3 Dietary counseling and surveillance; Z95.5 Presence of coronary angioplasty implant and graft; Z79.899 Other long term (current) drug therapy; Z79.02 Long term (current) use of antithrombotics/antiplatelets; Z79.84 Long term (current) use of oral hypoglycemic drugs; Z79.82 Long term (current) use of aspirin; Z87.891 Personal history of nicotine dependence
CPT/HCPCS: 71045; 80048; 82962; 84484; 85025; 93005; 93458; 99152; 99153; 99218; 99285; C1760; J7030; Q9967; A4216; C1769; G0378

== ENCOUNTER → 2018-05-07 06:33 | Outpatient (CLI) | payer OTHER, SELFPAY ==
[2018-04-05 11:41] VITALS: BMI 33.0
--- NOTE | 2018-05-07 09:01 | STRESSREP ---
Stress Test Report Date: 05-07-18 Procedure: Pharmacologic stress nuclear imaging study Indications: Chest pain; CAD; status post [place]-remote; status post PCI Consent: Per the patient Procedure: The patient underwent pharmacologic (Regadenoson) evaluation with a peak heart rate of 106 beats per minute (62 %predicted maximal heart rate) and a peak blood pressure of 132/86 mmHg. The baseline ECG demonstrated normal sinus rhythm. The peak pharmacologic ECG demonstrated no obvious ECG changes. [There were no cardiac dysrhythmias pretest, during pharmacologic infusion, or recovery]. [There was no complaint of chest discomfort during pharmacologic infusion or recovery]. The examination was discontinued secondary to completion of protocol. Impression: 1. Pharmacologic (Regadenoson) evaluation 2. Peak pharmacologic ECG with no obvious ECG changes. 3. [There were no cardiac dysrhythmias pretest, during pharmacologic infusion, or recovery]. 4. Nuclear images pending Myocardial perfusion imaging study: Technique: The patient was injected with 11.6 millicuries of technetium 99m Cardiolite and subsequently rest SPECT Cardiolite nuclear imaging was obtained in the horizontal long, vertical long, and short axis views. The patient underwent pharmacologic (Regadenoson) evaluation with a peak heart rate of 106 beats per minute (62 % percent predicted maximal heart rate) and a peak blood pressure of 132/86 mmHg. The patient was injected with 34.3 millicuries of technetium 99m Cardiolite and subsequently stress SPECT Cardiolite nuclear imaging was obtained in the horizontal long, vertical long, and short axis views. A gated Cardiolite study at peak stress was obtained. Interpretation: Rest and stress SPECT Cardiolite nuclear imaging status post realignment, normalization, and attenuation correction demonstrate a small area of subtle diminished myocardial perfusion/tracer uptake near the basal inferior segments without significant change between rest and stress. [There is end systolic thickening and brightening]. [The gated Cardiolite study demonstrates myocardial thickening and inward wall motion]. The reported LVEF is 69 %. Impression: 1. Rest and stress SPECT currently nuclear imaging demonstrate a small area of subtle diminished myocardial perfusion/tracer uptake near the basal inferior segments potentially compatible with the effects of soft tissue attenuation/artifact, however, an area of previous myocardial injury/infarction cannot necessarily be excluded. There are no myocardial perfusion changes considered diagnostic for associated stress-induced myocardial ischemia. 2. The gated Cardiolite study reports an LVEF of 69 %. This note was generated with ugichemation software. It may contain incorrect words, spelling, and punctuation that were not noted in checking the note before signing.
--- NOTE | 2018-05-07 09:07 | STRESSREP_ITS ---
Stress Test Report Date: 05-07-18 Procedure: Pharmacologic stress nuclear imaging study Indications: Chest pain; CAD; status post [place]-remote; status post PCI Consent: Per the patient Procedure: The patient underwent pharmacologic (Regadenoson) evaluation with a peak heart rate of 106 beats per minute (62 %predicted maximal heart rate) and a peak blood pressure of 132/86 mmHg. The baseline ECG demonstrated normal sinus rhythm. The peak pharmacologic ECG demonstrated no obvious ECG changes. [There were no cardiac dysrhythmias pretest, during pharmacologic infusion, or recovery]. [There was no complaint of chest discomfort during pharmacologic infusion or recovery]. The examination was discontinued secondary to completion of protocol. Impression: 1. Pharmacologic (Regadenoson) evaluation 2. Peak pharmacologic ECG with no obvious ECG changes. 3. [There were no cardiac dysrhythmias pretest, during pharmacologic infusion, or recovery]. 4. Nuclear images pending Myocardial perfusion imaging study: Technique: The patient was injected with 11.6 millicuries of technetium 99m Cardiolite and subsequently rest SPECT Cardiolite nuclear imaging was obtained in the horizontal long, vertical long, and short axis views. The patient underwent pharmacologic (Regadenoson) evaluation with a peak heart rate of 106 beats per minute (62 % percent predicted maximal heart rate) and a peak blood pressure of 132/86 mmHg. The patient was injected with 34.3 millicuries of technetium 99m Cardiolite and subsequently stress SPECT Cardiolite nuclear imaging was obtained in the horizontal long, vertical long, and short axis views. A gated Cardiolite study at peak stress was obtained. Interpretation: Rest and stress SPECT Cardiolite nuclear imaging status post realignment, normalization, and attenuation correction demonstrate a small area of subtle diminished myocardial perfusion/tracer uptake near the basal inferior segments without significant change between rest and stress. [There is end systolic thickening and brightening]. [The gated Cardiolite study demonstrates myocardial thickening and inward wall motion]. The reported LVEF is 69 %. Impression: 1. Rest and stress SPECT currently nuclear imaging demonstrate a small area of subtle diminished myocardial perfusion/tracer uptake near the basal inferior segments potentially compatible with the effects of soft tissue attenuation/artifact, however, an area of previous myocardial injury/infarction cannot necessarily be excluded. There are no myocardial perfusion changes considered diagnostic for associated stress-induced myocardial ischemia. 2. The gated Cardiolite study reports an LVEF of 69 %. This note was generated with Biscootation software. It may contain incorrect words, spelling, and punctuation that were not noted in checking the note before signing.
== END ==
PROVIDERS: Family Provider Family Medicine; PCP Family Medicine; Referring Provider Internal Medicine Cardiovascular Disease; Visit Provider Internal Medicine Cardiovascular Disease
DX: I25.119 Atherosclerotic heart disease of native coronary artery with unspecified angina pectoris (principal); R07.9 Chest pain, unspecified; I10 Essential (primary) hypertension; E78.2 Mixed hyperlipidemia; Z95.5 Presence of coronary angioplasty implant and graft
CPT/HCPCS: 78452; 93017; A9500; A4216; J2785

== ENCOUNTER 2018-08-26 12:24 | Emergency (ER) | payer OTHER, SELFPAY ==
[2018-06-28 13:13] VITALS: BMI 33.5
[2018-08-26 12:25] VITALS: BP 120/82; PULSE 88; RESP 17; TEMP 36.6; O2SAT 97; BMI 33.8
--- NOTE | 2018-08-26 12:54 | RAD_ITS ---
STUDY: X-RAY CHEST REASON FOR EXAM: Male, 53 years old. Dizziness and hypertension. Confusion. TECHNIQUE: Single AP portable view of the chest. COMPARISON: Comparison is made with prior study dated March 22, 2018. FINDINGS: EKG electrodes are seen. The lungs are clear and expanded. There is no demonstrated pleural abnormality. Normal size heart. Normal mediastinum and alberto. Normal visualized pulmonary arteries. Normal visualized aortic arch and descending thoracic aorta. There are diffuse degenerative changes of the visualized thoracic spine. Normal visualized ribs, clavicles, and shoulders. There is no demonstrated abnormality of the visualized soft tissue structures of the upper abdomen. RAD/Chest 1 View (Portable) IMPRESSION: No acute abnormality is present. Electronically Signed: Pola Funes, at 13:46 EDT , Service support ,
--- NOTE | 2018-08-26 12:54 | EKG12_ITS ---
Test Reason : DIZZINESS Blood Pressure : / mmHG Vent. Rate : 080 BPM Atrial Rate : 080 BPM P-R Int : 168 ms QRS Dur : 096 ms QT Int : 350 ms P-R-T Axes : 016 014 030 degrees QTc Int : 403 ms Normal sinus rhythm Normal ECG Confirmed by ORLANDO QUACH, LILLIAM ([id number]), senior editor ADALID HUBBARD ([id number]) on 08/30/2018 12:49:21 PM Referred By: NARGIS Confirmed By:LILLIAM PERRY MD
[2018-08-26 12:57] VITALS: O2SAT 97
[2018-08-26 13:05] LABS: Absolute Lymphocyte Count 1.93 X10^3/uL (0.83-4.51); Absolute Neutrophil Count 6.5 X10^3/uL (2.0-7.7); Basophil# 0.03 X10^3/uL; Basophil% 0.3 % (0-1); Eosinophil# 0.13 X10^3/uL; Eosinophils% 1.4 % (0-5); Hematocrit 43.2 % (40-54); Hemoglobin 14.4 g/dL (13.0-16.5); Lymphocyte # 1.93 X10^3/ul (4.0); Lymphocyte % 20.7 % (19-41); Mean Corp Hgb Conc 33.3 g/dL (32-36); Mean Corpuscular Hgb 27.7 pg (27.0-32.0); Mean Corpuscular Volume 83.1 fL (80-94); Mean Platelet Vol. 9.4 fl (6.2-12.0); Monocyte# 0.65 X10^3/uL; NRBC Flagged by Analyzer 0 % (0-5); Neutrophil % 69.8 % (47-70); Platelet Count 328 K/mm3 (150-450); RBC Distribution Width CV 13.2 % (11.6-14.6); RBC Distribution Width SD 39.7 fl (35.1-43.9); White Blood Count 9.3 K/mm3 (4.4-11.0)
[2018-08-26 13:17] LABS: Anion Gap 7 (5-15); BUN 23 mg/dL (7-18); Calcium,Total 9.2 mg/dL (8.5-10.1); Chloride 103 mmol/L (98-107); EST Glomerular Filtration Rate 84 mL/min (>60); Est Glom Filt Rate - Afr Amer 101 mL/min (>60); Estimated Creatinine Clearance 78.86 ml/min; Glucose 232 mg/dL (74-106); Potassium 4.3 mmol/L (3.5-5.1); Sodium Level 134 mmol/L (136-145)
[2018-08-26 14:18] LABS: Thyroid Stim Hormone (TSH) 4.67 uIU/mL (0.358-3.74)
--- NOTE | 2018-08-26 14:42 | ED.DCSUM_ITS ---
History of Present Illness Chief Complaint: Hypertension Narrative: Patient presenting for evaluation secondary to chest pain. Patient has a underlying history of cardiovascular disease. Last year he suffered a ST elevation myocardial infarction and a cardiac arrest and subsequently has had multiple stents. Patient states that over the course of this week he has been feeling generally weak, fatigued, intermittently short of breath, dizzy, and confused. Patient reports that he had a feeling of some epigastric discomfort last night that he was unsure if it was chest pain or abdominal pain. Patient states that it was not exertional and it would come and go completely on its own. He denies that he is having the symptoms currently. Patient does state that he has angina sometimes with exertion, and states that he had some yesterday while he was exerting himself in the heat, but does not report that this is happening with increasing frequency or with decreasing amounts of exertion. Patient denies any recent hospital admissions history of DVT or PE. Review of systems otherwise negative. Past Medical History - Allergies and Home Meds Allergies/Adverse Reactions: Allergies bee venom protein (honey bee) Allergy (Severe, Verified 08/26/18 12:25) Angioedema niacin Allergy (Verified 08/26/18 12:25) Shortness of breath Primary Care Physician: Mikey Rogers MD [Primary Care Provider] - Surgical History: angioplasty Smoking Status: Former smoker - Family History Paternal Family History: Family History (Last Reviewed 04/05/18 @ 11:22 by Katy Barreto) Mother Heart disease Brother Hypertension Family History: Reports: Cancer - esophageal Maternal Family History: Family History (Last Reviewed 04/05/18 @ 11:22 by Katy Barreto) Mother Heart disease Brother Hypertension Family History: Reports: Heart Disease Review of Systems General: Reports: Malaise. Denies: Weight loss Cardiovascular: Reports: Chest pain Respiratory: Reports: Dyspnea Gastrointestinal: Reports: Nausea. Denies: Vomiting, Diarrhea Physical Exam Vital Signs/Narrative: Vital Signs Temp Pulse Resp BP Pulse Ox 08/26/18 12:57 97 08/26/18 12:25 97.8 F 88 17 120/82 H 97 General: Well nourished, Well developed, No Acute Distress Head: Normocephalic, Atraumatic Eyes: Perrl, EOMI ENT: Moist mucous membranes, No rhinorrhea Neck: Supple, Nontender Cardiovascular: Regular rate, Regular rhythm, No murmurs Respiratory: No distress, CTA bilaterally, Chest nontender Abdomen: Soft, Nontender, Nondistended, Normal bowel sounds Back: Nontender, Normal Inspection Extremities: Nontender, No edema Skin: Normal color, No rash Neurological: Alert, Oriented x3, Cranial nerves II-XII grossly intact, Normal Strength, Normal Sensation Psychological: Normal affect, Normal Mood Diagnostic/Tx/Re-eval - EKG Initial EKG Interpretation: - - Normal sinus rhythm of [address] segments normal T waves no evidence of acute ischemia or arrhythmia - Medical Decision Making Patient presented secondary to fatigue and some atypical presentations of chest pain. EKG was found to be unremarkable. CBC chemistry troponin and TSH were all found to be unremarkable. TSH was elevated but likely subclinically. Chest x-ray was unremarkable. Patient did not develop any chest pain in the emergency department he has been catheterized within the last year and his symptoms seem rather atypical I do not believe that he requires admission at this point. He does not seem to have unstable angina or increasing frequency of angina. 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 All questions were answered and the patient was discharged. ED Disposition - Plan for ED Patient: Disposition: Home or Assisted Living Diagnosis: Chest pain Instructions: CHEST PAIN, Uncertain Cause Referrals: Mikey Mendoza MD [STAFF PHYSICIAN] - Keep [facility] appointment
[2018-08-26 15:07] VITALS: BP 130/95; PULSE 69; PULSE 70; RESP 11; RESP 13; O2SAT 94
== END 2018-08-26 15:13 | disposition home or self-care (01) ==
PROVIDERS: Emergency Provider Emergency Medicine; Family Provider Family Medicine; PCP Family Medicine
DX: R07.9 Chest pain, unspecified (principal); I25.10 Atherosclerotic heart disease of native coronary artery without angina pectoris; I10 Essential (primary) hypertension; Z79.02 Long term (current) use of antithrombotics/antiplatelets; Z79.82 Long term (current) use of aspirin; Z79.4 Long term (current) use of insulin; Z79.899 Other long term (current) drug therapy; I25.2 Old myocardial infarction; Z87.891 Personal history of nicotine dependence; Z95.5 Presence of coronary angioplasty implant and graft
CPT/HCPCS: 71045; 80048; 84443; 84484; 85025; 93005; 99285

== ENCOUNTER → 2018-09-23 09:10 | Outpatient (CLI) | payer OTHER, SELFPAY ==
[2018-08-26 12:25] VITALS: BMI 33.8
[2018-09-23 11:02] LABS: Anion Gap 7 (5-15); BUN 21 mg/dL (7-18); BUN/Creat Ratio 21.6 RATIO (10-20); Calcium,Total 8.8 mg/dL (8.5-10.1); Chloride 106 mmol/L (98-107); Cholesterol 157 mg/dL (200); Creatinine, Serum 0.97 mg/dL (0.70-1.30); EST Glomerular Filtration Rate 86 mL/min (>60); Est Glom Filt Rate - Afr Amer 104 mL/min (>60); Free T3 2.6 pg/mL (2.18-3.98); Glucose 223 mg/dL (74-106); High Density Lipoprotein 28 mg/dL; Potassium 4.7 mmol/L (3.5-5.1); Sodium Level 137 mmol/L (136-145); T4 Total, Thyroxin 11.3 ug/dL (4.5-12.1); Thyroid Stim Hormone (TSH) 4.75 uIU/mL (0.358-3.74); Triglycerides 257 mg/dL; Very Low Density Lipoprotein 51 mg/dL (5-40)
== END ==
PROVIDERS: Family Provider Family Medicine; PCP Family Medicine; Referring Provider Family Medicine; Visit Provider Family Medicine
DX: E11.9 Type 2 diabetes mellitus without complications (principal); E03.9 Hypothyroidism, unspecified
CPT/HCPCS: 36415; 80048; 80061; 84436; 84443; 84481

== ENCOUNTER → 2018-10-19 13:26 | Outpatient (CLI) | payer OTHER, SELFPAY ==
[2018-10-19 15:17] LABS: Hematocrit 42.8 % (40-54); Mean Corp Hgb Conc 32.7 g/dL (32-36); Mean Corpuscular Hgb 27.4 pg (27.0-32.0); Mean Corpuscular Volume 83.8 fL (80-94); Mean Platelet Vol. 9.4 fl (6.2-12.0); Platelet Count 340 K/mm3 (150-450); RBC Distribution Width CV 12.8 % (11.6-14.6); RBC Distribution Width SD 39.3 fl (35.1-43.9); Red Blood Count 5.11 M/mm3 (4.6-6.2); White Blood Count 9.5 K/mm3 (4.4-11.0)
[2018-10-19 15:37] LABS: Anion Gap 7 (5-15); BUN 15 mg/dL (7-18); BUN/Creat Ratio 15.6 RATIO (10-20); Calcium,Total 8.9 mg/dL (8.5-10.1); Chloride 106 mmol/L (98-107); Creatinine, Serum 0.96 mg/dL (0.70-1.30); EST Glomerular Filtration Rate 87 mL/min (>60); Est Glom Filt Rate - Afr Amer 106 mL/min (>60); Glucose 161 mg/dL (74-106); Potassium 4.1 mmol/L (3.5-5.1); Sodium Level 140 mmol/L (136-145)
== END ==
PROVIDERS: Family Provider Family Medicine; PCP Family Medicine; Referring Provider Physician Assistant Medical; Visit Provider Physician Assistant Medical
DX: I25.10 Atherosclerotic heart disease of native coronary artery without angina pectoris (principal); R00.2 Palpitations; R55 Syncope and collapse; Z95.5 Presence of coronary angioplasty implant and graft
CPT/HCPCS: 36415; 80048; 85027

== ENCOUNTER → 2018-10-29 11:56 | Outpatient (REF) | payer OTHER, SELFPAY | LOC: CVS 11:56 | PROVIDERS: Family Provider Family Medicine; PCP Family Medicine; Referring Provider Internal Medicine Cardiovascular Disease; Visit Provider Internal Medicine Cardiovascular Disease | DX: R00.2 Palpitations (principal); R55 Syncope and collapse | CPT/HCPCS: 93270 ==

== ENCOUNTER → 2019-03-31 09:11 | Outpatient (CLI) | payer OTHER, SELFPAY ==
[2019-01-03 12:54] VITALS: BMI 34.0
[2019-03-31 10:38] LABS: Anion Gap 7 (5-15); BUN 19 mg/dL (7-18); BUN/Creat Ratio 20.1 RATIO (10-20); Calcium,Total 9.4 mg/dL (8.5-10.1); Chloride 106 mmol/L (98-107); Creatinine, Serum 0.94 mg/dL (0.70-1.30); EST Glomerular Filtration Rate 89 mL/min (>60); Est Glom Filt Rate - Afr Amer 108 mL/min (>60); Free T3 3.3 pg/mL (2.18-3.98); Glucose 125 mg/dL (74-106); Potassium 4.3 mmol/L (3.5-5.1); Sodium Level 138 mmol/L (136-145); T4 Total, Thyroxin 9.6 ug/dL (4.5-12.1); Thyroid Stim Hormone (TSH) 5.12 uIU/mL (0.358-3.74)
== END ==
PROVIDERS: PCP Family Medicine; Referring Provider Family Medicine; Visit Provider Family Medicine
DX: E03.9 Hypothyroidism, unspecified (principal); E11.9 Type 2 diabetes mellitus without complications
CPT/HCPCS: 36415; 80048; 84436; 84443; 84481

== ENCOUNTER → 2019-06-30 09:32 | Outpatient (CLI) | payer OTHER, SELFPAY ==
[2019-06-29 14:16] VITALS: BMI 34.7
[2019-06-30 10:34] LABS: Hemoglobin A1c 8.3 % (3.8-5.6)
[2019-06-30 10:58] LABS: Anion Gap 6 (5-15); BUN 16 mg/dL (7-18); Calcium,Total 8.9 mg/dL (8.5-10.1); Chloride 104 mmol/L (98-107); Cholesterol 189 mg/dL (200); Creatinine, Serum 0.89 mg/dL (0.70-1.30); EST Glomerular Filtration Rate 96 mL/min (>60); Est Glom Filt Rate - Afr Amer 116 mL/min (>60); Free T3 3.3 pg/mL (2.18-3.98); Glucose 187 mg/dL (74-106); High Density Lipoprotein 30 mg/dL; Potassium 4.3 mmol/L (3.5-5.1); Sodium Level 136 mmol/L (136-145); T4 Free Direct 1.04 ng/dL (0.76-1.46); Thyroid Stim Hormone (TSH) 4.14 uIU/mL (0.358-3.74); Triglycerides 267 mg/dL; Very Low Density Lipoprotein 53 mg/dL (5-40)
== END ==
PROVIDERS: PCP Family Medicine; Referring Provider Family Medicine; Visit Provider Family Medicine
DX: E78.5 Hyperlipidemia, unspecified (principal); I10 Essential (primary) hypertension; E03.9 Hypothyroidism, unspecified; E11.9 Type 2 diabetes mellitus without complications
CPT/HCPCS: 36415; 80048; 80061; 83036; 84439; 84443; 84481

== ENCOUNTER → 2019-10-03 09:08 | Outpatient (CLI) | payer OTHER, SELFPAY ==
[2019-06-29 14:16] VITALS: BMI 34.7
[2019-10-03 10:40] LABS: Anion Gap 6 (5-15); BUN 22 mg/dL (7-18); Calcium,Total 9.1 mg/dL (8.5-10.1); Chloride 107 mmol/L (98-107); Cholesterol 193 mg/dL (200); EST Glomerular Filtration Rate 83 mL/min (>60); Est Glom Filt Rate - Afr Amer 101 mL/min (>60); Free T3 3.1 pg/mL (2.18-3.98); Glucose 185 mg/dL (74-106); High Density Lipoprotein 28 mg/dL; Potassium 4.5 mmol/L (3.5-5.1); Sodium Level 137 mmol/L (136-145); Thyroid Stim Hormone (TSH) 4.26 uIU/mL (0.358-3.74); Triglycerides 235 mg/dL; Very Low Density Lipoprotein 47 mg/dL (5-40)
== END ==
PROVIDERS: PCP Family Medicine; Referring Provider Family Medicine; Visit Provider Family Medicine
DX: E03.9 Hypothyroidism, unspecified (principal); E11.9 Type 2 diabetes mellitus without complications
CPT/HCPCS: 36415; 80048; 80061; 84436; 84443; 84481

== ENCOUNTER 2019-12-14 19:29 | Emergency (ER) | payer OTHER, SELFPAY ==
[2019-10-12 10:32] VITALS: BMI 35.6
[2019-12-14 19:30] VITALS: BP 158/84; PULSE 88; RESP 16; TEMP 36.8; O2SAT 96; BMI 36.5
--- NOTE | 2019-12-14 19:30 | CT_ITS ---
STUDY: CT BRAIN WITHOUT CONTRAST REASON FOR EXAM: Male, 54 years old. LEFT SIDED FACIAL NUMBNESS/DROOP, HX SZ, HTN, MA, DIAB RADIATION DOSAGE (If Supplied By Facility): CTDIvol = ( 44.99 ) mGy, DLP = ( 846.73 ) mGycm TECHNIQUE: Transaxial CT imaging of the brain was performed without administration of intravenous contrast material. Individualized dose optimization techniques were used for this CT. COMPARISON: Head CT dated JUNE 15, 2013 FINDINGS: Normal soft tissue structures. Normal calvarium. Normal size ventricles and extra-axial spaces for the patient''s age. Normal white matter tracts of the cerebral hemispheres. Normal basal ganglia and thalami. Normal brainstem. Normal cerebellum. There is no intracranial hemorrhage. There are no findings of an acute ischemic infarction. Normal visualized paranasal sinuses. CT/Brain/Head without Contrast IMPRESSION: No demonstrated acute or significant intracranial process. Electronically Signed: Vick Hendrix MD at 20:02 EST , Service support ,
--- NOTE | 2019-12-14 19:46 | ED.DCSUM_ITS ---
- ER Visit Summary Date of Service: 12/14/19 Chief Complaint: Left-sided facial droop History of Present Illness: The patient is a 54 M with a left-sided facial droop that started earlier today. No weakness paresthesias the forehead is involved no speech difficulties or vision changes. Review of systems: All other review of systems were reviewed and are negative HEENT: No cough or congestion Eyes:No vision changes Neck: No neck pain Cardiovascular: No chest pain or shortness of breath Respiratory: No shortness of breath GI: No abdominal pain or nausea : No dysuria Skin: No rash Neuro: Facial droop as in HPI Hematological: Prone to easy bleeding secondary to antiplatelet medications Physical Examination: Not appear in acute distress. Moist mucous membranes, he has left-sided facial droop including forehead Eyes are significant for difficulty closing the left eyelid No C-spine tenderness supple neck. Regular rate and rhythm without any obvious murmurs Clear lungs bilaterally speaking in full sentences without any obvious respiratory distress Abdomen soft and nontender no guarding or rebound Moves all extremities without any difficulty or pain. Skin does not show any obvious rashes or lesions, no trauma. Alert oriented ?3 facial droop as above this is consistent with Yuen's palsy. Emergency Department Course and Treatment: Patient has normal CT. Signs and symptoms are consistent with a Yuen's palsy. Patient will be treated with steroids and antivirals. Disposition: Discharge stable condition Impression: Yuen's palsy This note was generated with [employer] dictation software. It may contain incorrect words, spelling, and punctuation that were not noted in review of the chart prior to signing ED Disposition - Plan for ED Patient: Disposition: Psychiatric Hospital or Unit Diagnosis: Yuen's palsy Instructions: ED [place] [facility] Prescriptions: Prednisone 60 mg PO DAILY #30 tab Transmission Status: Pending to [facility]/pharmacy #[id number] Valacyclovir HCl [Valtrex] 1,000 mg PO BID #20 tab Transmission Status: Pending to [facility] #[id number] Referrals: Mikey Rogers MD [Primary Care Provider] - 3-5 Days
--- NOTE | 2019-12-14 19:51 | ED.RN ---
LEFT SIDED FACIAL DROOP AND NUMBNESS FROM FORHEAD TO CHIN.
[2019-12-14] MEDS: predniSONE 20 MG Tablet 60 MG PO (20:10)
[2019-12-14 21:09] VITALS: BP 151/92; PULSE 72; RESP 15; O2SAT 97
[2019-12-14] MEDS: Acyclovir 800 MG Tablet PO (21:09)
== END 2019-12-14 21:10 | disposition home or self-care (01) ==
PROVIDERS: Emergency Provider Emergency Medicine; PCP Family Medicine
DX: G51.0 Bell's palsy (principal)
CPT/HCPCS: 70450; 99283

== ENCOUNTER → 2019-12-22 | Outpatient (CLI) | payer OTHER, SELFPAY ==
[2019-12-14 19:30] VITALS: BMI 36.5
== END | disposition home or self-care (01) ==
LOC: LABSPEC 15:50
PROVIDERS: PCP Family Medicine; Referring Provider Family Medicine; Visit Provider Family Medicine
DX: Z20.828 Contact with and (suspected) exposure to other viral communicable diseases (principal)
CPT/HCPCS: 87635; U0003

== ENCOUNTER → 2020-02-15 09:05 | Outpatient (CLI) | payer OTHER, SELFPAY ==
[2020-02-15 10:47] LABS: Anion Gap 9 (5-15); BUN 17 mg/dL (7-18); BUN/Creat Ratio 19.8 RATIO (10-20); Calcium,Total 9.1 mg/dL (8.5-10.1); Chloride 105 mmol/L (98-107); Cholesterol 192 mg/dL (200); Creatinine, Serum 0.86 mg/dL (0.70-1.30); EST Glomerular Filtration Rate 99 mL/min (>60); Est Glom Filt Rate - Afr Amer 120 mL/min (>60); Glucose 145 mg/dL (74-106); High Density Lipoprotein 27 mg/dL; Potassium 4.4 mmol/L (3.5-5.1); Sodium Level 137 mmol/L (136-145); Thyroid Stim Hormone (TSH) 2.48 uIU/mL (0.358-3.74); Triglycerides 349 mg/dL; Very Low Density Lipoprotein 70 mg/dL (5-40)
[2020-02-16 07:09] LABS: SARS-COV-2 TOTAL ABS Reactive (Nonreactive)
== END ==
PROVIDERS: PCP Family Medicine; Referring Provider Family Medicine; Visit Provider Family Medicine
DX: Z20.822 Contact with and (suspected) exposure to COVID-19 (principal); I10 Essential (primary) hypertension; E03.9 Hypothyroidism, unspecified
CPT/HCPCS: 36415; 80048; 80061; 84443; 86769

== ENCOUNTER → 2020-05-14 09:02 | Outpatient (CLI) | payer OTHER, SELFPAY ==
[2020-03-19 08:49] VITALS: BMI 36.1
[2020-05-14 10:32] LABS: ALB/GLOB Ratio 1.1 RATIO (0.9-2.4); AST(SGOT) 25 U/L (15-37); Alanine Aminotransfer ALT/SGPT 47 U/L (16-61); Albumin, Serum 3.9 g/dL (3.2-5.0); Alkaline Phosphatase 106 U/L (45-117); Anion Gap 8 (5-15); BUN 21 mg/dL (7-18); BUN/Creat Ratio 20.2 RATIO (10-20); Calcium,Total 9.1 mg/dL (8.5-10.1); Chloride 103 mmol/L (98-107); Creatinine, Serum 1.04 mg/dL (0.70-1.30); EST Glomerular Filtration Rate 79 mL/min (>60); Est Glom Filt Rate - Afr Amer 96 mL/min (>60); Globulin 3.5 g/dL (2.2-4.2); Glucose 171 mg/dL (74-106); Potassium 4.5 mmol/L (3.5-5.1); Protein, Total 7.4 g/dL (6.4-8.2); Sodium Level 137 mmol/L (136-145); T4 Free Direct 1.09 ng/dL (0.76-1.46); Thyroid Stim Hormone (TSH) 4.03 uIU/mL (0.358-3.74)
== END ==
PROVIDERS: PCP Family Medicine; Visit Provider Family Medicine
DX: E03.9 Hypothyroidism, unspecified (principal); I10 Essential (primary) hypertension
CPT/HCPCS: 36415; 80053; 84439; 84443; 84481

== ENCOUNTER → 2020-07-11 14:24 | Outpatient (CLI) | payer OTHER, SELFPAY ==
[2020-03-19 08:49] VITALS: BMI 36.1
--- NOTE | 2020-07-11 14:30 | RAD_ITS ---
STUDY: X-RAY CHEST REASON FOR EXAM: Male, 55 years old. SOB TECHNIQUE: Frontal and lateral views of the chest COMPARISON: 26 August 2018 FINDINGS: The lungs are clear and expanded. There is no demonstrated pleural abnormality. Normal size heart. Normal mediastinum and alberto. Normal visualized pulmonary arteries. Normal visualized aortic arch and descending thoracic aorta. Normal visualized thoracic spine. Normal visualized ribs, clavicles, and shoulders. There is no demonstrated abnormality of the visualized soft tissue structures of the upper abdomen. RAD/Chest PA and Lateral IMPRESSION: Normal x-ray examination of the chest. Electronically Signed: Liz March MD at 20:58 EDT Tel , Service support ,
[2020-07-11 17:42] LABS: Absolute Lymphocyte Count 2.29 X10^3/uL (0.83-4.51); Absolute Neutrophil Count 6.5 X10^3/uL (2.0-7.7); Basophil# 0.03 X10^3/uL; Basophil% 0.3 % (0-1); Eosinophil# 0.21 X10^3/uL; Eosinophils% 2.1 % (0-5); Hematocrit 41.4 % (40-54); Hemoglobin 13.1 g/dL (13.0-16.5); Lymphocyte # 2.29 X10^3/ul (0.83-4.51); Mean Corp Hgb Conc 31.6 g/dL (32-36); Mean Corpuscular Hgb 26.2 pg (27.0-32.0); Mean Corpuscular Volume 82.8 fL (80-94); Mean Platelet Vol. 9.5 fl (6.2-12.0); Monocyte# 0.89 X10^3/uL; NRBC Flagged by Analyzer 0 % (0-5); Neutrophil # 6.45 X10^3/uL (2.7-7.7); Neutrophil % 64.9 % (47-70); Platelet Count 383 K/mm3 (150-450); RBC Distribution Width CV 13.4 % (11.6-14.6); RBC Distribution Width SD 40.2 fl (35.1-43.9); White Blood Count 9.9 K/mm3 (4.4-11.0)
[2020-07-11 17:50] LABS: BNP,B-Type NATRIURETIC PEPTIDE 17.1 pg/mL (0-100)
[2020-07-11 18:05] LABS: Anion Gap 10 (5-15); BUN 18 mg/dL (7-18); BUN/Creat Ratio 16.7 RATIO (10-20); Chloride 106 mmol/L (98-107); Creatinine, Serum 1.08 mg/dL (0.70-1.30); EST Glomerular Filtration Rate 76 mL/min (>60); Est Glom Filt Rate - Afr Amer 92 mL/min (>60); Glucose 133 mg/dL (74-106); Potassium 3.9 mmol/L (3.5-5.1); Sodium Level 139 mmol/L (136-145)
[2020-07-11 18:39] LABS: D-Dimer Quantitative (DVT/PE) <= 0.27 FEU/ug/m (0.27-0.49)
== END ==
PROVIDERS: PCP Family Medicine; Referring Provider Family Medicine; Visit Provider Family Medicine
DX: R06.02 Shortness of breath (principal)
CPT/HCPCS: 36415; 71046; 80048; 83880; 85025; 85379

== ENCOUNTER → 2020-07-23 06:01 | Outpatient (CLI) | payer OTHER, SELFPAY ==
[2020-03-19 08:49] VITALS: BMI 36.1
--- NOTE | 2020-07-23 16:39 | STRESSREP_ITS ---
Stress Test Report Exercise myocardial perfusion stress test. 55-year-old male with a history of shortness of breath. Stress protocol: Resting EKG demonstrates normal sinus rhythm with a rate of 81 bpm normal intervals are noted resting blood pressures 152/88 mmHg. The patient exercised according to the regular Jose C protocol for total duration of 6 minutes and 31 seconds. The maximum heart rate attained was 127 bpm which was 76% of maximum predicted heart rate the maximum workload was 7.8 metabolic equivalents. At rest there were no ST or T wave changes noted to suggest ischemia. At peak exercise there was approximately [address] depression noted in lead II and less than [address] depression noted in leads III and aVF. The above is suggestive though not diagnostic of ischemia. The patient also experienced shortness of breath and left shoulder discomfort with exercise which dissipated at rest. The peak blood pressure was 192/92 mmHg. Myocardial perfusion protocol. 11.9 mCi of technetium 99m sestamibi was injected at rest. The patient exercised according to regular Jose C protocol for 6-1/2 minutes. At peak exe rcise 33.1 mCi of technetium 99m sestamibi was injected stress images were obtained stress and rest images were reconstructed and compared in the short axis vertical long and horizontal long axis. Gated images were also obtained per Perfusion SPECT analysis: Review of the stress images demonstrate normal uptake of tracer noted in all areas of the myocardium. The resting images similarly demonstrate normal uptake of tracer noted in all areas of the myocardium. No previous infarct is noted in all other areas are normally perfused. Gated SPECT analysis: The gated ejection fraction is noted to be 65%. Conclusion: Normal exercise myocardial perfusion stress test at a moderate workload. EKG changes noted suggestive but not diagnostic of ischemia. In comparison to the previous stress test from 2018 the EKG changes appear to be similar and the nuclear images normal. There is however slight diminution in exercise capacity
== END ==
PROVIDERS: PCP Family Medicine; Referring Provider Family Medicine; Visit Provider Family Medicine
DX: R06.02 Shortness of breath (principal)
CPT/HCPCS: 78452; 93017; A9500; A4216

== ENCOUNTER 2021-04-04 08:21 | Outpatient (CLI) | payer OTHER, SELFPAY ==
[2021-04-04 10:33] LABS: Anion Gap 7 (5-15); BUN 24 mg/dL (7-18); Calcium,Total 8.8 mg/dL (8.5-10.1); Chloride 107 mmol/L (98-107); Cholesterol 166 mg/dL (200); EST Glomerular Filtration Rate 83 mL/min (>60); Est Glom Filt Rate - Afr Amer 100 mL/min (>60); Free T3 2.9 pg/mL (2.18-3.98); Glucose 110 mg/dL (74-106); High Density Lipoprotein 31 mg/dL; Potassium 4.3 mmol/L (3.5-5.1); Sodium Level 138 mmol/L (136-145); T4 Free Direct 1.07 ng/dL (0.76-1.46); Thyroid Stim Hormone (TSH) 5.56 uIU/mL (0.358-3.74); Triglycerides 194 mg/dL; Very Low Density Lipoprotein 39 mg/dL (5-40)
== END 2021-04-04 23:59 | disposition home or self-care (01) ==
LOC: MFPLAB 08:25
PROVIDERS: PCP Family Medicine; Referring Provider Family Medicine; Visit Provider Family Medicine
DX: E03.9 Hypothyroidism, unspecified (principal); E11.9 Type 2 diabetes mellitus without complications
CPT/HCPCS: 36415; 80048; 80061; 84439; 84443; 84481

== ENCOUNTER 2021-06-02 10:22 | Emergency (ER) | payer OTHER, SELFPAY ==
[2021-06-02 10:23] VITALS: BP 171/100; PULSE 79; RESP 24; TEMP 37; O2SAT 98; BMI 37.6
--- NOTE | 2021-06-02 11:00 | RAD_ITS ---
STUDY: X-RAY CHEST REASON FOR EXAM: Male, 56 years old. Shortness of breath and palpitations. TECHNIQUE: PA and lateral views of the chest. COMPARISON: 07/11/2020. FINDINGS: Telemetry wires overlying the chest. The lungs are clear and expanded. There is no demonstrated pleural abnormality. Normal size heart. Normal mediastinum and alberto. Normal visualized pulmonary arteries. Normal visualized aortic arch and descending thoracic aorta. No demonstrated acute osseous changes. There is no demonstrated abnormality of the visualized soft tissue structures of the upper abdomen. RAD/Chest PA and Lateral IMPRESSION: No active pulmonary disease. Electronically Signed: Kai Akers MD at 12:08 EDT ,
--- NOTE | 2021-06-02 11:00 | EKG12_ITS ---
Test Reason : CP Blood Pressure : / mmHG Vent. Rate : 077 BPM Atrial Rate : 077 BPM P-R Int : 174 ms QRS Dur : 094 ms QT Int : 348 ms P-R-T Axes : 024 012 026 degrees QTc Int : 393 ms Normal sinus rhythm Normal ECG Confirmed by TONY QUACH, LORE ([id number]), manuscript editor RON ALEMAN ([id number]) on 06/04/2021 11:09:48 AM Referred By: BB Confirmed By:LORE JIMENEZ MD
--- NOTE | 2021-06-02 11:01 | EDS_ITS ---
HPI History of Present Illness Chief Complaint: Dizziness Informant: patient and EMS Onset/Context/Timing Onset: Today (JPTA) Context: Gradual Onset Timing: Continuous and Lasts (30 min or so) Current Severity: Gone Maximum Severity: Severe Worsened by: nothing Relieved by: nothing in particular Narrative Narrative: Patient had an episode where he felt very weak and tired all over and very hot, he felt clammy which led to complete diaphoresis, a little short of breath like it was hard to get a good breath but no mahin dyspnea. No chest discomfort. Occasional brief palpitations that felt like a skipped, he states that is not unusual for him and he felt nothing more persistent than that. He was in congregation when this occurred. He did not fear near syncopal. He felt weak all over and did not have any focal lateralizing neurologic symptoms, trouble speaking, or trouble understanding others during any of this. He went out into the lobby where it was cooler and did not necessarily feel better. Someone helped him call EMS. Upon their evaluation his blood pressure was very high, his blood sugar was 220, and he was scoring negative for any acute stroke signs. He states he did not feel lightheaded until he was in the ambulance and they laid him down and then sat him back up. He did have a brief near syncopal episode at that point, that sounded more orthostatic in nature. He did not lose consciousness or have any other symptoms during that except for a brief episode of tunnel vision. Patient states he is feeling completely better now although his blood pressure is still up similar to what it was for EMS, 170s. He states this is very unusual event for him. He is on several blood pressure medications, and he has a morning routine and has missed none of them, nor have there been any changes lately. No recent illness, or moyk-lfv-biooaut medic ations of any type. He states every morning he takes his Synthroid, he then waits a little while and eats Cheerios with skim milk because it helps settle his stomach and then he is able to take his blood pressure medications which include verapamil and Coreg in the morning. Sometimes an hour later (he takes the blood pressure medications at 0815), he gets some epigastric stomach upset that he thinks may be related to the medications. He is wondering if that could have caused some of this but is stomach is not bothering him now. He arrives here around 10:30 AM or so. [facility] Medical History Atherosclerosis of coronary artery of [place] heart without angina pectoris [place] esophagus Barretts esophagus CAD (coronary artery disease) COVID Diabetes mellitus, type II DM2 (diabetes mellitus, type 2) Essential hypertension Hiatal hernia HTN (hypertension) HTN (hypertension) Mixed hyperlipidemia Obesity (BMI 30-39.9) STEMI (ST elevation myocardial infarction) (08/04/17) Syncope and collapse Home Medications fenofibrate nanocrystallized 145 mg PO DAILY 08/04/17 [History Last Taken 03/22/18 08:00] metformin 1,000 mg PO BIDCM #0 08/19/17 [Rx Last Taken 03/21/18 22:00] aspirin 81 mg PO DAILY 03/22/18 [History Last Taken 03/21/18 08:00] clopidogrel 75 mg PO QHS 03/22/18 [History Last Taken 03/21/18 22:00] lisinopril 10 mg PO BID 03/22/18 [History Last Taken 03/22/18 08:00] omeprazole 40 mg PO DAILY 03/22/18 [History Last Taken 03/22/18 08:00] carvedilol 12.5 mg tablet 12.5 mg PO BID #180 tab 10/10/19 [Rx Last Taken Unknown] atorvastatin 40 mg tablet 40 mg PO QHS 10/12/19 [History Last Taken Unknown] levothyroxine 50 mcg tablet 50 mcg PO DAILY 10/12/19 [History Last Taken Unknown] nitroglycerin 0.4 mg sublingual tablet 0.4 mg SUBLINGUAL Q5M PRN #25 tab 07/18/20 [Rx Last Taken Unknown] insulin glargine 100 unit/mL (3 mL) subcutaneous pen 80 unit SC QHS ml 09/26/20 [History Last Taken Unknown] multivitamin 1 tab PO DAILY 09/26/20 [History Last Taken Unknown] isosorbide mononitrate 30 mg tablet,extended release 24 hr 30 mg PO DAILY #90 tab 01/14/21 [Rx Last Taken Unknown] ascorbic acid (vitamin C) 500 mg tablet 500 mg PO DAILY 04/02/21 [History Last Taken Unknown] insulin lispro 100 unit/mL subcutaneous half-unit pen 1 sliding scale dose SUBCUT USEASDIRECTD 04/02/21 [History Last Taken Unknown] vitamin E 200 unit capsule 200 unit PO DAILY 04/02/21 [History Last Taken Unknown] zinc gluconate 50 mg tablet 50 mg PO DAILY 04/02/21 [History Last Taken Unknown] Allergy/AdvReac Type Severity Reaction Status Date / Time bee venom protein (honey bee) Allergy Severe Angioedema Verified 06/02/21 10:25 niacin Allergy Shortness Verified 06/02/21 10:25 of breath Family History Mother Heart disease Brother Hypertension Surgical History History of coronary artery stent placement (09/15/17) History of left heart catheterization (03/22/18) Social History Smoking Status: Former smoker alcohol intake: never caffeine: Yes Type: coffee Number of servings: 2 ROS ROS ED Constitutional Constitutional ED: Reports fatigue, malaise and sweats; Denies chills or fever(s) Eyes Eyes: Denies change in vision or diplopia ENT ENT ED: Denies rhinorrhea or sore throat Cardiovascular Cardiovascular: Denies chest pain or palpitations Respiratory/Chest Respiratory/Chest: Reports as per HPI and dyspnea; Denies cough or dyspnea on exertion Gastrointestinal Gastrointestinal: Denies abdominal pain, diarrhea, nausea or vomiting Genitourinary Genitourinary ED: Denies dysuria or hematuria Musculoskeletal Musculoskeletal: Denies back pain or neck pain Integumentary Denies abscess or rash Neurologic Neurologic: Denies headache(s), paresthesias or weakness Psychiatric Psychiatric: Denies anxiety or suicidal thoughts EXAM Physical Exam Const Vital Signs: 06/02/21 10:23 06/02/21 10:47 06/02/21 11:23 Temperature 98.6 F Temperature Source Oral Pulse Rate 79 77 Respiratory Rate 24 H 12 Respiratory Effort Normal Respiratory Pattern Normal Blood Pressure 171/100 H 136/83 H Blood Pressure Mean 123 100 Pulse Ox 98 96 Oxygen Delivery Method Room Air Room Air 06/02/21 12:24 Temperature Temperature Source Pulse Rate 72 Respiratory Rate 17 Respiratory Effort Respiratory Pattern Blood Pressure 126/83 H Blood Pressure Mean 97 Pulse Ox 96 Oxygen Delivery Method Room Air Positive well nourished and well developed General Appearance ED: well developed and NAD HEENT Reports moist mucous membranes normocephalic and atraumatic Eyes PERRL and EOMs intact bilaterally Neck full ROM and supple Resp normal respiratory effort and clear to auscultation bilaterally Cardio regular rate, regular rhythm, no murmurs, no rub, no gallops and no JVD Rate: Negative for tachycardic GI non-tender and non-distended Auscultation: normoactive bowel sounds Palpation: soft Back/Spine no CVA tenderness General Back: other FROM Extremity normal to inspection General Extremety ED: Negative for edema, pulses abnormal or tenderness General Extremity: Negative for edema or pulses abnormal Neuro oriented x3, CN's II-XII intact bilaterally and no sensory deficits noted Sensorium / Orientation: awake and alert Motor Exam: strength 5/5 throughout Skin no wounds Skin Narrative: Patch of nontender eczema of the left lower torres, no other rashes or lesions noted MDM MDM MDM Narrative Medical decision making narrative: Patient's initial blood pressure 171/100 when he was feeling asymptomatic. I ordered clonidine low-dose, but before the nurse was able to give it his blood pressure was reading 136/83 so it was held and we continued to monitor him closely. He had no telemetry events. His EKG is normal. His initial enzymes are negative, we did a D-dimer as well, it is normal. He is a little prerenal was given some IV fluids while we observed him and obtained a 2-hour repeat troponin. It returned negative as well and the patient still felt well, with blood pressure now 126/83. I suspect his symptoms were related to his pressure being high, but the reason for it is unclear. We monitored him and did the sets of enzymes due to his cardiac history, but given lack of angina and the negative work-up I am comfortable letting him go home and follow-up with his doctor. All questions answered at the bedside he is comfortable with that plan. Lab Data Attestation: I reviewed the patient's lab results. Labs: Laboratory Results - last 24 hr 06/02/21 06/02/21 06/02/21 10:11 10:11 10:11 WBC 11.4 H RBC 5.26 Hgb 13.6 Hct 43.0 MCV 81.7 MCH 25.9 L MCHC 31.6 L RDW Std Deviation 40.9 RDW Coeff of Reva 13.7 Plt Count 448 MPV 9.6 Immature Gran % (Auto) 1.300 H Neut % (Auto) 70.2 H Lymph % (Auto) 19.0 Nance % (Auto) 7.9 Eos % (Auto) 1.3 Baso % (Auto) 0.3 Absolute Neuts (auto) 8.0 H Absolute Lymphs (auto) 2.16 Nucleated RBC % 0 D-Dimer Quant (PE/DVT) < 0.27 L Sodium 135 L Potassium 4.6 Chloride 103 Carbon Dioxide 26.0 Anion Gap 6 BUN 28 H Creatinine 1.17 Estim Creat Clear Calc 65.13 Est GFR (MDRD) Af Amer 83 Est GFR (MDRD) Non-Af 69 BUN/Creatinine Ratio 23.9 H Glucose 216 H Calcium 9.6 Troponin I High Sens < 3 L POC Glucose 06/02/21 06/02/21 12:09 12:25 WBC RBC Hgb Hct MCV MCH MCHC RDW Std Deviation RDW Coeff of Reva Plt Count MPV Immature Gran % (Auto) Neut % (Auto) Lymph % (Auto) Nance % (Auto) Eos % (Auto) Baso % (Auto) Absolute Neuts (auto) Absolute Lymphs (auto) Nucleated RBC % D-Dimer Quant (PE/DVT) Sodium Potassium Chloride Carbon Dioxide Anion Gap BUN Creatinine Estim Creat Clear Calc Est GFR (MDRD) Af Amer Est GFR (MDRD) Non-Af BUN/Creatinine Ratio Glucose Calcium Troponin I High Sens < 3 L POC Glucose 150 H Radiography Chest X-Ray - ED: 2 View, Read by ED Physician, Normal and No Acute Disease Diagnostic Testing: Clinical Impression(s) from Imaging Studies Chest X-Ray 06/02/21 11:00 IMPRESSION: No active pulmonary disease. Electronically Signed: Kai Akers MD at 12:08 EDT , EKG Initial EKG: Attestation: I personally reviewed and interpreted this EKG as follows: Interpretation: Sinus Rhythm and No Acute Injury Pattern Comments: Normal EKG. No repolarization abnormalities. Rate 77. Discharge Plan Triage Chief Complaint: Dizziness ED Provider: Fly Parra Dx/Rx/DC Orders Clinical Impression: Episode of hypertension, Diaphoresis, Intermittent palpitations Instructions: Hypertension Dc Prescriptions: No Action atorvastatin 40 mg tablet 40 mg PO QHS RF: 0 levothyroxine 50 mcg tablet 50 mcg PO DAILY RF: 0 multivitamin Tablet 1 tab PO DAILY RF: 0 insulin lispro [Humalog Tj KwikPen U-100] 100 unit/mL insulin pen, half- unit 1 sliding scale dose subcut USEASDIRECTD RF: 0 ascorbic acid (vitamin C) 500 mg tablet 500 mg PO DAILY RF: 0 zinc gluconate 50 mg tablet 50 mg PO DAILY RF: 0 vitamin E 200 unit capsule 200 unit PO DAILY RF: 0 fenofibrate nanocrystallized 145 MG tablet 145 mg PO DAILY RF: 0 metformin 1,000 MG tablet 1,000 mg PO BIDCM Qty: 0 RF: 0 insulin glargine 100 unit/mL (3 mL) insulin pen 80 unit SC QHS RF: 0 omeprazole 40 MG capsule,delayed release(DR/EC) 40 mg PO DAILY RF: 0 lisinopril 20 MG tablet 10 mg PO BID RF: 0 clopidogrel 75 MG tablet 75 mg PO QHS RF: 0 aspirin 81 MG tablet,chewable 81 mg PO DAILY RF: 0 carvedilol 12.5 mg tablet 12.5 mg PO BID Qty: 180 RF: 3 nitroglycerin 0.4 mg tablet, sublingual 0.4 mg SUBLINGUAL Q5M PRN (Reason: Cardiac/Chest Pain) Qty: 25 RF: 3 isosorbide mononitrate 30 mg tablet extended release 24 hr 30 mg PO DAILY Qty: 90 RF: 3 Primary Care Provider: Mikey Rogers Referrals: Mikey Rogers MD [Primary Care Provider] - As soon as possible (this coming week for reevaluation) Disposition Disposition: Home, Self Care
[2021-06-02 11:18] LABS: Absolute Lymphocyte Count 2.16 X10^3/uL (0.83-4.51); Basophil# 0.03 X10^3/uL; Basophil% 0.3 % (0-1); Eosinophil# 0.15 X10^3/uL; Eosinophils% 1.3 % (0-5); Hemoglobin 13.6 g/dL (13.0-16.5); Lymphocyte # 2.16 X10^3/ul (0.83-4.51); Mean Corp Hgb Conc 31.6 g/dL (32-36); Mean Corpuscular Hgb 25.9 pg (27.0-32.0); Mean Corpuscular Volume 81.7 fL (80-94); Mean Platelet Vol. 9.6 fl (6.2-12.0); Monocyte% 7.9 % (0-10); NRBC Flagged by Analyzer 0 % (0-5); Neutrophil # 7.99 X10^3/uL (2.7-7.7); Neutrophil % 70.2 % (47-70); Platelet Count 448 K/mm3 (150-450); RBC Distribution Width CV 13.7 % (11.6-14.6); RBC Distribution Width SD 40.9 fl (35.1-43.9); Red Blood Count 5.26 M/mm3 (4.6-6.2); White Blood Count 11.4 K/mm3 (4.4-11.0)
[2021-06-02 11:23] VITALS: BP 136/83; PULSE 77; RESP 12; O2SAT 96
[2021-06-02 11:36] LABS: Anion Gap 6 (5-15); BUN 28 mg/dL (7-18); BUN/Creat Ratio 23.9 RATIO (10-20); Calcium,Total 9.6 mg/dL (8.5-10.1); Chloride 103 mmol/L (98-107); Creatinine, Serum 1.17 mg/dL (0.70-1.30); D-Dimer Quantitative (DVT/PE) < 0.27 FEU/ug/m (0.27-0.49); EST Glomerular Filtration Rate 69 mL/min (>60); Est Glom Filt Rate - Afr Amer 83 mL/min (>60); Estimated Creatinine Clearance 65.13 ml/min; Glucose 216 mg/dL (74-106); Potassium 4.6 mmol/L (3.5-5.1); Sodium Level 135 mmol/L (136-145); Troponin-I HS < 3 pg/mL (3.0-78.0)
[2021-06-02 12:15] LABS: Bedside Glucose 150 mg/dL (74-106)
[2021-06-02 12:24] VITALS: BP 126/83; PULSE 72; RESP 17; O2SAT 96
[2021-06-02 12:59] LABS: Troponin-I HS < 3 pg/mL (3.0-78.0)
[2021-06-02 13:19] VITALS: BP 113/71; PULSE 74; RESP 16; O2SAT 97
== END 2021-06-02 13:20 | disposition home or self-care (01) ==
PROVIDERS: Emergency Provider Emergency Medicine; PCP Family Medicine; Visit Provider Emergency Medicine
DX: I10 Essential (primary) hypertension (principal); E11.9 Type 2 diabetes mellitus without complications; Z79.4 Long term (current) use of insulin; R61 Generalized hyperhidrosis; R00.2 Palpitations; I25.10 Atherosclerotic heart disease of native coronary artery without angina pectoris; I25.2 Old myocardial infarction; E78.2 Mixed hyperlipidemia; E66.9 Obesity, unspecified; Z95.5 Presence of coronary angioplasty implant and graft; Z79.82 Long term (current) use of aspirin; Z79.84 Long term (current) use of oral hypoglycemic drugs; Z79.899 Other long term (current) drug therapy; Z86.16 Personal history of COVID-19; Z87.891 Personal history of nicotine dependence
CPT/HCPCS: 71046; 80048; 82962; 84484; 85025; 85379; 93005; 96360; 99285; J7040; A4216

== ENCOUNTER → 2021-06-28 | Outpatient (CLI) | payer OTHER, SELFPAY ==
[2021-06-28 11:00] LABS: Anion Gap 8 (5-15); BUN 26 mg/dL (7-18); BUN/Creat Ratio 24.5 RATIO (10-20); Calcium,Total 9.4 mg/dL (8.5-10.1); Chloride 105 mmol/L (98-107); Creatinine, Serum 1.06 mg/dL (0.70-1.30); EST Glomerular Filtration Rate 77 mL/min (>60); Est Glom Filt Rate - Afr Amer 94 mL/min (>60); Glucose 107 mg/dL (74-106); Potassium 4.6 mmol/L (3.5-5.1); Sodium Level 136 mmol/L (136-145); Thyroid Stim Hormone (TSH) 6.25 uIU/mL (0.358-3.74)
== END | disposition home or self-care (01) ==
LOC: MTLAB 08:28
PROVIDERS: PCP Family Medicine; Referring Provider Family Medicine; Visit Provider Family Medicine
DX: E03.9 Hypothyroidism, unspecified (principal); E11.9 Type 2 diabetes mellitus without complications
CPT/HCPCS: 36415; 80048; 84443

== ENCOUNTER → 2021-10-18 | Outpatient (CLI) | payer OTHER, SELFPAY ==
[2021-10-18 10:55] LABS: Free T3 3.2 pg/mL (2.18-3.98); T4 Free Direct 1.15 ng/dL (0.76-1.46); Thyroid Stim Hormone (TSH) 5.52 uIU/mL (0.358-3.74)
== END | disposition home or self-care (01) ==
LOC: MTLAB 09:13
PROVIDERS: PCP Family Medicine; Referring Provider Family Medicine; Visit Provider Family Medicine
DX: E03.9 Hypothyroidism, unspecified (principal)
CPT/HCPCS: 36415; 84439; 84443; 84481

== ENCOUNTER → 2022-04-14 | Outpatient (CLI) | payer OTHER, SELFPAY ==
[2022-04-14 10:28] LABS: Hemoglobin A1c 8.4 % (3.8-5.6)
[2022-04-14 10:32] LABS: Microalbumin:Creatinine Ratio 137.9 mg/g CRE (<30 mg/g CRE)
[2022-04-14 10:56] LABS: ALB/GLOB Ratio 1.1 RATIO (0.9-2.4); AST(SGOT) 39 U/L (15-37); Alanine Aminotransfer ALT/SGPT 71 U/L (16-61); Albumin, Serum 3.9 g/dL (3.2-5.0); Alkaline Phosphatase 102 U/L (45-117); Anion Gap 7 (5-15); BUN 31 mg/dL (7-18); BUN/Creat Ratio 27.4 RATIO (10-20); Bilirubin, Direct 0.16 mg/dL (0.00-0.30); Calcium,Total 9.7 mg/dL (8.5-10.1); Chloride 103 mmol/L (98-107); Cholesterol 226 mg/dL (200); Creatinine, Serum 1.13 mg/dL (0.70-1.30); EST Glomerular Filtration Rate 72 mL/min (>60); Est Glom Filt Rate - Afr Amer 87 mL/min (>60); Globulin 3.5 g/dL (2.2-4.2); Glucose 208 mg/dL (74-106); High Density Lipoprotein 27 mg/dL; Protein, Total 7.4 g/dL (6.4-8.2); Sodium Level 136 mmol/L (136-145); T4 Free Direct 1.02 ng/dL (0.76-1.46); Thyroid Stim Hormone (TSH) 3.79 uIU/mL (0.358-3.74); Triglycerides 394 mg/dL; Very Low Density Lipoprotein 79 mg/dL (5-40)
== END | disposition home or self-care (01) ==
LOC: LAB 09:52
PROVIDERS: PCP Family Medicine; Referring Provider Nurse Practitioner Family; Visit Provider Nurse Practitioner Family
DX: E11.9 Type 2 diabetes mellitus without complications (principal)
CPT/HCPCS: 36415; 80053; 80061; 82043; 82248; 82570; 83036; 84439; 84443

== ENCOUNTER → 2022-10-21 | Outpatient (CLI) | payer OTHER, SELFPAY ==
[2022-10-21 11:00] LABS: Cholesterol 230 mg/dL (200); High Density Lipoprotein 27 mg/dL; Triglycerides 498 mg/dL
== END | disposition home or self-care (01) ==
LOC: LAB 08:32
PROVIDERS: PCP Family Medicine; Referring Provider Nurse Practitioner Family; Visit Provider Nurse Practitioner Family
DX: E78.2 Mixed hyperlipidemia (principal); E11.9 Type 2 diabetes mellitus without complications
CPT/HCPCS: 36415; 80061

== ENCOUNTER → 2023-05-15 | Outpatient (CLI) | payer OTHER, SELFPAY ==
[2023-05-15 08:49] LABS: ALB/GLOB Ratio 1.1 RATIO (0.9-2.4); AST(SGOT) 39 U/L (15-37); Alanine Aminotransfer ALT/SGPT 54 U/L (16-61); Albumin, Serum 3.8 g/dL (3.2-5.0); Alkaline Phosphatase 74 U/L (45-117); Anion Gap 5 (5-15); BUN 27 mg/dL (7-18); Calcium,Total 8.8 mg/dL (8.5-10.1); Chloride 108 mmol/L (98-107); Cholesterol 162 mg/dL (200); Creatinine, Serum 1.42 mg/dL (0.70-1.30); EST Glomerular Filtration Rate 55 mL/min (>60); Est Glom Filt Rate - Afr Amer 66 mL/min (>60); Globulin 3.6 g/dL (2.2-4.2); Glucose 162 mg/dL (74-106); High Density Lipoprotein 26 mg/dL; Potassium 5.5 mmol/L (3.5-5.1); Protein, Total 7.4 g/dL (6.4-8.2); Sodium Level 135 mmol/L (136-145); T4 Free Direct 1.05 ng/dL (0.76-1.46); Thyroid Stim Hormone (TSH) 5.91 uIU/mL (0.358-3.74); Triglycerides 286 mg/dL; Very Low Density Lipoprotein 57 mg/dL (5-40)
[2023-05-15 12:54] LABS: Microalbumin,Random Urine 22.9 mg/L (NO RANGE EST.); Microalbumin:Creatinine Ratio 31.5 mg/g CRE (<30 mg/g CRE)
== END | disposition home or self-care (01) ==
LOC: LAB 07:02
PROVIDERS: PCP Family Medicine; Referring Provider Nurse Practitioner Family; Visit Provider Nurse Practitioner Family
DX: E03.9 Hypothyroidism, unspecified (principal); E11.22 Type 2 diabetes mellitus with diabetic chronic kidney disease; N18.2 Chronic kidney disease, stage 2 (mild); E78.2 Mixed hyperlipidemia; R80.9 Proteinuria, unspecified
CPT/HCPCS: 36415; 80053; 80061; 82043; 82570; 84439; 84443

== ENCOUNTER → 2023-06-03 | Outpatient (CLI) | payer OTHER, SELFPAY ==
[2023-06-03 09:49] LABS: Anion Gap 4 (5-15); BUN 30 mg/dL (7-18); BUN/Creat Ratio 24.6 RATIO (10-20); Calcium,Total 9.1 mg/dL (8.5-10.1); Chloride 103 mmol/L (98-107); Creatinine, Serum 1.22 mg/dL (0.70-1.30); EST Glomerular Filtration Rate 65 mL/min (>60); Est Glom Filt Rate - Afr Amer 79 mL/min (>60); Glucose 175 mg/dL (74-106); Potassium 5.5 mmol/L (3.5-5.1); Sodium Level 133 mmol/L (136-145)
== END | disposition home or self-care (01) ==
LOC: LAB 07:22
PROVIDERS: PCP Family Medicine; Referring Provider Internal Medicine Endocrinology, Diabetes & Metabolism; Visit Provider Internal Medicine Endocrinology, Diabetes & Metabolism
DX: N18.2 Chronic kidney disease, stage 2 (mild) (principal)
CPT/HCPCS: 36415; 80048

== ENCOUNTER → 2023-08-20 | Outpatient (CLI) | payer OTHER, SELFPAY ==
[2023-08-20 08:30] LABS: ALB/GLOB Ratio 1.1 RATIO (0.9-2.4); AST(SGOT) 29 U/L (15-37); Alanine Aminotransfer ALT/SGPT 44 U/L (16-61); Albumin, Serum 3.8 g/dL (3.2-5.0); Alkaline Phosphatase 89 U/L (45-117); Anion Gap 7 (5-15); BUN 34 mg/dL (7-18); BUN/Creat Ratio 28.8 RATIO (10-20); Calcium,Total 9.5 mg/dL (8.5-10.1); Chloride 104 mmol/L (98-107); Creatinine, Serum 1.18 mg/dL (0.70-1.30); EST Glomerular Filtration Rate 68 mL/min (>60); Est Glom Filt Rate - Afr Amer 82 mL/min (>60); Globulin 3.5 g/dL (2.2-4.2); Glucose 178 mg/dL (74-106); Potassium 5.1 mmol/L (3.5-5.1); Protein, Total 7.3 g/dL (6.4-8.2); Sodium Level 134 mmol/L (136-145)
== END | disposition home or self-care (01) ==
PROVIDERS: PCP Family Medicine; Referring Provider Nurse Practitioner Family; Visit Provider Nurse Practitioner Family
DX: E87.5 Hyperkalemia (principal)
CPT/HCPCS: 36415; 80053

== ENCOUNTER → 2024-03-29 | Outpatient (CLI) | payer OTHER, SELFPAY ==
[2024-03-29 09:15] LABS: ALB/GLOB Ratio 1.1 RATIO (0.9-2.4); AST(SGOT) 29 U/L (15-37); Alanine Aminotransfer ALT/SGPT 39 U/L (16-61); Albumin, Serum 3.9 g/dL (3.2-5.0); Alkaline Phosphatase 71 U/L (45-117); Anion Gap 8 (5-15); BUN 29 mg/dL (7-18); BUN/Creat Ratio 24.6 RATIO (10-20); Calcium,Total 9.3 mg/dL (8.5-10.1); Chloride 105 mmol/L (98-107); Cholesterol 150 mg/dL (200); Creatinine, Serum 1.18 mg/dL (0.70-1.30); EST Glomerular Filtration Rate 68 mL/min (>60); Est Glom Filt Rate - Afr Amer 82 mL/min (>60); Globulin 3.6 g/dL (2.2-4.2); Glucose 127 mg/dL (74-106); High Density Lipoprotein 28 mg/dL; Potassium 4.6 mmol/L (3.5-5.1); Protein, Total 7.5 g/dL (6.4-8.2); Sodium Level 138 mmol/L (136-145); T4 Free Direct 1.28 ng/dL (0.76-1.46); Triglycerides 286 mg/dL; Very Low Density Lipoprotein 57 mg/dL (5-40)
[2024-03-29 12:30] LABS: Microalbumin,Random Urine 13.3 mg/L (NO RANGE EST.); Microalbumin:Creatinine Ratio 16.3 mg/g CRE (<30 mg/g CRE)
[2024-03-31 15:36] LABS: Vitamin D,25 Hydroxy 33.7 ng/mL
== END | disposition home or self-care (01) ==
PROVIDERS: PCP Family Medicine; Referring Provider Nurse Practitioner Family; Visit Provider Nurse Practitioner Family
DX: E03.9 Hypothyroidism, unspecified (principal); E11.29 Type 2 diabetes mellitus with other diabetic kidney complication; Z79.4 Long term (current) use of insulin; R80.9 Proteinuria, unspecified; E78.2 Mixed hyperlipidemia
CPT/HCPCS: 36415; 80053; 80061; 82043; 82306; 82570; 84439; 84443

== ENCOUNTER → 2024-09-01 | Outpatient (CLI) | payer OTHER, SELFPAY ==
--- OUTSIDE RECORDS SUMMARY | 2024-09-01 05:48 | XMS RPT_ITS | CCD ---
Author Organization [facility] CliniSyal Care Team Providers Care Filler Shredding Machine Loader Name Role Phone Dr. Mikey Rogers Primary Care Provider Dr. Mikey Rogers Referring Provider Morales CLINICAL FELLOW, CLINICAL FELLOW-C Alex Joel Attending Provider Dr. Mikey Rogers Primary Care Provider Dr. Mikey Rogers Referring Provider TYREL Hernandez Attending Provider Dr. Mikey Rogers Primary Care Provider Dr. Mikey Rogers Referring Provider KAY Hernandez-Stephanie Lozano Attending Provider Morales VILLANUEVA NP-C Alex Joel Attending Provider Dr. Mikey Rogers Primary Care Provider Dr. Mikey Rogers Referring Provider TYREL Hernandez Attending Provider TYREL Banerjee NP Attending Provider Dr. Mikey Rogers MD Primary Care Provider Dr. Mikey Rogers MD Referring Provider David VILLANUEVA-Marta Brown Attending Provider Marta Jameson Referring Provider Katy Lorenzo Attending Provider Dr. Mikey Rogers MD Primary Care Provider Dr. Mikey Rogers MD Referring Provider Marta Jameson Attending Provider Chriss SARAH, Delisa Attending Provider Ken, Mikey Primary Care Unavailable Katy Lorenzo Referring Unavail able Katy Lorenzo Attending Unavail able Chriss VILLANUEVA, Delisa Attending Unavailable Rogers, Mikey Primary Care Unavailable Chriss VILLANUEVA, Delisa Referring Unavailable Chriss VILLANUEVA, Delisa Attending Unavailable Rogers, Mikey Primary Care Unavailable Rogers, Mikey Referring Unavailable Marta Hernandez Attending Unavailable Rogers, Mikey Primary Care Unavailable Rogers, Mikey Referring Unavailable Rogers, Mikey Primary Care Unavailable Rogers, Mikey Referring Unavailable Katy Lorenzo Attending Unavail able Marta Hernandez Attending Unavailable Rogers, Mikey Referring Unavailable Rogers, Mikey Primary Care Unavailable Marta Hernandez Attending Unavailable Rogers, Mikey Referring Unavailable Rogers, Mikey Primary Care Unavailable Chriss VILLANUEVA, Delisa Attending Unavailable Rogers, Mikey Referring Unavailable Rogers, Mikey Primary Care Unavailable Marta Hernandez Referring Unavailable Marta Hernandez Attending Unavailable Rogers, Mikey Primary Care Unavailable Allergies Allergy Classification Reported Allergen(s) Allergy Type Date of Onset Reaction(s) Facility (9 sources) Niacin Drug Allergy 2 Shortness of breath [facility] (9 sources) bee venom protein (honey bee) Allergy to substance 2 Angioedema [facility] (1 source) Niacin Drug Allergy 5 [facility] (1 source) bee venom protein (honey bee) Drug allergy (disorder) 5 [facility] Medications Current Medications Medication Drug Class(es) Dates Sig (Normalized) Sig (Original) atorvastatin 80 mg oral tablet (20 sources) HMG-CoA Reductase Inhibitor Start: 05-14-2023 End: 10-14-2023 take 1 tablet by mouth every other day Atorvastatin 80 mg tablet Active 80 mg PO .qod 90 October 14, 2023 5:14pm Start: 10-12-2019 End: 01-22-2022 take 1 tablet by mouth at bedtime Atorvastatin 40 mg tablet Discontinued 40 mg PO AT BEDTIME October 12, 2019 12:00am January 22, 2022 9:34am Start: 08-04-2017 End: 10-12-2019 Atorvastatin 80 MG tablet Discontinued 40 mg PO AT BEDTIME August 04, 2017 12:00am October 12, 2019 10:36am Start: 08-04-2017 End: 10-12-2019 take 40 mg by mouth at bedtime Atorvastatin Discontinu ed 40 MG PO AT BEDTIME August 04, 2017 12:00am October 12, 2019 10:36am Start: 05-25-2013 End: 06-16-2013 take 1 tablet by mouth at bedtime Atorvastatin 40 MG tablet Discontinued 40 mg PO AT BEDTIME 90 May 25, 2013 12:00am June 16, 2013 12:59pm Blood-Glucose Sensor (Freestyle Theresa 2 Plus Sensor) device (2 sources) Start: 06-07-2024 Blood-Glucose Sensor (Freestyle Theresa 2 Plus Sensor) device Active 0 .Route 6 June 07, 2024 12:00am As directed carvedilol 12.5 mg oral tablet (20 sources) alpha-Adrenerg ic Courtney, beta-Adrenergi c Courtney Start: 04-19-2024 take 6.25 mg by mouth twice daily at mealtime Carvedilol 12.5 mg tablet Active 6.25 mg PO TWICE A DAY April 19, 2024 8:18am give with food (meal/snack) Start: 03-26-2023 End: 04-19-2024 take 1 tablet by mouth twice daily at mealtime Carvedilol 12.5 mg tablet Discontinued 12.5 mg PO TWICE A DAY 180 October 15, 2023 4:21pm April 19, 2024 8:20am give with food (meal/snack) Start: 10-21-2022 End: 03-26-2023 take 6.25 mg by mouth twice daily at mealtime Carvedilol 12.5 mg tablet Discontinued 6.25 mg PO TWICE A DAY 180 January 15, 2023 3:23pm March 26, 2023 5:37pm give with food (meal/snack) Start: 10-21-2022 End: 03-26-2023 take 6.25 mg by mouth twice daily at mealtime Carvedilol Discontinued 6.25 MG PO TWICE A DAY 180 January 15, 2023 3:23pm March 26, 2023 5:37pm give with food (meal/snack) Start: 09-02-2017 End: 10-21-2022 take 1 tablet by mouth twice daily at mealtime Carvedilol 12.5 mg tablet Discontinued 12.5 mg PO TWICE A DAY 180 October 10, 2019 9:36am October 21, 2022 9:25am give with food (meal/snack) Start: 08-07-2017 End: 09-02-2017 take 1 tablet by mouth twice daily Carvedilol 6.25 MG tablet Discontinued 6.25 mg PO TWICE A DAY 60 August 07, 2017 12:00am September 02, 2017 11:18am 3 ml insulin glargine 100 unt/ml pen injector (20 sources) Insulin Analog Start: 06-22-2024 Insulin Glargi ne 100 unit/mL (3 mL) insulin pen Active 60 U SC AT BEDTIME June 22, 2024 9:41am Start: 05-18-2024 End: 06-22-2024 Insulin Glargine 100 unit/mL (3 mL) insulin pen Discontinued 50 U SC AT BEDTIME May 18, 2024 8:15am June 22, 2024 9:42am Start: 11-13-2022 End: 05-18-2024 Insulin Glargine 100 unit/mL (3 mL) insulin pen Discontinued 50 U SC AT BEDTIME October 14, 2023 5:15pm May 18, 2024 8:15am pt takes daily in the evening Start: 01-22-2022 End: 11-13-2022 Insulin Glargine 100 unit/mL (3 mL) insulin pen Discontinued 60 U SC AT BEDTIME January 22, 2022 9:33am November 13, 2022 10:22am pt takes daily in the evening Start: 09-26-2020 End: 01-22-2022 Insulin Glargine 100 unit/mL (3 mL) insulin pen Discontinued 80 U SC AT BEDTIME September 26, 2020 10:43am January 22, 2022 9:35am pt takes daily in the evening Start: 03-19-2020 End: 09-26-2020 Insulin Glargine 100 unit/mL (3 mL) insulin pen Discontinued 70 U SC AT BEDTIME March 19, 2020 9:49am September 26, 2020 10:44am pt takes daily in the evening Start: 06-29-2019 End: 03-19-2020 Insulin Glargine 100 unit/mL (3 mL) insulin pen Discontinued 50 U SC AT BEDTIME June 29, 2019 2:19pm February 8th, 2021 9:51am pt takes daily in the evening Start: 04-05-2018 End: 06-29-2019 Insulin Glargine 100 unit/mL (3 mL) insulin pen Discontinued 8 U SC AT BEDTIME April 05, 2018 12:21pm June 29, 2019 2:20pm pt takes daily in the evening Start: 10-14-2017 End: 04-05-2018 inject 12 [IU] by subcutaneous injection once daily in the evening Insulin Glargine 100 UNIT/ML insulin pen Discontinued 12 U SQ AT BEDTIME October 14, 2017 10:21am April 05, 2018 12:22pm pt takes daily in the evening Start: 08-07-2017 End: 10-14-2017 inject 14 [IU] by subcutaneous injection once daily in the evening Insulin Glargine 100 UNIT/ML insulin pen Discontinued 14 U SQ AT BEDTIME 0 August 07, 2017 10:06am October 14, 2017 10:22am pt takes daily in the evening Start: 08-04-2017 End: 08-07-2017 inject 10 [IU] by subcutaneous injection once daily in the evening Insulin Glargine (Basaglar Kwikpen U-100) 100 UNIT/ML Insuln.Pen Discontinued 10 U SQ AT BEDTIME August 04, 2017 12:00am August 07, 2017 10:06am pt takes daily in the evening levothyroxine sodium 0.075 mg oral tablet (20 sources) l-Thyroxine Start: 11-02-2023 End: 03-31-2024 take 2 tablets by mouth once daily, then take 1 tablet by mouth once daily Levothyroxine 75 mcg tablet Active 0 PO daily March 31, 2024 10:50am 2 tabs sat/sun, 1 tab thu-thu orally daily; Start: 10-21-2023 End: 11-02-2023 Levothyroxine 112 mcg tablet Discontinued 150 ug PO DAILY October 21, 2023 8:44am November 02, 2023 12:28pm Start: 05-19-2023 End: 10-21-2023 Levothyroxine 112 mcg tablet Discontinued 75 ug PO DAILY May 19, 2023 12:59pm October 21, 2023 8:45am Start: 05-19-2023 take 75 ug by mouth once daily Levothyroxine Active 75 MCG PO DAILY May 19, 2023 12:59pm Start: 05-15-2023 End: 05-19-2023 take 1 tablet by mouth once daily Levothyroxine 112 mcg tablet Discontinued 112 ug PO DAILY May 15, 2023 12:00am May 19, 2023 1:00pm Start: 10-21-2022 End: 05-15-2023 Levothyroxine 50 mcg tablet Discontinued 75 ug PO DAILY January 13, 2023 2:00pm May 15, 2023 9:37am Start: 10-21-2022 End: 05-15-2023 take 75 ug by mouth once daily Levothyroxine Discontin ued 75 MCG PO DAILY January 13, 2023 2:00pm May 15, 2023 9:37am Start: 10-12-2019 End: 10-21-2022 take 1 tablet by mouth once daily Levothyroxine 50 mcg tablet Discontinued 50 ug PO DAILY October 12, 2019 12:00am October 21, 2022 9:25am Multivitamin preparation (7 sources) Start: 09-26-2020 take 1 tablet by mouth once daily Multivitamin Active 1 TABLET PO DAILY September 26, 2020 10:43am Start: 09-26-2020 End: 08-13-2022 take 1 tablet by mouth once daily Multivitamin Discontinued 1 TABLET PO DAILY September 26, 2020 12:00am August 13, 2022 9:17am Start: 09-26-2020 take 1 tablet by chinedu th once daily Multivitamin Active 1 TABLET PO DAILY September 25, 2020 11:00pm Start: 09-26-2020 take 1 tablet by chinedu th once daily Multivitamin Active 1 TABLET PO DAILY September 26, 2020 12:00am nitroglycerin 0.4 mg sublingual tablet (18 sources) Nitrate Vasodilator Start: 08-07-2017 End: 07-18-2020 Nitroglycerin 0.4 mg tablet, sublingual Active 0.4 mg SL Q5M as needed for Cardiac/Chest Pain July 18, 2020 11:50am Start: 08-07-2017 End: 07-18-2020 Nitroglycerin Active 0.4 MG SL Q5M July 18, 2020 11:50am omeprazole 40 mg delayed release oral capsule (20 sources) Proton Pump Inhibitor Start: 05-14-2023 Omeprazole 40 mg capsule,delayed release(DR/EC) Active 20 mg PO DAILY May 14, 2023 8:28am Start: 05-14-2023 take 20 mg by mouth once daily Omeprazole Active 20 MG PO DAILY May 14, 2023 8:28am Start: 03-22-2018 End: 05-14-2023 take 1 capsule by mouth once daily Omeprazole 40 MG capsule,delayed release(DR/EC) Discontinued 40 mg PO DAILY March 22, 2018 9:05am May 14, 2023 8:31am Start: 08-07-2017 End: 03-22-2018 take 1 capsule by mouth twice daily Omeprazole 40 MG capsule,delayed release(DR/EC) Discontinued 40 mg PO TWICE A DAY 0 August 07, 2017 10:06am March 22, 2018 9:05am Start: 08-04-2017 End: 08-07-2017 take 1 capsule by mouth once daily Omeprazole 40 MG Capsule.Dr Discontinued 40 mg PO DAILY August 04, 2017 12:00am August 07, 2017 10:06am ubidecarenone 100 mg oral ca psule (8 sources) Start: 12-10-2023 Coenzyme Q10 ( Co Q-10) 100 mg capsule Active 200 mg PO DAILY December 10, 2023 8:35am Start: 12-09-2021 End: 12-10-2023 Coenzyme Q10 (Co Q-10) 100 m g capsule Discontinued 100 mg PO DAILY December 09, 2021 12:00am December 10, 2023 8:36am Completed/Discontinued Medications Medication Drug Class(es) Dates Sig (Normalized) Sig (Original) aluminum hydroxide 80 mg/ml / magnesium hydroxide 80 mg/ml / simethicone 8 mg/ml oral suspension (9 sources) Start: 08-07-2017 End: 09-02-2017 take 1 mL by mouth every four hours as needed Alum-Mag Hydroxide-Simeth 30 ML suspension Discontinued 15 mL PO EVERY 4 HOURS NEEDED as needed for Indigestion August 07, 2017 12:00am September 02, 2017 10:45am Start: 08-07-2017 End: 09-02-2017 take 1 mL by mouth every four hours as needed Alum-Mag Hydroxide-Simeth Discontinued 15 ML PO EVERY 4 HOURS NEEDED August 07, 2017 12:00am September 02, 2017 10:45am amLODIPine 2.5 mg oral tablet (9 sources) Dihydropyridine Calcium Channel Courtney Start: 08-07-2017 End: 08-19-2017 take 1 tablet by mouth once daily Amlodipine 2.5 MG tablet Discontinued 2.5 mg PO DAILY August 07, 2017 12:00am August 19, 2017 11:25am ascorbic acid 500 mg oral tablet (9 sources) Vitamin C Start: 04-02-2021 End: 08-13-2022 take 1 tablet by mouth once daily Ascorbic Acid (Vitamin C) 500 mg tablet Discontinued 500 mg PO DAILY April 02, 2021 1:00am August 13, 2022 9:17am aspirin 81 mg chewable tablet (20 sources) Platelet Aggregation Inhibitor, Nonsteroidal Anti-inflammatory Drug Start: 08-07-2017 End: 10-15-2023 take 1 tablet by mouth once daily Aspirin 81 mg tablet,chewable Discontinued 81 mg PO DAILY January 15, 2023 3:23pm October 15, 2023 4:22pm Start: 05-24-2013 End: 06-16-2013 take 1 tablet by mouth once daily Aspirin 81 MG Tab.Chew Discontinued 81 mg PO DAILY@0800 90 May 25, 2013 3:03pm June 16, 2013 12:58pm bempedoic acid 180 mg oral tablet (5 sources) Start: 04-30-2022 End: 08-13-2022 take 1 tablet by mouth once daily Bempedoic Acid (Nexletol) 180 mg tablet Discontinued 180 mg PO DAILY April 30, 2022 12:00am August 13, 2022 9:19am Blood-Glucose Sensor (Freestyle Theresa 3 Sensor) device (11 sources) Start: 04-30-2022 End: 08-13-2022 Blood-Glucose Sensor (Freestyle Theresa 3 Sensor) device Discontinued 0 .Route 2 April 30, 2022 4:04pm August 13, 2022 9:20am As directed Start: 04-15-2022 End: 04-30-2022 Blood-Glucose Sensor (Freest yle Theresa 3 Sensor) device Discontinued 0 .Route 2 April 15, 2022 1:00am April 30, 2022 4:04pm As directed Start: 04-15-2022 Blood-Glucose Sensor (Freestyle Theresa 3 Sensor) device Active 0 .Route 2 April 15, 2022 12:00am As directed cholecalciferol 0.125 mg oral capsule (6 sources) Vitamin D Start: 12-09-2021 End: 08-13-2022 take 1 capsule by mouth once daily Cholecalciferol (Vitamin D3) 125 mcg (5,000 unit) capsule Discontinued 125 ug PO DAILY December 09, 2021 12:00am August 13, 2022 9:18am clopidogrel 75 mg oral tablet (20 sources) [id number] Platelet Inhibitor Start: 08-07-2017 End: 05-17-2024 take 1 tablet by mouth at bedtime Clopidogrel 75 mg tablet Discontinued 75 mg PO AT BEDTIME October 15, 2023 4:21pm May 17, 2024 4:34pm empagliflozin 25 mg oral tablet (19 sources) Sodium-Glucose Cotransporter 2 Inhibitor Start: 08-13-2022 End: 05-18-2024 take 1 tablet by mouth once daily Empagliflozin (Jardiance) 25 mg tablet Discontinued 25 mg PO DAILY October 14, 2023 5:15pm May 18, 2024 8:15am ezetimibe 10 mg oral tablet (20 sources) Dietary Cholesterol Absorption Inhibitor Start: 12-13-2021 End: 03-30-2024 take 1 tablet by mouth once daily Ezetimibe (Zetia) 10 mg tablet Discontinued 10 mg PO DAILY October 14, 2023 5:15pm March 30, 2024 10:30am fenofibrate 145 mg oral tablet (20 sources) Peroxisome Proliferator Receptor alpha Agonist Start: 05-24-2013 End: 05-18-2024 take 1 tablet by mouth once daily Fenofibrate Nanocrystallized 145 mg tablet Discontinued 145 mg PO DAILY October 14, 2023 5:15pm May 18, 2024 8:15am Flash Glucose Sensor (Freestyle Theresa 2 Sensor) kit (20 sources) Start: 05-18-2024 End: 06-07-2024 Flash Glucose Sensor (Freestyle Theresa 2 Sensor) kit Discontinued 0 .Route May 18, 2024 8:15am June 07, 2024 2:50pm 1 sensor q 14 days Start: 10-15-2023 End: 05-18-2024 Flash Glucose Sensor (Freest yle Theresa 2 Sensor) kit Discontinued 0 .Route October 15, 2023 8:52am May 18, 2024 8:15am 1 sensor q 14 days Start: 07-31-2023 End: 10-15-2023 Flash Glucose Sensor (Freest yle Theresa 2 Sensor) kit Discontinued 0 .Route 6 July 31, 2023 9:33am October 15, 2023 8:52am 1 sensor q 14 days Start: 01-22-2023 End: 07-31-2023 Flash Glucose Sensor (Freest yle Theresa 2 Sensor) kit Discontinued 0 .Route 6 January 22, 2023 8:57am July 31, 2023 9:33am 1 sensor q 14 days Start: 01-22-2023 Flash Glucose Sensor (Freestyle Theresa 2 Sensor) kit Active 0 .Route 6 January 22, 2023 8:57am 1 sensor q 14 days Start: 11-13-2022 End: 01-22-2023 Flash Glucose Sensor (Freest yle Theresa 2 Sensor) kit Discontinued 0 .Route 2 November 13, 2022 12:00am January 22, 2023 8:57am 1 sensor q 14 days Start: 04-30-2022 End: 04-30-2022 Flash Glucose Sensor (Freest yle Theresa 2 Sensor) kit Discontinued 0 .Route 2 April 30, 2022 4:03pm April 30, 2022 4:04pm 1 sensor q 14 days Start: 04-14-2022 End: 04-30-2022 Flash Glucose Sensor (Freest yle Theresa 2 Sensor) kit Discontinued 0 .Route 2 April 14, 2022 1:00am April 30, 2022 4:04pm 1 sensor q 14 days Start: 04-14-2022 Flash Glucose Sensor (Freestyle Theresa 2 Sensor) kit Active 0 .Route 2 April 14, 2022 12:00am 1 sensor q 14 days glimepiride 2 mg oral tablet (18 sources) Sulfonylurea Start: 08-07-2017 End: 06-29-2019 take 1 tablet by mouth once daily Glimepiride 2 MG tablet Discontinued 2 mg PO DAILY August 07, 2017 12:00am June 29, 2019 2:19pm Start: 08-04-2017 End: 08-07-2017 take 1 tablet by mouth once daily Glimepiride 1 MG tablet Discontinued 1 mg PO DAILY August 04, 2017 12:00am August 07, 2017 10:03am icosapent ethyl 1000 mg oral capsule (6 sources) Start: 12-09-2021 End: 04-14-2022 Icosapent Ethyl (Vascepa) 1 gram capsule Discontinued 2 g PO TWICE A DAY 360 December 09, 2021 12:00am April 14, 2022 10:33am 3 ml insulin aspart, human 100 unt/ml pen injector (9 sources) Insulin Analog Start: 06-29-2019 End: 04-02-2021 Insulin Aspart U-100 (Novolog Flexpen U-100 Insulin) 100 unit/mL (3 mL) insulin pen Discontinued 5 U SC .sliding scale June 29, 2019 12:00am April 02, 2021 10:09am insulin lispro 100 unt/ml injectable solution (20 sources) Insulin Analog Start: 12-09-2021 End: 04-19-2024 Insulin Lispro (Humalog U-100 Insulin) 100 unit/mL solution Discontinued 35 U SC THREE TIMES A DAY 94.5 October 14, 2023 5:15pm April 19, 2024 8:20am Start: 04-02-2021 End: 08-29-2022 Insulin Lispro (Humalog Wilfredo or Kwikpen U-100) 100 unit/mL insulin pen, half-unit Discontinued 1 sliding scale dose SC Use as Directed April 02, 2021 1:00am August 29, 2022 3:46pm Start: 04-02-2021 End: 08-29-2022 Insulin Lispro (Humalog Wilfredo or Kwikpen U-100) 100 unit/mL insulin pen, half-unit Discontinued 1 sliding scale dose SC Use as Directed April 02, 2021 1:00am August 29, 2022 3:46pm insulin, regular, human 100 unt/ml injectable solution (6 sources) Insulin Start: 12-09-2021 End: 01-22-2022 Insulin Regular Human (Humulin R Regular U-100 Insuln) 100 unit/mL solution Discontinued 15 U SC December 09, 2021 12:00am January 22, 2022 9:33am 24 hr isosorbide mononitrate 30 mg extended release oral tablet (20 sources) Nitrate Vasodilator Start: 08-19-2017 End: 04-19-2024 take 1 tablet by mouth once daily, then take 1 tablet by mouth every twenty-four hours Isosorbide Mononitrate 30 mg tablet extended release 24 hr Discontinued 30 mg PO DAILY October 15, 2023 4:21pm April 19, 2024 8:54am lavalo (4 sources) Start: 12-09-2021 End: 08-13-2022 lavalo Discontinued PO December 09, 2021 12:00am August 13, 2022 9:19am Start: 12-09-2021 lavalo Active PO December 08, 2021 11:00pm lavalo 4 mg (2 sources) Start: 12-09-2021 End: 08-13-2022 lavalo 4 mg Discontinued PO December 09, 2021 12:00am August 13, 2022 9:19am lisinopril 20 mg oral tablet (20 sources) Angiotensin Converting Enzyme Inhibitor Start: 11-27-2022 End: 05-17-2024 take 1 tablet by mouth at bedtime Lisinopril 20 mg tablet Discontinued 20 mg PO AT BEDTIME October 15, 2023 4:22pm May 17, 2024 4:34pm Start: 10-21-2022 End: 11-27-2022 take 2 tablets by mouth at bedtime Lisinopril 20 mg tablet Discontinued 40 mg PO AT BEDTIME October 21, 2022 9:26am November 27, 2022 10:45am Start: 10-21-2022 End: 11-27-2022 take 40 mg by mouth at bedtime Lisinopril Discontinued 40 MG PO AT BEDTIME October 21, 2022 9:26am November 27, 2022 10:45am Start: 04-14-2022 End: 10-21-2022 take 1 tablet by mouth twice daily Lisinopril 20 mg tablet Discontinued 20 mg PO TWICE A DAY April 14, 2022 1:00am October 21, 2022 9:26am Start: 08-05-2021 End: 04-14-2022 take 1 tablet by mouth once daily Lisinopril 10 mg tablet Discontinued 10 mg PO DAILY August 05, 2021 12:00am April 14, 2022 10:22pm Start: 03-22-2018 End: 08-05-2021 take 10 mg by mouth twice daily Lisinopril 20 MG table t Discontinued 10 mg PO TWICE A DAY March 22, 2018 11:23am August 05, 2021 2:18pm Start: 03-22-2018 End: 08-05-2021 take 10 mg by mouth twice daily Lisinopril Discontinue d 10 MG PO TWICE A DAY March 22, 2018 11:23am August 05, 2021 2:18pm Start: 12-30-2017 End: 03-22-2018 take 1 tablet by mouth once daily in the morning Lisinopril 20 mg tablet Discontinued 20 mg PO EVERY MORNING 90 December 30, 2017 11:26am March 22, 2018 11:23am Start: 12-15-2017 End: 12-30-2017 take 10 mg by mouth twice daily Lisinopril 20 mg table t Discontinued 10 mg PO TWICE A DAY 90 December 15, 2017 2:24pm December 30, 2017 9:54am Start: 12-15-2017 End: 12-30-2017 take 10 mg by mouth twice daily Lisinopril Discontinue d 10 MG PO TWICE A DAY 90 December 15, 2017 2:24pm December 30, 2017 9:54am Start: 09-02-2017 End: 12-15-2017 take 1 tablet by mouth twice daily Lisinopril 10 mg tablet Discontinued 10 mg PO TWICE A DAY 180 December 11, 2017 6:18pm December 15, 2017 2:23pm Start: 08-19-2017 End: 09-02-2017 take 1 tablet by mouth twice daily Lisinopril 5 MG tablet Discontinued 5 mg PO TWICE A DAY 60 August 19, 2017 12:00am September 02, 2017 11:18am Start: 08-07-2017 End: 08-19-2017 take 1 tablet by mouth once daily Lisinopril 10 MG tablet Discontinued 10 mg PO DAILY 30 August 07, 2017 12:00am August 19, 2017 11:24am Start: 05-24-2013 End: 08-07-2017 take 1 tablet by mouth once daily Lisinopril 20 MG tablet Discontinued 20 mg PO DAILY August 04, 2017 11:17am August 07, 2017 11:19am metFORMIN hydrochloride 1000 mg oral tablet (20 sources) Biguanide Start: 08-18-2017 End: 04-18-2024 take 1 tablet by mouth twice daily at mealtime Metformin 1,000 mg tablet Discontinued 1000 mg PO TWICE DAILY WITH MEALS 180 October 14, 2023 5:15pm April 18, 2024 9:15am Start: 08-04-2017 End: 08-07-2017 take 1 tablet by mouth twice daily at mealtime Metformin 1,000 MG tablet Discontinued 1000 mg PO TWICE DAILY WITH MEALS August 04, 2017 12:00am August 07, 2017 10:05am Start: 05-25-2013 End: 08-04-2017 take 1 tablet by mouth twice daily at mealtime Metformin 500 MG tablet Discontinued 500 mg PO TWICE DAILY WITH MEALS 180 May 25, 2013 12:00am August 04, 2017 9:38am Multivitamin (Daily Multi-Vitamin) tablet (6 sources) Start: 12-09-2021 End: 12-10-2023 Multivitamin (Daily Multi-Vitamin) tablet Discontinued 1 {tbl} PO DAILY December 09, 2021 12:00am December 10, 2023 8:36am Start: 12-09-2021 take 1 tablet by chinedu th once daily Multivitamin (Daily Multi-Vitamin) tablet Active 1 TABLET PO DAILY December 09, 2021 12:00am Start: 12-09-2021 take 1 tablet by chinedu th once daily Multivitamin (Daily Multi-Vitamin) tablet Active 1 TABLET PO DAILY December 08, 2021 11:00pm Multivitamin tablet (2 sources) Start: 09-26-2020 End: 08-13-2022 Multivitamin tablet Discontinued 1 {tbl} PO DAILY September 26, 2020 12:00am August 13, 2022 9:17am predniSONE 20 mg oral tablet (9 sources) Start: 12-14-2019 End: 03-19-2020 take 3 tablets by mouth once daily Prednisone 20 MG tablet Discontinued 60 mg PO DAILY December 14, 2019 1:00am March 19, 2020 9:50am Start: 12-14-2019 End: 03-19-2020 take 60 mg by mouth once daily Prednisone Discontinued 60 MG PO DAILY December 14, 2019 1:00am March 19, 2020 9:50am quercetin 500 mg oral capsul e (6 sources) Start: 12-09-2021 End: 08-13-2022 Quercetin 500 mg capsule Discontinued mg PO December 09, 2021 12:00am August 13, 2022 9:19am Start: 12-09-2021 End: 08-13-2022 Quercetin Discontinued MG PO December 09, 2021 12:00am August 13, 2022 9:19am Start: 12-09-2021 Quercetin Acti ve MG PO December 08, 2021 11:00pm 12 hr ranolazine 500 mg extended release oral tablet (9 sources) Anti-anginal Start: 08-19-2017 End: 08-20-2017 take 1 tablet by mouth twice daily Ranolazine 500 MG tablet Discontinued 500 mg PO TWICE A DAY 60 August 19, 2017 12:00am August 20, 2017 9:11am Semaglutide (4 sources) Start: 05-19-2023 End: 10-21-2023 Semaglutide (Ozempic) 0.25 mg or 0.5 mg (2 mg/3 mL) pen injector Discontinued 0.25 mg SC EVERY WEEK May 19, 2023 12:00am October 21, 2023 8:28am for 4 weeks Start: 05-19-2023 Semaglutide (O zempic) 0.25 mg or 0.5 mg (2 mg/3 mL) pen injector Active 0.25 MG SC EVERY WEEK May 19, 2023 12:00am for 4 weeks valACYclovir 1000 mg oral tablet (9 sources) Herpesvirus Nucleoside Analog DNA Polymerase Inhibitor, Herpes Simplex Virus Nucleoside Analog DNA Polymerase Inhibitor, Herpes Zoster Virus Nucleoside Analog DNA Polymerase Inhibitor Start: 12-14-2019 End: 03-19-2020 take 1 tablet by mouth twice daily Valacyclovir 1,000 MG tablet Discontinued 1000 mg PO TWICE A DAY December 14, 2019 1:00am March 19, 2020 9:50am 24 hr verapamil hydrochloride 200 mg extended release oral capsule (18 sources) Calcium Channel Courtney Start: 08-04-2017 End: 08-07-2017 take 200 mg by mouth once daily in the evening Verapamil (Verelan Pm) 200 MG Cap24h.Pct Discontinued 200 mg PO DAILY August 04, 2017 12:00am August 07, 2017 10:05am Start: 05-24-2013 End: 05-25-2013 take 200 mg by mouth at bedtime Verapamil Discontinued 200 mg PO AT BEDTIME May 24, 2013 12:00am May 25, 2013 3:03pm vitamin e 90 mg oral capsule (9 sources) Start: 04-02-2021 End: 04-14-2022 take 1 capsule by mouth once daily Vitamin E 200 unit capsule Discontinued 200 U PO DAILY April 02, 2021 1:00am April 14, 2022 9:58am zinc gluconate 50 mg oral tablet (9 sources) Start: 04-02-2021 End: 04-14-2022 take 1 tablet by mouth once daily Zinc Gluconate 50 mg tablet Discontinued 50 mg PO DAILY April 02, 2021 1:00am April 14, 2022 9:58am Problems Active Problems Problem Classification Problem Date Documented Da te Episodic/Chronic Acute myocardial infarction (9 sources) Myocardial infarction; Translations: [ST elevation (STEMI) myocardial infarction of unspecified site] Onset: 08-04-2017 03-22-2018 Chronic Anxiety disorders (7 sources) Anxiety; Translations: [Anxiety disorder, unspecified] 04-15-2022 Chronic Cardiac dysrhythmias (20 sources) Palpitations; Translations: [Palpitations] Episodic Chronic kidney disease (11 sources) Chronic kidney disease stage 2; Translations: [Chronic kidney disease, stage 2 (mild)] Onset: 03-28-2024 08-13-2022 Chronic Coronary atherosclerosis and other heart disease (20 sources) Preinfarction syndrome; Translations: [Unstable angina] Onset: 05-05-2024 Chronic Comment on above: 08/18/16: JOSEPH to LCX, FFR to OM1 (0.97=neg); 08/04/17: JOSEPH to RCA; 09/15/17: JOSEPH to first OM (Synergy MR 2.75 X 20 mm), POBA to mid Cx Diabetes mellitus with complications (1 source) Type 2 diabetes mellitus with other diabetic kidney complication; Translations: [Type 2 diabetes mellitus with other diabetic kidney complication] Onset: 08-05-2024 Chronic Diabetes mellitus without complication (19 sources) Type 2 diabetes mellitus; Translations: [Type 2 diabetes mellitus without complications] Onset: 06-22-2024 03-22-2018 Chronic Disorders of lipid metabolism (20 sources) Mixed hyperlipidemia; Translations: [Mixed hyperlipidemia] Onset: 08-05-2024 Chronic Esophageal disorders (9 sources) Beaulieu's esophagus; Translations: [Beaulieu's esophagus without dysplasia] 03-22-2018 Chronic Essential hypertension (20 sources) Elevated blood pressure; Translations: [Essential (primary) hypertension] Onset: 03-28-2024 Chronic Fluid and electrolyte disorders (3 sources) Hyperkalemia; Translations: [Hyperkalemia] 06-04-2023 Episodic Genitourinary symptoms and ill-defined conditions (11 sources) Microalbuminuria; Translations: [Proteinuria, unspecified] Onset: 08-05-2024 08-13-2022 Episodic Nonspecific chest pain (20 sources) Chest pain; Translations: [Chest pain, unspecified] Onset: 08-05-2024 07-18-2020 Episodic Other aftercare (1 source) snf (current) use of insulin; Translations: [snf (current) use of insulin] Onset: 08-05-2024 Episodic Other lower respiratory disease (2 sources) Other forms of dyspnea; Translations: [Other forms of dyspnea] Onset: 08-05-2024 Episodic Other nervous system disorders (9 sources) Yuen's palsy; Translations: [Yuen's palsy] 12-15-2019 Episodic Other nutritional; endocrine; and metabolic disorders (11 sources) Obesity; Translations: [Obesity, unspecified] 03-22-2018 Chronic Other nutritional; endocrine; and metabolic disorders (6 sources) Obesity, unspecified; Translations: [Obesity, unspecified] 01-22-2022 Chronic Other nutritional; endocrine; and metabolic disorders (1 source) Morbid (severe) obesity due to excess calories; Translations: [Morbid (severe) obesity due to excess calories] Onset: 03-28-2024 Chronic Other nutritional; endocrine; and metabolic disorders (1 source) Body mass index (BMI) 36.0-36.9, adult; Translations: [Body mass index [BMI] 36.0-36.9, adult] Onset: 03-28-2024 Chronic Other skin disorders (9 sources) Excessive sweating; Translations: [Generalized hyperhidrosis] 06-10-2021 Episodic Syncope (20 sources) Near syncope; Translations: [Syncope and collapse] 03-22-2018 Episodic Thyroid disorders (15 sources) Hypothyroidism; Translations: [Hypothyroidism, unspecified] Onset: 06-22-2024 01-22-2022 Chronic Past or Other Problems Problem Classification Problem Date Documented Da te Episodic/Chronic Coronary atherosclerosis and other heart disease (3 sources) Presence of coronary angioplasty implant and graft; Translations: [Percutaneous transluminal coronary angioplasty status] Onset: 09-15-2017 Episodic Results Test Name Value Interpretation Reference Range Facility Cardiology Visit Reporton Cardiology Visit Report [facility] [address] [place] [address] OFFICE VISIT Date of Service: 08/05/24 MR#: [id number] Acct: [id number] Name: ASIF CASE Rep #: [id number] : 1965 Provider: TYREL june Age/Sex: 59/M Location: [facility] [place] Status: Signed HPI HPI History of Present Illness Details: This is a 59-year-old white male who presents today for outpatient cardiovascular follow-up visit. He has a history of underlying CAD, status post inferior PR (2017), status post subsequent PCI (July,; August,; September,), hypertension and hyperlipidemia. He has been working on his diet and trying to lose weight. Since the start of the year he has lost 25 lbs and has been able to decrease his insulin. He does need to hold atorvastatin to help with his muscle aches for a few days and then restarts it without problems. From a cardiac standpoint, the patient is doing well. He denies any palpitations, chest pain, or pressure. He does acknowledge occasional chest heaviness with exertion. He states this is across the chest. He does acknowledge SOB with exertion. He denies Orthopnea, and PND. He does not have bleeding issues; no blood in urine, stool, or nosebleeds. He denies any decrease in energy level, myalgias, or claudication. He does not have edema, or sudden weight gain. He does acknowledge occasional lightheadedness with quick positional changes. He denies dizziness, syncopal or near syncopal episodes, and headaches. Intake Vital Signs 04/19/24 07:36 06/22/24 09:36 08/05/24 07:03 Height 5 ft 6 in 5 ft 6 in 5 ft 6 in Weight: 204 lb BMI 32.9 BP 127/80 H Blood Pressure Location Lt brachial Position Sitting Respiration 18 Pulse 70 Pulse Source Monitor Pulse Oximetry (%) 98 Intake Visit Reasons: 3 M FU Miner Helper Required: No Is patient in pain?: No Allergies bee venom protein (honey bee) Allergy (Severe, Verified 08/05/24 08:05) Angioedema niacin Allergy (Verified 08/05/24 08:05) Shortness of breath Medications ???Medication ???Instructions ???Recorded ???Confirmed ???Type nitroglycerin 0.4 mg sublingual 0.4 mg sublingual Q5M PRN 07/18/20 08/05/24 Rx tablet Cardiac/Chest Pain #25 tabs omeprazole 40 mg capsule,delayed 20 mg PO DAILY acid reflux 4 08/05/24 History release atorvastatin 80 mg tablet 80 mg PO .qod #90 tabs 10/14/23 Rx aspirin 81 mg chewable tablet 81 mg PO DAILY heart health #90 08/05/24 Rx tabs coenzyme Q10 100 mg capsule (Co 200 mg PO DAILY 12/10/23 08/05/24 History Q-10) levothyroxine 75 mcg tablet See Rx Instructions PO QDAY #108 0 03/31/24 08/05/24 Rx tabs metformin 1,000 mg tablet 1,000 mg PO BIDCM #180 tabs 08/05/24 Rx carvedilol 12.5 mg tablet 6.25 mg PO BID heart medication 08/05/24 History insulin lispro 100 unit/mL 35 unit subcut TID PRN 04/19/24 History subcutaneous solution (Humalog U-100 Insulin) clopidogrel 75 mg tablet 75 mg PO QHS hx stents #90 tabs 08/05/24 Rx lisinopril 20 mg tablet 20 mg PO QHS #90 tabs 05/17/24 Rx empagliflozin 25 mg tablet 25 mg PO DAILY #90 tabs 05/18/24 0 08/05/24 Rx (Jardiance) fenofibrate nanocrystallized 145 145 mg PO DAILY cholesterol #90 08/05/24 Rx mg tablet tabs blood-glucose sensor (FreeStyle #6 ea 06/07/24 08/05/24 Rx Theresa 2 Plus Sensor device) insulin glargine 100 unit/mL (3 60 unit subcut QHS diabetes 08/05/24 History mL) subcutaneous pen Ejection fraction %: 65 Have you fallen in the past year?: No PFSH Medical History COVID Syncope and collapse Essential hypertension Atherosclerosis of coronary artery of kaibab heart without angina pectoris Hiatal hernia Beaulieu esophagus CAD (coronary artery disease) STEMI (ST elevation myocardial infarction) (08/04/17) Obesity (BMI 30-39.9) Diabetes mellitus, type II Mixed hyperlipidemia Surgical History History of coronary artery stent placement (09/15/17) History of left heart catheterization (03/22/18) Family History Mother Heart disease Brother Hypertension Other Angina at rest Anxiety Blood clot in vein Diabetes Hormone deficiency Myocardial infarction Seizures Social History Smoking Status: Former smoker alcohol intake: never substance use type: does not use caffeine: Yes Type: coffee Number of servings: 2 what type of physical activity do you participate in: walking frequency: daily ROS Const Const: Negative for fatigu (more content not included)... Normal [facility] Endocrinology Visit Reporton 06-22-2024 Endocrinology Visit Report [facility] [address] [place] [id number] OFFICE VISIT Date of Service: 06/22/24 MR#: [id number] Acct: [id number] Name: ASIF CASE Rep #: [id number] : 1965 Provider: TYREL ceballos Age/Sex: 59/M [place] [facility] [place] Status: Signed Intake Vital Signs 03/28/24 10:07 04/19/24 07:36 06/22/24 09:36 Height 5 ft 6 in 5 ft 6 in 5 ft 6 in Weight: 209 lb 208 lb 204 lb 8 oz BMI 33.7 33.5 33.0 BP 110/68 123/79 H 133/84 H Blood Pressure Location Rt brachial Lt brachial Lt brachial Position Sitting Sitting Sitting Respiration 18 Pulse 73 74 66 Pulse Source Monitor Monitor Monitor Pulse Oximetry (%) 96 97 97 Oxygen Delivery Method room air room air Intake Visit Reasons: 3 M FU Chief Complaint: f/u diabetes Is patient in pain?: No Allergies bee venom protein (honey bee) Allergy (Severe, Verified 06/22/24 09:40) Angioedema niacin Allergy (Verified 06/22/24 09:40) Shortness of breath Medications ???Medication ???Instructions ???Recorded ???Confirmed ???Type nitroglycerin 0.4 mg sublingual 0.4 mg sublingual Q5M PRN 07/18/20 06/22/24 Rx tablet Cardiac/Chest Pain #25 tabs omeprazole 40 mg capsule,delayed 20 mg PO DAILY acid reflux 4 06/22/24 History release atorvastatin 80 mg tablet 80 mg PO .qod #90 tabs 10/14/23 Rx aspirin 81 mg chewable tablet 81 mg PO DAILY heart health #90 06/22/24 Rx tabs coenzyme Q10 100 mg capsule (Co 200 mg PO DAILY 12/10/23 06/22/24 History Q-10) levothyroxine 75 mcg tablet See Rx Instructions PO QDAY #108 0 03/31/24 06/22/24 Rx tabs metformin 1,000 mg tablet 1,000 mg PO BIDCM #180 tabs 06/22/24 Rx carvedilol 12.5 mg tablet 6.25 mg PO BID heart medication 06/22/24 History insulin lispro 100 unit/mL 35 unit subcut TID PRN 04/19/24 History subcutaneous solution (Humalog U-100 Insulin) clopidogrel 75 mg tablet 75 mg PO QHS hx stents #90 tabs 06/22/24 Rx lisinopril 20 mg tablet 20 mg PO QHS #90 tabs 05/17/24 Rx empagliflozin 25 mg tablet 25 mg PO DAILY #90 tabs 05/18/24 0 06/22/24 Rx (Jardiance) fenofibrate nanocrystallized 145 145 mg PO DAILY cholesterol #90 06/22/24 Rx mg tablet tabs blood-glucose sensor (FreeStyle #6 ea 06/07/24 06/22/24 Rx Theresa 2 Plus Sensor device) insulin glargine 100 unit/mL (3 60 unit subcut QHS diabetes History mL) subcutaneous pen PFSH Medical History COVID Syncope and collapse Essential hypertension Atherosclerosis of coronary artery of kaibab heart without angina pectoris Hiatal hernia Beaulieu esophagus CAD (coronary artery disease) STEMI (ST elevation myocardial infarction) (08/04/17) Obesity (BMI 30-39.9) Diabetes mellitus, type II Mixed hyperlipidemia Surgical History History of coronary artery stent placement (09/15/17) History of left heart catheterization (03/22/18) Family History Mother Heart disease Brother Hypertension Other Angina at rest Anxiety Blood clot in vein Diabetes Hormone deficiency Myocardial infarction Seizures Social History Smoking Status: Former smoker alcohol intake: never substance use type: does not use caffeine: Yes Type: coffee Number of servings: 2 what type of physical activity do you participate in: walking frequency: daily HPI HPI Chief Complaint: f/u diabetes Details: ASIF CASE, is a 59 M who presents to the office today for evaluation and management of diabetes. A1C today is 6.7%, improved from 03/28/24 at 7.0%. He has lost an additional 5 lbs since that time. He is pleased with his progress. Currently taking Lantus 60 u once daily and Humaog 12 u TIDCM. CGM tracings reviewed- he is having occasional post meal elevations, he is having lows with increased activity. He denies any significant episode of hypoglycemia that has required assistance from others. He states that he has been less strict with his diet recently as his was previously doing Weight Watchers diet with him and is no longer is. BP is controlled. Currently taking carvedilol 6.25 mg BID and lisinopril 20 mg once daily. He is hypothyroid and taking levothyroxine 75 mcg 2 tabs Thursday/Thursday, 1 tab Thursday-Thursday. He is taking a daily statin, fenofibrate 145 mg once daily, and omega 3. Hx of CKD with microalbuminuria. Labs are up to date. Denies any acute concerns. ROS Const Constitutional: Positive for weight change (intentional loss); No (more content not included)... Normal [facility] Laboratory - Hematology and Cell countsOrdered By: Marta Hernandez on 06-22-2024 HbA1c (Bld) [Mass fraction] 6.7 % High 4.2-6.3 [facility] Cardiology Visit Reporton Cardiology Visit Report [facility] [address] [place] [address] OFFICE VISIT Date of Service: 04/19/24 MR#: [id number] Acct: [id number] Name: ASIF CASE Rep #: [id number] : 1965 Provider: AUGUST Benedict Age/Sex: 59/M Location: [facility] [place] Status: Signed HPI HPI History of Present Illness Details: This is a 59-year-old white male who presents today for outpatient cardiovascular follow-up visit. He has a history of underlying CAD, status post inferior PR (2017), status post subsequent PCI (July,; August,; September,), hypertension and hyperlipidemia. He has been working on his diet and trying to lose weight. Since the start of the year he has lost 25 lbs and has been able to decrease his insulin. He does need to hold atorvastatin to help with his muscle aches for a few days and then restarts it without problems. From a cardiac standpoint, the patient is doing well. He denies any palpitations, chest pain, pressure or heaviness. He denies SOB, Orthopnea, and PND. He does not have bleeding issues; no blood in urine, stool or nosebleeds. He denies any decrease in energy level, myalgias, or claudication. He does not have edema, or sudden weight gain. He does have occasional lightheadedness with low blood pressures. He denies dizziness, syncopal or near syncopal episodes, and headaches. Intake Vital Signs 10/21/23 08:22 04/19/24 07:36 Height 5 ft 6 in 5 ft 6 in Weight: 208 lb BMI 33.5 BP 123/79 H Blood Pressure Location Lt brachial Position Sitting Respiration 18 Pulse 74 Pulse Source Monitor Pulse Oximetry (%) 97 Intake Visit Reasons: 6 M FU Miner Helper Required: No Is patient in pain?: No Allergies bee venom protein (honey bee) Allergy (Severe, Verified 04/19/24 08:17) Angioedema niacin Allergy (Verified 04/19/24 08:17) Shortness of breath Medications ???Medication ???Instructions ???Recorded ???Confirmed ???Type nitroglycerin 0.4 mg sublingual 0.4 mg sublingual Q5M PRN 07/18/20 04/19/24 Rx tablet Cardiac/Chest Pain #25 tabs omeprazole 40 mg capsule,delayed 20 mg PO DAILY acid reflux 4 04/19/24 History release atorvastatin 80 mg tablet 80 mg PO .qod #90 tabs 10/14/23 Rx empagliflozin 25 mg tablet 25 mg PO DAILY #90 tabs 10/14/23 0 04/19/24 Rx (Jardiance) fenofibrate nanocrystallized 145 145 mg PO DAILY cholesterol #90 04/19/24 Rx mg tablet tabs insulin glargine 100 unit/mL (3 50 unit (0.5 mL) subcut QHS 04/19/24 Rx mL) subcutaneous pen diabetes #45 mL aspirin 81 mg chewable tablet 81 mg PO DAILY heart health #90 04/19/24 Rx tabs clopidogrel 75 mg tablet 75 mg PO QHS hx stents #90 tabs 04/19/24 Rx flash glucose sensor (FreeStyle #6 ea 10/15/23 12/10/23 Rx Theresa 2 Sensor kit) lisinopril 20 mg tablet 20 mg PO QHS #90 tabs 10/15/2301/03 Rx coenzyme Q10 100 mg capsule (Co 200 mg PO DAILY 12/10/23 04/19/24 History Q-10) levothyroxine 75 mcg tablet See Rx Instructions PO QDAY #108 0 03/31/24 04/19/24 Rx tabs metformin 1,000 mg tablet 1,000 mg PO BIDCM #180 tabs 04/19/24 Rx carvedilol 12.5 mg tablet 6.25 mg PO BID heart medication 04/19/24 History insulin lispro 100 unit/mL 35 unit subcut TID PRN 04/19/24 History subcutaneous solution (Humalog U-100 Insulin) Ejection fraction %: 65 Have you fallen in the past year?: No PFSH Medical History COVID Syncope and collapse Essential hypertension Atherosclerosis of coronary artery of kaibab heart without angina pectoris Hiatal hernia Beaulieu esophagus CAD (coronary artery disease) STEMI (ST elevation myocardial infarction) (08/04/17) Obesity (BMI 30-39.9) Diabetes mellitus, type II Mixed hyperlipidemia Surgical History History of coronary artery stent placement (09/15/17) History of left heart catheterization (03/22/18) Family History Mother Heart disease Brother Hypertension Other Angina at rest Anxiety Blood clot in vein Diabetes Hormone deficiency Myocardial infarction Seizures Social History Smoking Status: Former smoker alcohol intake: never substance use type: does not use caffeine: Yes Type: coffee Number of servings: 2 what type of physical activity do you participate in: walking frequency: daily ROS Const Const: Negative for fatigue, weakness, headache(s) or frequent falls Eyes Eyes: Negative for blurry vision ENT ENT: Positive for dizziness (morning); Neg (more content not included)... Normal [facility] Vitamin D,25 Hydroxyon 03-31 Vitamin D 25-OH 33.7 ng/mL Normal [facility] Comment on above: Result Comment: Kia min D 25(OH) Status Range Deficiency <20 ng/mL (50nmol/L) Insufficiency 20 - 30 ng/mL (50 - 75 nmol/L) Sufficiency 30 - 100 ng/mL (75 - 250 nmol/L) Toxicity >100 ng/mL (>250 nmol/L) Performed By: #### L 502.0250, L500.4050, L500.4100, L506.1000, L501.9520, L506.0400 #### [facility] Laboratory [facility] [address] [place], [address] Albumin to globulin ratioOrd ered By: Marta Hernandez on 03-29-2024 Albumin/Globulin [Mass ratio] 1.1 {ratio} 0.9-2.4 [facility] Bilirubin, totalOrdered By: Marta Hernandez on 03-29-2024 Bilirubin [Mass/Vol] 0.70 mg/dL 0.20-1.00 [facility] Comment on above: For patients on eltr ombopag therapy, use of Dimension [place] TBIL is not recommended. Blood urea nitrogen (BUN)/cr eatinine ratioOrdered By: Marta Hernandez on 03-29-2024 Urea nitrogen/Creatinine [Mass ratio] 24.6 mg/mg High 10-20 [facility] Carbon dioxide measurementOr dered By: Marta Hernandez on 03-29-2024 CO2 [Moles/Vol] 25.0 mmol/L 21.0-32.0 [facility] Chloride measurementOrdered By: Marta Hernandez on 03-29-2024 Chloride [Moles/Vol] 105 mmol/L 98-107 [facility] Comprehensive Metabolic Prof ilon 03-29-2024 Albumin [Mass/Vol] 3.9 g/dL Normal 3.2-5.0 [facility] Comment on above: Performed By: #### L 502.0250, L500.4050, L500.4100, L506.1000, L501.9520, L506.0400 #### [facility] [address] [place], [address] Albumin/Globulin [Mass ratio] 1.1 {ratio} Normal 0.9-2.4 [facility] Comment on above: Performed By: #### L 502.0250, L500.4050, L500.4100, L506.1000, L501.9520, L506.0400 #### [facility] [address] [place], [address] (752) ALK P 71 U/L Normal 45-117 [facility] Comment on above: Performed By: #### L 502.0250, L500.4050, L500.4100, L506.1000, L501.9520, L506.0400 #### [facility] [address] [place], [address] ALT [Catalytic activity/Vol] 39 U/L Normal 16-61 [facility] Comment on above: Performed By: #### L 502.0250, L500.4050, L500.4100, L506.1000, L501.9520, L506.0400 #### [facility] [address] [place], [address] AST [Catalytic activity/Vol] 29 U/L Normal 15-37 [facility] Comment on above: Performed By: #### L 502.0250, L500.4050, L500.4100, L506.1000, L501.9520, L506.0400 #### [facility] [address] [place], [address] Bilirubin [Mass/Vol] 0.70 mg/dL Normal 0.20-1.00 [facility] Comment on above: Result Comment: For patients on eltrombopag therapy, use of Dimension [place] TBIL is not recommended. Performed By: #### L 502.0250, L500.4050, L500.4100, L506.1000, L501.9520, L506.0400 #### [facility] [address] [place], [address] BUN/CRE 24.6 RATIO High 10-20 [facility] Comment on above: Performed By: #### L 502.0250, L500.4050, L500.4100, L506.1000, L501.9520, L506.0400 #### [facility] [address] [place], [address] CA,Total 9.3 mg/dL Normal 8.5-10.1 [facility] Comment on above: Performed By: #### L 502.0250, L500.4050, L500.4100, L506.1000, L501.9520, L506.0400 #### [facility] [address] [place], [address] Chloride [Moles/Vol] 105 mmol/L Normal 98-107 [facility] Comment on above: Performed By: #### L 502.0250, L500.4050, L500.4100, L506.1000, L501.9520, L506.0400 #### [facility] [address] [place], [address] CO2 [Moles/Vol] 25.0 mmol/L Normal 21.0-32.0 [facility] Comment on above: Performed By: #### L 502.0250, L500.4050, L500.4100, L506.1000, L501.9520, L506.0400 #### [facility] [address] [place], [address] Creatinine [Mass/Vol] 1.18 mg/dL Normal 0.70-1.[address] [facility] Comment on above: Result Comment: The validity of the calculated GFR GFRAA in patients over 70 years has not been determined. Clinical correlation is essential. Performed By: #### L 502.0250, L500.4050, L500.4100, L506.1000, L501.9520, L506.0400 #### [facility] [address] [place], [address] EST GFR - AA 82 mL/min Normal >60 [facility] Comment on above: Result Comment: Afri can [facility] GFR Calc Performed By: #### L 502.0250, L500.4050, L500.4100, L506.1000, L501.9520, L506.0400 #### [facility] [address] [place], [address] GAP 8 Normal 5-15 [facility] Comment on above: Performed By: #### L 502.0250, L500.4050, L500.4100, L506.1000, L501.9520, L506.0400 #### [facility] [address] [place], [address] GFR/1.73 sq M.predicted among non-blacks MDRD (S/P/Bld) [Vol rate/Area] 68 mL/min/{1.73_m2} Normal >60 [facility] Comment on above: Result Comment: Non- GFR Calc Performed By: #### L 502.0250, L500.4050, L500.4100, L506.1000, L501.9520, L506.0400 #### [facility] Laboratory [address] [place], [address] Globulin (S) [Mass/Vol] 3.6 g/dL Normal 2.2-4.2 [facility] Comment on above: Performed By: #### L 502.0250, L500.4050, L500.4100, L506.1000, L501.9520, L506.0400 #### [facility] Laboratory [address] [place], [address] Glucose [Mass/Vol] 127 mg/dL High 74-106 [facility] Comment on above: Result Comment: Fast ing Glucose result greater than or equal to 126 mg/dL suggests DIABETES MELLITUS per A.D.A. criteria. Performed By: #### L 502.0250, L500.4050, L500.4100, L506.1000, L501.9520, L506.0400 #### [facility] Laboratory [address] [place], [address] Potassium [Moles/Vol] 4.6 mmol/L Normal 3.5-5.[address] [facility] Comment on above: Performed By: #### L 502.0250, L500.4050, L500.4100, L506.1000, L501.9520, L506.0400 #### [facility] Laboratory [address] [place], [address] Sodium [Moles/Vol] 138 mmol/L Normal 136-145 [facility] Comment on above: Performed By: #### L 502.0250, L500.4050, L500.4100, L506.1000, L501.9520, L506.0400 #### [facility] Laboratory [address] [place], [address] T PROT 7.5 g/dL Normal 6.4-8.2 [facility] Comment on above: Performed By: #### L 502.0250, L500.4050, L500.4100, L506.1000, L501.9520, L506.0400 #### [facility] Laboratory [address] [place], [address] Urea nitrogen [Mass/Vol] 29 mg/dL High 718 [facility] Comment on above: Performed By: #### L 502.0250, L500.4050, L500.4100, L506.1000, L501.9520, L506.0400 #### [facility] Laboratory [address] [place], [address] Direct serum free thyroxine (FT4) measurementOrdered By: Marta Hernandez on 03-29-2024 Free T4 [Mass/Vol] 1.28 ng/dL 0.76-1.46 [facility] Glomerular filtration rate ( GFR) estimationOrdered By: Marta Hernandez on 03-29-2024 GFR/1.73 sq M.predicted among non-blacks MDRD (S/P/Bld) [Vol rate/Area] 68 mL/min/{1.73_m2} >60 [facility] Comment on above: Non- GFR Calc Glucose measurementOrdered B y: Marta Hernandez on 03-29-2024 Glucose [Mass/Vol] 127 mg/dL High 74-106 [facility] Comment on above: Fasting Glucose resu lt greater than or equal to 126 mg/dL suggests DIABETES MELLITUS per A.D.A. criteria. High density lipoprotein (HD L) measurementOrdered By: Marta Hernandez on 03-29-2024 Cholesterol in HDL [Mass/Vol] 28 mg/dL Low >40 [facility] Comment on above: The drugs N-Acetylcy steine and Metamizole may falsely depress this assay. Reference Range HDL <40 mg/dL Low HDL Cholesterol HDL >or= 60 mg/dL High HDL Cholesterol Laboratory - Chemistry and C hemistry - challengeOrdered By: Marta Hernandez on 03-29-2024 AST [Catalytic activity/Vol] 29 U/L 15-37 [facility] Lipid Profileon 03-29-2024 Cholesterol [Mass/Vol] 150 mg/dL Normal 200 [facility] Comment on above: Result Comment: <200 mg/dL Desirable 200-240 mg/dL Borderline >240 mg/dL High Risk Performed By: #### L 502.0250, L500.4050, L500.4100, L506.1000, L501.9520, L506.0400 #### [facility] Laboratory [address] [place], [address] Cholesterol in HDL [Mass/Vol] 28 mg/dL Low [facility] Comment on above: Result Comment: The drugs N-Acetylcysteine and Metamizole may falsely depress this assay. Reference Range HDL <40 mg/dL Low HDL Cholesterol HDL >or= 60 mg/dL High HDL Cholesterol Performed By: #### L 502.0250, L500.4050, L500.4100, L506.1000, L501.9520, L506.0400 #### [facility] Laboratory [address] [place], [address] Cholesterol in LDL [Mass/Vol] 65 mg/dL Normal 0-130 [facility] Comment on above: Performed By: #### L 502.0250, L500.4050, L500.4100, L506.1000, L501.9520, L506.0400 #### [facility] Laboratory [address] [place], [address] Cholesterol in VLDL [Mass/Vol] 57 mg/dL High 5-40 [facility] Comment on above: Performed By: #### L 502.0250, L500.4050, L500.4100, L506.1000, L501.9520, L506.0400 #### [facility] Laboratory [address] [place], [place], [phone] ([phone]) Triglyceride [Mass/Vol] 286 mg/dL High [facility] Comment on above: Result Comment: The drugs N-Acetylcysteine and Metamizole may falsely depress this assay. Serum Triglycerides Reference Interval Normal <150 mg/dL Borderline high 150 - 199 mg/dL High 200 - 499 mg/dL Very High > or = 500 mg/dL Performed By: #### L 502.0250, L500.4050, L500.4100, L506.1000, L501.9520, L506.0400 #### [facility] Laboratory [address] [place], [place], [phone]) Low density lipoprotein (LDL ) cholesterol measurementOrdered By: Marta Hernandez on 03-29-2024 Cholesterol in LDL [Mass/Vol] 65 mg/dL 0-130 [facility] Microalb:Creat Ratio,Random URon 03-29-2024 Creatinine [Mass/Vol] 81.40 mg/dL Normal NO RANGE EST. [facility] Comment on above: Result Comment: UTO Performed By: #### L 502.0250, L500.4050, L500.4100, L506.1000, L501.9520, L506.0400 #### [facility] Laboratory [address] [place], [place], [phone] MALB:CRE 16.3 mg/g CRE Normal <30 mg/g CRE [facility] Comment on above: Result Comment: UTO Performed By: #### L 502.0250, L500.4050, L500.4100, L506.1000, L501.9520, L506.0400 #### [facility] Laboratory [address] [place], [place], [phone] MICROALBUMIN,UR 13.3 mg/L Normal NO RANGE EST. [facility] Comment on above: Result Comment: UTO Performed By: #### L 502.0250, L500.4050, L500.4100, L506.1000, L501.9520, L506.0400 #### [facility] Laboratory [address] [place], [address] Potassium measurementOrdered By: Marta Hernandez on 03-29-2024 Potassium [Moles/Vol] 4.6 mmol/L 3.5-5.[address] [facility] Serum anion gap measurementO rdered By: Marta Hernandez on 03-29-2024 Anion gap [Moles/Vol] 8 mmol/L 5-[address] [facility] Serum globulin measurementOr dered By: Marta Hernandez on 03-29-2024 Globulin (S) [Mass/Vol] 3.6 g/dL 2.2-4.2 [facility] Serum or plasma alanine stern otransferase (ALT) measurementOrdered By: Marta Hernandez on 03-29-2024 ALT [Catalytic activity/Vol] 39 U/L 16-61 [facility] Serum or plasma albumin ramiro urement (mass/volume)Ordered By: Marta Hernandez on 03-29-2024 Albumin [Mass/Vol] 3.9 g/dL 3.2-5.0 [facility] Serum or plasma alkaline smita sphatase measurementOrdered By: Marta Hernandez on 03-29-2024 ALP [Catalytic activity/Vol] 71 U/L 45-117 [facility] Serum or plasma calcium ramiro urement (mass/volume)Ordered By: Marta Hernandez on 03-29-2024 Calcium [Mass/Vol] 9.3 mg/dL 8.5-10.1 [facility] Serum or plasma cholesterol measurement (mass/volume)Ordered By: Marta Hernandez on 03-29-2024 Cholesterol [Mass/Vol] 150 mg/dL <200 [facility] Comment on above: <200 mg/dL Desirable 200-240 mg/dL Borderline >240 mg/dL High Risk Serum or plasma creatinine m easurement (mass/volume)Ordered By: Marta Hernandez on 03-29-2024 Creatinine [Mass/Vol] 1.18 mg/dL 0.70-1.[address] [facility] Comment on above: The validity of the calculated GFR & GFRAA in patients over 70 years has not been determined. Clinical correlation is essential. Serum or plasma thyroid stim ulating hormone (TSH) measurement (units/volume)Ordered By: Marta Hernandez on 03-29-2024 TSH Qn 2.890 uIU/mL 0.358-3.740 [facility] Serum or plasma urea nitroge n measurement (mass/volume)Ordered By: Marta Hernandez on 03-29-2024 Urea nitrogen [Mass/Vol] 29 mg/dL High - [facility] Sodium levelOrdered By: Keith Hernandez on 03-29-2024 Sodium [Moles/Vol] 138 mmol/L 136-145 [facility] T4 Free Directon 03-29-2024 T4 FREE DIRECT 1.28 ng/dL Normal 0.76-1.46 [facility] Comment on above: Performed By: #### L 502.0250, L500.4050, L500.4100, L506.1000, L501.9520, L506.0400 #### [facility] Laboratory [address] [facility] [phone] Thyroid Stim Hormone (TSH)on 03-29-2024 TSH 2.890 uIU/mL Normal 0.358-3.740 [facility] Comment on above: Performed By: #### L 502.0250, L500.4050, L500.4100, L506.1000, L501.9520, L506.0400 #### [facility] Laboratory [address] [place], [address] Total proteinOrdered By: Paige Hernandez on 03-29-2024 Protein [Mass/Vol] 7.5 g/dL 6.4-8.2 [facility] Triglycerides measurementOrd ered By: Marta Hernandez on 03-29-2024 Triglyceride [Mass/Vol] 286 mg/dL High <199 [facility] Comment on above: The drugs N-Acetylcy steine and Metamizole may falsely depress this assay.Serum Triglycerides Reference Interval Normal <150 mg/dL Borderline high 150 - 199 mg/dL High 200 - 499 mg/dL Very High > or = 500 mg/dL Urine creatinine measurement (mass/volume)Ordered By: Marta Hernandez on 03-29-2024 Creatinine (U) [Mass/Vol] 81.40 mg/dL NO RANGE EST. [facility] Very low density lipoprotein (VLDL) cholesterol measurementOrdered By: Marta Hernandez on 03-29-2024 Very low density lipoprotein (VLDL) cholesterol measurement 57 mg/dL High 5-40 [facility] Endocrinology Visit Reporton 03-28-2024 Endocrinology Visit Report [facility] [address] [place] [address] OFFICE VISIT Date of Service: 03/28/24 MR#: [id number] Acct: [id number] Name: ASIF CASE Rep #: [id number] : 1965 Provider: TYREL ceballos Age/Sex: 59/M [place] [facility]: Signed Intake Vital Signs 12/10/23 08:31 03/28/24 10:07 Height 5 ft 6 in 5 ft 6 in Weight: 228 lb 2 oz 209 lb BMI 36.8 33.7 BP 136/88 H 110/68 Blood Pressure Location Lt brachial Rt brachial Position Sitting Sitting Pulse 85 73 Pulse Source Monitor Monitor Pulse Oximetry (%) 95 96 Oxygen Delivery Method room air room air Intake Visit Reasons: 4 M FU, RS 02/28 Chief Complaint: f/u diabetes Is patient in pain?: No Allergies bee venom protein (honey bee) Allergy (Severe, Verified 03/28/24 10:10) Angioedema niacin Allergy (Verified 03/28/24 10:10) Shortness of breath Medications ???Medication ???Instructions ???Recorded ???Confirmed ???Type nitroglycerin 0.4 mg sublingual 0.4 mg sublingual Q5M PRN 07/18/20 03/28/24 Rx tablet Cardiac/Chest Pain #25 tabs omeprazole 40 mg capsule,delayed 20 mg PO DAILY acid reflux 05/13/ 4 03/28/24 History release atorvastatin 80 mg tablet 80 mg PO .qod #90 tabs 10/14/23 Rx empagliflozin 25 mg tablet 25 mg PO DAILY #90 tabs 10/14/23 0 03/28/24 Rx (Jardiance) ezetimibe 10 mg tablet (Zetia) 10 mg PO DAILY #90 tabs 10/14/23 0 03/28/24 Rx fenofibrate nanocrystallized 145 145 mg PO DAILY cholesterol #90 03/28/24 Rx mg tablet tabs insulin glargine 100 unit/mL (3 50 unit (0.5 mL) subcut QHS 03/28/24 Rx mL) subcutaneous pen diabetes #45 mL insulin lispro 100 unit/mL 35 unit (0.35 mL) subcut TID #94.5 10/14/23 03/28/24 Rx subcutaneous solution (Humalog mL U-100 Insulin) metformin 1,000 mg tablet 1,000 mg PO BIDCM #180 tabs 03/28/24 Rx aspirin 81 mg chewable tablet 81 mg PO DAILY heart health #90 03/28/24 Rx tabs carvedilol 12.5 mg tablet 12.5 mg PO BID heart medication 03/28/24 Rx #180 tabs clopidogrel 75 mg tablet 75 mg PO QHS hx stents #90 tabs 03/28/24 Rx flash glucose sensor (FreeStyle #6 ea 10/15/23 12/10/23 Rx Theresa 2 Sensor kit) isosorbide mononitrate 30 mg 30 mg PO DAILY heart medication 03/28/24 Rx tablet,extended release 24 hr #90 tabs lisinopril 20 mg tablet 20 mg PO QHS #90 tabs 10/15/23 Rx levothyroxine 75 mcg tablet See Rx Instructions PO QDAY #108 0 11/02/23 03/28/24 Rx tabs coenzyme Q10 100 mg capsule (Co 200 mg PO DAILY 12/10/23 03/28/24 History Q-10) [facility] Medical History COVID Syncope and collapse Essential hypertension Atherosclerosis of coronary artery of kaibab heart without angina pectoris Hiatal hernia Beaulieu esophagus CAD (coronary artery disease) STEMI (ST elevation myocardial infarction) (08/04/17) Obesity (BMI 30-39.9) Diabetes mellitus, type II Mixed hyperlipidemia Surgical History History of coronary artery stent placement (09/15/17) History of left heart catheterization (03/22/18) Family History Mother Heart disease Brother Hypertension Other Angina at rest Anxiety Blood clot in vein Diabetes Hormone deficiency Myocardial infarction Seizures Social History Smoking Status: Former smoker alcohol intake: never substance use type: does not use caffeine: Yes Type: coffee Number of servings: 2 what type of physical activity do you participate in: walking frequency: daily HPI HPI Chief Complaint: f/u diabetes Details: ASIF CASE, is a 59 M who presents to the office today for evaluation and management of diabetes. A1C today is 7.0%, improved from 12/10/23 at 7.8%. He has lost 19 lbs since that time. He started doing Weight Watchers approximately 6 weeks ago. He is pleased with his progress. Currently taking metformin 1 gm BID with food, Jardiance 25 mg once daily, Basaglar 60 u once daily, he is only using Humalog as needed. Theresa tracings reviewed in detail, TIR 97%, no lows noted. BP today is controlled. Currently taking lisinopril 20 mg once daily and carvedilol 12.5 mg BID. He is having dizziness and presyncopal episodes with fast position changes. He has CKD and microalbuminuria. He takes atorvastatin 80 mg qod, ezetimibe 10 mg once daily, and fenofibrate 145 mg once daily. He is hypothyroid. Currently taking levothyroxine 75 mcg 2 tabs Thursday/Thursday, 1 tab Thursday- Thursday. Hx of poorly controlled TSH. He is due for (more content not included)... Normal [facility] Endocrinology Visit Reporton 12-10-2023 Endocrinology Visit Report [facility] [address] [place] [address]. [address] [place] [address] OFFICE VISIT Date of Service: 12/10/23 MR#: [id number] Acct: [id number] Name: ASIF CASE Rep #: [id number] : 1965 Provider: TYREL ceballos Age/Sex: 58/M [place] [facility] [place]: Signed Intake Vital Signs 08/24/23 11:09 10/21/23 08:22 12/10/23 08:31 Height 5 ft 6 in 5 ft 6 in 5 ft 6 in Weight: 221 lb 227 lb 228 lb 2 oz BMI 35.6 36.6 36.8 BP 128/80 H 117/65 136/88 H Blood Pressure Location Lt brachial Lt brachial Lt brachial Position Sitting Sitting Sitting Respiration 18 Pulse 69 78 85 Pulse Source Monitor Monitor Monitor Pulse Oximetry (%) 93 97 95 Oxygen Delivery Method room air room air Intake Visit Reasons: 3 M FU Chief Complaint: f/u diabetes Allergies bee venom protein (honey bee) Allergy (Severe, Verified 10/21/23 08:37) Angioedema niacin Allergy (Verified 10/21/23 08:37) Shortness of breath Medications ???Medication ???Instructions ???Recorded ???Confirmed ???Type nitroglycerin 0.4 mg sublingual 0.4 mg sublingual Q5M PRN 07/18/20 12/10/23 Rx tablet Cardiac/Chest Pain #25 tabs omeprazole 40 mg capsule,delayed 20 mg PO DAILY acid reflux 05/14/23 12/10/23 History release atorvastatin 80 mg tablet 80 mg PO .qod #90 tabs 10/14/23 12/10/23 Rx empagliflozin 25 mg tablet 25 mg PO DAILY #90 tabs 10/14/23 12/10/23 Rx (Jardiance) ezetimibe 10 mg tablet (Zetia) 10 mg PO DAILY #90 tabs 10/14/23 12/10/23 Rx fenofibrate nanocrystallized 145 145 mg PO DAILY cholesterol #90 10/14/23 12/10/23 Rx mg tablet tabs insulin glargine 100 unit/mL (3 50 unit (0.5 mL) subcut QHS 10/14/23 12/10/23 Rx mL) subcutaneous pen diabetes #45 mL insulin lispro 100 unit/mL 35 unit (0.35 mL) subcut TID #94.5 10/14/23 12/10/23 Rx subcutaneous solution (Humalog mL U-100 Insulin) metformin 1,000 mg tablet 1,000 mg PO BIDCM #180 tabs 10/14/23 12/10/23 Rx aspirin 81 mg chewable tablet 81 mg PO DAILY heart health #90 10/15/23 12/10/23 Rx tabs carvedilol 12.5 mg tablet 12.5 mg PO BID heart medication 10/15/23 12/10/23 Rx #180 tabs clopidogrel 75 mg tablet 75 mg PO QHS hx stents #90 tabs 10/15/23 12/10/23 Rx flash glucose sensor (FreeStyle #6 ea 10/15/23 12/10/23 Rx Theresa 2 Sensor kit) isosorbide mononitrate 30 mg 30 mg PO DAILY heart medication 10/15/23 12/10/23 Rx tablet,extended release 24 hr #90 tabs lisinopril 20 mg tablet 20 mg PO QHS #90 tabs 10/15/23 12/10/23 Rx levothyroxine 75 mcg tablet See Rx Instructions PO QDAY #108 11/02/23 12/10/23 Rx tabs coenzyme Q10 100 mg capsule (Co 200 mg PO DAILY 12/10/23 12/10/23 History Q-10) [facility] Medical History COVID Syncope and collapse Essential hypertension Atherosclerosis of coronary artery of kaibab heart without angina pectoris Hiatal hernia Beaulieu esophagus CAD (coronary artery disease) STEMI (ST elevation myocardial infarction) (08/04/17) Obesity (BMI 30-39.9) Diabetes mellitus, type II Mixed hyperlipidemia Surgical History History of coronary artery stent placement (09/15/17) History of left heart catheterization (03/22/18) Family History Mother Heart disease Brother Hypertension Other Angina at rest Anxiety Blood clot in vein Diabetes Hormone deficiency Myocardial infarction Seizures Social History Smoking Status: Former smoker alcohol intake: never substance use type: does not use caffeine: Yes Type: coffee Number of servings: 2 what type of physical activity do you participate in: walking frequency: daily HPI HPI Chief Complaint: f/u diabetes Details: ASIF CASE, is a 58 M who presents to the office today for evaluation and management of diabetes. A1C today is 7.8%, consistent with 08/24/23. He has gained 7 lbs since that time. Currently taking Basaglar 55 u once daily, Humalog 20 u TIDCM, Jardiance 25 mg once daily, metformin 1 gm BID with food. CGM tracings reviewed- he is having post meal elevations, most significantly post supper. Denies any significant episodes of hypoglycemia that have required assistance from others. He admits that he is off track with his diet, he would like to lose weight and work out. He has an opportunity to try Trulicity 1.5 mg qweek x6 months- he is interested. He has hypothyroid. Currently taking 75 mcg 2 tabs Sat/Sun, 1 tab Thursday-Thursday. Reports compliance with medication regimen. Hx of poorly controlled TSH. BP stable. Currently taking carvedilol 12.5 mg BID, lisinopril 20 mg QHS. Hx of poorly contr (more content not included)... Normal [facility] Cardiology Visit Reporton Cardiology Visit Report [facility] [address] [place] [address]. [address] [place], [place] [address] OFFICE VISIT Date of Service: 10/21/23 MR#: [id number] Acct: [id number] Name: ASIF CASE Rep #: [id number] : 1965 Provider: TYREL june Age/Sex: 58/M Location: [facility] [place] Status: Signed HPI HPI History of Present Illness Details: This is a 58-year-old white male who presents today for outpatient cardiovascular follow-up visit. He has a history of underlying CAD, status post inferior PR (2017), status post subsequent PCI (July,; August,; September,) superimposed upon hyperlipidemia and hypertension. From a cardiac standpoint, the patient is doing well. He denies any palpitations, chest pain, pressure or heaviness. He denies SOB, Orthopnea, and PND. He does not have bleeding issues; no blood in urine, stool or nosebleeds. He denies any decrease in energy level, myalgias, or claudication. He does not have edema, or sudden weight gain. He does have occasional lightheadedness with low blood pressures. He denies dizziness, syncopal or near syncopal episodes, and headaches. Intake Vital Signs 05/19/23 12:57 08/24/23 11:09 10/21/23 08:22 Height 5 ft 6 in 5 ft 6 in 5 ft 6 in Weight: 227 lb BMI 36.6 BP 117/65 Blood Pressure Location Lt brachial Position Sitting Respiration 18 Pulse 78 Pulse Source Monitor Pulse Oximetry (%) 97 Intake Visit Reasons: 5 M [employer]er Hel[employer] Required: No Is patient in pain?: No Allergies bee venom protein (honey bee) Allergy (Severe, Verified 10/21/23 08:37) Angioedema niacin Allergy (Verified 10/21/23 08:37) Shortness of breath Medications ???Medication ???Instructions ???Recorded ???Confirmed ???Type nitroglycerin 0.4 mg sublingual 0.4 mg sublingual Q5M PRN 07/18/20 10/21/23 Rx tablet Cardiac/Chest Pain #25 tabs coenzyme Q10 100 mg capsule (Co 100 mg PO DAILY 12/09/21 10/21/23 History Q-10) multivitamin (Daily Multi-Vitamin 1 tab PO DAILY 12/09/21 10/21/23 History tablet) omeprazole 40 mg capsule,delayed 20 mg PO DAILY acid reflux 05/14/23 10/21/23 History release atorvastatin 80 mg tablet 80 mg PO .qod #90 tabs 10/14/23 10/21/23 Rx empagliflozin 25 mg tablet 25 mg PO DAILY #90 tabs 10/14/23 10/21/23 Rx (Jardiance) ezetimibe 10 mg tablet (Zetia) 10 mg PO DAILY #90 tabs 10/14/23 10/21/23 Rx fenofibrate nanocrystallized 145 145 mg PO DAILY cholesterol #90 10/14/23 10/21/23 Rx mg tablet tabs insulin glargine 100 unit/mL (3 50 unit (0.5 mL) subcut QHS 10/14/23 10/21/23 Rx mL) subcutaneous pen diabetes #45 mL insulin lispro 100 unit/mL 35 unit (0.35 mL) subcut TID #94.5 10/14/23 10/21/23 Rx subcutaneous solution (Humalog mL U-100 Insulin) metformin 1,000 mg tablet 1,000 mg PO BIDCM #180 tabs 10/14/23 10/21/23 Rx aspirin 81 mg chewable tablet 81 mg PO DAILY heart health #90 10/15/23 10/21/23 Rx tabs carvedilol 12.5 mg tablet 12.5 mg PO BID heart medication 10/15/23 10/21/23 Rx #180 tabs clopidogrel 75 mg tablet 75 mg PO QHS hx stents #90 tabs 10/15/23 10/21/23 Rx flash glucose sensor (FreeStyle #6 ea 10/15/23 10/21/23 Rx Theresa 2 Sensor kit) isosorbide mononitrate 30 mg 30 mg PO DAILY heart medication 10/15/23 10/21/23 Rx tablet,extended release 24 hr #90 tabs lisinopril 20 mg tablet 20 mg PO QHS #90 tabs 10/15/23 10/21/23 Rx levothyroxine 112 mcg tablet 150 mcg PO DAILY 10/21/23 10/21/23 History PFSH Medical History COVID Syncope and collapse Essential hypertension Atherosclerosis of coronary artery of kaibab heart without angina pectoris Hiatal hernia Beaulieu esophagus CAD (coronary artery disease) STEMI (ST elevation myocardial infarction) (08/04/17) Obesity (BMI 30-39.9) Diabetes mellitus, type II Mixed hyperlipidemia Surgical History History of coronary artery stent placement (09/15/17) History of left heart catheterization (03/22/18) Family History Mother Heart disease Brother Hypertension Other Angina at rest Anxiety Blood clot in vein Diabetes Hormone deficiency Myocardial infarction Seizures Social History Smoking Status: Former smoker alcohol intake: never substance use type: does not use caffeine: Yes Type: coffee Number of servings: 2 what type of physical activity do you participate in: walking frequency: daily ROS Const Const: Negative for fatigue, weakness, fever(s), headache(s), chills, frequent falls, weight gain or weight loss Eyes Eyes: Negative for blind spots, loss of peripheral vision, transient loss of vision, blurry vision, ch (more content not included)... Normal [facility] Basophil percentageOrdered B y: Martin Castellanos on 06-03-2023 Chloride [Moles/Vol] 103 mmol/L 98-107 [facility] Glucose [Mass/Vol] 175 mg/dL 74-106 [facility] Comment on above: Fasting Glucose resu lt greater than or equal to 126 mg/dL suggests DIABETES MELLITUS per A.D.A. criteria. Potassium [Moles/Vol] 5.5 mmol/L 3.5-5.[address] [facility] Comment on above: Moderate Hemolysis, Result may be falsely increased. Sodium [Moles/Vol] 133 mmol/L 136-145 [facility] Laboratory - Chemistry and C hemistry - challengeOrdered By: Martin Castellanos on 06-03-2023 CO2 [Moles/Vol] 26.0 mmol/L 21.0-32.0 [facility] Urea nitrogen/Creatinine [Mass ratio] 24.6 mg/mg 10-20 [facility] No Panel InformationOrdered By: Martin Castellanos on 06-03-2023 Estimated GFR (MDRD) Amer 79 mL/min >60 [facility] Comment on above: GFR Calc Estimated GFR (MDRD) Non-Af Amer 65 mL/min >60 [facility] Comment on above: Non- GFR Calc Serum or plasma calcium ramiro urement (mass/volume)Ordered By: Martin Castellanos on 06-03-2023 Calcium [Mass/Vol] 9.1 mg/dL 8.5-10.1 [facility] Serum or plasma creatinine m easurement (mass/volume)Ordered By: Martin Castellanos on 06-03-2023 Creatinine [Mass/Vol] 1.22 mg/dL 0.70-1.[address] [facility] Comment on above: The validity of the calculated GFR & GFRAA in patients over 70 years has not been determined. Clinical correlation is essential. Serum or plasma urea nitroge n measurement (mass/volume)Ordered By: Martin Castellanos on 06-03-2023 Urea nitrogen [Mass/Vol] 30 mg/dL 7-18 [facility] Thin prep Papanicolaou smear with manual screeningOrdered By: Martin Castellanos on 06-03-2023 Thin prep Papanicolaou smear with manual screening 4 5-15 [facility] Basophil percentageOrdered B y: Marta Hernandez on 05-15-2023 Bilirubin [Mass/Vol] 0.60 mg/dL 0.20-1.00 [facility] Comment on above: For patients on eltr ombopag therapy, use of Dimension [place] TBIL is not recommended. Chloride [Moles/Vol] 108 mmol/L 98-107 [facility] Cholesterol [Mass/Vol] 162 mg/dL <200 [facility] Comment on above: <200 mg/dL Desirable 200-240 mg/dL Borderline >240 mg/dL High Risk Glucose [Mass/Vol] 162 mg/dL 74-106 [facility] Comment on above: Fasting Glucose resu lt greater than or equal to 126 mg/dL suggests DIABETES MELLITUS per A.D.A. criteria. Potassium [Moles/Vol] 5.5 mmol/L 3.5-5.[address] [facility] Protein [Mass/Vol] 7.4 g/dL 6.4-8.2 [facility] Sodium [Moles/Vol] 135 mmol/L 136-145 [facility] Triglyceride [Mass/Vol] 286 mg/dL <199 [facility] Comment on above: The drugs N-Acetylcy steine and Metamizole may falsely depress this assay.Serum Triglycerides Reference Interval Normal <150 mg/dL Borderline high 150 - 199 mg/dL High 200 - 499 mg/dL Very High > or = 500 mg/dL Laboratory - Chemistry and C hemistry - challengeOrdered By: Marta Hernandez on 05-15-2023 Albumin/Globulin [Mass ratio] 1.1 {ratio} 0.9-2.4 [facility] ALP [Catalytic activity/Vol] 74 U/L 45-117 [facility] ALT [Catalytic activity/Vol] 54 U/L 16-61 [facility] Cholesterol in HDL [Mass/Vol] 26 mg/dL >40 [facility] Comment on above: The drugs N-Acetylcy steine and Metamizole may falsely depress this assay. Reference Range HDL <40 mg/dL Low HDL Cholesterol HDL >or= 60 mg/dL High HDL Cholesterol Cholesterol in LDL [Mass/Vol] 79 mg/dL 0-130 [facility] CO2 [Moles/Vol] 22.0 mmol/L 21.0-32.0 [facility] Globulin (S) [Mass/Vol] 3.6 g/dL 2.2-4.2 [facility] Urea nitrogen/Creatinine [Mass ratio] 19.0 mg/mg 10-20 [facility] No Panel InformationOrdered By: Marta Hernandez on 05-15-2023 Estimated GFR (MDRD) Amer 66 mL/min >60 [facility] Comment on above: GFR Calc Estimated GFR (MDRD) Non-Af Amer 55 mL/min >60 [facility] Comment on above: Non- GFR Calc Urine Microalbumin/Creatinine Ratio 31.5 mg/g CRE <30 [facility] VLDL Cholesterol 57 mg/dL 5-40 [facility] Serum or plasma calcium ramiro urement (mass/volume)Ordered By: Marta Hernandez on 05-15-2023 Calcium [Mass/Vol] 8.8 mg/dL 8.5-10.1 [facility] Serum or plasma creatinine m easurement (mass/volume)Ordered By: Marta Hernandez on 05-15-2023 Creatinine [Mass/Vol] 1.42 mg/dL 0.70-1.[address] [facility] Comment on above: The validity of the calculated GFR & GFRAA in patients over 70 years has not been determined. Clinical correlation is essential. Serum or plasma thyroid stim ulating hormone (TSH) measurement (units/volume)Ordered By: Marta Hernandez on 05-15-2023 TSH Qn 5.91 uIU/mL 0.358-3.74 [facility] Serum or plasma urea nitroge n measurement (mass/volume)Ordered By: Marta Hernandez on 05-15-2023 Urea nitrogen [Mass/Vol] 27 mg/dL 7-18 [facility] Thin prep Papanicolaou smear with manual screeningOrdered By: Marta Hernandez on 05-15-2023 Thin prep Papanicolaou smear with manual screening 3.8 g/dL 3.2-5.0 [facility] Thin prep Papanicolaou smear with manual screening 39 U/L 15-37 [facility] Thin prep Papanicolaou smear with manual screening 5 5-15 [facility] Thin prep Papanicolaou smear with manual screening 22.9 mg/L NO RANGE EST. [facility] Thin prep Papanicolaou smear with manual screening 1.05 ng/dL 0.76-1.46 [facility] Urine creatinine measurement (mass/volume)Ordered By: Marta Hernandez on 05-15-2023 Creatinine (U) [Mass/Vol] 72.60 mg/dL NO RANGE EST. [facility] Laboratory - Hematology and Cell countson 05-14-2023 HbA1c (Bld) [Mass fraction] 7.6 % 4.2-6.3 [facility] Basophil percentageOrdered B y: Marta Hernandez on 10-21-2022 Cholesterol [Mass/Vol] 230 mg/dL <200 [facility] Comment on above: <200 mg/dL Desirable 200-240 mg/dL Borderline >240 mg/dL High Risk Triglyceride [Mass/Vol] 498 mg/dL <199 [facility] Comment on above: The drugs N-Acetylcy steine and Metamizole may falsely depress this assay. TRIGLYCERIDE IS GREATER THAN 400 mg/dL. LDL RESULT IS INVALID AND WILL NOT BE REPORTED.Serum Triglycerides Reference Interval Normal <150 mg/dL Borderline high 150 - 199 mg/dL High 200 - 499 mg/dL Very High > or = 500 mg/dL Serum or plasma cholesterol in HDL measurement (mass/volume)Ordered By: Marta Hernandez on 10-21-2022 Cholesterol in HDL [Mass/Vol] 27 mg/dL >40 [facility] Comment on above: The drugs N-Acetylcy steine and Metamizole may falsely depress this assay. Reference Range HDL <40 mg/dL Low HDL Cholesterol HDL >or= 60 mg/dL High HDL Cholesterol Serum or plasma cholesterol in VLDL measurement (mass/volume)Ordered By: Marta Hernandez on 10-21-2022 Cholesterol in VLDL [Mass/Vol] [facility] Comment on above: Test not performed Serum or plasma low density lipoprotein (LDL) cholesterol measurement (mass/volume)Ordered By: Marta Hernandez on 10-21-2022 Cholesterol in LDL [Mass/Vol] [facility] Comment on above: Test not performed Laboratory - Hematology and Cell countson 08-13-2022 HbA1c (Bld) [Mass fraction] 8.3 % 4.2-6.3 [facility] Basophil percentageOrdered B y: Marta Hernandez on 04-14-2022 Bilirubin [Mass/Vol] 0.50 mg/dL 0.20-1.00 [facility] Comment on above: For patients on eltr ombopag therapy, use of Dimension [place] TBIL is not recommended. Chloride [Moles/Vol] 103 mmol/L 98-107 [facility] Cholesterol [Mass/Vol] 226 mg/dL <200 [facility] Comment on above: <200 mg/dL Desirable 200-240 mg/dL Borderline >240 mg/dL High Risk Glucose [Mass/Vol] 208 mg/dL 74-106 [facility] Comment on above: Glucose result great er than or equal to 200 mg/dLsuggests DIABETES MELLITUS per A.D.A. criteria. Potassium [Moles/Vol] 5.0 mmol/L 3.5-5.[address] [facility] Protein [Mass/Vol] 7.4 g/dL 6.4-8.2 [facility] Sodium [Moles/Vol] 136 mmol/L 136-145 [facility] Triglyceride [Mass/Vol] 394 mg/dL <199 [facility] Comment on above: The drugs N-Acetylcy steine and Metamizole may falsely depress this assay.Serum Triglycerides Reference Interval Normal <150 mg/dL Borderline high 150 - 199 mg/dL High 200 - 499 mg/dL Very High > or = 500 mg/dL Direct bilirubinOrdered By: Marta Hernandez on 04-14-2022 Bilirubin.direct [Mass/Vol] 0.16 mg/dL 0.00-0.30 [facility] Laboratory - Chemistry and C hemistry - challengeOrdered By: Marta Hernandez on 04-14-2022 ALP [Catalytic activity/Vol] 102 U/L 45-117 [facility] ALT [Catalytic activity/Vol] 71 U/L 16-61 [facility] CO2 [Moles/Vol] 26.0 mmol/L 21.0-32.0 [facility] Free T4 [Mass/Vol] 1.02 ng/dL 0.76-1.46 [facility] Globulin (S) [Mass/Vol] 3.5 g/dL 2.2-4.2 [facility] Urea nitrogen/Creatinine [Mass ratio] 27.4 mg/mg 10-20 [facility] No Panel InformationOrdered By: Marta Hernandez on 04-14-2022 Estimated GFR (MDRD) Amer 87 mL/min >60 [facility] Comment on above: GFR Calc Estimated GFR (MDRD) Non-Af Amer 72 mL/min >60 [facility] Comment on above: Non- GFR Calc Thyroid Stimulating Hormone (TSH) 3.79 uIU/mL 0.358-3.74 [facility] Urine Microalbumin/Creatinine Ratio 137.9 mg/g CRE <30 [facility] Serum or plasma albumin ramiro urement (mass/volume)Ordered By: Marta Hernandez on 04-14-2022 Albumin [Mass/Vol] 3.9 g/dL 3.2-5.0 [facility] Serum or plasma albumin/glob ulin mass ratioOrdered By: Marta Hernandez on 04-14-2022 Albumin/Globulin [Mass ratio] 1.1 {ratio} 0.9-2.4 [facility] Serum or plasma calcium ramiro urement (mass/volume)Ordered By: Marta Hernandez on 04-14-2022 Calcium [Mass/Vol] 9.7 mg/dL 8.5-10.1 [facility] Serum or plasma cholesterol in HDL measurement (mass/volume)Ordered By: Marta Hernandez on 04-14-2022 Cholesterol in HDL [Mass/Vol] 27 mg/dL >40 [facility] Comment on above: The drugs N-Acetylcy steine and Metamizole may falsely depress this assay. Reference Range HDL <40 mg/dL Low HDL Cholesterol HDL >or= 60 mg/dL High HDL Cholesterol Serum or plasma cholesterol in VLDL measurement (mass/volume)Ordered By: Marta Hernandez on 04-14-2022 Cholesterol in VLDL [Mass/Vol] 79 mg/dL 5-40 [facility] Serum or plasma creatinine m easurement (mass/volume)Ordered By: Marta Hernandez on 04-14-2022 Creatinine [Mass/Vol] 1.13 mg/dL 0.70-1.[address] [facility] Comment on above: The validity of the calculated GFR & GFRAA in patients over 70 years has not been determined. Clinical correlation is essential. Serum or plasma low density lipoprotein (LDL) cholesterol measurement (mass/volume)Ordered By: Marta Hernandez on 04-14-2022 Cholesterol in LDL [Mass/Vol] 120 mg/dL 0-130 [facility] Serum or plasma urea nitroge n measurement (mass/volume)Ordered By: Marta Hernandez on 04-14-2022 Urea nitrogen [Mass/Vol] 31 mg/dL 7-18 [facility] Thin prep Papanicolaou smear with manual screeningOrdered By: Marta Hernandez on 04-14-2022 Thin prep Papanicolaou smear with manual screening 39 U/L 15-37 [facility] Thin prep Papanicolaou smear with manual screening 7 5-15 [facility] Thin prep Papanicolaou smear with manual screening 119.0 mg/L NO RANGE EST. [facility] Urine creatinine measurement (mass/volume)Ordered By: Marta Hernandez on 04-14-2022 Creatinine (U) [Mass/Vol] 86.30 mg/dL NO RANGE EST. [facility] Whole blood hemoglobin A1c/t otal hemoglobin ratio (mass fraction)Ordered By: Marta Hernandez on 04-14-2022 HbA1c (Bld) [Mass fraction] 8.4 % 3.8-5.6 [facility] Comment on above: Normal < 5.7 % Predi abetic 5.7 - 6.4 % Diabetic >or= 6.5 % Please note range changes. Laboratory - Chemistry and C hemistry - challengeon 10-18-2021 Free T4 [Mass/Vol] 1.15 ng/dL 0.76-1.46 [facility] Work Phone: No Panel Informationon 10-18 Free Triiodothyronine (T3) pg/dL 3.2 pg/mL 2.18-3.98 [facility] Work Phone: Thyroid Stimulating Hormone (TSH) 5.52 uIU/mL 0.358-3.74 [facility] Work Phone: Basophil percentageon 2021 Chloride [Moles/Vol] 105 mmol/L 98-107 [facility] Work Phone: Glucose [Mass/Vol] 107 mg/dL 74-106 [facility] Work Phone: Comment on above: Fasting Glucose resu lt from 100 to 125 mg/dL suggests IMPAIRED HOMEOSTASIS per A.D.A. criteria. Potassium [Moles/Vol] 4.6 mmol/L 3.5-5.[address] [facility] Work Phone: Sodium [Moles/Vol] 136 mmol/L 136-145 [facility] Work Phone: Laboratory - Chemistry and C hemistry - challengeon 06-28-2021 CO2 [Moles/Vol] 23.0 mmol/L 21.0-32.0 [facility] Work Phone: Urea nitrogen/Creatinine [Mass ratio] 24.5 mg/mg - [facility] Work Phone: No Panel Informationon 06-28 Estimated GFR (MDRD) Amer 94 mL/min >60 [facility] Work Phone: Comment on above: GFR Calc Estimated GFR (MDRD) Non-Af Amer 77 mL/min >60 [facility] Work Phone: Comment on above: Non- GFR Calc Thyroid Stimulating Hormone (TSH) 6.25 uIU/mL 0.358-3.74 [facility] Work Phone: Serum or plasma calcium ramiro urement (mass/volume)on 06-28-2021 Calcium [Mass/Vol] 9.4 mg/dL 8.5-10.1 [facility] Work Phone: Serum or plasma creatinine m easurement (mass/volume)on 06-28-2021 Creatinine [Mass/Vol] 1.06 mg/dL 0.70-1.[address] [facility] Work Phone: Comment on above: The validity of the calculated GFR & GFRAA in patients over 70 years has not been determined. Clinical correlation is essential. Serum or plasma urea nitroge n measurement (mass/volume)on 06-28-2021 Urea nitrogen [Mass/Vol] 26 mg/dL 7-18 [facility] Work Phone: [phone] Thin prep Papanicolaou smear with manual screeningon 06-28-2021 Thin prep Papanicolaou smear with manual screening 8 5-15 [facility] Work Phone: [phone] Absolute lymphocyte counton 06-02-2021 Lymphocytes Auto (Unsp spec) [#/Vol] 2.16 10*3/uL 0.83-4.51 [facility] Work Phone: Basophil percentageon 2021 Basophils/100 WBC (Bld) 0.3 % 0-1 [facility] Work Phone: [phone] Chloride [Moles/Vol] 103 mmol/L 98-107 [facility] Work Phone: [phone] Eosinophils/100 WBC (Bld) 1.3 % 0-5 [facility] Work Phone: [phone] Glucose [Mass/Vol] 216 mg/dL 74-106 [facility] Work Phone: [phone] Comment on above: Glucose result great er than or equal to 200 mg/dLsuggests DIABETES MELLITUS per A.D.A. criteria. Neutrophils (Bld) [#/Vol] 8.0 10*3/uL 2.0-7.7 [facility] Work Phone: [phone] Neutrophils/100 WBC (Bld) 70.2 % 47-70 [facility] Work Phone: [phone] Potassium [Moles/Vol] 4.6 mmol/L 3.5-5.1 [facility] Work [facility]: [phone] Sodium [Moles/Vol] 135 mmol/L 136-145 [facility] Work Phone: [phone] WBC (Bld) [#/Vol] 11.4 10*3/uL 4.4-11.0 [facility]: Blood erythrocytes count (nu mber/volume)on 06-02-2021 RBC (Bld) [#/Vol] 5.26 10*6/uL 4.6-6.2 [facility] Work Phone: Blood hemoglobin measurement (mass/volume)on 06-02-2021 Hemoglobin (Bld) [Mass/Vol] 13.6 g/dL 13.0-16.5 [facility] Work Phone: Blood lymphocytes/100 leukoc yteson 06-02-2021 Lymphocytes/100 WBC (Bld) 19.0 % 19-41 [facility] Work Phone: Blood monocytes/100 leukocyt eson 06-02-2021 Monocytes/100 WBC (Bld) 7.9 % 0-10 [facility] Work Phone: Blood platelet mean volumeon 06-02-2021 Platelet mean volume (Bld) [Entitic vol] 9.6 fL 6.2-12.0 [facility] Work Phone: Determination of erythrocyte mean corpuscular volume (MCV)on 06-02-2021 MCV (RBC) [Entitic vol] 81.7 fL 80-94 [facility] Work Phone: Glucose Glucometer (BldC) [M ass/Vol]on 06-02-2021 Glucose [Mass/Vol] 150 mg/dL 74-106 [facility] Work Phone: Comment on above: MANAGEMENT OF PATIEN T CARE PER NURSING PROTOCOL Hematocrit Auto (Bld) [Volum e fraction]on 06-02-2021 Hematocrit (Bld) [Volume fraction] 43.0 % 40-54 [facility] Work Phone: Laboratory - Chemistry and C hemistry - challengeon 06-02-2021 CO2 [Moles/Vol] 26.0 mmol/L 21.0-32.0 [facility] Work Phone: Urea nitrogen/Creatinine [Mass ratio] 23.9 mg/mg 10-20 [facility] Work Phone: Laboratory - Hematology and Cell countson 06-02-2021 Erythrocyte distribution width (RBC) [Entitic vol] 40.9 fL 35.1-43.9 [facility] Work Phone: Erythrocyte distribution width (RBC) [Ratio] 13.7 % 11.6-14.6 [facility] Work Phone: Immature granulocytes/100 WBC (Bld) 1.300 % 0.0-0.9 [facility] Work Phone: Comment on above: IG% - Immature Granu locytes (promyelocytes, myelocytes and metamyelocytes) > 1% indicates that a LEFT SHIFT is Present. MCH (RBC) [Entitic mass] 25.9 pg 27.0-32.0 [facility] Work Phone: Nucleated RBC/100 WBC (Bld) [Ratio] 0 % 0-5 [facility] Work Phone: MCHC Auto (RBC) [Mass/Vol]on 06-02-2021 MCHC (RBC) [Mass/Vol] 31.6 g/dL 32-[address] [facility] Work Phone: No Panel Informationon 06-02 Troponin I High Sensitivity < 3 pg/mL 3.0-78.0 [facility] Work Phone: Comment on above: Please Note: [place] t Units and Gender Specific Reference Ranges. For more information see Policy Stat Procedure [place] High Sensitivity Troponin (TNIH) and attachments. D-Dimer Quantitative (PE/DVT) < 0.27 FEU/ug/m 0.27-0.49 [facility] Work Phone: Comment on above: NORMAL D-Dimer level (<0.50) indicates no DVT or PE. Estimated Creatinine Clearance Calc 65.13 ml/min [facility] Work Phone: Estimated GFR (MDRD) Amer 83 mL/min >60 [facility] Work Phone: Comment on above: GFR Calc Estimated GFR (MDRD) Non-Af Amer 69 mL/min >60 [facility] Work Phone: [phone] Comment on above: Non- GFR Calc Platelets bldon 06-02-2021 Platelets (Bld) [#/Vol] 448 10*3/uL 150-450 [facility] Work Phone: Serum or plasma calcium ramiro urement (mass/volume)on 06-02-2021 Calcium [Mass/Vol] 9.6 mg/dL 8.5-10.1 [facility] Work Phone: Serum or plasma creatinine m easurement (mass/volume)on 06-02-2021 Creatinine [Mass/Vol] 1.17 mg/dL 0.70-1.[address] [facility] Work Phone: Comment on above: The validity of the calculated GFR & GFRAA in patients over 70 years has not been determined. Clinical correlation is essential. Serum or plasma urea nitroge n measurement (mass/volume)on 06-02-2021 Urea nitrogen [Mass/Vol] 28 mg/dL 7-18 [facility] Work Phone: Thin prep Papanicolaou smear with manual screeningon 06-02-2021 Thin prep Papanicolaou smear with manual screening 6 5-15 [facility] Work Phone: Basophil percentageon 2021 Chloride [Moles/Vol] 107 mmol/L 98-107 [facility] Work Phone: Cholesterol [Mass/Vol] 166 mg/dL <200 [facility] Work Phone: Comment on above: <200 mg/dL Desirable 200-240 mg/dL Borderline >240 mg/dL High Risk Glucose [Mass/Vol] 110 mg/dL 74-106 [facility] Work Phone: Comment on above: Fasting Glucose resu lt from 100 to 125 mg/dL suggests IMPAIRED HOMEOSTASIS per A.D.A. criteria. Potassium [Moles/Vol] 4.3 mmol/L 3.5-5.[address] [facility] Work Phone: Sodium [Moles/Vol] 138 mmol/L 136-145 [facility] Work Phone: Triglyceride [Mass/Vol] 194 mg/dL [facility] Work Phone: Comment on above: The drugs N-Acetylcy steine and Metamizole may falsely depress this assay.Serum Triglycerides Reference Interval Normal <150 mg/dL Borderline high 150 - 199 mg/dL High 200 - 499 mg/dL Very High > or = 500 mg/dL Laboratory - Chemistry and C hemistry - challengeon 04-04-2021 CO2 [Moles/Vol] 24.0 mmol/L 21.0-32.0 [facility] Work Phone: Free T4 [Mass/Vol] 1.07 ng/dL 0.76-1.46 [facility] Work Phone: Urea nitrogen/Creatinine [Mass ratio] 24.0 mg/mg 10-20 [facility] Work Phone: No Panel Informationon 04-04 Estimated GFR (MDRD) Amer 100 mL/min >60 [facility] Work Phone: Comment on above: GFR Calc Estimated GFR (MDRD) Non-Af Amer 83 mL/min >60 [facility] Work Phone: Comment on above: Non- GFR Calc Free Triiodothyronine (T3) pg/dL 2.9 pg/mL 2.18-3.98 [facility] Work Phone: Thyroid Stimulating Hormone (TSH) 5.56 uIU/mL 0.358-3.74 [facility] Work Phone: Serum or plasma calcium ramiro urement (mass/volume)on 04-04-2021 Calcium [Mass/Vol] 8.8 mg/dL 8.5-10.1 [facility] Work Phone: Serum or plasma cholesterol in HDL measurement (mass/volume)on 04-04-2021 Cholesterol in HDL [Mass/Vol] 31 mg/dL [facility] Work Phone: Comment on above: The drugs N-Acetylcy steine and Metamizole may falsely depress this assay. Reference Range HDL <40 mg/dL Low HDL Cholesterol HDL >or= 60 mg/dL High HDL Cholesterol Serum or plasma cholesterol in VLDL measurement (mass/volume)on 04-04-2021 Cholesterol in VLDL [Mass/Vol] 39 mg/dL 5-40 [facility] Work Phone: Serum or plasma creatinine m easurement (mass/volume)on 04-04-2021 Creatinine [Mass/Vol] 1.00 mg/dL 0.70-1.[address] [facility] Work Phone: Comment on above: The validity of the calculated GFR & GFRAA in patients over 70 years has not been determined. Clinical correlation is essential. Serum or plasma low density lipoprotein (LDL) cholesterol measurement (mass/volume)on 04-04-2021 Cholesterol in LDL [Mass/Vol] 96 mg/dL 0-130 [facility] Work Phone: Serum or plasma urea nitroge n measurement (mass/volume)on 04-04-2021 Urea nitrogen [Mass/Vol] 24 mg/dL 7-18 [facility] Work Phone: Thin prep Papanicolaou smear with manual screeningon 04-04-2021 Thin prep Papanicolaou smear with manual screening 7 5-15 [facility] Work Phone: Vital Signs Date Time Vital Sign Value Performing Clinician Faci lity 08-05-2024 07:03-0400 Body height 167.[address] Mikey Rogers MD Work Phone: [facility] 08-05-2024 07:03-0400 Body mass index (BMI) [Ratio] 32.9 kg/m2 Dr. Mikey Rogers MD Work Phone: [facility] 08-05-2024 07:03-0400 Body weight 92.[address] Mikey Rogers MD Work Phone: [facility] 08-05-2024 07:03-0400 Diastolic blood pressure 80 mm[Hg] Dr. Mikey Rogers MD Work Phone: [facility] 08-05-2024 07:03-0400 Heart rate 70 /min Dr. Mikey Rogers MD Work Phone: [phone] [place] [address] 08-05-2024 07:03-0400 Respiratory rate 18 /min Dr. Mikey Rogers MD Work Phone: [phone] [place] [address] 08-05-2024 07:03-0400 SaO2% (BldA) [Mass fraction] 98 % Dr. Mikey Rogers MD Work Phone: [phone] [place] [address] 08-05-2024 07:03-0400 Systolic blood pressure 127 mm[Hg] Dr. Mikey Rogers MD Work Phone: [phone] [place] [address] 06-22-2024 09:36-0400 Body height 167.[address] Mikey Rogers MD Work Phone: 2(836)946-449323 [place] [address] 06-22-2024 09:36-0400 Body mass index (BMI) [Ratio] 33 kg/m2 Dr. Mikey Rogers MD Work Phone: 5(898)998-648523 [place] [address] 06-22-2024 09:36-0400 Body weight 92.[address] Mikey Rogers MD Work Phone: 1(034)096-506523 [place] [address] 06-22-2024 09:36-0400 Diastolic blood pressure 84 mm[Hg] Dr. Mikey Rogers MD Work Phone: 0(834)935-253323 [place] [address] 06-22-2024 09:36-0400 Heart rate 66 /min Dr. Mikey Rogers MD Work Phone: 0(732)131-348323 [place] [address] 06-22-2024 09:36-0400 SaO2% (BldA) [Mass fraction] 97 % Dr. Mikey Rogers MD Work Phone: 7(374)279-937523 [place] [address] 06-22-2024 09:36-0400 Systolic blood pressure 133 mm[Hg] Dr. Mikey Rogers MD Work Phone: 2(670)209-111023 [place] [address] 04-19-2024 07:36-0400 Body mass index (BMI) [Ratio] 33.5 kg/m2 Dr. Mikey Rogers MD Work Phone: [facility] 04-19-2024 07:36-0400 Body weight 94.[address] Mikey Rogers MD Work Phone: [facility] 04-19-2024 07:36-0400 Diastolic blood pressure 79 mm[Hg] Dr. Mikey Rogers MD Work Phone: 9(668)417-815123 [place] [address] 04-19-2024 07:36-0400 Heart rate 74 /min Dr. Mikey Rogers MD Work Phone: 8(544)909-540023 [place] [address] 04-19-2024 07:36-0400 Respiratory rate 18 /min Dr. Mikey Rogers MD Work Phone: 0(065)813-152923 [place] [address] 04-19-2024 07:36-0400 SaO2% (BldA) [Mass fraction] 97 % Dr. Mikey Rogers MD Work Phone: 5(932)599-029923 [place] [address] 04-19-2024 07:36-0400 Systolic blood pressure 123 mm[Hg] Dr. Mikey Rogers MD Work Phone: 0(862)977-193432 [place] [address] 03-28-2024 10:07-0500 Body mass index (BMI) [Ratio] 33.7 kg/m2 Dr. Mikey Rogers MD Work Phone: 3(822)097-711023 [place] [address] 03-28-2024 10:07-0500 Body weight 94.[address] Mikey Rogers MD Work Phone: 2(196)092-171223 [place] [address] 03-28-2024 10:07-0500 Diastolic blood pressure 68 mm[Hg] Dr. Mikey Rogers MD Work Phone: 3(973)587-554432 [place] [address] 03-28-2024 10:07-0500 Heart rate 73 /min Dr. Mikey Rogers MD Work Phone: 0(223)674-803123 [place] [address] 03-28-2024 10:07-0500 SaO2% (BldA) [Mass fraction] 96 % Dr. Mikey Rogers MD Work Phone: 4(389)925-228132 [place] [address] 03-28-2024 10:07-0500 Systolic blood pressure 110 mm[Hg] Dr. Mikey Rogers MD Work Phone: 3(247)121-598032 [place] [address] 05-19-2023 12:57-0400 Body height 167.[address] Mikey Rogers Work Phone: 6(025)943-780623 [place] [address] 05-19-2023 12:57-0400 Body mass index (BMI) [Ratio] 36.6 kg/m2 Dr. Mikey Rogers Work Phone: 5(976)145-438023 [place] [address] 05-19-2023 12:57-0400 Body weight 102.[address] Mikey Rogers Work Phone: 3(918)698-978823 [place] [address] 05-19-2023 12:57-0400 Diastolic blood pressure 68 mm[Hg] Dr. Mikey Rogers Work Phone: 9(718)486-457523 [place] [address] 05-19-2023 12:57-0400 Heart rate 82 /min Dr. Mikey Rogers Work Phone: 0(105)147-954823 [place] [address] 05-19-2023 12:57-0400 Respiratory rate 18 /min Dr. Mikey Rogers Work Phone: 3(495)452-043223 [place] [address] 05-19-2023 12:57-0400 SaO2% (BldA) [Mass fraction] 97 % Dr. Mikey Rogers Work Phone: 3(930)271-162523 [place] [address] 05-19-2023 12:57-0400 Systolic blood pressure 120 mm[Hg] Dr. Mikey Rogers Work Phone: 6(979)018-609723 [place] [address] 05-14-2023 08:22-0400 Body mass index (BMI) [Ratio] 36.9 kg/m2 Dr. Mikey Rogers Work Phone: [facility] 05-14-2023 08:22-0400 Body temperature 98.2 [degF] Dr. Mikey Rogers Work Phone: 1(597)558-910823 [place] [address] 05-14-2023 08:22-0400 Body weight 103.[address] Mikey Rogers Work Phone: 9(243)177-796691 [address] 05-14-2023 08:22-0400 Diastolic blood pressure 82 mm[Hg] Dr. Mikey Rogers Work Phone: 9(687)842-336732 [place] [address] 05-14-2023 08:22-0400 Heart rate 84 /min Dr. Mikey Rogers Work Phone: [facility] 05-14-2023 08:22-0400 Respiratory rate 16 /min Dr. Mikey Rogers Work Phone: [facility] 05-14-2023 08:22-0400 SaO2% (BldA) [Mass fraction] 97 % Dr. Mikey Rogers Work Phone: [facility] 05-14-2023 08:22-0400 Systolic blood pressure 134 mm[Hg] Dr. Mikey Rogers Work Phone: [facility] 02-11-2023 08:38-0500 Body mass index (BMI) [Ratio] 36.3 kg/m2 Dr. Mikey Rogers Work Phone: [facility] 02-11-2023 08:38-0500 Body temperature 98.9 [degF] Dr. Mikey Rogers Work Phone: [facility] 02-11-2023 08:38-0500 Body weight 102.[address] Mikey Rogers Work Phone: [facility] 02-11-2023 08:38-0500 Diastolic blood pressure 84 mm[Hg] Dr. Mikey Rogers Work Phone: [facility] 02-11-2023 08:38-0500 Heart rate 82 /min Dr. Mikey Rogers Work Phone: [facility] 02-11-2023 08:38-0500 Respiratory rate 16 /min Dr. Mikey Rogers Work Phone: [facility] 02-11-2023 08:38-0500 SaO2% (BldA) [Mass fraction] 97 % Dr. Mikey Rogers Work Phone: [facility] 02-11-2023 08:38-0500 Systolic blood pressure 156 mm[Hg] Dr. Mikey Rogers Work Phone: [facility] 10-21-2022 09:20-0400 Body height 167.[address] Mikey Rogers Work Phone: [facility] 10-21-2022 09:20-0400 Body mass index (BMI) [Ratio] 35.9 kg/m2 Dr. Mikey Rogers Work Phone: [facility] 10-21-2022 09:20-0400 Body weight 101.[address] Mikey Rogers Work Phone: [facility] 10-21-2022 09:20-0400 Diastolic blood pressure 80 mm[Hg] Dr. Mikey Rogers Work Phone: [facility] 10-21-2022 09:20-0400 Heart rate 80 /min Dr. Mikey Rogers Work Phone: [facility] 10-21-2022 09:20-0400 Respiratory rate 18 /min Dr. Mikey Rogers Work Phone: [facility] 10-21-2022 09:20-0400 SaO2% (BldA) [Mass fraction] 95 % Dr. Mikey Rogers Work Phone: [facility] 10-21-2022 09:20-0400 Systolic blood pressure 131 mm[Hg] Dr. Mikey Rogers Work Phone: [facility] 08-13-2022 09:06-0400 Body mass index (BMI) [Ratio] 36 kg/m2 Dr. Mikey Rogers Work Phone: [facility] 08-13-2022 09:06-0400 Body temperature 98.2 [degF] Dr. Mikey Rogers Work Phone: [facility] 08-13-2022 09:06-0400 Body weight 101.[address] Mikey Rogers Work Phone: [facility] 08-13-2022 09:06-0400 Diastolic blood pressure 80 mm[Hg] Dr. Mikey Rogers Work Phone: [facility] 08-13-2022 09:06-0400 Heart rate 70 /min Dr. Mikey Rogers Work Phone: [facility] 08-13-2022 09:06-0400 Respiratory rate 16 /min Dr. Mikey Rogers Work Phone: [facility] 08-13-2022 09:06-0400 SaO2% (BldA) [Mass fraction] 97 % Dr. Mikey Rogers Work Phone: [facility] 08-13-2022 09:06-0400 Systolic blood pressure 130 mm[Hg] Dr. Mikey Rogers Work Phone: [facility] 04-14-2022 08:49-0500 Body height 167.[address] Mikey Rogers Work Phone: 2(750)252-952832 [place] [address] 04-14-2022 08:49-0500 Body mass index (BMI) [Ratio] 36.3 kg/m2 Dr. Mikey Rogers Work Phone: [facility] 04-14-2022 08:49-0500 Body temperature 96.5 [degF] Dr. Mikey Rogers Work Phone: [facility] 04-14-2022 08:49-0500 Body weight 102.[address] Mikey Rogers Work Phone: [facility] 04-14-2022 08:49-0500 Diastolic blood pressure 82 mm[Hg] Dr. Mikey Rogers Work Phone: [facility] 04-14-2022 08:49-0500 Heart rate 77 /min Dr. Mikey Rogers Work Phone: [facility] 04-14-2022 08:49-0500 Respiratory rate 18 /min Dr. Mikey Rogers Work Phone: [facility] 04-14-2022 08:49-0500 SaO2% (BldA) [Mass fraction] 97 % Dr. Mikey Rogers Work Phone: [facility] 04-14-2022 08:49-0500 Systolic blood pressure 149 mm[Hg] Dr. Mikey Rogers Work Phone: [facility] 01-22-2022 08:36-0500 Body mass index (BMI) [Ratio] 36.5 kg/m2 Dr. Mikey Rogers Work Phone: [facility] 01-22-2022 08:36-0500 Diastolic blood pressure 94 mm[Hg] Dr. Mikey Rogers Work Phone: [facility] 01-22-2022 08:36-0500 Systolic blood pressure 150 mm[Hg] Dr. Mikey Rogers Work Phone: [facility] 01-22-2022 08:31-0500 Body temperature 97.3 [degF] Dr. Mikey Rogers Work Phone: [facility] 01-22-2022 08:31-0500 Body weight 102.[address] Mikey Rogers Work Phone: [facility] 01-22-2022 08:31-0500 Heart rate 80 /min Dr. Mikey Rogers Work Phone: [facility] 01-22-2022 08:31-0500 Respiratory rate 20 /min Dr. Mikey Rogers Work Phone: [facility] 01-22-2022 08:31-0500 SaO2% (BldA) [Mass fraction] 96 % Dr. Mikey Rogers Work Phone: [facility] 06-02-2021 13:19-0400 Diastolic blood pressure 71 mm[Hg] Dr. Mikey Rogers Work Phone: [facility] Work Phone: 06-02-2021 13:19-0400 Heart rate 74 /min Dr. Mikey Rogers Work Phone: [facility] Work Phone: 06-02-2021 13:19-0400 Respiratory rate 16 /min Dr. Mikey Rogers Work Phone: [facility] Work Phone: 06-02-2021 13:19-0400 SaO2% (BldA) [Mass fraction] 97 % Dr. Mikey Rogers Work Phone: [facility] Work Phone: 06-02-2021 13:19-0400 Systolic blood pressure 113 mm[Hg] Dr. Mikey Rogers Work Phone: [facility] Work Phone: 06-02-2021 10:23-0400 Body height 167.[address] Mikey Rogers Work Phone: [facility] Work Phone: 06-02-2021 10:23-0400 Body mass index (BMI) [Ratio] 37.6 kg/m2 Dr. Mikey Rogers Work Phone: [facility] Work Phone: 06-02-2021 10:23-0400 Body temperature 98.6 [degF] Dr. Mikey Rogers Work Phone: [facility] Work Phone: 06-02-2021 10:23-0400 Body weight 105.[address] Mikey Rogers Work Phone: [facility] Work Phone: 04-02-2021 08:08-0500 Body mass index (BMI) [Ratio] 36.3 kg/m2 Dr. Mikey Rogers Work Phone: [facility] Work Phone: 04-02-2021 08:08-0500 Body weight 102.[address] Mikey Rogers Work Phone: [facility] Work Phone: 04-02-2021 08:08-0500 Diastolic blood pressure 88 mm[Hg] Dr. Mikey Rogers Work Phone: [facility] Work Phone: 04-02-2021 08:08-0500 Heart rate 88 /min Dr. Mikey Rogers Work Phone: [facility] Work Phone: 04-02-2021 08:08-0500 Respiratory rate 16 /min Dr. Mikey Rogers Work Phone: [facility] Work Phone: 04-02-2021 08:08-0500 Systolic blood pressure 132 mm[Hg] Dr. Mikey Rogers Work Phone: [facility] Work Phone: Encounters Encounter Date Encounter Type Care Provider Facility Start: 09-01-2024 ambulatory Delisa Banerjee CLINICAL FELLOW Facili ty:[facility] Start: 08-05-2024 End: 08-05-2024 Patient encounter procedure Delisa Banerjee CLINICAL FELLOW-C -[facility] Work Phone: Start: 08-05-2024 End: 08-05-[address] Mikey Rogers MD Work Phone: [facility] Work Phone: Start: 06-22-2024 End: 06-22-2024 Patient encounter procedure Marta Hernandez CLINICAL FELLOW-C -[facility] Work Phone: Start: 06-22-2024 End: 06-22-[address] Mikey Rogers MD Work Phone: [facility] Work Phone: Start: 05-03-2024 ambulatory Mikey Rogers Facility:[facility] Start: 04-19-2024 End: 04-19-2024 Patient encounter procedure Katy Chavez [place] -[facility] Work Phone: Start: 04-19-2024 End: 04-19-2024 ambulatory Mikey Rogers Facility:[facility] Start: 03-29-2024 End: 03-29-2024 Patient encounter procedure Marta Hernandez CLINICAL FELLOW-C -Laboratory Work Phone: Start: 03-28-2024 End: 03-28-2024 Patient encounter procedure Marta Hernandez CLINICAL FELLOW-C -[facility] Work Phone: Start: 03-28-2024 End: 03-29-2024 ambulatory Marta Hernandez Facility:[facility] Start: 12-10-2023 End: 12-10-2023 ambulatory Marta [place] Facility:[facility] Start: 10-21-2023 End: 10-21-2023 ambulatory Delisa Banerjee NP Facility:[facility] Start: 06-03-2023 End: 06-03-[address] Mikey Rogers Work Phone: [facility] Work Phone: Start: 06-03-2023 End: 06-03-[address] [facility] Start: 05-19-2023 End: 05-19-[address] Mikey Rogers Work Phone: [facility] Work Phone: Start: 05-15-2023 End: 05-15-[address] Mikey Rogers Work Phone: [facility] Work Phone: Start: 05-15-2023 End: 05-15-[address] [facility] Start: 05-14-2023 End: 05-14-[address] Mikey Rogers Work Phone: [facility] Work Phone: Start: 02-11-2023 End: 02-11-[address] Mikey Rogers Work Phone: [facility] Work Phone: Start: 10-21-2022 End: 10-21-[address] Mikey Rogers Work Phone: [facility] Work Phone: Start: 10-21-2022 End: 10-21-[address] Mikey Rogers Work Phone: [facility] Work Phone: Start: 08-13-2022 End: 08-13-[address] Mikey Rogers Work Phone: [facility] Work Phone: Start: 04-14-2022 End: 04-14-[address] Mikey Rogers Work Phone: [facility] Work Phone: Start: 04-14-2022 End: 04-14-[address] Mikey Rogers Work Phone: [facility] Start: 04-14-2022 End: 04-14-[address] Mikey Rogers Work Phone: [facility] Start: 01-22-2022 End: 01-22-[address] Mikey Rogers Work Phone: [facility] Start: 10-18-2021 End: 10-18-2021 ambulatory [facility] Work Phone: Start: 10-18-2021 End: 10-18-2021 Patient encounter procedure [facility] Start: 06-28-2021 End: 06-28-[address] Mikey Rogers Work Phone: [facility] Start: 06-02-2021 End: 06-02-2021 Emergency department patient visit Dr. Mikey Rogers [facility] Start: 04-04-2021 End: 04-04-[address] Mikey Rogers Work Phone: [facility] Start: 04-02-2021 End: 04-02-[address] Mikey Rogers Work Phone: [facility] Procedures Date Procedure Procedure Detail Performing Clinician Start: 03-29-2024 Measurement of renal function Dr. Mikey Rogers MD Work Phone: Comment on above: GFR Calc Start: 03-29-[address] Mikey Rogers MD Work Phone: Start: 03-29-2024 Urine microalbumin/creatinine ratio measurement Dr. Mikey Rogers MD Work Phone: Start: 03-29-2024 Vitamin D, 25-hydrox y measurement Dr. Mikey Rogers MD Work Phone: Comment on above: Vitamin D 25(OH) Sta tus Range Deficiency <20 ng/mL (50nmol/L) Insufficiency 20 - 30 ng/mL (50 - 75 nmol/L) Sufficiency 30 - 100 ng/mL (75 - 250 nmol/L) Toxicity >100 ng/mL (>250 nmol/L) Start: 06-02-2021 Plain chest X-ray Dr. Maida Rogers Work Phone: Start: 09-15-2017 History of placement of stent for coronary artery disease History of coronary artery stent placement Katy KOCH Comment on above: 08/18/16: JOSEPH to LCX, FFR to OM1 (0.97=neg); 08/04/17: JOSEPH to RCA; 09/15/17: JOSEPH to first OM (Synergy MR 2.75 X 20 mm), POBA to mid Cx Plan of Treatment Date Care Activity Detail Author Patient Education Hypertension [facility] Work Phone: Patient referral [facility] Work Phone: Radionuclide imaging of perfusion of myocardium under exercise stress [facility] Radionuclide imaging of perfusion of myocardium under exercise stress [facility] Immunizations Immunization Date Immunization Notes Care Provider Fa [facility] 12-10-[address] Mikey Rogers Work Phone: [facility] Payers Date Payer Category Payer Self-pay [id number] 2020 Unknown [id number] Unknown [id number] Unknown [id number] 2.16.8 [id number] Unknown [id number] 2.16.8 [id number] Unknown [id number] 2.16.8 [id number] Unknown [id number] 2.16.8 [id number] Unknown [id number] 2.16.8 [id number] Unknown [id number] 2.16.8 [id number] Unknown [id number] 2.16.8 [id number] Unknown [id number] 2.16.8 [id number] Unknown [id number] 2.16.8 [id number] Social History Date Type Detail Facility Start: 06-02-2021 End: 05-19-2023 Tobacco smoking status PAIS Unknown if ever smoked [facility] Start: 03-22-[address] [facility] Start: 03-22-[address] [facility] Start: 1965 Sex Assigned At Male [facility] Start: 10-19-[address] [facility] Start: 05-19-2023 Tobacco smoking stat us PAIS Ex-smoker (finding) [facility] Mental Status Date Assessment Result Facility 06-02-2021 Cognitive function Level Of Cons ciousness Awake;Alert;Appropriate;Follow s Commands [facility] Work Phone: Evaluation note 04-19-2024 Note Date & Type Note Facility 04-19-2024 Evaluation note Diagnosis Onset Date Resolution Atherosclerosis of coronary artery of [place] heart without angina pectoris chronic April 19, 2024 8:10am Essential hypertension chronic April 19, 2024 8:10am Mixed hyperlipidemia chronic Eloy 2024 8:10am History of coronary artery stent placement September 15, 2017 resolved April 19, 2024 8:10am CKD (chronic kidney disease) stage 2, GFR 60-89 ml/min chronic June 22, 2024 9:29am Diabetes mellitus, type II chronic June 22, 2024 9:29am Elevated triglycerides with high cholesterol chronic June 22, 2024 9:29am Essential hypertension chronic June 22, 2024 9:29am Hypothyroidism chronic June 22, 2024 9:29am Microalbuminuria chronic June 9:29am Obesity (BMI 30-39.9) chronic June 22, 2024 9:29am Chest heaviness acute July 7:51am Atherosclerosis of coronary artery of [place] heart without angina pectoris chronic August 05, 2024 7:51am Essential hypertension chronic August 05, 2024 7:51am Mixed hyperlipidemia chronic August 05, 2024 7:51am History of coronary artery stent placement September 15, 2017 resolved August 05, 2024 7:51am [employer] Work Phone: Evaluation note 03-28-2024 Note Date & Type Note Facility 03-28-2024 Evaluation note Diagnosis Onset Date Resolution CKD (chronic kidney disease) stage 2, GFR 60-89 ml/min chronic March 28, 2024 9:53am Diabetes mellitus, type II chronic March 28, 2024 9:53am Essential hypertension chronic March 28, 2024 9:53am Hypothyroidism chronic March 122024 9:53am Microalbuminuria chronic March 28, 2024 9:53am Mixed hyperlipidemia chronic Febr uary 2024 9:53am Obesity (BMI 30-39.9) chronic Feb ruary 2024 9:53am Atherosclerosis of coronary artery of [place] heart without angina pectoris chronic April 19, 2024 8:10am Essential hypertension chronic April 19, 2024 8:10am Mixed hyperlipidemia chronic Eloy 2024 8:10am History of coronary artery stent placement September 15, 2017 resolved April 19, 2024 8:10am [employer] Work Phone: Evaluation note Note Date & Type Note Facility Evaluation note Diagnosis Onset Date Atherosclerosis of coronary artery of [place] heart without angina pectoris chronic Essential hypertension chron ic Mixed hyperlipidemia chronic Palpitations chronic History of coronary artery stent placement September 15, 2017 [facility] Work Phone: Evaluation note Note Date & Type Note Facility Evaluation note No assessment information availa [facility] Work Phone: Evaluation note Note Date & Type Note Facility Evaluation note Diagnosis Onset Date Diabetes mellitus, type II c hronic Essential hypertension chron ic Hypothyroidism chronic Mixed hyperlipidemia chronic Obesity (BMI 30-39.9) chroni c Anxiety chronic Diabetes mellitus, type II c hronic Elevated triglycerides with high cholesterol chronic Essential hypertension chron ic Hypothyroidism chronic Obesity (BMI 30-39.9) chroni c [facility] Work Phone: Evaluation note Note Date & Type Note Facility Evaluation note Diagnosis Onset Date Microalbuminuria acute CKD (chronic kidney disease) stage 2, GFR 60-89 ml/min chronic Diabetes mellitus, type II c hronic Mixed hyperlipidemia chronic Atherosclerosis of coronary artery of [place] heart without angina pectoris chronic Essential hypertension chron ic Mixed hyperlipidemia chronic Palpitations [facility] Work Phone: Evaluation note Note Date & Type Note Facility Evaluation note Diagnosis Onset Date Near syncope acute Diabetes mellitus, type II c hronic Elevated triglycerides with high cholesterol chronic Essential hypertension chron ic Hypothyroidism chronic Obesity (BMI 30-39.9) chroni c CKD (chronic kidney disease) stage 2, GFR 60-89 ml/min chronic Diabetes mellitus, type II c hronic Essential hypertension chron ic Hypothyroidism chronic Microalbuminuria chronic Mixed hyperlipidemia chronic Obesity (BMI 30-39.9) chroni c Atherosclerosis of coronary artery of [place] heart without angina pectoris chronic Essential hypertension chron ic Mixed hyperlipidemia chronic Palpitations [facility] Work Phone: Reason for referral (narrative) Note Date & Type Note Facility Reason for referral (narrative) No reason for referral information available [facility] Work Phone: Chief Complaint and Reason for Visit Chief Complaint 6 M FU LIGHTHEADED, DIAPHORETIC Reason for Visit Atherosclerosis of c oronary artery of [place] heart without angina pectoris Essential hypertension Mixed hyperlipidemia Palpitations History of coronary artery stent placement Chief Complaint 6 wk FU 3 M FU INT LABS Reason for Visit Diabetes mellitus, t ype II Essential hypertension Hypothyroidism Mixed hyperlipidemia Obesity (BMI 30-39.9) Anxiety Diabetes mellitus, type II Elevated triglycerides with high cholesterol Essential hypertension Hypothyroidism Obesity (BMI 30-39.9) Chief Complaint 3 M FU E ORDER 1 Y FU Reason for Visit Microalbuminuria CKD (chronic kidney disease) stage 2, GFR 60-89 ml/min Diabetes mellitus, type II Mixed hyperlipidemia Atherosclerosis of coronary artery of [place] heart without angina pectoris Essential hypertension Mixed hyperlipidemia Palpitations Chief Complaint 3 M FU 3 M FU E ORDERS 6 M FU Reason for Visit Near syncope Diabetes mellitus, type II Elevated triglycerides with high cholesterol Essential hypertension Hypothyroidism Obesity (BMI 30-39.9) CKD (chronic kidney disease) stage 2, GFR 60-89 ml/min Diabetes mellitus, type II Essential hypertension Hypothyroidism Microalbuminuria Mixed hyperlipidemia Obesity (BMI 30-39.9) Atherosclerosis of coronary artery of [place] heart without angina pectoris Essential hypertension Mixed hyperlipidemia Palpitations Chief Complaint 3 M FU 3 M FU E ORDERS 6 M FU INT LABS Reason for Visit Near syncope Diabetes mellitus, type II Elevated triglycerides with high cholesterol Essential hypertension Hypothyroidism Obesity (BMI 30-39.9) CKD (chronic kidney disease) stage 2, GFR 60-89 ml/min Diabetes mellitus, type II Essential hypertension Hypothyroidism Microalbuminuria Mixed hyperlipidemia Obesity (BMI 30-39.9) Atherosclerosis of coronary artery of [place] heart without angina pectoris Essential hypertension Mixed hyperlipidemia Palpitations Chief Complaint Admit Date 4 M FU, RS 02/28March 28, 2024 9:53am INT LABS March 29, 2024 8:16am 6 M FU April 19, 2024 8:1 0am 3 M FU June 22, 2024 9:29a m Reason for Visit Admit Date CKD (chronic kidney disease) stage 2, GF R 60-89 ml/min March 28, 2024 9:53am Diabetes mellitus, type II March 9:53am Essential hypertension March 28 9:53am Hypothyroidism March 28, 2024 9:53am Microalbuminuria March 28, 2024 9:53am Mixed hyperlipidemia March 28, 2024 9:53am Obesity (BMI 30-39.9) March 28 9:53am Atherosclerosis of coronary artery of [place] heart without angina pectoris April 19, 2024 8:10am Essential hypertension April 19, 2024 8:10am Mixed hyperlipidemia April 19, 2024 8: 10am History of coronary artery stent placeme nt April 19, 2024 8:10am Chief Complaint Admit Date 6 M FU April 19, 2024 8:1 0am 3 M FU June 22, 2024 9:29a m 3 M FU August 05, 2024 7:51 am Reason for Visit Admit Date Atherosclerosis of coronary artery of [place] heart without angina pectoris April 19, 2024 8:10am Essential hypertension April 19, 2024 8:10am Mixed hyperlipidemia April 19, 2024 8: 10am History of coronary artery stent placeme nt April 19, 2024 8:10am CKD (chronic kidney disease) stage 2, GF R 60-89 ml/min June 22, 2024 9:29am Diabetes mellitus, type II June 22 9:29am Elevated triglycerides with high cholest harika June 22, 2024 9:29am Essential hypertension June 22, 2024 9: 29am Hypothyroidism June 22, 2024 9:29a m Microalbuminuria June 22, 2024 9:29a m Obesity (BMI 30-39.9) June 22, 2024 9:2 9am Chest heaviness August 05, 2024 7:51 am Atherosclerosis of coronary artery of [place] heart without angina pectoris August 05, 2024 7:51am Essential hypertension August 05, 2024 7 :51am Mixed hyperlipidemia August 05, 2024 7:5 1am History of coronary artery stent placeme nt August 05, 2024 7:51am Family History No Family History Records Found Relationship Condition Age at Onset Recorded Date/T papo mother Cardiac disease Unknown brother Hypertension Unknown Relationship Condition Age at Onset Recorded Date/T papo Not Specified Diabetes mellitus Unknown Angina at rest Unknown Anxiety Unknown Estradiol deficiency Unknown Myocardial infarction Unknown Seizure Unknown Venous thrombosis Unknown mother Cardiac disease Unknown brother Hypertension Unknown Advance Directives No Advanced Directives Records Found Advance Directive Response Recorded Date/ Time Advance Directives No June 15, 2013 11:00pm Living Will Yes June 02, 2021 10:27am Power of Antisubmarine Weapons Officer Yes June 02 10:27am Advance Directive Response Recorded Date/ Time Advance Directives No June 15, 2013 10:00pm Living Will Yes June 02, 2021 9:27am Power of Antisubmarine Weapons Officer Yes June 02 9:27am Advance Directive Response Recorded Date/ Time Living Will Yes June 02, 2021 10:27am Do you have a Healthcare Power of Antisubmarine Weapons Officer? Yes Krista 24th, 2022 10:27am Advance Directives No June 15, 2013 11:00pm Summary Purpose Additional Source Comments Goals (unrecognized section and content) Goals may be documented in a n alternate sectionGoals may be documented in an alternate sectionGoals may be documented in an alternate sectionGoals may be documented in an alternate sectionGoals may be documented in an alternate sectionGoals may be documented in an alternate sectionGoals may be documented in an alternate sectionGoals may be documented in an alternate section Care Teams (unrecognized sec tion and content) Team Status: Active Member Role Status Dates Dr. Mikey Rogers MD Family Provider Active Dr. Mikey Rogers MD Primary Care Provider Active Team Status: Inactive Member Role Status Dates Dr. Mikey Rogers MD Primary Care Provider, Referring Provider Active TYREL Murray Attending Provider Active Team Status: Inactive Member Role Status Dates Dr. Mikey Rogers MD Primary Care Provider Active TYREL Murray Attending Provider, Referring Pr ovider Active Team Status: Inactive Member Role Status Dates Dr. Mikey Rogers MD Primary Care Provider, Referring Provider Active Alex Nielsen CLINICAL FELLOW, CLINICAL FELLOW-C Attending Provider Active Team Status: Inactive Member Role Status Dates Dr. Mikey Rogers MD Primary Care Provider, Referring Provider Active Delisa Banerjee CLINICAL FELLOW, CLINICAL FELLOW-C Attending Provider Active Team Status: Inactive Member Role Status Dates Dr. Mikey Rogers MD Primary Care Provider Active Dr. Martin Castellanos MD Attending Provider, Referring Provi amelia Active Team Status: Active Member Role Status Dates Dr. Mikey Rogers MD Primary Care Provider Active Team Status: Inactive Member Role Status Dates Dr. Mikey Rogers MD Primary Care Provider Active Start: March 28, 2024 End: March 28, 2024 Dr. Mikey Rogers MD Referring Provider Active Start: March 28, 2024 End: March 28, 2024 TYREL Murray Attending Provider Active Start: March 28, 2024 End: March 28, 2024 Team Status: Inactive Member Role Status Dates Dr. Mikey Rogers MD Primary Care Provider Active Start: March 29, 2024 End: March 29, 2024 TYREL Murray Attending Provider Active Start: March 29, 2024 End: March 29, 2024 TYREL Murray Referring Provider Active Start: March 29, 2024 End: March 29, 2024 Team Status: Inactive Member Role Status Dates Dr. Mikey Rogers MD Primary Care Provider Active Start: April 19, 2024 End: April 19, 2024 Dr. Mikey Rogers MD Referring Provider Active Start: April 19, 2024 End: April 19, 2024 Katy KOCH, [place] Attending Provider Active Start: April 19, 2024 End: April 19, 2024 Team Status: Inactive Member Role Status Dates Dr. Mikey Rogers MD Primary Care Provider Active Start: June 22, 2024 End: June 22, 2024 Dr. Mikey Rogers MD Referring Provider Active Start: June 22, 2024 End: June 22, 2024 TYREL Murray Attending Provider Active Start: June 22, 2024 End: June 22, 2024 Team Status: Inactive Member Role Status Dates Dr. Mikey Rogers MD Primary Care Provider Active Start: August 05, 2024 End: August 05, 2024 Dr. Mikey Rogers MD Referring Provider Active Start: August 05, 2024 End: August 05, 2024 Delisa Banerjee NP, CLINICAL FELLOW-C Attending Provider Active Start: August 05, 2024 End: August 05, 2024 (unrecognized sect ion and content) No Status Records Found INFORMATION SOURCE (unrecogn ized section and content) DATE CREATED AUTHOR 08/24/2024 [facility] FOR RECORDS PERTAINING TO PATIENTS WHO ARE OR HAVE BEEN ENROLLED IN A CHEMICAL DEPENDENCY/SUBSTANCEABUSE PROGRAM, SOME INFORMATION MAY BE OMITTED. This clinical summary was aggregated from multiple sources. Caution should be exercised in using it in the provision of clinical care. This summary normalizes information from multiple sources, and as a consequence, information in this document may materially change the coding, format and clinical context of patient data. In addition, data may be omitted in some cases. CLINICAL DECISIONS SHOULD BE BASED ON THE PRIMARY CLINICAL RECORDS. [employer] provides no warranty or guarantee of the accuracy or completeness of information in this document.
--- NOTE | 2024-09-05 13:54 | STRESSREP ---
Stress Test Report Date: 09/01/2024 Procedure: Pharmacologic stress nuclear imaging study Indications: Coronary artery disease Consent: Per the patient Procedure: Patient initially tried to walk on a treadmill for an exercise stress Myoview however he failed to achieve target heart rate with exercise. Subsequently this test was changed to Lexiscan stress Myoview. Please see separate report for exercise test. The patient underwent pharmacologic (Regadenoson 0.4mg ) evaluation with a peak heart rate of 97 beats per minute (59%predicted maximal heart rate) and a peak blood pressure of 142/70 mmHg. The baseline ECG demonstrated sinus rhythm. The peak pharmacologic ECG did not show any ischemic changes. There were no cardiac dysrhythmias pretest, during pharmacologic infusion, or recovery. No chest pain reported during pharmacologic infusion or recovery however he did complain of left arm burning. The patient was injected with 13.1 millicuries of technetium 99m Cardiolite and subsequently rest SPECT Cardiolite nuclear imaging was obtained in the horizontal long, vertical long, and short axis views. The patient underwent pharmacologic (Regadenoson) evaluation. The patient was injected with 39.2 millicuries of technetium 99m Cardiolite and subsequently stress SPECT Cardiolite nuclear imaging was obtained in the horizontal long, vertical long, and short axis views. A gated Cardiolite study at peak stress was obtained. The examination was stopped secondary to completion of protocol. Rest and stress SPECT Cardiolite nuclear imaging status post realignment, normalization, and attenuation correction demonstrate no fixed or reversible perfusion defects. There is end systolic thickening and brightening. The gated Cardiolite study demonstrates myocardial thickening and inward wall motion. The reported LVEF is 75%. Impression: 1. Pharmacologic (Regadenoson) evaluation 2. Peak pharmacologic ECG with no diagnostic ischemic changes. 3. There were no cardiac dysrhythmias pretest, during pharmacologic infusion, or recovery. 5. Rest and stress SPECT Cardiolite nuclear imaging demonstrate relative uniform tracer uptake and myocardial perfusion appearing within normal limits. 6. The gated Cardiolite study reports an LVEF of 73%. This note was generated with [employer] software. It may contain incorrect words, spelling, and punctuation that were not noted in checking the note before signing.
--- NOTE | 2024-09-05 13:57 | STRESSREP ---
Stress Test Report Date: 09/01/2024 Procedure: Exercise tolerance test Indications: Coronary artery disease Consent: Per the patient Procedure: The patient exercised on a Jose C protocol for 7 minutes and 27 seconds achieving a peak heart rate of 112 bpm (68% predicted maximal heart rate) with a peak blood pressure 180/78 mmHg and a peak MET capacity of approximately 10.4 MET's. The baseline ECG demonstrated sinus rhythm. The peak exercise ECG did not show any ischemic changes. There were no cardiac dysrhythmias pretest, during exercise, or recovery. The functional capacity was considered very good. The patient had no complaints of chest discomfort during exercise or recovery. The examination was discontinued secondary to hip pain. Impression: 1. Unable to achieve target heart rate. 68% maximum predicted heart rate achieved. Test was therefore changed to pharmacological stress Myoview. Please see separate report for that. 2. Peak exercise ECG with no ischemic changes. Adequate blood pressure response to exercise. 3. There were no cardiac dysrhythmias during exercise or recovery This note was generated with [employer] software. It may contain incorrect words, spelling, and punctuation that were not noted in checking the note before signing.
== END | disposition home or self-care (01) ==
PROVIDERS: PCP Family Medicine; Referring Provider Nurse Practitioner Gerontology; Visit Provider Nurse Practitioner Gerontology
DX: R07.9 Chest pain, unspecified (principal)
CPT/HCPCS: 78452; 93017; A9500; A4216; J2785